=== PATIENT | male | born 1965 | race Caucasian/White ===

== ENCOUNTER 2020-08-27 17:03 | Inpatient (IN) | payer OTHER ==
[2020-08-27] MEDS ORDERED: SODIUM CHLORIDE 0.9% 1,000 ML IV STA (17:13)
--- NOTE | 2020-08-27 17:15 | ED ---
General Adult HPI - General Chief complaint: Shortness of Breath Stated complaint: SOB Time Seen by Provider: 08/27/20 17:08 Source: EMS Mode of arrival: EMS Limitations: altered mental status - History of Present Illness Initial comments: Dictation was produced using [employer] dictation software. please excuse any grammatical, word or spelling errors. Chief Complaint: 55-year-old obese male presents with EMS for lethargy History of Present Illness: 35-year-old male presents to the emergency department by EMS from home. Patient was brought in for lethargy dyspnea. EMS reports the patient hypoxic. EMS reports that patient looks like he has pickwickian syndrome. His hypoxic in the 70s and 80s was placed on noninvasive ventilation. They report her sugar was 137. Patient unable to provide history of present illness at this time secondary lethargy. The ROS documented in this emergency department record has been reviewed and confirmed by me. Those systems with pertinent positive or negative responses have been documented in the HPI. All other systems are other negative and/or noncontributory. PHYSICAL EXAM: General Impression: Alert and oriented x3, lethargic however will respond with painful stimuli, arousable, pale, morbidly obese HEENT: Normocephalic atraumatic, extra-ocular movements intact, pupils equal and reactive to light bilaterally, dry mucous membranes Cardiovascular: Tachycardic Chest: Unable to hear breath sounds secondary to body habitus Abdomen: abdomen soft, non-tender, non-distended, no organomegaly Musculoskeletal: Pulses present and equal in all extremities, lymphedema changes to the bilateral lower extremities Motor: no focal deficits noted Neurological: CN II-XII grossly intact, no focal motor or sensory deficits noted Skin: Intact with no visualized rashes ED course: 55-year-old male brought in for lethargy and hypoxia. Vital signs upon arrival shows heart rate of 109, respiratory rate of 32, 86% on CPAP. She was immediately placed on BiPAP. CBC is unremarkable. Coag panel shows INR 3.2. Patient is a Q-wave for DVT. D-dimer 0.34. Blood gas shows pH of 7.13, pCO2 117 pO2 31 and bicarb of 39. Potassium 6.3 however patient not bradycardic. We will recheck to confirm possible hyperkalemia. Rest of labs are within acceptable limits. 4 panel virus PCR is negative for influenza, RSV and coronavirus. Chest x-ray is nonacute. Repeat blood gas shows pH of 7.202, pCO2 104, bicarb of 40.9. Case discussed with spent grain dryer was went except patient's care. Patient at this point is clinically stable on noninvasive ventilation. [employer] Machine Operator is agreeable with plan. Clinical presentation consistent with obesity hypoventilation syndrome. EKG interpretation: Ventricular rate 106, sinus tachycardia,. Interval 140, QRS 102, QTc 443. No ND prolongation, no QTC prolongation, no ST or T-wave changes noted. . Overall, this EKG is unremarkable - Related Data Allergies Allergy/AdvReac Type Severity Reaction Status Date / Time No Known Allergies Allergy Verified 08/27/20 17:19 Review of Systems ROS Statement: Those systems with pertinent positive or pertinent negative responses have been documented in the HPI. ROS Other: All systems not noted in ROS Statement are negative. Past Medical History Past Medical History: Diabetes Mellitus, GERD/Reflux, Hypertension History of Any Multi-Drug Resistant Organisms: Unobtainable Past Surgical History: Unable to Obtain Past Psychological History: Unable to Obtain Smoking Status: Unknown if ever smoked Past Alcohol Use History: None Reported Past Drug Use History: Unable to Obtain General Exam Limitations: altered mental status Course Vital Signs 08/27/20 08/27/20 08/27/20 17:09 17:16 17:41 Temperature 97.9 F Pulse Rate 109 H 102 H Respiratory 32 H 32 H 28 H Rate Blood Pressure 143/75 143/75 O2 Sat by Pulse 86 L 91 L Oximetry 08/27/20 18:52 Temperature 97.8 F Pulse Rate 105 H Respiratory 24 Rate Blood Pressure 150/84 O2 Sat by Pulse 93 L Oximetry Medical Decision Making - Lab Data Result diagrams: 08/27/20 17:23 08/27/20 17:23 Lab Results 08/27/20 08/27/20 08/27/20 Range/Units 17:15 17:23 17:23 WBC 8.9 (3.8-10.6) k/uL RBC 4.83 (4.30-5.90) m/uL Hgb 12.4 L (13.0-17.5) gm/dL Hct 41.5 (39.0-53.0) % MCV 86.0 (80.0-100.0) fL MCH 25.6 (25.0-35.0) pg MCHC 29.8 L (31.0-37.0) g/dL RDW 17.4 H (11.5-15.5) % Plt Count 206 (150-450) k/uL MPV 9.7 Neutrophils % 71 % Lymphocytes % 15 % Monocytes % 9 % Eosinophils % 1 % Basophils % 3 % Neutrophils # 6.3 (1.3-7.7) k/uL Lymphocytes # 1.3 (1.0-4.8) k/uL Monocytes # 0.8 (0-1.0) k/uL Eosinophils # 0.1 (0-0.7) k/uL Basophils # 0.2 (0-0.2) k/uL Hypochromasia Marked Anisocytosis Slight PT (9.0-12.0) sec INR (<1.2) APTT (22.0-30.0) sec D-Dimer (<0.60) mg/L FEU Sample Site Right Radial ABG pH 7.13 L* (7.35-7.45) ABG pCO2 117 H* (35-45) mmHg ABG pO2 301 H (83-108) mmHg ABG HCO3 39 H (21-25) mmol/L ABG Total CO2 43 H (19-24) mmol/L ABG O2 Saturation 100.0 H (94-97) % ABG Base Excess 10.1 mmol/L Stalin Test Yes FiO2 100 % Sodium 135 L (137-145) mmol/L Potassium 6.3 H* (3.5-5.1) mmol/L Chloride 94 L (98-107) mmol/L Carbon Dioxide 38 H (22-30) mmol/L Anion Gap 3 mmol/L BUN 19 (9-20) mg/dL Creatinine 0.96 (0.66-1.25) mg/dL Est GFR (CKD-EPI)AfAm >90 (>60 ml/min/1.73 sqM) Est GFR (CKD-EPI)NonAf 90 (>60 ml/min/1.73 sqM) Glucose 132 H (74-99) mg/dL Plasma Lactic Acid Declan (0.7-2.0) mmol/L Calcium 8.3 L (8.4-10.2) mg/dL Magnesium 2.2 (1.6-2.3) mg/dL Total Bilirubin 0.5 (0.2-1.3) mg/dL AST 40 (17-59) U/L ALT 24 (4-49) U/L Alkaline Phosphatase 92 (38-126) U/L Troponin I (0.000-0.034) ng/mL C-Reactive Protein 5.0 H (<1.0) mg/dL NT-Pro-B Natriuret Pep pg/mL Total Protein 7.3 (6.3-8.2) g/dL Albumin 4.0 (3.5-5.0) g/dL Influenza Type A (PCR) (Not Detectd) Influenza Type B (PCR) (Not Detectd) RSV (PCR) (Not Detectd) SARS-CoV-2 (PCR) (Not Detectd) 08/27/20 08/27/20 08/27/20 Range/Units 17:23 17:23 17:23 WBC (3.8-10.6) k/uL RBC (4.30-5.90) m/uL Hgb (13.0-17.5) gm/dL Hct (39.0-53.0) % MCV (80.0-100.0) fL MCH (25.0-35.0) pg MCHC (31.0-37.0) g/dL RDW (11.5-15.5) % Plt Count (150-450) k/uL MPV Neutrophils % % Lymphocytes % % Monocytes % % Eosinophils % % Basophils % % Neutrophils # (1.3-7.7) k/uL Lymphocytes # (1.0-4.8) k/uL Monocytes # (0-1.0) k/uL Eosinophils # (0-0.7) k/uL Basophils # (0-0.2) k/uL Hypochromasia Anisocytosis PT 30.9 H (9.0-12.0) sec INR 3.2 H (<1.2) APTT 42.3 H (22.0-30.0) sec D-Dimer 0.34 (<0.60) mg/L FEU Sample Site ABG pH (7.35-7.45) ABG pCO2 (35-45) mmHg ABG pO2 (83-108) mmHg ABG HCO3 (21-25) mmol/L ABG Total CO2 (19-24) mmol/L ABG O2 Saturation (94-97) % ABG Base Excess mmol/L Stalin Test FiO2 % Sodium (137-145) mmol/L Potassium (3.5-5.1) mmol/L Chloride (98-107) mmol/L Carbon Dioxide (22-30) mmol/L Anion Gap mmol/L BUN (9-20) mg/dL Creatinine (0.66-1.25) mg/dL Est GFR (CKD-EPI)AfAm (>60 ml/min/1.73 sqM) Est GFR (CKD-EPI)NonAf (>60 ml/min/1.73 sqM) Glucose (74-99) mg/dL Plasma Lactic Acid Declan 1.2 (0.7-2.0) mmol/L Calcium (8.4-10.2) mg/dL Magnesium (1.6-2.3) mg/dL Total Bilirubin (0.2-1.3) mg/dL AST (17-59) U/L ALT (4-49) U/L Alkaline Phosphatase (38-126) U/L Troponin I <0.012 (0.000-0.034) ng/mL C-Reactive Protein (<1.0) mg/dL NT-Pro-B Natriuret Pep pg/mL Total Protein (6.3-8.2) g/dL Albumin (3.5-5.0) g/dL Influenza Type A (PCR) (Not Detectd) Influenza Type B (PCR) (Not Detectd) RSV (PCR) (Not Detectd) SARS-CoV-2 (PCR) (Not Detectd) 08/27/20 08/27/20 Range/Units 17:23 17:45 WBC (3.8-10.6) k/uL RBC (4.30-5.90) m/uL Hgb (13.0-17.5) gm/dL Hct (39.0-53.0) % MCV (80.0-100.0) fL MCH (25.0-35.0) pg MCHC (31.0-37.0) g/dL RDW (11.5-15.5) % Plt Count (150-450) k/uL MPV Neutrophils % % Lymphocytes % % Monocytes % % Eosinophils % % Basophils % % Neutrophils # (1.3-7.7) k/uL Lymphocytes # (1.0-4.8) k/uL Monocytes # (0-1.0) k/uL Eosinophils # (0-0.7) k/uL Basophils # (0-0.2) k/uL Hypochromasia Anisocytosis PT (9.0-12.0) sec INR (<1.2) APTT (22.0-30.0) sec D-Dimer (<0.60) mg/L FEU Sample Site ABG pH (7.35-7.45) ABG pCO2 (35-45) mmHg ABG pO2 (83-108) mmHg ABG HCO3 (21-25) mmol/L ABG Total CO2 (19-24) mmol/L ABG O2 Saturation (94-97) % ABG Base Excess mmol/L Stalin Test FiO2 % Sodium (137-145) mmol/L Potassium (3.5-5.1) mmol/L Chloride (98-107) mmol/L Carbon Dioxide (22-30) mmol/L Anion Gap mmol/L BUN (9-20) mg/dL Creatinine (0.66-1.25) mg/dL Est GFR (CKD-EPI)AfAm (>60 ml/min/1.73 sqM) Est GFR (CKD-EPI)NonAf (>60 ml/min/1.73 sqM) Glucose (74-99) mg/dL Plasma Lactic Acid Declan (0.7-2.0) mmol/L Calcium (8.4-10.2) mg/dL Magnesium (1.6-2.3) mg/dL Total Bilirubin (0.2-1.3) mg/dL AST (17-59) U/L ALT (4-49) U/L Alkaline Phosphatase (38-126) U/L Troponin I (0.000-0.034) ng/mL C-Reactive Protein (<1.0) mg/dL NT-Pro-B Natriuret Pep 2680 pg/mL Total Protein (6.3-8.2) g/dL Albumin (3.5-5.0) g/dL Influenza Type A (PCR) Not Detected (Not Detectd) Influenza Type B (PCR) Not Detected (Not Detectd) RSV (PCR) Not Detected (Not Detectd) SARS-CoV-2 (PCR) Not Detected (Not Detectd) Disposition Clinical Impression: Obesity hypoventilation syndrome Disposition: ADMITTED IP TO THIS [facility] Condition: Critical Referrals: Saroj Beltran MD [Primary Care Provider] - 1-2 days
[2020-08-27 17:21] LABS: ABG Base Excess 10.1 mmol/L; ABG HCO3 39 mmol/L (21-25); ABG PO2 301 mmHg (83-108); ABG TCO2 43 mmol/L (19-24); Allen Test Performed? Yes
[2020-08-27 17:34] LABS: Anisocytosis Slight; Basophils # (A) 0.2 k/uL (0-0.2); Basophils % (A) 3 %; Eosinophils # (A) 0.1 k/uL (0-0.7); Eosinophils % (A) 1 %; HCT 41.5 % (39.0-53.0); HGB 12.4 gm/dL (13.0-17.5); Hypochromasia Marked; Lymphocytes # (A) 1.3 k/uL (1.0-4.8); Lymphocytes % (A) 15 %; MCH 25.6 pg (25.0-35.0); MCHC 29.8 g/dL (31.0-37.0); Mean Platelet Volume 9.7; Monocytes # (A) 0.8 k/uL (0-1.0); Monocytes % (A) 9 %; Neutrophils # (A) 6.3 k/uL (1.3-7.7); Neutrophils % (A) 71 %; Platelet Count 206 k/uL (150-450); RBC 4.83 m/uL (4.30-5.90); RDW 17.4 % (11.5-15.5); WBC 8.9 k/uL (3.8-10.6)
[2020-08-27 17:40] LABS: ABG PH 7.13 (7.35-7.45)
[2020-08-27 17:41] LABS: ABG PCO2 117 mmHg (35-45)
[2020-08-27 17:45] LABS: ALT 24 U/L (4-49); AST 40 U/L (17-59); African American GFR (CKD) >90 (>60 ml/min/1.73 sqM); Alkaline Phosphatase 92 U/L (38-126); Anion Gap 3 mmol/L; Blood Urea Nitrogen 19 mg/dL (9-20); Calcium 8.3 mg/dL (8.4-10.2); Carbon Dioxide 38 mmol/L (22-30); Chloride 94 mmol/L (98-107); Glucose 132 mg/dL (74-99); Magnesium 2.2 mg/dL (1.6-2.3); Non-African American GFR(CKD) 90 (>60 ml/min/1.73 sqM); Sodium 135 mmol/L (137-145); Total Bilirubin 0.5 mg/dL (0.2-1.3); Total Protein 7.3 g/dL (6.3-8.2)
[2020-08-27 17:50] LABS: D-Dimer 0.34 mg/L FEU (<0.60); INR 3.2 (<1.2); Partial Thromboplastin Time 42.3 sec (22.0-30.0); Prothrombin Time 30.9 sec (9.0-12.0)
--- NOTE | 2020-08-27 18:07 | XR ---
EXAMINATION TYPE: XR chest 1V portable DATE OF EXAM: 08/27/2020 COMPARISON: NONE HISTORY: Hypoxemia TECHNIQUE: Single view FINDINGS: There is no heart failure nor confluent pneumonic infiltrate. Costophrenic angles are clear . There are chest leads. Bony thorax is intact. IMPRESSION: No active cardiopulmonary disease. Normal heart.
[2020-08-27 18:22] LABS: Potassium 6.3 mmol/L (3.5-5.1)
[2020-08-27 18:56] LABS: ABG Base Excess 12.9 mmol/L; ABG Oxygen Saturation 85.5 % (94-97); ABG TCO2 44 mmol/L (19-24); Allen Test Performed? Yes
[2020-08-27] MEDS ORDERED: ACETAMINOPHEN SUPPOSITORY 650 MG SUPP RECTAL PRN (18:58)
[2020-08-27] MEDS ORDERED: NALOXONE 0.4 MG/ML 1 ML VIAL IV PRN (18:58)
[2020-08-27 18:59] LABS: ABG HCO3 41 mmol/L (21-25); ABG PCO2 104 mmHg (35-45); ABG PO2 53 mmHg (83-108)
[2020-08-27 22:35] LABS: Glucose,Whole Blood 143 mg/dL (75-99)
[2020-08-27] MEDS: SODIUM CHLORIDE 0.9% 1,000 ML IV SCH (23:20)
[2020-08-28 05:16] LABS: Anisocytosis Slight; Basophils # (A) 0.1 k/uL (0-0.2); Basophils % (A) 1 %; Eosinophils % (A) 0 %; HCT 40.1 % (39.0-53.0); HGB 11.4 gm/dL (13.0-17.5); Hypochromasia Marked; Lymphocytes # (A) 1.2 k/uL (1.0-4.8); Lymphocytes % (A) 14 %; MCH 24.9 pg (25.0-35.0); MCHC 28.4 g/dL (31.0-37.0); MCV 87.5 fL (80.0-100.0); Mean Platelet Volume 9.6; Monocytes # (A) 0.7 k/uL (0-1.0); Monocytes % (A) 8 %; Neutrophils # (A) 6.8 k/uL (1.3-7.7); Neutrophils % (A) 75 %; Platelet Count 200 k/uL (150-450); RBC 4.58 m/uL (4.30-5.90); RDW 17.2 % (11.5-15.5)
[2020-08-28 05:23] LABS: ALT 23 U/L (4-49); AST 30 U/L (17-59); African American GFR (CKD) >90 (>60 ml/min/1.73 sqM); Albumin 3.8 g/dL (3.5-5.0); Alkaline Phosphatase 97 U/L (38-126); Anion Gap 4 mmol/L; Blood Urea Nitrogen 17 mg/dL (9-20); Calcium 8.7 mg/dL (8.4-10.2); Chloride 94 mmol/L (98-107); Glucose 134 mg/dL (74-99); Magnesium 2.3 mg/dL (1.6-2.3); Non-African American GFR(CKD) >90 (>60 ml/min/1.73 sqM); Potassium 5.5 mmol/L (3.5-5.1); Sodium 138 mmol/L (137-145); Total Bilirubin 0.4 mg/dL (0.2-1.3)
[2020-08-28 05:30] LABS: Carbon Dioxide 40 mmol/L (22-30)
[2020-08-28] MEDS: SODIUM CHLORIDE 0.9% 1,000 ML IV SCH ×2 (06:29→09:18)
--- NOTE | 2020-08-28 07:27 | XR ---
EXAMINATION TYPE: XR chest 1V portable DATE OF EXAM: 08/28/2020 HISTORY: Shortness of breath. COMPARISON: 08/27/2020 TECHNIQUE: Single view of the chest is submitted. FINDINGS: Demonstrated are scattered senescent parenchymal change. There is no evidence for focal infiltrate. The heart is stable. Hilar and mediastinal structures are within normal limits. Degenerative changes are seen of the dorsal spine. IMPRESSION: 1. Chronic changes without evidence for acute pulmonary disease.
[2020-08-28 07:34] LABS: ABG Base Excess 13.3 mmol/L; ABG Oxygen Saturation 92.8 % (94-97); ABG PO2 72 mmHg (83-108); ABG TCO2 45 mmol/L (19-24); Allen Test Performed? Yes
[2020-08-28 07:36] LABS: ABG PCO2 115 mmHg (35-45); ABG PH 7.17 (7.35-7.45)
[2020-08-28 07:37] LABS: ABG HCO3 42 mmol/L (21-25)
[2020-08-28] MEDS: methylPREDNISolone SOD SUCCI 40 MG/ML 1 ML VIAL IV SCH ×4 (08:40→23:29)
[2020-08-28] MEDS: FUROSEMIDE 10 MG/ML 4 ML VIAL IV SCH ×3 (08:40→23:39)
[2020-08-28] MEDS ORDERED: ENOXAPARIN 40 MG/0.4 ML SYRINGE SQ SCH (09:00)
[2020-08-28 09:09] LABS: ABG Base Excess 13.9 mmol/L; ABG Oxygen Saturation 84.7 % (94-97); ABG PH 7.23 (7.35-7.45); ABG TCO2 45 mmol/L (19-24); Allen Test Performed? Yes
[2020-08-28 09:12] LABS: ABG PCO2 100 mmHg (35-45)
[2020-08-28 09:13] LABS: ABG HCO3 42 mmol/L (21-25); ABG PO2 51 mmHg (83-108)
[2020-08-28] MEDS: PANTOPRAZOLE 40 MG/10 ML VIAL IVP SCH ×2 (09:17→23:29)
[2020-08-28] MEDS: GABAPENTIN 400 MG CAP PO SCH ×2 (11:05→22:42)
[2020-08-28 11:28] LABS: INR 3.3 (<1.2); Prothrombin Time 31.8 sec (9.0-12.0)
--- NOTE | 2020-08-28 11:37 | P.CNPUL ---
History of Present Illness Consult date: 08/28/20 Requesting physician: Deng Anderson Reason for consult: other (Acute on chronic hypoxic and hypercapnic respiratory failure) Chief complaint: Change in mental status and lethargy History of present illness: This is a 55-year-old white male with morbid obesity. Underlying obstructive sleep apnea syndrome, obesity hypoventilation syndrome. Patient was brought in by EMS from home with chief complaint of lethargy and dyspnea patient was noted to be hypoxic when EMS arrived. And he was having intermittent episodes of apnea/pickwickian syndrome. He was noted to have O2 saturation in the 70s and 80s on noninvasive ventilation. The patient himself is not a great historian, patient was brought into the ER, and he was noted to have significant hypoxic and hypercapnic respiratory failure his initial ABG showed a pO2 of 53 pCO2 104 pH of 7.20. Most recent ABG showed a pO2 of 51 pCO2 of 100 pH of 7.23, and this is on BiPAP with IPAP of 18, EPAP 5, FiO2 of 35%. Labs were basically unrema rkable except for slightly elevated BNP level. Influenza screening and coronavirus screening was negative. Chest x-ray showed no evidence of active disease. Patient was admitted to the ICU, and I saw him this morning on consultation. Patient is lethargic, arousable, but not oriented to time and place or person. He is definitely confused, and on BiPAP. Seems to be tolerating the BiPAP quite well in spite of high IPAP. He is now on IPAP of 18. He is moving fairly good amount of tidal volumes anywhere between 400-500. Considering the patient is compliant with the BiPAP, and considering that the patient remains arousable although he is not fully oriented, I will try to manage the patient with BiPAP, however if his condition gets a bit worse, may have to be intubated and placed on mechanical ventilation. Review of Systems ROS unobtainable: due to mental status Past Medical History Past Medical History: Diabetes Mellitus, GERD/Reflux, Hypertension Additional Past Medical History / Comment(s): (L) leg DVT, hx of sepsis r/t cellulitis History of Any Multi-Drug Resistant Organisms: None Reported Past Surgical History: Unable to Obtain Past Psychological History: No Psychological Hx Reported Smoking Status: Current every day smoker Past Alcohol Use History: None Reported Past Drug Use History: Unable to Obtain Medications and Allergies Home Medications Medication Instructions Recorded Confirmed Type Albuterol Sulfate [Proair Hfa] 2 puff INHALATION RT-Q4H PRN 08/27/20 08/27/20 History Amoxicillin/Potassium Clav 1 tab PO BID 08/27/20 08/27/20 History [Augmentin 875-125 Tablet] Docusate [Colace] 100 mg PO DAILY 08/27/20 08/27/20 History Furosemide [Lasix] 20 mg PO DAILY 08/27/20 08/27/20 History Gabapentin [Neurontin] 400 mg PO BID 08/27/20 08/27/20 History HYDROcodone/APAP 10-325MG [[place] 1 tab PO Q4-6H PRN 08/27/20 08/27/20 History 10-325] Ipratropium-Albuterol Nebulize 3 ml INHALATION RT-QID PRN 08/27/20 08/27/20 History [Duoneb 0.5 mg-3 mg/3 ml Soln] Pantoprazole [Protonix] 40 mg PO BID 08/27/20 08/27/20 History Potassium Chloride [Klor-Con 10] 10 meq PO DAILY 08/27/20 08/27/20 History Warfarin Sodium [Jantoven] 3 mg PO DAILY 08/27/20 08/27/20 History Allergies Allergy/AdvReac Type Severity Reaction Status Date / Time No Known Allergies Allergy Verified 08/27/20 19:05 Physical Exam Vitals: Vital Signs Temp Pulse Resp BP Pulse Ox 08/28/20 11:00 92 19 155/81 91 L 08/28/20 10:00 92 19 145/64 92 L 08/28/20 09:00 89 12 166/76 83 L 08/28/20 08:00 97.8 F 96 15 156/72 95 08/28/20 07:00 95 20 170/77 89 L 08/28/20 06:00 92 19 158/81 90 L 08/28/20 05:00 97 31 H 149/75 91 L 08/28/20 04:00 98.8 F 93 26 H 145/91 89 L 08/28/20 03:00 94 27 H 174/88 94 L 08/28/20 02:00 93 25 H 186/90 87 L 08/28/20 01:00 97 36 H 154/88 85 L 08/28/20 00:00 98.6 F 104 H 14 164/70 85 L 08/27/20 23:06 106 H 30 H 164/70 89 L 08/27/20 23:00 98.2 F 101 H 21 158/83 91 L 08/27/20 22:07 98.2 F 101 H 28 H 136/79 92 L 08/27/20 21:51 100 26 H 173/87 90 L 08/27/20 21:00 106 H 18 92 L 08/27/20 20:19 110 H 22 124/97 95 08/27/20 18:52 97.8 F 105 H 24 150/84 93 L 08/27/20 17:41 102 H 28 H 143/75 91 L 08/27/20 17:16 32 H 08/27/20 17:09 97.9 F 109 H 32 H 143/75 86 L Intake and Output 08/27/20 08/28/20 08/28/20 22:59 06:59 14:59 Intake Total 360 840 230 Output Total 817 381 7724 Balance -180 440 -1555 Intake: IV 360 840 180 Sodium Chloride 0.9% 1, 60 000 ml @ 20 mls/hr IV . Q24H [facility] Rx#:[id number] Sodium Chloride 0.9% 1, 360 840 120 000 ml @ 50 mls/hr IV . Q20H [facility] Rx#:[id number] Intake, IV Titration 50 Amount ceFAZolin 2 gm In Sodium 50 Chloride 0.9% 50 ml @ 100 mls/hr IVPB Q12HR [facility] Rx #:[id number] Output: Urine [phone] Other: Voiding Method Indwelling Catheter Indwelling Catheter Weight 235.3 kg 233.5 kg Physical Exam: Revealed a 55-year-old white male, morbidly obese, on BiPAP, arousable but does not seem to be oriented, confused. Follows simple instructions. Head: Atraumatic, normocephalic. HEENT:[Neck is supple.] [No neck masses.] [No thyromegaly.] [No JVD.] Chest: Symmetrical chest expansion, rhonchi and wheezes noted bilaterally. Cardiac Exam: Distant S1 and S2, no S3 gallop, no murmur. Abdomen: [Morbidly obese, Soft, nontender, no megaly, no rebound, no guarding, normal bowel sounds.] Extremities: 2+ bipedal edema, evidence of cellulitis of lower extremities bilaterally with erythema. Diminished distal pulses bilaterally. Neurological Exam: Lethargic, but arousable, follows instructions, does not seem to be oriented to place and time or person. Psychiatric: Depressed mood blunt affect and poor mental status. Skin: Evidence of cellulitis involving both lower extremities. Results - Laboratory Findings CBC and BMP: 08/28/20 04:36 08/28/20 04:36 ABG ABG pH 7.23 (7.35-7.45) L 08/28/20 09:05 ABG pCO2 100 mmHg (35-45) H* 08/28/20 09:05 ABG pO2 51 mmHg (83-108) L* 08/28/20 09:05 ABG O2 Saturation 84.7 % (94-97) L 08/28/20 09:05 PT/INR, D-dimer PT 30.9 sec (9.0-12.0) H 08/27/20 17:23 INR 3.2 (<1.2) H 08/27/20 17:23 D-Dimer 0.34 mg/L FEU (<0.60) 08/27/20 17:23 Abnormal lab findings: Abnormal Labs 08/27/20 08/27/20 08/27/20 17:15 17:23 17:23 Hgb 12.4 L MCH MCHC 29.8 L RDW 17.4 H PT INR APTT ABG pH 7.13 L* ABG pCO2 117 H* ABG pO2 301 H ABG HCO3 39 H ABG Total CO2 43 H ABG O2 Saturation 100.0 H Sodium 135 L Potassium 6.3 H* Chloride 94 L Carbon Dioxide 38 H Glucose 132 H POC Glucose (mg/dL) Calcium 8.3 L C-Reactive Protein 5.0 H 08/27/20 08/27/20 08/27/20 17:23 18:53 19:36 Hgb MCH MCHC RDW PT 30.9 H INR 3.2 H APTT 42.3 H ABG pH 7.20 L ABG pCO2 104 H* ABG pO2 53 L* ABG HCO3 41 H* ABG Total CO2 44 H ABG O2 Saturation 85.5 L Sodium Potassium 5.8 H Chloride Carbon Dioxide Glucose POC Glucose (mg/dL) Calcium C-Reactive Protein 08/27/20 08/28/20 08/28/20 22:34 04:36 04:36 Hgb 11.4 L MCH 24.9 L MCHC 28.4 L RDW 17.2 H PT INR APTT ABG pH ABG pCO2 ABG pO2 ABG HCO3 ABG Total CO2 ABG O2 Saturation Sodium Potassium 5.5 H Chloride 94 L Carbon Dioxide 40 H Glucose 134 H POC Glucose (mg/dL) 143 H Calcium C-Reactive Protein 08/28/20 08/28/20 07:22 09:05 Hgb MCH MCHC RDW PT INR APTT ABG pH 7.17 L* 7.23 L ABG pCO2 115 H* 100 H* ABG pO2 72 L 51 L* ABG HCO3 42 H* 42 H* ABG Total CO2 45 H 45 H ABG O2 Saturation 92.8 L 84.7 L Sodium Potassium Chloride Carbon Dioxide Glucose POC Glucose (mg/dL) Calcium C-Reactive Protein - Diagnostic Findings Chest x-ray: image reviewed (As noted in HPI.) Assessment and Plan Assessment: Impression: Acute on chronic hypoxic and hypercapnic respiratory failure, secondary to obesity/hypoventilation syndrome. Obesity/hypoventilation syndrome Suspect some component of acute exacerbation of COPD Chronic cor pulmonale Acute cellulitis of lower extremities Morbid obesity BMI of 71.8. Acute metabolic encephalopathy secondary to hypoxia and mostly secondary to hypercapnia Recommendation: Continue BiPAP with IPAP of 18 EPAP of 5 and FiO2 of 35% and titrate maintaining O2 saturation in the high 80s and low 90s. Continue to monitor mental status closely, if deteriorates and the patient is unarousable, with recommended immediate intubation. Consider CT of the head however the patient is extremely obese and he would not fit in scanner. Continue bronchodilators. Continue steroids. Diuretics for his cor pulmonale. DVT prophylaxis. GI prophylaxis. Prognosis is poor and guarded. We'll continue to follow. Time with Patient: Greater than 30
[2020-08-28] MEDS: IPRATROPIUM-ALBUTEROL 3 ML NEB INHALATION SCH ×4 (11:40→23:56)
[2020-08-28 13:43] LABS: Hemoglobin A1C 5.7 % (4.0-6.0)
[2020-08-28 17:07] LABS: ABG Base Excess 18.9 mmol/L; ABG Oxygen Saturation 93.6 % (94-97); ABG PCO2 68 mmHg (35-45); ABG PH 7.42 (7.35-7.45); ABG TCO2 46 mmol/L (19-24); Allen Test Performed? Yes
[2020-08-28 17:14] LABS: ABG HCO3 43 mmol/L (21-25); ABG PO2 59 mmHg (83-108)
[2020-08-28] MEDS: DEXMEDETOMIDINE/0.9% NACL(PMX) 400 MCG in EMPTY BAG 1 BAG IV SCH ×2 (17:35→19:30)
[2020-08-28] MEDS ORDERED: WARFARIN 2.5 MG TAB PO ONE (18:00)
[2020-08-28] MEDS ORDERED: VANCOMYCIN IV PER PHARMACY 1 EACH MISC MISCELLANE PRN (18:01)
[2020-08-28 18:10] LABS: Glucose,Whole Blood 139 mg/dL (75-99)
[2020-08-28] MEDS ORDERED: VANCOMYCIN 2,500 MG in SODIUM CHLORIDE 0.9% 500 ML 500 ML IVPB ONE (18:15)
--- NOTE | 2020-08-28 19:52 | P.HPIM ---
History of Present Illness H&P Date: 08/28/20 Chief Complaint: Lethargic History of presenting complaint: This is a 55-year-old patient, who follows with Dr. Saroj Beltran. EMS was called out. Upon arrival patient's phone in the chair awake but somewhat slow to respond. Patient's friend at trying to: Without answering and came over to find him think that. Patient's arms were twitching that is new according to the friend and patient was slow to respond and somewhat delirious. Patient's pulse ox was found to be 81%. EKG showed sinus tachycardia. Accu-Chek was 154. Chavies Coma Scale was 13. Pulse was regular. Patient's home oxygen 3 L. Patient was cyanotic. Put on a non-breather at 15 L. Patient was then transferred to the ICU. Put on a BiPAP. IPAP of 18, EPAP of 5 with 30%. Patient also started on Precedex. Patient is somewhat delirious. The able to answer some questions. Pain Ayleen is moving his limbs about. Review of systems cannot be obtained because patient is delirious Past medical history to include: Diabetes, GERD, hypertension, left leg DVT, lower extremity cellulitis. Home oxygen 3 L Social history: Patient lives with his daughter's family. Smoker. 3 L of oxygen at home. Family history: Patient cannot tell Physical examination: VITAL SIGNS: 97.9, 109, 32, 143/75, 86% on CPAP/upon presentation GENERAL: BMI 71.8, laying in bed, BiPAP, moving arms. EYES: Pupils equal. Conjunctiva normal. HEENT: External appearance of nose and ears normal, oral cavity grossly normal. NECK: Short and thick:: JVD unable to assess; masses not palpable. HEART: Heart sounds distant; mild edema. LUNGS: Respiratory rate increased, distant breath sounds. ABDOMEN: Soft, nontender, liver spleen not palpable, no masses palpable. PSYCH: Lethargic, arousable, delirious, able to answer some questionsl. NEUROLOGICAL: [Cranial nerves grossly intact; no facial asymmetry, moving his l imbs DERMATOLOGICAL: Redness between the groin folds. Redness above the ankles both the legs. LYMPHATICS: No lymph nodes palpable in the axilla and neck INVESTIGATIONS, reviewed in the clinical context: Repeat potassium 4.9 WBC 8.9 hemoglobin 12.4 platelets 206 INR 3.2 ABG: PH 7.13 pCO2 117, 100% FiO2 Potassium 6.3 bicarb 28 creatinine 0.96 Troponin I less than 0.012 proBNP 2680 Influenza type A type B, RSV [PCR]Coronavirus [PCR]: Not detected EKG tracing personally reviewed by me-elsie QRS. Nonspecific ST-T wave changes, sinus tachycardia Chest x-ray film personally reviewed by me-lung acosta clear Assessment and plan: -Acute mental status changes, felt to be from hypoxic encephalopathy from underlying obesity hypoventilation syndrome, contribution from COPD exacerbation -Acute hypoxic and hypercapnic respiratory failure from obesity hypoventilation syndrome and COPD. Patient currently on BiPAP setting it 18/5/30% -Chronic hypoxic and hypercapnic respiratory failure, patient uses 3 L of oxygen at home -Acute respiratory acidosis -Morbid obesity BMI 71.8 Dietitian consult for weight loss measures -Hyperkalemia Corrected -Peripheral neuropathy On Neurontin -GERD Continue Protonix -Accelerated hypertension On Precedex drip -Chronic lower extremity DVT for which patient is on Coumadin. If patient unable to take Coumadin will then use Lovenox. -Acute COPD exacerbation in a current smoker DuoNeb, IV Solu-Medrol -Chronic nicotine dependence, cigarette smoker Nicotine patch -Chronic venous stasis dermatitis lower extremity Silvadene cream with Kerlix and Alan wrap -Cutaneous intertriginous candidiasis Nystatin powder twice daily Patient's currently because ICU. Precedex drip. BiPAP. [facility] consulted. Bronchodilators. Silvadene cream with Kerlix and Alan wrap lower extremity. Given the complexity and severity of patient's condition expect the patient to be in the hospital at least for 2 overnights Past Medical History Past Medical History: Diabetes Mellitus, GERD/Reflux, Hypertension Additional Past Medical History / Comment(s): (L) leg DVT, hx of sepsis r/t cellulitis History of Any Multi-Drug Resistant Organisms: None Reported Past Surgical History: Unable to Obtain Past Psychological History: No Psychological Hx Reported Smoking Status: Current every day smoker Past Alcohol Use History: None Reported Past Drug Use History: Unable to Obtain Medications and Allergies Home Medications Medication Instructions Recorded Confirmed Type Albuterol Sulfate [Proair Hfa] 2 puff INHALATION RT-Q4H PRN 08/27/20 08/27/20 History Amoxicillin/Potassium Clav 1 tab PO BID 08/27/20 08/27/20 History [Augmentin 875-125 Tablet] Docusate [Colace] 100 mg PO DAILY 08/27/20 08/27/20 History Furosemide [Lasix] 20 mg PO DAILY 08/27/20 08/27/20 History Gabapentin [Neurontin] 400 mg PO BID 08/27/20 08/27/20 History HYDROcodone/APAP 10-325MG [[place] 1 tab PO Q4-6H PRN 08/27/20 08/27/20 History 10-325] Ipratropium-Albuterol Nebulize 3 ml INHALATION RT-QID PRN 08/27/20 08/27/20 History [Duoneb 0.5 mg-3 mg/3 ml Soln] Pantoprazole [Protonix] 40 mg PO BID 08/27/20 08/27/20 History Potassium Chloride [Klor-Con 10] 10 meq PO DAILY 08/27/20 08/27/20 History Warfarin Sodium [Jantoven] 3 mg PO DAILY 08/27/20 08/27/20 History Allergies Allergy/AdvReac Type Severity Reaction Status Date / Time No Known Allergies Allergy Verified 08/27/20 19:05 Physical Exam Vitals: Vital Signs Temp Pulse Resp BP Pulse Ox 08/28/20 10:00 92 19 145/64 92 L 08/28/20 09:00 89 12 166/76 83 L 08/28/20 08:00 97.8 F 96 15 156/72 95 08/28/20 07:00 95 20 170/77 89 L 08/28/20 06:00 92 19 158/81 90 L 08/28/20 05:00 97 31 H 149/75 91 L 08/28/20 04:00 98.8 F 93 26 H 145/91 89 L 08/28/20 03:00 94 27 H 174/88 94 L 08/28/20 02:00 93 25 H 186/90 87 L 08/28/20 01:00 97 36 H 154/88 85 L 08/28/20 00:00 98.6 F 104 H 14 164/70 85 L 08/27/20 23:06 106 H 30 H 164/70 89 L 08/27/20 23:00 98.2 F 101 H 21 158/83 91 L 08/27/20 22:07 98.2 F 101 H 28 H 136/79 92 L 08/27/20 21:51 100 26 H 173/87 90 L 08/27/20 21:00 106 H 18 92 L 08/27/20 20:19 110 H 22 124/97 95 08/27/20 18:52 97.8 F 105 H 24 150/84 93 L 08/27/20 17:41 102 H 28 H 143/75 91 L 08/27/20 17:16 32 H 08/27/20 17:09 97.9 F 109 H 32 H 143/75 86 L Intake and Output 08/27/20 08/28/20 08/28/20 22:59 06:59 14:59 Intake Total 360 840 210 Output Total 863 012 6311 Balance -180 440 -1175 Intake: IV 360 840 160 Sodium Chloride 0.9% 1, 40 000 ml @ 20 mls/hr IV . Q24H [facility] Rx#:[id number] Sodium Chloride 0.9% 1, 360 840 120 000 ml @ 50 mls/hr IV . Q20H [facility] Rx#:[id number] Intake, IV Titration 50 Amount ceFAZolin 2 gm In Sodium 50 Chloride 0.9% 50 ml @ 100 mls/hr IVPB Q12HR [facility] Rx #:[id number] Output: Urine 998 143 7635 Other: Voiding Method Indwelling Catheter Indwelling Catheter Weight 235.3 kg 233.5 kg Results CBC & Chem 7: 08/28/20 04:36 08/28/20 17:29 Labs: Abnormal Lab Results - Last 24 Hours (Table) 08/27/20 08/27/20 08/27/20 Range/Units 17:15 17:23 17:23 Hgb 12.4 L (13.0-17.5) gm/dL MCH (25.0-35.0) pg MCHC 29.8 L (31.0-37.0) g/dL RDW 17.4 H (11.5-15.5) % PT (9.0-12.0) sec INR (<1.2) APTT (22.0-30.0) sec ABG pH 7.13 L* (7.35-7.45) ABG pCO2 117 H* (35-45) mmHg ABG pO2 301 H (83-108) mmHg ABG HCO3 39 H (21-25) mmol/L ABG Total CO2 43 H (19-24) mmol/L ABG O2 Saturation 100.0 H (94-97) % Sodium 135 L (137-145) mmol/L Potassium 6.3 H* (3.5-5.1) mmol/L Chloride 94 L (98-107) mmol/L Carbon Dioxide 38 H (22-30) mmol/L Glucose 132 H (74-99) mg/dL POC Glucose (mg/dL) (75-99) mg/dL Calcium 8.3 L (8.4-10.2) mg/dL C-Reactive Protein 5.0 H (<1.0) mg/dL 08/27/20 08/27/20 08/27/20 Range/Units 17:23 18:53 19:36 Hgb (13.0-17.5) gm/dL MCH (25.0-35.0) pg MCHC (31.0-37.0) g/dL RDW (11.5-15.5) % PT 30.9 H (9.0-12.0) sec INR 3.2 H (<1.2) APTT 42.3 H (22.0-30.0) sec ABG pH 7.20 L (7.35-7.45) ABG pCO2 104 H* (35-45) mmHg ABG pO2 53 L* (83-108) mmHg ABG HCO3 41 H* (21-25) mmol/L ABG Total CO2 44 H (19-24) mmol/L ABG O2 Saturation 85.5 L (94-97) % Sodium (137-145) mmol/L Potassium 5.8 H (3.5-5.1) mmol/L Chloride (98-107) mmol/L Carbon Dioxide (22-30) mmol/L Glucose (74-99) mg/dL POC Glucose (mg/dL) (75-99) mg/dL Calcium (8.4-10.2) mg/dL C-Reactive Protein (<1.0) mg/dL 08/27/20 08/28/20 08/28/20 Range/Units 22:34 04:36 04:36 Hgb 11.4 L (13.0-17.5) gm/dL MCH 24.9 L (25.0-35.0) pg MCHC 28.4 L (31.0-37.0) g/dL RDW 17.2 H (11.5-15.5) % PT (9.0-12.0) sec INR (<1.2) APTT (22.0-30.0) sec ABG pH (7.35-7.45) ABG pCO2 (35-45) mmHg ABG pO2 (83-108) mmHg ABG HCO3 (21-25) mmol/L ABG Total CO2 (19-24) mmol/L ABG O2 Saturation (94-97) % Sodium (137-145) mmol/L Potassium 5.5 H (3.5-5.1) mmol/L Chloride 94 L (98-107) mmol/L Carbon Dioxide 40 H (22-30) mmol/L Glucose 134 H (74-99) mg/dL POC Glucose (mg/dL) 143 H (75-99) mg/dL Calcium (8.4-10.2) mg/dL C-Reactive Protein (<1.0) mg/dL 08/28/20 08/28/20 Range/Units 07:22 09:05 Hgb (13.0-17.5) gm/dL MCH (25.0-35.0) pg MCHC (31.0-37.0) g/dL RDW (11.5-15.5) % PT (9.0-12.0) sec INR (<1.2) APTT (22.0-30.0) sec ABG pH 7.17 L* 7.23 L (7.35-7.45) ABG pCO2 115 H* 100 H* (35-45) mmHg ABG pO2 72 L 51 L* (83-108) mmHg ABG HCO3 42 H* 42 H* (21-25) mmol/L ABG Total CO2 45 H 45 H (19-24) mmol/L ABG O2 Saturation 92.8 L 84.7 L (94-97) % Sodium (137-145) mmol/L Potassium (3.5-5.1) mmol/L Chloride (98-107) mmol/L Carbon Dioxide (22-30) mmol/L Glucose (74-99) mg/dL POC Glucose (mg/dL) (75-99) mg/dL Calcium (8.4-10.2) mg/dL C-Reactive Protein (<1.0) mg/dL
[2020-08-28] MEDS ORDERED: cloNIDine 0.1 MG/24HR PATCH TRANSDERM SCH (20:00)
[2020-08-28 23:06] LABS: ABG Base Excess 19.8 mmol/L; ABG Oxygen Saturation 95.3 % (94-97); ABG PCO2 69 mmHg (35-45); ABG PH 7.42 (7.35-7.45); ABG PO2 69 mmHg (83-108); ABG TCO2 46 mmol/L (19-24); Allen Test Performed? Yes
[2020-08-28 23:09] LABS: ABG HCO3 44 mmol/L (21-25)
[2020-08-28] MEDS: NICOTINE 21MG/24HR PATCH TRANSDERM SCH (23:29)
[2020-08-28] MEDS: NYSTATIN 100,000 UNIT/GM POWD 15 GM TOPICAL SCH (23:29)
[2020-08-28 23:34] LABS: Glucose,Whole Blood 140 mg/dL (75-99)
[2020-08-28] MEDS: INSULIN ASPART (NovoLOG) 100 UNIT/ML VIAL SQ SCH (23:39)
[2020-08-29] MEDS: IPRATROPIUM-ALBUTEROL 3 ML NEB INHALATION SCH ×5 (03:45→21:10)
[2020-08-29] MEDS ORDERED: ENOXAPARIN 150 MG/ML SYRINGE SQ SCH (04:00)
[2020-08-29] MEDS: DEXMEDETOMIDINE/0.9% NACL(PMX) 400 MCG in EMPTY BAG 1 BAG IV SCH ×6 (05:00→16:03)
[2020-08-29 05:14] LABS: African American GFR (CKD) >90 (>60 ml/min/1.73 sqM); Anion Gap 6 mmol/L; Blood Urea Nitrogen 25 mg/dL (9-20); Carbon Dioxide 39 mmol/L (22-30); Chloride 91 mmol/L (98-107); Glucose 156 mg/dL (74-99); Non-African American GFR(CKD) >90 (>60 ml/min/1.73 sqM); Potassium 5.3 mmol/L (3.5-5.1); Sodium 136 mmol/L (137-145)
[2020-08-29 05:18] LABS: INR 3.3 (<1.2); Prothrombin Time 31.6 sec (9.0-12.0)
[2020-08-29] MEDS ORDERED: VANCOMYCIN 2,500 MG in SODIUM CHLORIDE 0.9% 500 ML 500 ML IVPB SCH (06:00)
[2020-08-29 06:39] LABS: Glucose,Whole Blood 140 mg/dL (75-99)
[2020-08-29] MEDS: methylPREDNISolone SOD SUCCI 40 MG/ML 1 ML VIAL IV SCH ×2 (06:40→22:18)
[2020-08-29] MEDS: INSULIN ASPART (NovoLOG) 100 UNIT/ML VIAL SQ SCH ×3 (06:40→18:19)
[2020-08-29 06:44] LABS: Anisocytosis Slight; Basophils % (A) 0 %; Eosinophils % (A) 0 %; HCT 40.9 % (39.0-53.0); HGB 11.9 gm/dL (13.0-17.5); Hypochromasia Marked; Lymphocytes # (A) 0.8 k/uL (1.0-4.8); Lymphocytes % (A) 14 %; MCH 24.6 pg (25.0-35.0); MCHC 29.1 g/dL (31.0-37.0); MCV 84.5 fL (80.0-100.0); Mean Platelet Volume 9.7; Monocytes # (A) 0.4 k/uL (0-1.0); Monocytes % (A) 7 %; Neutrophils # (A) 4.7 k/uL (1.3-7.7); Neutrophils % (A) 78 %; Platelet Count 130 k/uL (150-450); RBC 4.84 m/uL (4.30-5.90); RDW 17.1 % (11.5-15.5)
--- NOTE | 2020-08-29 07:25 | XR ---
EXAMINATION TYPE: XR chest 1V portable DATE OF EXAM: 08/29/2020 HISTORY: Shortness of breath. COMPARISON: 08/28/2020 TECHNIQUE: Single view of the chest is submitted. FINDINGS: Demonstrated are scattered senescent parenchymal change. Increasing right lower lobe infiltrate. The heart is stable. Hilar and mediastinal structures are within normal limits. Degenerative changes are seen of the dorsal spine. IMPRESSION: 1. Increasing right lower lobe infiltrate.
[2020-08-29] MEDS: GABAPENTIN 400 MG CAP PO SCH ×2 (08:43→22:18)
[2020-08-29] MEDS: FUROSEMIDE 10 MG/ML 4 ML VIAL IV SCH (08:49)
[2020-08-29] MEDS: NICOTINE 21MG/24HR PATCH TRANSDERM SCH ×2 (08:49→09:18)
[2020-08-29] MEDS: PANTOPRAZOLE 40 MG/10 ML VIAL IVP SCH ×2 (08:49→22:18)
[2020-08-29] MEDS: NYSTATIN 100,000 UNIT/GM POWD 15 GM TOPICAL SCH ×2 (08:49→22:19)
[2020-08-29] MEDS: SODIUM CHLORIDE 0.9% 1,000 ML IV SCH (08:50)
[2020-08-29] MEDS ORDERED: HALOPERIDOL LACTATE 5 MG/ML 1 ML VIAL IVP PRN (09:47)
[2020-08-29 11:46] LABS: Glucose,Whole Blood 152 mg/dL (75-99)
--- NOTE | 2020-08-29 12:06 | P.PN ---
Subjective Progress Note Date: 08/22/20 Principal diagnosis: Acute on chronic hypoxic and hypercapnic respiratory failure secondary to obstructive sleep apnea syndrome. And obesity hypoventilation syndrome This is a 55-year-old white male with morbid obesity. Underlying obstructive sleep apnea syndrome, obesity hypoventilation syndrome. Patient was brought in by EMS from home with chief complaint of lethargy and dyspnea patient was noted to be hypoxic when EMS arrived. And he was having intermittent episodes of apnea/pickwickian syndrome. He was noted to have O2 saturation in the 70s and 80s on noninvasive ventilation. The patient himself is not a great historian, patient was brought into the ER, and he was noted to have significant hypoxic and hypercapnic respiratory failure his initial ABG showed a pO2 of 53 pCO2 104 pH of 7.20. Most recent ABG showed a pO2 of 51 pCO2 of 100 pH of 7.23, and this is on BiPAP with IPAP of 18, EPAP 5, FiO2 of 35%. Labs were basically unremarkable except for slightly elevated BNP level. Influenza screening and coronavirus screening was negative. Chest x-ray showed no evidence of active disease. Patient was admitted to the ICU, and I saw him this morning on c onsultation. Patient is lethargic, arousable, but not oriented to time and place or person. He is definitely confused, and on BiPAP. Seems to be tolerating the BiPAP quite well in spite of high IPAP. He is now on IPAP of 18. He is moving fairly good amount of tidal volumes anywhere between 400-500. Considering the patient is compliant with the BiPAP, and considering that the patient remains arousable although he is not fully oriented, I will try to manage the patient with BiPAP, however if his condition gets a bit worse, may have to be intubated and placed on mechanical ventilation. Patient was reevaluated today on 08/29/2020, patient remains in the ICU, his ABG later in the evening improved significantly, his pCO2 came down to the 69 range, pH went up to 7.42, pO2 was 69 and this was on 2 L nasal cannula. Patient kept taking off his BiPAP mask, hence I decided to keep him off BiPAP, and kept him on nasal cannula at 2 L. I have discontinued his vancomycin since the blood cultures came back positive for staph epidermidis. And I have discontinued his Lovenox, kept him on Coumadin, patient will be allowed to go on a regular diet today. Considering the significant agitation yesterday, I had to place him on Precedex, and he remains on Precedex at 0.7 mcg/kg/h. Chest x-ray is showing interstitial infiltrates, more so in the right lower lobe, not clear whether the patient may have aspirated. Mostly because of his mental status change and extreme obtundation upon arrival to the ER. Patient is on Ancef, and I have discontinued his vancomycin. Patient denies any cough, denies any shortness of breath, however he is confused, and I believe the patient has what seems to be an acute toxic metabolic encephalopathy. I was hoping his mental status will improve significantly since his pCO2 is down to the 60s, I will recommended a CT of the brain, however the patient is extremely obese, and he does not fit in the scanner. CBC today is relatively normal INR is therapeutic at 3.3. Electrolytes are relatively normal bicarb is 40 BUN is 25 creatinine 0.88 Objective - Vital Signs Vital signs: Vital Signs Temp 99.4 F 08/29/20 08:00 Pulse 71 08/29/20 11:00 Resp 20 08/29/20 11:00 BP 171/90 08/29/20 11:00 Pulse Ox 96 08/29/20 11:00 Intake & Output 08/28/20 08/29/20 08/29/20 18:59 06:59 18:59 Intake Total 396.172 472.106 300 Output Total 4700 2225 1590 Balance -4303.828 -1752.894 -1290 Weight 231.8 kg Intake: IV 320 240 100 Sodium Chloride 0.9% 1, 200 240 100 000 ml @ 20 mls/hr IV . Q24H [facility] Rx#:[id number] Sodium Chloride 0.9% 1, 120 000 ml @ 50 mls/hr IV . Q20H [facility] Rx#:[id number] Intake, IV Titration 76.172 232.106 200 Amount Dexmedetomidine/0.9% NaCl 26.172 232.106 200 (Pmx) 400 mcg In Empty Bag 1 bag @ Titrate IV . Q0M [facility] Rx#:[id number] ceFAZolin 2 gm In Sodium 50 Chloride 0.9% 50 ml @ 100 mls/hr IVPB Q12HR [facility] Rx #:[id number] Output: Urine 5018 4417 1590 Other: Voiding Method Indwelling Catheter Indwelling Catheter Indwelling Catheter - Exam Physical Exam: Revealed a 55-year-old white male, morbidly obese, on 2 L nasal cannula, not in distress, but seems to be quite confused. Complaining of being thirsty. Head: Atraumatic, normocephalic. HEENT:[Neck is supple.] [No neck masses.] [No thyromegaly.] [No JVD.] Dry mucous membranes noted. Chest: Symmetrical chest expansion, rhonchi and wheezes noted bilaterally. Cardiac Exam: Distant S1 and S2, no S3 gallop, no murmur. Abdomen: [Morbidly obese, Soft, nontender, no megaly, no rebound, no guarding, normal bowel sounds.] Extremities: 2+ bipedal edema, with cellulitis of lower extremities. Neurological Exam: Confused, oriented only 1. Patient knows that he is in the hospital. He did not know the year, month, july be of the president and where he lives. Psychiatric: Depressed mood blunt affect and poor mental status. Skin: Evidence of cellulitis involving both lower extremities. - Labs CBC & Chem 7: 08/29/20 04:29 08/29/20 04:29 Labs: Abnormal Lab Results - Last 24 Hours (Table) 08/28/20 08/28/20 08/28/20 Range/Units 16:50 18:08 23:05 Hgb (13.0-17.5) gm/dL MCH (25.0-35.0) pg MCHC (31.0-37.0) g/dL RDW (11.5-15.5) % Plt Count (150-450) k/uL Lymphocytes # (1.0-4.8) k/uL PT (9.0-12.0) sec INR (<1.2) ABG pCO2 68 H 69 H (35-45) mmHg ABG pO2 59 L* 69 L (83-108) mmHg ABG HCO3 43 H* 44 H* (21-25) mmol/L ABG Total CO2 46 H 46 H (19-24) mmol/L ABG O2 Saturation 93.6 L (94-97) % Sodium (137-145) mmol/L Potassium (3.5-5.1) mmol/L Chloride (98-107) mmol/L Carbon Dioxide (22-30) mmol/L BUN (9-20) mg/dL Glucose (74-99) mg/dL POC Glucose (mg/dL) 139 H (75-99) mg/dL Procalcitonin (0.02-0.09) ng/mL 08/28/20 08/29/20 08/29/20 Range/Units 23:32 04:29 04:29 Hgb (13.0-17.5) gm/dL MCH (25.0-35.0) pg MCHC (31.0-37.0) g/dL RDW (11.5-15.5) % Plt Count (150-450) k/uL Lymphocytes # (1.0-4.8) k/uL PT (9.0-12.0) sec INR (<1.2) ABG pCO2 (35-45) mmHg ABG pO2 (83-108) mmHg ABG HCO3 (21-25) mmol/L ABG Total CO2 (19-24) mmol/L ABG O2 Saturation (94-97) % Sodium 136 L (137-145) mmol/L Potassium 5.3 H (3.5-5.1) mmol/L Chloride 91 L (98-107) mmol/L Carbon Dioxide 39 H (22-30) mmol/L BUN 25 H (9-20) mg/dL Glucose 156 H (74-99) mg/dL POC Glucose (mg/dL) 140 H (75-99) mg/dL Procalcitonin 0.10 H (0.02-0.09) ng/mL 08/29/20 08/29/20 08/29/20 Range/Units 04:29 04:29 06:37 Hgb 11.9 L (13.0-17.5) gm/dL MCH 24.6 L (25.0-35.0) pg MCHC 29.1 L (31.0-37.0) g/dL RDW 17.1 H (11.5-15.5) % Plt Count 130 L (150-450) k/uL Lymphocytes # 0.8 L (1.0-4.8) k/uL PT 31.6 H (9.0-12.0) sec INR 3.3 H (<1.2) ABG pCO2 (35-45) mmHg ABG pO2 (83-108) mmHg ABG HCO3 (21-25) mmol/L ABG Total CO2 (19-24) mmol/L ABG O2 Saturation (94-97) % Sodium (137-145) mmol/L Potassium (3.5-5.1) mmol/L Chloride (98-107) mmol/L Carbon Dioxide (22-30) mmol/L BUN (9-20) mg/dL Glucose (74-99) mg/dL POC Glucose (mg/dL) 140 H (75-99) mg/dL Procalcitonin (0.02-0.09) ng/mL 08/29/20 Range/Units 11:45 Hgb (13.0-17.5) gm/dL MCH (25.0-35.0) pg MCHC (31.0-37.0) g/dL RDW (11.5-15.5) % Plt Count (150-450) k/uL Lymphocytes # (1.0-4.8) k/uL PT (9.0-12.0) sec INR (<1.2) ABG pCO2 (35-45) mmHg ABG pO2 (83-108) mmHg ABG HCO3 (21-25) mmol/L ABG Total CO2 (19-24) mmol/L ABG O2 Saturation (94-97) % Sodium (137-145) mmol/L Potassium (3.5-5.1) mmol/L Chloride (98-107) mmol/L Carbon Dioxide (22-30) mmol/L BUN (9-20) mg/dL Glucose (74-99) mg/dL POC Glucose (mg/dL) 152 H (75-99) mg/dL Procalcitonin (0.02-0.09) ng/mL Microbiology - Last 24 Hours (Table) 08/27/20 18:24 Blood Culture Gram Stain - Preliminary Blood Blood Culture - Preliminary Staphylococcus epidermidis 08/27/20 17:23 Blood Culture - Preliminary Blood No Growth after 24 hours 08/27/20 18:24 Blood Culture - Final Blood Assessment and Plan Assessment: Impression: Acute on chronic hypoxic and hypercapnic respiratory failure, secondary to obesity/hypoventilation syndrome. Obesity/hypoventilation syndrome Suspect some component of acute exacerbation of COPD, remains on steroids, and bronchodilators. Chronic cor pulmonale, remains on diuretics. Acute cellulitis of lower extremities, on Ancef. Morbid obesity BMI of 71.8. Acute metabolic encephalopathy secondary to hypoxia and mostly secondary to hypercapnia Possible aspiration pneumonia. Recommendation: Continue patient on 2 L nasal cannula, use BiPAP as needed. Continue Precedex. Advanced diet as tolerated. May consider Haldol for extreme agitation. Continue diuretics. However the dose was cut down to 40 mg IV push daily. Consider CT of the head however the patient is extremely obese and he would not fit in scanner. Continue Ancef. Resume Coumadin and discontinue Lovenox. Continue bronchodilators. Continue steroids. Decreased dose as that may be affecting his mental status. DVT prophylaxis. GI prophylaxis. Follow-up chest x-ray in a.m. Prognosis remains guarded. We'll continue to follow. Time with Patient: Less than 30
--- NOTE | 2020-08-29 13:26 | P.PN ---
Progress Note - Text Progress Note Date: 08/29/20 Chief Complaint: Lethargic History of presenting complaint: This is a 55-year-old patient, who follows with Dr. Saroj Beltran. EMS was called out. Upon arrival patient's phone in the chair awake but somewhat slow to respond. Patient's friend at trying to: Without answering and came over to find him think that. Patient's arms were twitching that is new according to the friend and patient was slow to respond and somewhat delirious. Patient's pulse ox was found to be 81%. EKG showed sinus tachycardia. Accu-Chek was 154. Tony Coma Scale was 13. Pulse was regular. Patient's home oxygen 3 L. Patient was cyanotic. Put on a non-breather at 15 L. Patient was then transferred to the ICU. Put on a BiPAP. IPAP of 18, EPAP of 5 with 30%. Patient also started on Precedex. Patient is somewhat delirious. The able to answer some questions. is moving his limbs about. Admitted with acute hypoxic encephalopathy, obesity hypoventilation syndrome, acute COPD exacerbation, acute hypoxic and hypercapnic respiratory failure. Started on Precedex. Admitted to ICU Today: ICU. Patient is off the BiPAP. On 2 L nasal cannula. On Precedex drip. Still delirious but less so. May answer occasional question. Review of systems cannot be obtained because patient is delirious Past medical history to include: Diabetes, GERD, hypertension, left leg DVT, lower extremity cellulitis. Home oxygen 3 L Social history: Patient lives with his daughter's family. Smoker. 3 L of oxygen at home. Family history: Patient cannot tell Physical examination: VITAL SIGNS: 97.3, 73, 19, 162/84, 90% on 2 L GENERAL: , laying in bed, BiPAP, a bit less delirious EYES: Pupils equal. Conjunctiva normal. HEENT: External appearance of nose and ears normal, oral cavity grossly normal. NECK: Short and thick:: JVD unable to assess; masses not palpable. HEART: Heart sounds distant; mild edema. LUNGS: Respiratory rate increased, distant breath sounds. ABDOMEN: Soft, nontender, liver spleen not palpable, no masses palpable. PSYCH: Less Lethargic, more arousable, less delirious, we will answer occasional question NEUROLOGICAL: moving his limbs DERMATOLOGICAL: Redness between the groin folds. Redness above the ankles both the legs. INVESTIGATIONS, reviewed in the clinical context: August 29: WBC 6 hemoglobin 11.9 platelets 1:30 potassium 5.3 creatinine 0.8 date pro-calcitonin 0.1 Repeat potassium 4.9 WBC 8.9 hemoglobin 12.4 platelets 206 INR 3.2 ABG: PH 7.13 pCO2 117, 100% FiO2 Potassium 6.3 bicarb 28 creatinine 0.96 Troponin I less than 0.012 proBNP 2680 Influenza type A type B, RSV [PCR]Coronavirus [PCR]: Not detected EKG tracing personally reviewed by me-h QRS. Nonspecific ST-T wave changes, sinus tachycardia Chest x-ray film personally reviewed by me-lung acosta clear Assessment and plan: -Acute mental status changes, felt to be from hypoxic encephalopathy from underlying obesity hypoventilation syndrome, contribution from COPD exacerbation-slow to respond -Acute hypoxic and hypercapnic respiratory failure from obesity hypoventilation syndrome and COPD. Initial urine BiPAP. Currently on 2 L nasal cannula -Chronic hypoxic and hypercapnic respiratory failure, patient uses 3 L of oxygen at home -Acute respiratory acidosis -Morbid obesity BMI 71.8 Dietitian consult for weight loss measures -Hyperkalemia Follow labs -Peripheral neuropathy On Neurontin -GERD Continue Protonix -Accelerated hypertension-slow to respond On Precedex drip -Chronic lower extremity DVT for which patient is on Coumadin. If patient unable to take Coumadin will then use Lovenox. -Acute COPD exacerbation in a current smoker-slow to respond DuoNeb, IV Solu-Medrol -Chronic nicotine dependence, cigarette smoker Nicotine patch -Chronic venous stasis dermatitis lower extremity Silvadene cream with Kerlix and Alan wrap -Cutaneous intertriginous candidiasis Nystatin powder twice daily Nasal cannula 2 L. Still delirious. Bronchodilators steroids to continue. IV Precedex drip. Vancomycin changed to IV Ancef.
[2020-08-29] MEDS: LOSARTAN 50 MG TAB PO SCH (14:13)
[2020-08-29] MEDS: amLODIPine 5 MG TAB PO SCH ×2 (15:23→22:18)
[2020-08-29] MEDS ORDERED: WARFARIN 3 MG TAB PO ONE (18:00)
[2020-08-29 18:14] LABS: Glucose,Whole Blood 175 mg/dL (75-99)
[2020-08-29] MEDS ORDERED: DEXMEDETOMIDINE/0.9% NACL(PMX) 400 MCG in EMPTY BAG 1 BAG IV SCH (18:15)
[2020-08-29] MEDS ORDERED: hydrALAZINE HCL 20 MG/ML 1 ML VIAL IVP PRN (19:04)
[2020-08-29] MEDS ORDERED: amLODIPine 5 MG TAB PO SCH (21:00)
[2020-08-29] MEDS ORDERED: FUROSEMIDE 10 MG/ML 4 ML VIAL IV SCH (21:00)
[2020-08-29 23:24] LABS: Glucose,Whole Blood 112 mg/dL (75-99)
[2020-08-30] MEDS: INSULIN ASPART (NovoLOG) 100 UNIT/ML VIAL SQ SCH ×5 (00:06→19:54)
[2020-08-30] MEDS: IPRATROPIUM-ALBUTEROL 3 ML NEB INHALATION SCH ×6 (00:51→20:28)
[2020-08-30 04:10] LABS: Anisocytosis Slight; Basophils % (A) 0 %; Eosinophils # (A) 0.2 k/uL (0-0.7); Eosinophils % (A) 2 %; HCT 36.1 % (39.0-53.0); HGB 11.3 gm/dL (13.0-17.5); Hypochromasia Marked; Lymphocytes # (A) 0.9 k/uL (1.0-4.8); Lymphocytes % (A) 10 %; MCH 25.5 pg (25.0-35.0); MCHC 31.4 g/dL (31.0-37.0); MCV 81.3 fL (80.0-100.0); Mean Platelet Volume 9.3; Microcytosis Slight; Monocytes # (A) 0.5 k/uL (0-1.0); Monocytes % (A) 6 %; Neutrophils # (A) 7.3 k/uL (1.3-7.7); Neutrophils % (A) 81 %; Platelet Count 209 k/uL (150-450); RBC 4.44 m/uL (4.30-5.90); RDW 17.3 % (11.5-15.5)
[2020-08-30 04:22] LABS: INR 2.4 (<1.2); Prothrombin Time 23.6 sec (9.0-12.0)
[2020-08-30 04:28] LABS: ALT 16 U/L (4-49); AST 26 U/L (17-59); African American GFR (CKD) >90 (>60 ml/min/1.73 sqM); Albumin 3.5 g/dL (3.5-5.0); Alkaline Phosphatase 75 U/L (38-126); Blood Urea Nitrogen 31 mg/dL (9-20); Calcium 8.7 mg/dL (8.4-10.2); Chloride 90 mmol/L (98-107); Glucose 123 mg/dL (74-99); Non-African American GFR(CKD) >90 (>60 ml/min/1.73 sqM); Potassium 4.3 mmol/L (3.5-5.1); Sodium 136 mmol/L (137-145); Total Bilirubin 0.3 mg/dL (0.2-1.3); Total Protein 6.5 g/dL (6.3-8.2)
[2020-08-30 04:35] LABS: Anion Gap 8 mmol/L; Carbon Dioxide 38 mmol/L (22-30)
--- NOTE | 2020-08-30 08:19 | XR ---
EXAMINATION TYPE: XR chest 1V portable DATE OF EXAM: 08/30/2020 Comparison: 08/29/2020 Clinical History: 55-year-old male pneumonia Findings: Heart borderline to mildly enlarged. Patchy opacity at the right base remains. No pleural effusion. Impression: Borderline to mild cardiomegaly. Similar patchy airspace disease at the right base.
[2020-08-30] MEDS: LOSARTAN 50 MG TAB PO SCH ×2 (08:46→08:57)
[2020-08-30] MEDS: NICOTINE 21MG/24HR PATCH TRANSDERM SCH (08:46)
[2020-08-30] MEDS: PANTOPRAZOLE 40 MG/10 ML VIAL IVP SCH ×2 (08:47→19:38)
[2020-08-30] MEDS: GABAPENTIN 400 MG CAP PO SCH ×2 (08:47→19:38)
[2020-08-30] MEDS: amLODIPine 5 MG TAB PO SCH ×4 (08:47→19:41)
[2020-08-30] MEDS: methylPREDNISolone SOD SUCCI 40 MG/ML 1 ML VIAL IV SCH ×2 (08:47→19:37)
[2020-08-30] MEDS: NYSTATIN 100,000 UNIT/GM POWD 15 GM TOPICAL SCH ×2 (08:48→19:54)
[2020-08-30] MEDS ORDERED: FUROSEMIDE 10 MG/ML 4 ML VIAL IV SCH (09:00)
--- NOTE | 2020-08-30 09:48 | P.PN ---
Subjective Progress Note Date: 08/30/20 Principal diagnosis: Acute on chronic hypoxic and hypercapnic respiratory failure sitter to obstructive sleep apnea, and obesity hypoventilation syndrome This is a 55-year-old white male with morbid obesity. Underlying obstructive sleep apnea syndrome, obesity hypoventilation syndrome. Patient was brought in by EMS from home with chief complaint of lethargy and dyspnea patient was noted to be hypoxic when EMS arrived. And he was having intermittent episodes of apnea/pickwickian syndrome. He was noted to have O2 saturation in the 70s and 80s on noninvasive ventilation. The patient himself is not a great historian, patient was brought into the ER, and he was noted to have significant hypoxic and hypercapnic respiratory failure his initial ABG showed a pO2 of 53 pCO2 104 pH of 7.20. Most recent ABG showed a pO2 of 51 pCO2 of 100 pH of 7.23, and this is on BiPAP with IPAP of 18, EPAP 5, FiO2 of 35%. Labs were basically unremarkable except for slightly elevated BNP level. Influenza screening and coronavirus screening was negative. Chest x-ray showed no evidence of active disease. Patient was admitted to the ICU, and I saw him this morning on consultation. Patient is lethargic, arousable, but not oriented to time and place or person. He is definitely confused, and on BiPAP. Seems to be tolerating the BiPAP quite well in spite of high IPAP. He is now on IPAP of 18. He is moving fairly good amount of tidal volumes anywhere between 400-500. Considering the patient is compliant with the BiPAP, and considering that the patient remains arousable although he is not fully oriented, I will try to manage the patient with BiPAP, however if his condition gets a bit worse, may have to be intubated and placed on mechanical ventilation. Patient was reevaluated today on 08/29/2020, patient remains in the ICU, his ABG later in the evening improved significantly, his pCO2 came down to the 69 range, pH went up to 7.42, pO2 was 69 and this was on 2 L nasal cannula. Patient kept taking off his BiPAP mask, hence I decided to keep him off BiPAP, and kept him on nasal cannula at 2 L. I have discontinued his vancomycin since the blood cultures came back positive for staph epidermidis. And I have discontinued his Lovenox, kept him on Coumadin, patient will be allowed to go on a regular diet today. Considering the significant agitation yesterday, I had to place him on Precedex, and he remains on Precedex at 0.7 mcg/kg/h. Chest x-ray is showing interstitial infiltrates, more so in the right lower lobe, not clear whether the patient may have aspirated. Mostly because of his mental status change and extreme obtundation upon arrival to the ER. Patient is on Ancef, and I have discontinued his vancomycin. Patient denies any cough, denies any shortness of breath, however he is confused, and I believe the patient has what seems to be an acute toxic metabolic encephalopathy. I was hoping his mental status will improve significantly since his pCO2 is down to the 60s, I will recommended a CT of the brain, however the patient is extremely obese, and he does not fit in the scanner. CBC today is relatively normal INR is therapeutic at 3.3. E lectrolytes are relatively normal bicarb is 40 BUN is 25 creatinine 0.88 On 08/22/2020 patient seen in follow-up in intensive care unit, he is currently on 2 L of oxygen breathing comfortably, his pulse ox is 92-93%, he did wear BiPAP last night with pressures of 18/5 and FiO2 of 30%, tolerated well, mentation has much improved, he is oriented 3, denies any distress, his maintenance IV fluids appointment and was seen at a rate of 20 ML per hour, no other drips. Precedex has been discontinued at midnight. Patient is on once daily dose of Lasix 40 mg, and he is in -5.5 L net fluid balance over the last 24 hours, no fever or chills, no coughing or wheezing, patient is also getting IV steroids. He is on DuoNeb breathing treatments, patient was placed on Ancef for empiric antibiotic coverage, however his pro calcitonin level was low at 0.10, and occluded of bacterial infection is low therefore we'll discontinue his antibiotics. He remains on Coumadin for history of DVT and the patient states his been on Coumadin for over a year, with no past history of DVT or PE, and no family history of DVT or PE. Objective - Vital Signs Vital signs: Vital Signs Temp 97.9 F 08/30/20 08:15 Pulse 79 08/30/20 09:00 Resp 14 08/30/20 09:00 BP 122/58 08/30/20 09:00 Pulse Ox 92 L 08/30/20 09:00 Intake & Output 08/29/20 08/30/20 08/30/20 18:59 06:59 18:59 Intake Total 688.032 220 40 Output Total 4640 1850 470 Balance -3951.968 -1630 -430 Weight 218.2 kg Intake: IV 240 220 40 Sodium Chloride 0.9% 1, 240 220 40 000 ml @ 20 mls/hr IV . Q24H [facility] Rx#:[id number] Intake, IV Titration 398.032 Amount Dexmedetomidine/0.9% NaCl 398.032 (Pmx) 400 mcg In Empty Bag 1 bag @ Titrate IV . Q0M [facility] Rx#:[id number] Oral 50 Output: Urine 4640 1850 470 Other: Voiding Method Indwelling Catheter Indwelling Catheter # Bowel Movements 2 - Exam GENERAL EXAM: Alert, very pleasant, 55-year-old morbidly obese white male, currently on 2 L of oxygen with pulse ox of 92-93% comfortable in no apparent distress. HEAD: Normocephalic/atraumatic. EYES: Normal reaction of pupils, equal size. Conjunctiva pink, sclera white. NOSE: Clear with pink turbinates. THROAT: No erythema or exudates. NECK: No masses, no JVD, no thyroid enlargement, no adenopathy. CHEST: No chest wall deformity. Symmetrical expansion. LUNGS: Equal air entry with diminished breath sounds at the bases CVS: Regular rate and rhythm, normal S1 and S2, no gallops, no murmurs, no rubs ABDOMEN: Soft, nontender. No hepatosplenomegaly, normal bowel sounds, no guarding or rigidity. EXTREMITIES: No clubbing, mild pretibial edema, no cyanosis, 2+ pulses and upper and lower extremities. MUSCULOSKELETAL: Muscle strength and tone normal. SPINE: No scoliosis or deformity SKIN: No rashes CENTRAL NERVOUS SYSTEM: Alert and oriented -3. No focal deficits, tone is normal in all 4 extremities. PSYCHIATRIC: Alert and oriented -3. Appropriate affect. Intact judgment and insight. - Labs CBC & Chem 7: 08/30/20 03:46 08/30/20 03:46 Labs: Abnormal Lab Results - Last 24 Hours (Table) 08/29/20 08/29/20 08/29/20 Range/Units 04:29 11:45 18:12 Hgb (13.0-17.5) gm/dL Hct (39.0-53.0) % RDW (11.5-15.5) % Lymphocytes # (1.0-4.8) k/uL PT (9.0-12.0) sec INR (<1.2) Sodium (137-145) mmol/L Chloride (98-107) mmol/L Carbon Dioxide (22-30) mmol/L BUN (9-20) mg/dL Glucose (74-99) mg/dL POC Glucose (mg/dL) 152 H 175 H (75-99) mg/dL Procalcitonin 0.10 H (0.02-0.09) ng/mL 08/29/20 08/30/20 08/30/20 Range/Units 23:22 03:46 03:46 Hgb 11.3 L (13.0-17.5) gm/dL Hct 36.1 L (39.0-53.0) % RDW 17.3 H (11.5-15.5) % Lymphocytes # 0.9 L (1.0-4.8) k/uL PT 23.6 H (9.0-12.0) sec INR 2.4 H (<1.2) Sodium (137-145) mmol/L Chloride (98-107) mmol/L Carbon Dioxide (22-30) mmol/L BUN (9-20) mg/dL Glucose (74-99) mg/dL POC Glucose (mg/dL) 112 H (75-99) mg/dL Procalcitonin (0.02-0.09) ng/mL 08/30/20 Range/Units 03:46 Hgb (13.0-17.5) gm/dL Hct (39.0-53.0) % RDW (11.5-15.5) % Lymphocytes # (1.0-4.8) k/uL PT (9.0-12.0) sec INR (<1.2) Sodium 136 L (137-145) mmol/L Chloride 90 L (98-107) mmol/L Carbon Dioxide 38 H (22-30) mmol/L BUN 31 H (9-20) mg/dL Glucose 123 H (74-99) mg/dL POC Glucose (mg/dL) (75-99) mg/dL Procalcitonin (0.02-0.09) ng/mL Microbiology - Last 24 Hours (Table) 08/28/20 18:09 Blood Culture - Preliminary Blood No Growth after 24 hours 08/28/20 18:09 Blood Culture - Preliminary Blood No Growth after 24 hours 08/27/20 17:23 Blood Culture - Preliminary Blood No Growth after 48 hours 08/27/20 18:24 Blood Culture Gram Stain - Preliminary Blood Blood Culture - Preliminary Staphylococcus epidermidis Assessment and Plan Plan: Assessment: #1. Acute on chronic hypoxic and hypercapnic respiratory failure, secondary to obesity/hypoventilation syndrome #2. Suspect a component of acute exacerbation of COPD, remains on steroids and bronchodilators #3. Obesity/hypoventilation syndrome #4. Chronic cor pulmonale, remains on diuretics #5. Acute cellulitis of lower extremities #6. Morbid obesity with BMI of 71.8 #7. Acute metabolic encephalopathy secondary to hypoxia mostly secondary to hypercapnia #8. Doubt aspiration pneumonia based on low pro-calcitonin level Plan: Continue current dose diuretics BiPAP support at bedtime and as needed Continue IV steroids and bronchodilators Mentation is back to baseline No agitation no confusion Precedex discontinued Vital signs are stable We discontinued Ancef Patient can be switched to oral antibiotics if need be Doubt aspiration pneumonia Obtain lower extremity Dopplers to rule out possibility of DVT If there is no DVT may consider discontinuing the Coumadin, the patient has been on Coumadin for over a year If his Coumadin gets discontinued will need subcu heparin or Lovenox for DVT prophylaxis Stable to transfer out of intensive care unit to medical surgical floor I performed a history & physical examination of the patient and discussed their management with my nurse practitioner, Jessika Davison. I reviewed the nurse practitioner's note and agree with the documented findings and plan of care. Lung sounds are positive for diminished breath sounds. The findings and the impression was discussed with the patient. I attest to the documentation by the nurse practitioner. Time with Patient: Less than 30
[2020-08-30] MEDS: HYDROcodone/APAP 10-325MG 1 EACH TAB PO PRN ×3 (09:59→19:39)
[2020-08-30 11:33] LABS: Glucose,Whole Blood 114 mg/dL (75-99)
--- NOTE | 2020-08-30 11:47 | US ---
EXAMINATION TYPE: US venous doppler duplex LE DATE OF EXAM: 08/30/2020 10:17 AM COMPARISON: NONE CLINICAL HISTORY: rule out DVT. SIDE PERFORMED: Bilateral TECHNIQUE: The lower extremity deep venous system is examined utilizing real time linear array sonog milo with graded compression, doppler sonography and color-flow sonography. VESSELS IMAGED: Common Femoral Vein Deep Femoral Vein Greater Saphenous Vein * Femoral Vein Popliteal Vein Small Saphenous Vein * Proximal Calf Veins (* superficial vessels) Patient 5'11", 480lbs, technically difficult, limited study. Right Leg: Leg scanned from upper femoral vein to distal popliteal vein, appears negative for DVT. Un able to visualize for compression views due to obesity and interstitial edema. Left Leg: Leg scanned from upper femoral vein to distal popliteal vein, appears negative for DVT. Tanya ble to visualize for compression views due to obesity and interstitial edema. IMPRESSION: 1. No evidence of deep venous thrombosis of the bilateral lower extremity veins.
[2020-08-30 12:18] VITALS: BMI 67.1
--- NOTE | 2020-08-30 15:51 | P.PN ---
Subjective Progress Note Date: 08/30/20 This is a 55-year-old patient, who follows with Dr. Saroj Beltran. EMS was called out. Upon arrival patient's phone in the chair awake but somewhat slow to respond. Patient's friend at trying to: Without answering and came over to find him think that. Patient's arms were twitching that is new according to the friend and patient was slow to respond and somewhat delirious. Patient's pulse ox was found to be 81%. EKG showed sinus tachycardia. Accu-Chek was 154. Tony Coma Scale was 13. Pulse was regular. Patient's home oxygen 3 L. Patient was cyanotic. Put on a non-breather at 15 L. Patient was then transferred to the ICU. Put on a BiPAP. IPAP of 18, EPAP of 5 with 30%. Patient also started on Precedex. Patient is somewhat delirious. The able to answer some questions. is moving his limbs about. Admitted with acute hypoxic encephalopathy, obesity hypoventilation syndrome, acute COPD exacerbation, acute hypoxic and hypercapnic respiratory failure. Started on Precedex. Admitted to ICU Today: ICU. Patient is off the BiPAP. On 2 L nasal cannula. On Precedex drip. Still delirious but less so. May answer occasional question. 08/30/2020 Patient is seen and evaluated continues to be closely monitored in the ICU. Patient is currently on 4 L of oxygen via nasal cannula and weaning as tolerated. Patient continues to be off BiPAP and being closely monitored. Continue BiPAP as needed at night. He states he does not normally wear a CPAP or BiPAP machine in the home setting. Pulmonary following closely. Chest x-ray today shows borderline to mild cardiomegaly with similar patchy airspace disease at the right from previous exams with no pleural effusion noted. Patient continues on breathing inhalational treatments along with IV steroids and will continue at this time. IV antibiotics have been discontinued. Patient also underwent venous Doppler of bilateral lower extremities with no evidence of DVT of the bilateral lower extremity veins and unable to visualize for compression views due to obesity and interstitial edema. PT/OT to evaluate the patient. Coumadin to be resumed and monitor INR as INR today is 2.4. Hemoglobin is 11.3 with a white blood count of 9.0, sodium is 136, potassium is 4.3, current creatinine is 0.89. Patient is afebrile. Review of systems: Constitutional: No reports of fatigue, fever, or chills Cardiovascular: No reports of chest pain or palpitations Respiratory: reports of intermittent shortness of breath GI: No reports of nausea, vomiting, or diarrhea : No reports of dysuria or retention Neurovascular: Reports generalized weakness All medications have been reviewed Active Medications Hydrocodone Bitart/Acetaminophen (Hydrocodone/Apap 10-325mg 1 Each Tab) 1 each PO Q6H PRN PRN Reason: Pain Last Admin: 08/30/20 14:56 Dose: 1 each Documented by: Albuterol/Ipratropium (Ipratropium-Albuterol 3 Ml Neb) 3 ml INHALATION RT-Q4H [facility] Last Admin: 08/30/20 15:25 Dose: 3 ml Documented by: Amlodipine Besylate (Amlodipine 5 Mg Tab) 5 mg PO BID [facility] Last Admin: 08/30/20 08:58 Dose: Not Given Documented by: Clonidine HCl (Clonidine 0.1 Mg/24hr Patch) 1 patch TRANSDERM Q7D [facility] Last Admin: 08/28/20 23:29 Dose: 1 patch Documented by: Furosemide (Furosemide 10 Mg/Ml 4 Ml Vial) 40 mg IV DAILY [facility] Last Admin: 08/30/20 08:47 Dose: 40 mg Documented by: Gabapentin (Gabapentin 400 Mg Cap) 400 mg PO BID [facility] Last Admin: 08/30/20 08:47 Dose: 400 mg Documented by: Hydralazine HCl (Hydralazine Hcl 20 Mg/Ml 1 Ml Vial) 20 mg IVP Q4HR PRN PRN Reason: Blood Pressure - High Last Admin: 08/29/20 19:09 Dose: 20 mg Documented by: Insulin Aspart (Insulin Aspart (Novolog) 100 Unit/Ml Vial) 0 unit SQ Q6H [facility]; Protocol Last Admin: 08/30/20 11:54 Dose: Not Given Documented by: Losartan Potassium (Losartan 50 Mg Tab) 100 mg PO DAILY [facility] Last Admin: 08/30/20 08:57 Dose: Not Given Documented by: Methylprednisolone Sodium Succinate (Methylprednisolone Sod Succi 40 Mg/Ml 1 Ml Vial) 40 mg IV Q12HR [facility] Last Admin: 08/30/20 08:47 Dose: 40 mg Documented by: Naloxone HCl (Naloxone 0.4 Mg/Ml 1 Ml Vial) 0.2 mg IV Q2M PRN PRN Reason: Opioid Reversal Nicotine (Nicotine 21mg/24hr Patch) 1 patch TRANSDERM DAILY [facility] Last Admin: 08/30/20 08:46 Dose: 1 patch Documented by: Nystatin (Nystatin 100,000 Unit/Gm Powd 15 Gm) 1 applic TOPICAL BID [facility] Last Admin: 08/30/20 08:48 Dose: 1 applic Documented by: Pantoprazole Sodium (Pantoprazole 40 Mg/10 Ml Vial) 40 mg IVP BID [facility] Last Admin: 08/30/20 08:47 Dose: 40 mg Documented by: Silver Sulfadiazine (Silver Sulfadiazine 1% Cream 25 Gm Tube) 1 applic TOPICAL BID [facility] Last Admin: 08/30/20 13:00 Dose: 1 applic Documented by: Objective - Vital Signs Vital signs: Vital Signs Temp 98 F 08/30/20 12:00 Pulse 94 08/30/20 13:00 Resp 21 08/30/20 13:00 BP 130/64 08/30/20 12:00 Pulse Ox 90 L 08/30/20 13:00 Intake & Output 08/29/20 08/30/20 08/30/20 18:59 06:59 18:59 Intake Total 688.032 220 290 Output Total 4640 1850 3312 Balance -3951.970 -9445 -3124 Weight 218.2 kg 218.2 kg Intake: IV 240 220 40 Sodium Chloride 0.9% 1, 240 220 40 000 ml @ 20 mls/hr IV . Q24H [facility] Rx#:[id number] Intake, IV Titration 398.032 Amount Dexmedetomidine/0.9% NaCl 398.032 (Pmx) 400 mcg In Empty Bag 1 bag @ Titrate IV . Q0M [facility] Rx#:[id number] Oral 50 250 Output: Urine 4640 1850 3310 Stool 2 Other: Voiding Method Indwelling Catheter Indwelling Catheter Indwelling Catheter # Bowel Movements 2 - Exam Gen: This is a 55-year-old male awake, alert and oriented 3, well-developed, well-nourished, obese. Temp is 98F, pulse is 86, respirations are 10, blood pressure is 130/64, oxygen saturation is 90-92% on 2 L via nasal cannula HEENT: Head is atraumatic, normocephalic. Pupils equal, round. Sclerae is anicteric. NECK: Supple. No JVD. No lymphadenopathy. No thyromegaly. LUNGS: Diminished breath sounds bilaterally with no wheezing or rhonchi noted. No intercostal retractions. HEART: S1, S2 are muffled ABDOMEN: Soft. Obese. Bowel sounds are present. No masses. No tenderness. EXTREMITIES: No pedal edema. No calf tenderness. Bilateral lower extremity edema noted NEUROLOGICAL: Patient is awake, alert and oriented x3. Cranial nerves 2 through 12 are grossly intact. - Labs CBC & Chem 7: 08/30/20 03:46 08/30/20 03:46 Labs: Abnormal Lab Results - Last 24 Hours (Table) 08/29/20 08/29/20 08/30/20 Range/Units 18:12 23:22 03:46 Hgb (13.0-17.5) gm/dL Hct (39.0-53.0) % RDW (11.5-15.5) % Lymphocytes # (1.0-4.8) k/uL PT 23.6 H (9.0-12.0) sec INR 2.4 H (<1.2) Sodium (137-145) mmol/L Chloride (98-107) mmol/L Carbon Dioxide (22-30) mmol/L BUN (9-20) mg/dL Glucose (74-99) mg/dL POC Glucose (mg/dL) 175 H 112 H (75-99) mg/dL 08/30/20 08/30/20 08/30/20 Range/Units 03:46 03:46 11:31 Hgb 11.3 L (13.0-17.5) gm/dL Hct 36.1 L (39.0-53.0) % RDW 17.3 H (11.5-15.5) % Lymphocytes # 0.9 L (1.0-4.8) k/uL PT (9.0-12.0) sec INR (<1.2) Sodium 136 L (137-145) mmol/L Chloride 90 L (98-107) mmol/L Carbon Dioxide 38 H (22-30) mmol/L BUN 31 H (9-20) mg/dL Glucose 123 H (74-99) mg/dL POC Glucose (mg/dL) 114 H (75-99) mg/dL Microbiology - Last 24 Hours (Table) 08/27/20 18:24 Blood Culture Gram Stain - Final Blood Blood Culture - Final Staphylococcus epidermidis 08/28/20 18:09 Blood Culture - Preliminary Blood No Growth after 24 hours 08/28/20 18:09 Blood Culture - Preliminary Blood No Growth after 24 hours 08/27/20 17:23 Blood Culture - Preliminary Blood No Growth after 48 hours Assessment and Plan Assessment: Acute mental status changes possibly secondary to hypoxic encephalopathy from underlying obesity hypoventilation syndrome COPD acute exacerbation Acute hypoxic and hypercapnic respiratory failure from obesity hypoventilation syndrome and acute COPD exacerbation requiring BiPAP Chronic hypoxic and hypercapnic respiratory failure, continues on 3 L of oxygen at home Acute respiratory acidosis Morbid obesity with a body max index of 67.1 Hyperkalemia Peripheral neuropathy Gastroesophageal reflux disease Accelerated hypertension, resolved Chronic lower extremity deep vein thrombosis on Coumadin Continued ongoing nicotine dependence Chronic venous stasis dermatitis to bilateral lower extremities Cutaneous intertriginous candidiasis Commendations and discussion: Recommend continue to closely monitor and continue current medications and management. Pulmonary and deputy prosecuting attorney following as patient continues to be in the ICU and working on possible downgrade from the ICU. PT/OT to evaluate the patient. Patient is maintained on IV steroids along with IV Lasix and breathing inhalational treatments and will continue. Wean FiO2 as tolerated and use BiPAP intermittently as needed at night. Will repeat a.m. labs and continue to monitor closely. Patient's patient is much improved and back to baseline. Pulmonary following closely. IV antibiotics have been discontinued and we'll continue to monitor closely. Patient currently afebrile and white blood count within normal limits. Due to multiple complex medical issues, prognosis is guarded. Will continue to monitor closely.
[2020-08-30] MEDS ORDERED: WARFARIN 3 MG TAB PO ONE (18:00)
[2020-08-30] MEDS: MELATONIN 5 MG TABLET PO PRN (19:50)
[2020-08-30 19:53] LABS: Glucose,Whole Blood 152 mg/dL (75-99)
[2020-08-31] MEDS: HYDROcodone/APAP 10-325MG 1 EACH TAB PO PRN ×2 (00:20→06:26)
[2020-08-31] MEDS: MELATONIN 5 MG TABLET PO PRN (00:21)
[2020-08-31] MEDS: IPRATROPIUM-ALBUTEROL 3 ML NEB INHALATION SCH ×6 (02:34→15:54)
[2020-08-31 06:48] LABS: INR 2.6 (<1.2); Prothrombin Time 24.8 sec (9.0-12.0)
[2020-08-31 07:17] LABS: Glucose,Whole Blood 143 mg/dL (75-99)
[2020-08-31] MEDS ORDERED: FUROSEMIDE 40 MG TAB PO SCH (09:00)
[2020-08-31] MEDS ORDERED: methylPREDNISolone 4 MG TAB TAPER PO SCH (09:00)
[2020-08-31] MEDS: amLODIPine 5 MG TAB PO SCH (09:51)
[2020-08-31] MEDS: INSULIN ASPART (NovoLOG) 100 UNIT/ML VIAL SQ SCH ×2 (09:51→12:26)
[2020-08-31] MEDS: LOSARTAN 50 MG TAB PO SCH (09:52)
[2020-08-31] MEDS: PANTOPRAZOLE 40 MG/10 ML VIAL IVP SCH (09:59)
[2020-08-31] MEDS: GABAPENTIN 400 MG CAP PO SCH (09:59)
[2020-08-31] MEDS: NICOTINE 21MG/24HR PATCH TRANSDERM SCH ×2 (09:59→10:08)
[2020-08-31] MEDS: NYSTATIN 100,000 UNIT/GM POWD 15 GM TOPICAL SCH (10:07)
--- NOTE | 2020-08-31 10:49 | P.PN ---
Subjective Progress Note Date: 08/31/20 Principal diagnosis: Acute on chronic hypoxic and hypercapnic respiratory failure sitter to obstructive sleep apnea, and obesity hypoventilation syndrome This is a 55-year-old white male with morbid obesity. Underlying obstructive sleep apnea syndrome, obesity hypoventilation syndrome. Patient was brought in by EMS from home with chief complaint of lethargy and dyspnea patient was noted to be hypoxic when EMS arrived. And he was having intermittent episodes of apnea/pickwickian syndrome. He was noted to have O2 saturation in the 70s and 80s on noninvasive ventilation. The patient himself is not a great historian, patient was brought into the ER, and he was noted to have significant hypoxic and hypercapnic respiratory failure his initial ABG showed a pO2 of 53 pCO2 104 pH of 7.20. Most recent ABG showed a pO2 of 51 pCO2 of 100 pH of 7.23, and this is on BiPAP with IPAP of 18, EPAP 5, FiO2 of 35%. Labs were basically unremarkable except for slightly elevated BNP level. Influenza screening and coronavirus screening was negative. Chest x-ray showed no evidence of active disease. Patient was admitted to the ICU, and I saw him this morning on consultation. Patient is lethargic, arousable, but not oriented to time and place or person. He is definitely confused, and on BiPAP. Seems to be tolerating the BiPAP quite well in spite of high IPAP. He is now on IPAP of 18. He is moving fairly good amount of tidal volumes anywhere between 400-500. Considering the patient is compliant with the BiPAP, and considering that the patient remains arousable although he is not fully oriented, I will try to manage the patient with BiPAP, however if his condition gets a bit worse, may have to be intubated and placed on mechanical ventilation. Patient was reevaluated today on 08/29/2020, patient remains in the ICU, his ABG later in the evening improved significantly, his pCO2 came down to the 69 range, pH went up to 7.42, pO2 was 69 and this was on 2 L nasal cannula. Patient kept taking off his BiPAP mask, hence I decided to keep him off BiPAP, and kept him on nasal cannula at 2 L. I have discontinued his vancomycin since the blood cultures came back positive for staph epidermidis. And I have discontinued his Lovenox, kept him on Coumadin, patient will be allowed to go on a regular diet today. Considering the significant agitation yesterday, I had to place him on Precedex, and he remains on Precedex at 0.7 mcg/kg/h. Chest x-ray is showing interstitial infiltrates, more so in the right lower lobe, not clear whether the patient may have aspirated. Mostly because of his mental status change and extreme obtundation upon arrival to the ER. Patient is on Ancef, and I have discontinued his vancomycin. Patient denies any cough, denies any shortness of breath, however he is confused, and I believe the patient has what seems to be an acute toxic metabolic encephalopathy. I was hoping his mental status will improve significantly since his pCO2 is down to the 60s, I will recommended a CT of the brain, however the patient is extremely obese, and he does not fit in the scanner. CBC today is relatively normal INR is therapeutic at 3.3. E lectrolytes are relatively normal bicarb is 40 BUN is 25 creatinine 0.88 On 08/30/2020 patient seen in follow-up in intensive care unit, he is currently on 2 L of oxygen breathing comfortably, his pulse ox is 92-93%, he did wear BiPAP last night with pressures of 18/5 and FiO2 of 30%, tolerated well, mentation has much improved, he is oriented 3, denies any distress, his maintenance IV fluids appointment and was seen at a rate of 20 ML per hour, no other drips. Precedex has been discontinued at midnight. Patient is on once daily dose of Lasix 40 mg, and he is in -5.5 L net fluid balance over the last 24 hours, no fever or chills, no coughing or wheezing, patient is also getting IV steroids. He is on DuoNeb breathing treatments, patient was placed on Ancef for empiric antibiotic coverage, however his pro calcitonin level was low at 0.10, and occluded of bacterial infection is low therefore we'll discontinue his antibiotics. He remains on Coumadin for history of DVT and the patient states his been on Coumadin for over a year, with no past history of DVT or PE, and no family history of DVT or PE. On 08/31/2020 patient seen in follow-up on medical surgical floor. He is resting comfortably in bed, he is awake and alert, oriented 3, he is on 3 L of oxygen the pulse ox of 95%, vital signs are stable, he is been afebrile. His had no acute events overnight, he is breathing comfortably, his last chest x-ray yesterday showed some patchy airspace disease at the right base. Patient has been transitioned to oral Lasix 40 mg daily, and she is in -4 L net fluid balance over the last 24 hours. He has been transitioned to Medrol dosepak. Lower started Dopplers showed no evidence of deep venous thrombosis and bilateral lower extremity veins. INR is 2.6, and his Coumadin is on hold. Objective - Vital Signs Vital signs: Vital Signs Temp 98.2 F 08/31/20 07:37 Pulse 86 08/31/20 07:41 Resp 16 08/31/20 07:37 BP 130/67 08/31/20 07:37 Pulse Ox 95 08/31/20 07:37 Intake & Output 08/30/20 08/31/20 08/31/20 18:59 06:59 18:59 Intake Total 790 600 Output Total 3612 1800 700 Balance -2822 -1200 -700 Weight 218.2 kg 226 kg Intake: IV 40 Sodium Chloride 0.9% 1, 40 000 ml @ 20 mls/hr IV . Q24H [facility] Rx#:[id number] Oral 750 600 Output: Urine 3610 1800 700 Uretheral ([place]onado) 700 Stool 2 Other: Voiding Method Indwelling Catheter Indwelling Catheter Indwelling Catheter # Bowel Movements 2 - Exam GENERAL EXAM: Alert, very pleasant, 55-year-old morbidly obese white male, currently on 3 L of oxygen with pulse ox of 93% comfortable in no apparent distress. HEAD: Normocephalic/atraumatic. EYES: Normal reaction of pupils, equal size. Conjunctiva pink, sclera white. NOSE: Clear with pink turbinates. THROAT: No erythema or exudates. NECK: No masses, no JVD, no thyroid enlargement, no adenopathy. CHEST: No chest wall deformity. Symmetrical expansion. LUNGS: Equal air entry with diminished breath sounds at the bases CVS: Regular rate and rhythm, normal S1 and S2, no gallops, no murmurs, no rubs ABDOMEN: Soft, nontender. No hepatosplenomegaly, normal bowel sounds, no guarding or rigidity. EXTREMITIES: No clubbing, mild pretibial edema, no cyanosis, 2+ pulses and upper and lower extremities. MUSCULOSKELETAL: Muscle strength and tone normal. SPINE: No scoliosis or deformity SKIN: No rashes CENTRAL NERVOUS SYSTEM: Alert and oriented -3. No focal deficits, tone is normal in all 4 extremities. PSYCHIATRIC: Alert and oriented -3. Appropriate affect. Intact judgment and insight. - Labs CBC & Chem 7: 08/30/20 03:46 08/30/20 03:46 Labs: Abnormal Lab Results - Last 24 Hours (Table) 08/30/20 08/30/20 08/31/20 Range/Units 11:31 19:52 05:55 PT 24.8 H (9.0-12.0) sec INR 2.6 H (<1.2) POC Glucose (mg/dL) 114 H 152 H (75-99) mg/dL 08/31/20 Range/Units 07:16 PT (9.0-12.0) sec INR (<1.2) POC Glucose (mg/dL) 143 H (75-99) mg/dL Microbiology - Last 24 Hours (Table) 08/28/20 18:09 Blood Culture - Preliminary Blood No Growth after 48 hours 08/28/20 18:09 Blood Culture - Preliminary Blood No Growth after 48 hours 08/27/20 17:23 Blood Culture - Preliminary Blood No Growth after 72 hours 08/27/20 18:24 Blood Culture Gram Stain - Final Blood Blood Culture - Final Staphylococcus epidermidis Assessment and Plan Plan: Assessment: #1. Acute on chronic hypoxic and hypercapnic respiratory failure, secondary to obesity/hypoventilation syndrome #2. Suspect a component of acute exacerbation of COPD, remains on steroids and bronchodilators #3. Obesity/hypoventilation syndrome #4. Chronic cor pulmonale, remains on diuretics #5. Acute cellulitis of lower extremities #6. Morbid obesity with BMI of 71.8 #7. Acute metabolic encephalopathy secondary to hypoxia mostly secondary to hypercapnia #8. Doubt aspiration pneumonia based on low pro-calcitonin level Plan: Patient has been stable overnight Maintaining negative fluid balance No acute events overnight Patient has been transitioned to oral Lasix and Medrol Dosepak Breathing comfortably Possible discharge home today We'll need follow-up with Dr. Torres in the office in 7-10 days No evidence of DVT in his bilateral lower extremities His Coumadin can be discontinued as the patient has completed 1 year of anticoagulation for an unprovoked DVT I performed a history & physical examination of the patient and discussed their management with my nurse practitioner, Jessika Davison. I reviewed the nurse practitioner's note and agree with the documented findings and plan of care. Lung sounds are positive for diminished breath sounds. The findings and the impression was discussed with the patient. I attest to the documentation by the nurse practitioner. Time with Patient: Less than 30
[2020-08-31 11:27] LABS: Glucose,Whole Blood 140 mg/dL (75-99)
[2020-08-31 15:42] VITALS: BP 133/69; RESP 15; TEMP 97.8
[2020-08-31 16:04] VITALS: PULSE 88
[2020-08-31] MEDS ORDERED: PANTOPRAZOLE 40 MG TABLET PO SCH (17:30)
--- NOTE | 2020-09-01 13:47 | P.DS ---
Providers Date of admission: 08/27/20 19:00 Expected date of discharge: 08/31/20 Attending physician: Deng Anderson Consults: 08/27/20 18:58 Consult Physician Stat Consulting Provider: Farhan Arteaga Consult Reason/Comments: icu patient, hypercarbia Do you want consulting provider notified?: Already Contacted Primary care physician: Saroj Beltran Hospital Course: Final diagnosis Acute mental status changes possibly secondary to hypoxic encephalopathy from underlying obesity hypoventilation syndrome COPD acute exacerbation Acute hypoxic and hypercapnic respiratory failure from obesity hypoventilation syndrome and acute COPD exacerbation requiring BiPAP Chronic hypoxic and hypercapnic respiratory failure, continues on 3 L of oxygen at home Acute respiratory acidosis Morbid obesity with a body max index of 67.1 Hyperkalemia Peripheral neuropathy Gastroesophageal reflux disease Accelerated hypertension, resolved Chronic lower extremity deep vein thrombosis on Coumadin Continued ongoing nicotine dependence Chronic venous stasis dermatitis to bilateral lower extremities Cutaneous intertriginous candidiasis Discharge disposition Patient is being discharged in a stable condition with guarded prognosis to home. Patient will follow-up with Dr. Alanna Beltran in the outpatient setting upon discharge. Patient will continue with [facility] in the outpatient setting. Patient is to follow-up with pulmonary Dr. Topete in the outpatient setting in 1 week for further testing. Total time taken is greater than 35 minutes. Hospital course This is a 55-year-old patient, who follows with Dr. Saroj Beltran. EMS was called out. Upon arrival patient's phone in the chair awake but somewhat slow to respond. Patient's friend at trying to: Without answering and came over to find him think that. Patient's arms were twitching that is new according to the friend and patient was slow to respond and somewhat delirious. Patient's pulse ox was found to be 81%. EKG showed sinus tachycardia. Accu-Chek was 154. Tony Coma Scale was 13. Pulse was regular. Patient's home oxygen 3 L. Patient was cyanotic. Put on a non-breather at 15 L. Patient was then transf erred to the ICU. Put on a BiPAP. IPAP of 18, EPAP of 5 with 30%. Patient also started on Precedex. Patient is somewhat delirious. The able to answer some questions. is moving his limbs about. Admitted with acute hypoxic encephalopathy, obesity hypoventilation syndrome, acute COPD exacerbation, acute hypoxic and hypercapnic respiratory failure. Started on Precedex. Admitted to ICU Today: ICU. Patient is off the BiPAP. On 2 L nasal cannula. On Precedex drip. Still delirious but less so. May answer occasional question. 08/30/2020 Patient is seen and evaluated continues to be closely monitored in the ICU. Patient is currently on 4 L of oxygen via nasal cannula and weaning as tolerated. Patient continues to be off BiPAP and being closely monitored. Continue BiPAP as needed at night. He states he does not normally wear a CPAP or BiPAP machine in the home setting. Pulmonary following closely. Chest x-ray today shows borderline to mild cardiomegaly with similar patchy airspace disease at the right from previous exams with no pleural effusion noted. Patient continues on breathing inhalational treatments along with IV steroids and will continue at this time. IV antibiotics have been discontinued. Patient also underwent venous Doppler of bilateral lower extremities with no evidence of DVT of the bilateral lower extremity veins and unable to visualize for compression views due to obesity and interstitial edema. PT/OT to evaluate the patient. Coumadin to be resumed and monitor INR as INR today is 2.4. Hemoglobin is 11.3 with a white blood count of 9.0, sodium is 136, potassium is 4.3, current creatinine is 0.89. Patient is afebrile. 08/31/2020 Patient is seen in follow-up with no acute overnight issues. Patient was seen and evaluated by pulmonary recommending outpatient follow-up for further testing and continued Homecare. Patient was seen and evaluated by physical therapy and did well and recommending to continue with home care in the outpatient setting. Patient also instructed to follow-up with primary care provider upon discharge. Currently no reports of chest pain, worsening shortness of breath, or palpitations. Patient is afebrile. No reports of nausea or vomiting and patient is tolerating diet. Patient will be discharged home today. On exam vital signs are stable. Cardio S1, S2 are muffled. Respiratory system shows diminished breath sounds at the bases with scattered rhonchi noted. Abdomen is soft and obese, and nontender. Nervous system shows no focal deficits. Please refer to medication reconciliation sheet for a list of medications. Patient Condition at Discharge: Stable Plan - Discharge Summary Discharge Rx Participant: No New Discharge Prescriptions: New Losartan [Cozaar] 100 mg PO DAILY 30 Days #60 tab Furosemide [Lasix] 40 mg PO DAILY 30 Days #30 tab methylPREDNISolone Dose Pack [Medrol Dose Pack] 24 mg PO DAILY #30 tab Nystatin 100,000 Unit/gm Powd [Mycostatin Powder] 1 applic TOPICAL BID #1 applic Nicotine 21Mg/24Hr Patch [Habitrol] 1 patch TRANSDERM DAILY #20 patch amLODIPine [Norvasc] 5 mg PO BID 30 Days #60 tab SILVER sulfADIAZINE CREAM [Silvadene Cream] 1 applic TOPICAL BID #1 applic Continue Ipratropium-Albuterol Nebulize [Duoneb 0.5 mg-3 mg/3 ml Soln] 3 ml INHALATION RT-QID PRN PRN Reason: Shortness Of Breath HYDROcodone/APAP 10-325MG [Howard 10-325] 1 tab PO Q4-6H PRN PRN Reason: Pain Albuterol Sulfate [Proair Hfa] 2 puff INHALATION RT-Q4H PRN PRN Reason: Shortness Of Breath Potassium Chloride [Klor-Con 10] 10 meq PO DAILY Gabapentin [Neurontin] 400 mg PO BID Warfarin Sodium [Jantoven] 3 mg PO DAILY Pantoprazole [Protonix] 40 mg PO BID Docusate [Colace] 100 mg PO DAILY Discontinued Furosemide [Lasix] 20 mg PO DAILY Amoxicillin/Potassium Clav [Augmentin 875-125 Tablet] 1 tab PO BID Discharge Medication List Albuterol Sulfate [Proair Hfa] 2 puff INHALATION RT-Q4H PRN 08/27/20 [History] Docusate [Colace] 100 mg PO DAILY 08/27/20 [History] Gabapentin [Neurontin] 400 mg PO BID 08/27/20 [History] HYDROcodone/APAP 10-325MG [Howard 10-325] 1 tab PO Q4-6H PRN 08/27/20 [History] Ipratropium-Albuterol Nebulize [Duoneb 0.5 mg-3 mg/3 ml Soln] 3 ml INHALATION RT-QID PRN 08/27/20 [History] Pantoprazole [Protonix] 40 mg PO BID 08/27/20 [History] Potassium Chloride [Klor-Con 10] 10 meq PO DAILY 08/27/20 [History] Warfarin Sodium [Jantoven] 3 mg PO DAILY 08/27/20 [History] Furosemide [Lasix] 40 mg PO DAILY 30 Days #30 tab 08/31/20 [Rx] Losartan [Cozaar] 100 mg PO DAILY 30 Days #60 tab 08/31/20 [Rx] Nicotine 21Mg/24Hr Patch [Habitrol] 1 patch TRANSDERM DAILY #20 patch 08/31/20 [Rx] Nystatin 100,000 Unit/gm Powd [Mycostatin Powder] 1 applic TOPICAL BID #1 applic 08/31/20 [Rx] SILVER sulfADIAZINE CREAM [Silvadene Cream] 1 applic TOPICAL BID #1 applic 08/31/20 [Rx] amLODIPine [Norvasc] 5 mg PO BID 30 Days #60 tab 08/31/20 [Rx] methylPREDNISolone Dose Pack [Medrol Dose Pack] 24 mg PO DAILY #30 tab 08/31/20 [Rx] Follow up Appointment(s)/Referral(s): Saroj Beltran MD [Primary Care Provider] - 1-2 days (Office closed at time of discharge - please call PCP office to arrange follow up appointment on discharge) [facility] [NON-STAFF] - As Needed (For questions regarding ramp repair/rebuild. ) Teresa Topete MD [STAFF PHYSICIAN] - 1 Week Patient Instructions/Handouts: Sleep Apnea (DC), Chronic Respiratory Failure (DC) Activity/Diet/Wound Care/Special Instructions: [facility]: [phone] - They will call you to arrange your first home care visit. Activity Limited until follow-up Follow-up with primary care provider upon discharge Follow-up with pulmonary for further testing on sleep apnea Continue with breathing inhalational treatments Continue Medrol Dosepak taper Continue with local wound care Continue medications as prescribed Discharge Disposition: HOME WITH HOME HEALTH SERVICES
== END 2020-08-31 16:10 | disposition home health service (06) | DRG 205 ==
LOC: EDBD → SUPCPDRO 17:03 → EC 17:03 → 2SICU 19:00 → 4SSUR 08-31 01:57
PROVIDERS: ADMIT Hospitalist; ATTEND Hospitalist
PROC: 5A09457 Assistance with Respiratory Ventilation, 24-96 Consecutive Hours, Continuous Positive Airway Pressure (ICD-10-PCS; principal; 2020-08-27)
DX: E66.2 Morbid (severe) obesity with alveolar hypoventilation (principal); J96.21 Acute and chronic respiratory failure with hypoxia; J96.22 Acute and chronic respiratory failure with hypercapnia; G93.1 Anoxic brain damage, not elsewhere classified; J44.1 Chronic obstructive pulmonary disease with (acute) exacerbation; Z68.45 Body mass index [BMI] 70 or greater, adult; E87.2 Acidosis; L03.115 Cellulitis of right lower limb; L03.116 Cellulitis of left lower limb; I27.81 Cor pulmonale (chronic); E11.42 Type 2 diabetes mellitus with diabetic polyneuropathy; B37.2 Candidiasis of skin and nail; Z20.822 Contact with and (suspected) exposure to COVID-19; G47.33 Obstructive sleep apnea (adult) (pediatric); I10 Essential (primary) hypertension; E87.5 Hyperkalemia; I87.2 Venous insufficiency (chronic) (peripheral); I89.0 Lymphedema, not elsewhere classified; K21.9 Gastro-esophageal reflux disease without esophagitis; F17.210 Nicotine dependence, cigarettes, uncomplicated; Z71.6 Tobacco abuse counseling; Z99.81 Dependence on supplemental oxygen; Z79.01 Long term (current) use of anticoagulants; Z79.899 Other long term (current) drug therapy; Z86.19 Personal history of other infectious and parasitic diseases; Z86.718 Personal history of other venous thrombosis and embolism; Z71.3 Dietary counseling and surveillance
CPT/HCPCS: 36415; 36600; 71045; 80048; 80053; 82805; 83036; 83605; 83735; 83880; 84132; 84145; 84484; 85025; 85379; 85610; 85730; 86140; 87040; 87077; 87186; 87636; 93005; 93970; 94640; 94660; 96360; 99285

== ENCOUNTER 2021-05-16 17:35 | Inpatient (IN) | payer MEDICARE, OTHER ==
[2021-05-16] MEDS ORDERED: SODIUM CHLORIDE 0.9% 1,000 ML IV STA (18:06)
[2021-05-16] MEDS ORDERED: ONDANSETRON 4 MG/2 ML VIAL IVP STA (18:06)
[2021-05-16] MEDS ORDERED: FAMOTIDINE 20 MG/2 ML VIAL IV STA ×2 (18:07→20:31)
--- NOTE | 2021-05-16 18:12 | ED ---
General Adult HPI <Elías Daniels - Last Filed: 05/16/21 23:07> - General Source: patient, RN notes reviewed Mode of arrival: EMS - History of Present Illness Onset/Timin -: days(s) <Kishan Hoskins - Last Filed: 05/17/21 00:18> - General Chief complaint: Nausea/Vomiting/Diarrhea Stated complaint: NVD Time Seen by Provider: 05/16/21 17:59 - History of Present Illness Initial comments: This is a pleasant 56-year-old male who presents to the emergency department complaining of nausea, vomiting, and diarrhea. He states it started this morning. He states that it is watery vomitus and diarrhea. Everyone is houses had it over the past few days. He states he is last person to get it. Patient states he vomited this morning but has no nausea currently. No hematochezia or melena. No hematemesis or coffee ground emesis. Patient states he has had no fever. Patient states he does have some shortness of breath but states this is actually chronic for him as he has COPD. Denies any chest pain. States he does have some mild abdominal cramping. No headache, no fever or chills, no changes in vision or hearing, no sore throat or difficulty with speech, no neck pain, no chest painm no changes in urination or bowel movements, no numbness or tingling, no extremity pain, no skin rashes or lesions. Patient has a history of diabetes mellitus, hypertension, COPD, acid reflux. Patient eventually tells me the reason he came here is because he thought he was going to have diarrhea in his bed--States that he "did not want that to happen. ". Patient states he is able to Mary to home with a walker. Note that the patient is on 3 L of oxygen at home [id number]. (Kishan Hoskins) - Related Data Home Medications Medication Instructions Recorded Confirmed Albuterol Sulfate [Proair Hfa] 2 puff INHALATION RT-Q4H PRN 08/27/20 05/16/21 Gabapentin [Neurontin] 400 mg PO BID 08/27/20 05/16/21 HYDROcodone/APAP 10-325MG [[place] 1 tab PO Q4H PRN 08/27/20 05/16/21 10-325] Ipratropium-Albuterol Nebulize 3 ml INHALATION RT-QID PRN 08/27/20 05/16/21 [Duoneb 0.5 mg-3 mg/3 ml Soln] Pantoprazole [Protonix] 40 mg PO BID 08/27/20 05/16/21 Budesonide/Formoterol Fumarate 2 puff INHALATION RT-BID 05/16/21 05/16/21 [Symbicort 160-4.5 Mcg Inhaler] Dextroamphetamine/Amphetamine 10 mg PO BID 05/16/21 05/16/21 [Adderall] Allergies Allergy/AdvReac Type Severity Reaction Status Date / Time Iodinated Contrast Media Allergy Unknown Verified 05/16/21 19:46 Review of Systems ROS Other: All systems not noted in ROS Statement are negative. <Elías Daniels - Last Filed: 05/16/21 23:07> ROS Other: All systems not noted in ROS Statement are negative. <Kishan Hoskins - Last Filed: 05/17/21 00:18> ROS Statement: Those systems with pertinent positive or pertinent negative responses have been documented in the HPI. Past Medical History Past Medical History: COPD, Diabetes Mellitus, GERD/Reflux, Hypertension Additional Past Medical History / Comment(s): (L) leg DVT, hx of sepsis r/t cellulitis History of Any Multi-Drug Resistant Organisms: None Reported Past Surgical History: Unable to Obtain Past Psychological History: No Psychological Hx Reported Smoking Status: Current every day smoker Past Alcohol Use History: None Reported Past Drug Use History: Unable to Obtain <Kishan Hoskins - Last Filed: 05/17/21 00:18> General Exam General appearance: in distress, obese Head exam: Present: atraumatic, normocephalic, normal inspection Eye exam: Present: normal appearance, PERRL, EOMI. Absent: scleral icterus, conjunctival injection, periorbital swelling ENT exam: Present: normal exam, mucous membranes moist Neck exam: Present: normal inspection. Absent: tenderness, meningismus, lymphadenopathy Respiratory exam: Present: normal lung sounds bilaterally. Absent: respiratory distress, wheezes, rales, rhonchi, stridor Cardiovascular Exam: Present: regular rate, normal rhythm, normal heart sounds. Absent: systolic murmur, diastolic murmur, rubs, gallop, clicks GI/Abdominal exam: Present: soft, other (No significant tenderness to palpation) . Absent: distended, tenderness, guarding, rebound, rigid Extremities exam: Present: normal inspection, full ROM, normal capillary refill. Absent: tenderness, pedal edema, joint swelling, calf tenderness Back exam: Present: normal inspection Neurological exam: Present: alert, oriented X3, CN II-XII intact Psychiatric exam: Present: normal affect, normal mood Skin exam: Present: warm, dry, intact, normal color. Absent: rash <Kishan Hoskins - Last Filed: 05/17/21 00:18> - General Exam Comments Initial Comments: 56-year-old male, morbidly obese, mild distress. Does not appear to be toxic, does appear to be mildly ill. However Refill is approximately 3 seconds. (Kishan Hoskins) Course <Elías Daniels - Last Filed: 05/16/21 23:07> <Kishan Hoskins - Last Filed: 05/17/21 00:18> Vital Signs 05/16/21 05/16/21 05/16/21 18:11 20:16 21:39 Temperature 99.6 F Pulse Rate 102 H 129 H 134 H Respiratory 22 24 20 Rate Blood Pressure 115/52 126/86 136/54 O2 Sat by Pulse 94 L 91 L 95 Oximetry 05/16/21 22:10 Temperature Pulse Rate 120 H Respiratory 18 Rate Blood Pressure 158/64 O2 Sat by Pulse 96 Oximetry - Reevaluation(s) Reevaluation #1: 05/16/21 19:57 Medical record is reviewed Symptoms are improved here in the emergency department Patient is informed of results and questions answered Patient in no distress Note that the patient's lactic acid was 2.5. We will attempt rehydration and repeat at 2100. (Kishan Hoskins) Reevaluation #2: 05/16/21 20:31 Medical record is reviewed Patient had an episode of hypoxemia and developed a fast heart rate. Set the patient up and place him on a nonrebreather. Oxygen saturation immediately back into the 90s. We'll order a CT of the chest to rule out pulmonary embolism as the patient has a history of a DVT, premedication ordered. ABG was done at 8:13 PM showing a pH of 7.181, pCO2 of 105, pO2 of 187, bicar bonate of 39.2. Consistent with uncompensated respiratory acidosis without hypoxemia. (Kishan Hoskins) Reevaluation #3: 05/16/21 21:29 Medical record is reviewed BiPAP was initiated at 16 overate. Patient lucid and responsive. Computed tomography scan was held due to the patient's condition. We will reevaluate the patient. Likely we'll heparinize the patient and get a VQ scan in the morning. (Kishan Hoskins) Reevaluation #4: 05/16/21 23:07 Patient reevaluated and reexamined by myself, Dr. Daniels. Patient resting comfortably in bed on BiPAP. Patient is arousable to touch. Case discussed with Dr. Topete, who agrees to keep patient in ICU tonight. (Elías Daniels) 05/16/21 22: Medical restraints ordered as patient was trying to hold the BiPAP mask off. Medical necessity. (Kishan Hoskins) EKG Findings - EKG Comments: EKG Findings:: EKG done at 185 and read by the ED attending physician reveals sinus tachycardia with a rate of 118. Evidence of right bundle-branch block with a incomplete appearance. Normal intervals. Mild right axis deviation. Does have a similar appearance from the previous study from August 2020. EKG interpretation of moderate ST depression does not appear to be significant. Patient does have RSR pattern in V1, V2, V3. Patient had another EKG ordered after his episodic hypoxemia. Rate of 129. No other specific changes when compared to the initial study. This EKG was done at and read by the ED attending physician <Kishan Hoskins - Last Filed: 05/17/21 00:18> Medical Decision Making - Lab Data Result diagrams: 05/16/21 18:24 05/16/21 18:24 <Elías Daniels - Last Filed: 05/16/21 23:07> - Lab Data Result diagrams: 05/16/21 18:24 05/16/21 18:24 <Kishan Hoskins - Last Filed: 05/17/21 00:18> - Medical Decision Making We'll order antiemetics, IV fluids, general abdominal workup, we'll add on a EKG and troponin. Accu-Chek. Plan for reevaluation. Patient symptomology most consistent with viral gastroenteritis as he has had multiple contacts in the home with this. Without abdominal tenderness, this is less likely to be intra- abdominal pathology such as appendicitis, diverticulitis, cholecystitis. Patient is possible but less likely without significant pain. We'll also order COVID-19 test. Case was discussed in detail with the hospitalist physician, Dr. Lu. Dr. Daniels spoke with the junior copywriter, Dr. Topete. Patient will be admitted to the ICU. (Kishan Hoskins) - Lab Data Lab Results 05/16/21 05/16/21 05/16/21 Range/Units 18:24 18:24 18:24 WBC 8.0 (3.8-10.6) k/uL RBC 5.06 (4.30-5.90) m/uL Hgb 12.6 L (13.0-17.5) gm/dL Hct 43.6 (39.0-53.0) % MCV 86.2 (80.0-100.0) fL MCH 25.0 (25.0-35.0) pg MCHC 29.0 L (31.0-37.0) g/dL RDW 18.2 H (11.5-15.5) % Plt Count 171 (150-450) k/uL MPV 9.1 Neutrophils % (Manual) 65 % Band Neuts % (Manual) 23 % Lymphocytes % (Manual) 8 % Monocytes % (Manual) 2 % Basophils % (Manual) 1 % Metamyelocytes % 1 % Neutrophils # (Manual) 7.00 (1.3-7.7) k/uL Lymphocytes # (Manual) 0.64 L (1.0-4.8) k/uL Monocytes # (Manual) 0.16 (0-1.0) k/uL Basophils # (Manual) 0.08 (0-0.2) k/uL Metamyelocytes # (Man) 0.08 H (0) k/uL Nucleated RBCs 0 (0-0) /100 WBC Manual Slide Review Performed Hypochromasia Marked Anisocytosis Slight Sodium 133 L (137-145) mmol/L Potassium 4.5 (3.5-5.1) mmol/L Chloride 91 L (98-107) mmol/L Carbon Dioxide 35 H (22-30) mmol/L Anion Gap 7 mmol/L BUN 24 H (9-20) mg/dL Creatinine 0.86 (0.66-1.25) mg/dL Est GFR (CKD-EPI)AfAm >90 (>60 ml/min/1.73 sqM) Est GFR (CKD-EPI)NonAf >90 (>60 ml/min/1.73 sqM) Glucose 167 H (74-99) mg/dL Lactic Ac Sepsis Rflx Plasma Lactic Acid Declan (0.7-2.0) mmol/L Calcium 8.1 L (8.4-10.2) mg/dL Total Bilirubin 0.7 (0.2-1.3) mg/dL AST 31 (17-59) U/L ALT 21 (4-49) U/L Alkaline Phosphatase 69 (38-126) U/L Troponin I <0.012 (0.000-0.034) ng/mL Total Protein 6.8 (6.3-8.2) g/dL Albumin 3.5 (3.5-5.0) g/dL Amylase 65 (30-110) U/L Lipase 97 (23-300) U/L Coronavirus (PCR) (Not Detectd) 05/16/21 05/16/21 05/16/21 Range/Units 18:24 18:24 19:18 WBC (3.8-10.6) k/uL RBC (4.30-5.90) m/uL Hgb (13.0-17.5) gm/dL Hct (39.0-53.0) % MCV (80.0-100.0) fL MCH (25.0-35.0) pg MCHC (31.0-37.0) g/dL RDW (11.5-15.5) % Plt Count (150-450) k/uL MPV Neutrophils % (Manual) % Band Neuts % (Manual) % Lymphocytes % (Manual) % Monocytes % (Manual) % Basophils % (Manual) % Metamyelocytes % % Neutrophils # (Manual) (1.3-7.7) k/uL Lymphocytes # (Manual) (1.0-4.8) k/uL Monocytes # (Manual) (0-1.0) k/uL Basophils # (Manual) (0-0.2) k/uL Metamyelocytes # (Man) (0) k/uL Nucleated RBCs (0-0) /100 WBC Manual Slide Review Hypochromasia Anisocytosis Sodium (137-145) mmol/L Potassium (3.5-5.1) mmol/L Chloride (98-107) mmol/L Carbon Dioxide (22-30) mmol/L Anion Gap mmol/L BUN (9-20) mg/dL Creatinine (0.66-1.25) mg/dL Est GFR (CKD-EPI)AfAm (>60 ml/min/1.73 sqM) Est GFR (CKD-EPI)NonAf (>60 ml/min/1.73 sqM) Glucose (74-99) mg/dL Lactic Ac Sepsis Rflx Y Plasma Lactic Acid Declan 2.5 H* (0.7-2.0) mmol/L Calcium (8.4-10.2) mg/dL Total Bilirubin (0.2-1.3) mg/dL AST (17-59) U/L ALT (4-49) U/L Alkaline Phosphatase (38-126) U/L Troponin I (0.000-0.034) ng/mL Total Protein (6.3-8.2) g/dL Albumin (3.5-5.0) g/dL Amylase (30-110) U/L Lipase (23-300) U/L Coronavirus (PCR) Not Detected (Not Detectd) Critical Care Time Critical Care Time: Yes (45) <Kishan Hoskins - Last Filed: 05/17/21 00:18> Critical Care Time: Patient required multiple re-evaluations by myself as well as ED attending physician. Patient had episode of hypercarbia which likely caused his encephalopathy. Review of patient's condition. Review of diagnostics. Discussion with the junior copywriter as well as the hospitalist physician. ICU admission. (Kishan Hoskins) Disposition <Elías Daniels - Last Filed: 05/16/21 23:07> Time of Disposition: 21:31 <Kishan Hoskins - Last Filed: 05/17/21 00:18> Clinical Impression: Hypoventilation associated with obesity, Dehydration, Vomiting and diarrhea, Uncompensated respiratory acidosis, Encephalopathy acute Narrative: Hypercarbic encephalopathy (Kishan Hoskins) Disposition: ADMITTED IP TO THIS HOSP Condition: Stable
[2021-05-16 18:37] LABS: Anisocytosis Slight; HCT 43.6 % (39.0-53.0); HGB 12.6 gm/dL (13.0-17.5); Hypochromasia Marked; MCV 86.2 fL (80.0-100.0); Mean Platelet Volume 9.1; Platelet Count 171 k/uL (150-450); RBC 5.06 m/uL (4.30-5.90); RDW 18.2 % (11.5-15.5)
[2021-05-16 18:50] LABS: ALT 21 U/L (4-49); AST 31 U/L (17-59); African American GFR (CKD) >90 (>60 ml/min/1.73 sqM); Albumin 3.5 g/dL (3.5-5.0); Alkaline Phosphatase 69 U/L (38-126); Amylase 65 U/L (30-110); Anion Gap 7 mmol/L; Blood Urea Nitrogen 24 mg/dL (9-20); Calcium 8.1 mg/dL (8.4-10.2); Carbon Dioxide 35 mmol/L (22-30); Chloride 91 mmol/L (98-107); Glucose 167 mg/dL (74-99); Lipase 97 U/L (23-300); Non-African American GFR(CKD) >90 (>60 ml/min/1.73 sqM); Potassium 4.5 mmol/L (3.5-5.1); Sodium 133 mmol/L (137-145); Total Bilirubin 0.7 mg/dL (0.2-1.3); Total Protein 6.8 g/dL (6.3-8.2)
--- NOTE | 2021-05-16 19:08 | XR ---
EXAMINATION TYPE: XR chest 1V portable DATE OF EXAM: 05/16/2021 COMPARISON: 08/30/2020 HISTORY: Abdominal pain. Vomiting. TECHNIQUE: Single view FINDINGS: There is no heart failure or confluent pneumonic infiltrate. Costophrenic angles are clear. There are no hilar masses. Bony thorax is intact. IMPRESSION: No active cardiac or pulmonary disease. No adverse change compared to old exam.
[2021-05-16] MEDS ORDERED: LACTATED RINGERS 1,000 ML IV ONE (19:30)
[2021-05-16 19:35] LABS: Band Neutrophils % 23 %; Basophils # (M) 0.08 k/uL (0-0.2); Lymphocytes # (M) 0.64 k/uL (1.0-4.8); Metamyelocytes # (M) 0.08 k/uL (0); Metamyelocytes % 1 %; Monocytes # (M) 0.16 k/uL (0-1.0); Neutrophils % (M) 65 %; Nucleated Red Blood Cells 0 /100 WBC (0-0); Total Cells Counted 100
[2021-05-16] MEDS ORDERED: methylPREDNISolone SOD SUCCI 125 MG/2 ML VIAL IV STA (20:31)
[2021-05-16] MEDS ORDERED: diphenhydrAMINE 50 MG/ML 1 ML VIAL IVP STA (20:31)
[2021-05-16 21:14] LABS: ABG Base Excess 10.9 mmol/L; ABG HCO3 39 mmol/L (21-25); ABG Oxygen Saturation 98.9 % (94-97); ABG PO2 187 mmHg (83-108); ABG TCO2 42 mmol/L (19-24); Allen Test Performed? Yes
[2021-05-16 21:18] LABS: ABG PCO2 105 mmHg (35-45); ABG PH 7.18 (7.35-7.45)
[2021-05-16 21:57] LABS: Appearance,Urine Clear (Clear); Bilirubin,Urine Negative (Negative); Blood,Urine Negative (Negative); Color,Urine Yellow; Glucose,Urine (UA) Trace (Negative); Ketones,Urine Negative (Negative); Leukocyte Esterase,Urine Negative (Negative); Mucus,Urine Occasional /hpf; Nitrite,Urine Negative (Negative); PH, Urine 6.5 (5.0-8.0); Protein,Urine 2+ (Negative); RBC,Urine <1 /hpf (0-5); Urobilinogen,Urine <2.0 mg/dL (<2.0); WBC,Urine 1 /hpf (0-5)
[2021-05-16] MEDS ORDERED: FUROSEMIDE 10 MG/ML 4 ML VIAL IV STA (23:06)
[2021-05-16] MEDS ORDERED: NALOXONE 0.4 MG/ML 1 ML VIAL IV PRN (23:26)
[2021-05-17] MEDS: HEPARIN SODIUM,PORCINE/PF 5,000 UNIT/0.5 ML SYRINGE SQ SCH (00:06)
[2021-05-17] MEDS: SODIUM CHLORIDE 0.9% 1,000 ML IV SCH ×2 (00:14→01:31)
[2021-05-17 00:51] LABS: Glucose,Whole Blood 169 mg/dL (75-99)
[2021-05-17 05:30] LABS: ABG Base Excess 10.3 mmol/L; ABG HCO3 38 mmol/L (21-25); ABG Oxygen Saturation 95.2 % (94-97); ABG PO2 82 mmHg (83-108); ABG TCO2 41 mmol/L (19-24); Allen Test Performed? Yes
[2021-05-17 05:38] LABS: ABG PCO2 98 mmHg (35-45)
--- NOTE | 2021-05-17 07:55 | XR ---
EXAMINATION TYPE: XR chest 1V DATE OF EXAM: 05/17/2021 CLINICAL HISTORY: Hypoxia. TECHNIQUE: Single AP portable supine view of the chest is obtained. COMPARISON: Chest x-ray from one day earlier and older studies. FINDINGS: Slightly suboptimal due to large body habitus and portable technique limiting evaluation o f the left lung base. Remainder of left lung is clear. Bibasilar opacities remain present. Mild cardi omegaly again seen. Osseous structures are intact. IMPRESSION: Mild cardiomegaly with bibasilar opacities favoring atelectatic change. No significant ch debbie from one day earlier.
[2021-05-17] MEDS ORDERED: methylPREDNISolone SOD SUCCI 40 MG/ML 1 ML VIAL IV SCH (08:00)
[2021-05-17 08:02] LABS: Anisocytosis Slight; Basophils % (A) 0 %; Eosinophils % (A) 0 %; HCT 43.3 % (39.0-53.0); HGB 12.2 gm/dL (13.0-17.5); Hypochromasia Marked; Lymphocytes # (A) 0.7 k/uL (1.0-4.8); Lymphocytes % (A) 9 %; MCHC 28.1 g/dL (31.0-37.0); MCV 88.9 fL (80.0-100.0); Mean Platelet Volume 9.3; Monocytes # (A) 0.2 k/uL (0-1.0); Monocytes % (A) 3 %; Neutrophils # (A) 6.7 k/uL (1.3-7.7); Neutrophils % (A) 87 %; Platelet Count 167 k/uL (150-450); RBC 4.87 m/uL (4.30-5.90); RDW 18.1 % (11.5-15.5); WBC 7.6 k/uL (3.8-10.6)
[2021-05-17 08:11] LABS: Calcium 7.5 mg/dL (8.4-10.2); Magnesium 1.6 mg/dL (1.6-2.3); Potassium 5.5 mmol/L (3.5-5.1)
[2021-05-17] MEDS: IPRATROPIUM-ALBUTEROL 3 ML NEB INHALATION SCH ×4 (08:11→19:24)
[2021-05-17] MEDS: BUDESONIDE 1 MG/2 ML NEBU INHALATION SCH ×2 (08:11→19:24)
[2021-05-17] MEDS: FORMOTEROL FUMARATE 20 MCG/2 ML NEBU INHALATION SCH ×2 (08:11→19:39)
--- NOTE | 2021-05-17 08:35 | P.CNPUL ---
<Jessika Davison - Last Filed: 05/17/21 08:27> History of Present Illness Consult date: 05/17/21 Requesting physician: Gregory Mohan Reason for consult: dyspnea, other Chief complaint: Shortness of breath, nausea vomiting and diarrhea History of present illness: 56-year-old morbidly obese male with past medical history of obstructive sleep apnea, COPD, current smoker, hypertension, diabetes mellitus, previous history of left leg DVT, presented to the emergency department on 05/16/2021 for evaluation of nausea vomiting and diarrhea that started yesterday morning. Apparently there are other family members that had a similar illness for the past few days. He did admit to being short of breath as well did admit it is chronic for him, denied any fever, denied any chest pain. Did have some mild abdominal cramping, he denied any hematochezia or melena. He tested negative for COVID 19, he denies being vaccinated for COVID-19. He states he is not normally on oxygen and she does not have a CPAP device at home. His chest x-ray showed no acute pulmonary process. In the emergency department patient became hypoxic, and tachycardic. Leg gas was obtained showing pO2 of 187, pCO2 of 105, and pH of 7.18, and subsequently patient was placed on BiPAP support with pressures of 16/8 and FiO2 of 50%. CTA chest was considered however held because of the patient's body habitus and his worsening respiratory failure. Patient is not on any chronic anticoagulation for his past history of left leg DVT. He was placed on prophylactic anticoagulation with heparin, he was given a dose of IV Solu-Medrol and breathing treatments. His lactic acid was noted to be elevated at 2.5, and patient is receiving IV fluids with 0.9 normal saline at a rate of 75 ML per hour. Other admission blood work reveals normal white count of 8.0, hemoglobin of 12.6, platelet count of 171, sodium is 133, potassium is 4.5, chloride is 91, CO2 35, anion gap is 7, B1 is 24, creatinine is 0.86, lactic acid was 2.5, and subsequent draw was 1.0, LFTs were unremarkable, troponins were less than 0.012, and 0.0-2, amylase and lipase were within normal limits at 65 and 97 respectively, urinalysis showed 2+ protein, trace glucose, no clear evidence of infection. COVID-19 PCR was negative. Patient is seen in the intensive care unit, remains on BiPAP support with pressures of 16/8 and FiO2 of 50% satting 93%, repeat blood gas was drawn, this morning at 5:00 in the morning and showed pO2 of 82, pCO2 of 98, and pH of 7.20. She is arousable to voice, he is able to answer simple questions, however dozes off. His respiratory rate is 16, minute ventilation is 7.1, he is achieving tidal volumes of 398 on those above-mentioned settings. Hemodynamically he is stable, he is in sinus mechanism, slightly tachycardic with a rate of 102 BPM, blood pressures 123/61. Currently on 0.9 normal saline at 75 ML per hour, Maldonado catheter has been inserted and patient is producing output in the order of 75-100 ML per hour. He is quite bronchospastic on today's exam, but does not seem to be edematous. His lower extremities noted to be pink and warm, changes of cellulitis. Review of Systems All systems: negative Constitutional: Denies chills, Denies fever Eyes: denies blurred vision, denies pain Ears, nose, mouth and throat: Denies headache, Denies sore throat Cardiovascular: Denies chest pain, Denies shortness of breath Respiratory: Reports dyspnea, Denies cough Gastrointestinal: Reports diarrhea, Reports nausea, Reports vomiting, Denies abdominal pain Musculoskeletal: Denies myalgias Integumentary: Denies pruritus, Denies rash Neurological: Denies numbness, Denies weakness Psychiatric: Denies anxiety, Denies depression Endocrine: Denies fatigue, Denies weight change Past Medical History Past Medical History: COPD, Diabetes Mellitus, GERD/Reflux, Hypertension Additional Past Medical History / Comment(s): (L) leg DVT, hx of sepsis r/t cellulitis History of Any Multi-Drug Resistant Organisms: None Reported Past Surgical History: Unable to Obtain Past Psychological History: No Psychological Hx Reported Smoking Status: Current every day smoker Past Alcohol Use History: None Reported Past Drug Use History: Unable to Obtain Medications and Allergies Home Medications Medication Instructions Recorded Confirmed Type Albuterol Sulfate [Proair Hfa] 2 puff INHALATION RT-Q4H PRN 08/27/20 05/16/21 History Gabapentin [Neurontin] 400 mg PO BID 08/27/20 05/16/21 History HYDROcodone/APAP 10-325MG [[place] 1 tab PO Q4H PRN 08/27/20 05/16/21 History 10-325] Ipratropium-Albuterol Nebulize 3 ml INHALATION RT-QID PRN 08/27/20 05/16/21 History [Duoneb 0.5 mg-3 mg/3 ml Soln] Pantoprazole [Protonix] 40 mg PO BID 08/27/20 05/16/21 History Budesonide/Formoterol Fumarate 2 puff INHALATION RT-BID 05/16/21 05/16/21 History [Symbicort 160-4.5 Mcg Inhaler] Dextroamphetamine/Amphetamine 10 mg PO BID 05/16/21 05/16/21 History [Adderall] Allergies Allergy/AdvReac Type Severity Reaction Status Date / Time Iodinated Contrast Media Allergy Unknown Verified 05/16/21 19:46 Physical Exam Vitals: Vital Signs Temp Pulse Resp BP Pulse Ox 05/17/21 08:24 100 05/17/21 08:23 100 05/17/21 08:14 99 05/17/21 08:00 96 15 123/61 93 L 05/17/21 07:30 100 19 127/58 93 L 05/17/21 07:00 98 16 121/57 97 05/17/21 06:30 98 15 116/53 95 05/17/21 06:00 101 H 18 112/54 95 05/17/21 05:30 108 H 19 126/57 91 L 05/17/21 05:00 103 H 15 105/53 94 L 05/17/21 04:30 96 14 103/52 94 L 05/17/21 04:00 93 18 106/49 94 L 05/17/21 03:30 95 19 109/50 94 L 05/17/21 03:20 96 18 109/50 94 L 05/17/21 03:10 99.7 F H 99 17 109/50 94 L 05/17/21 03:00 102 H 17 106/48 94 L 05/17/21 02:50 103 H 20 106/48 95 05/17/21 02:40 105 H 22 106/48 93 L 05/17/21 02:30 105 H 16 104/42 94 L 05/17/21 02:20 105 H 15 104/42 92 L 05/17/21 02:10 99 15 104/42 94 L 05/17/21 02:00 101 H 20 111/55 93 L 05/17/21 01:50 105 H 17 111/55 91 L 05/17/21 01:40 108 H 12 111/55 93 L 05/17/21 01:30 102 H 19 134/67 94 L 05/17/21 01:20 105 H 18 134/67 94 L 05/17/21 01:10 108 H 21 134/67 94 L 05/17/21 01:00 99.6 F 115 H 12 126/57 93 L 05/17/21 00:50 108 H 22 126/57 95 05/17/21 00:48 108 H 20 05/17/21 00:00 102 H 23 134/69 91 L 05/16/21 23:15 103 H 23 135/65 91 L 05/16/21 22:10 120 H 18 158/64 96 05/16/21 21:39 134 H 20 136/54 95 05/16/21 20:16 129 H 24 126/86 91 L 05/16/21 20:15 54 L 05/16/21 18:11 99.6 F 102 H 22 115/52 94 L Intake and Output 05/16/21 05/17/21 05/17/21 22:59 06:59 14:59 Intake Total 450 75 Output Total 870 100 Balance -420 -25 Intake: Intake, IV Titration 450 75 Amount Sodium Chloride 0.9% 1, 450 75 000 ml @ 75 mls/hr IV . [id number] [facility] Rx#:[id number] Output: Urine 870 100 Other: Voiding Method Indwelling Catheter Weight 249.476 kg 268 kg GENERAL EXAM: Somnolent, arousable to voice and tactile stimulation, dozes off if left unstimulated, morbidly obese 56-year-old white male on BiPAP support with pressures of 16/8 and FiO2 of 50%, comfortable in no apparent distress. HEAD: Normocephalic/atraumatic. EYES: Normal reaction of pupils, equal size. Conjunctiva pink, sclera white. NOSE: Clear with pink turbinates. THROAT: No erythema or exudates. NECK: No masses, no JVD, no thyroid enlargement, no adenopathy. CHEST: No chest wall deformity. Symmetrical expansion. LUNGS: Equal air entry with diffuse wheezes CVS: Regular rate and rhythm, normal S1 and S2, no gallops, no murmurs, no rubs ABDOMEN: Soft, nontender. No hepatosplenomegaly, normal bowel sounds, no guarding or rigidity. EXTREMITIES: No clubbing, no edema, no cyanosis, 2+ pulses and upper and lower extremities. he has changes of bilateral lower extremity cellulitis MUSCULOSKELETAL: Muscle strength and tone normal. SPINE: No scoliosis or deformity SKIN: No rashes CENTRAL NERVOUS SYSTEM: Somnolent oriented -3. No focal deficits, tone is normal in all 4 extremities. Results - Laboratory Findings CBC and BMP: 05/17/21 07:21 05/17/21 07:21 ABG ABG pH 7.20 (7.35-7.45) L 05/17/21 05:05 ABG pCO2 98 mmHg (35-45) H* 05/17/21 05:05 ABG pO2 82 mmHg (83-108) L 05/17/21 05:05 ABG O2 Saturation 95.2 % (94-97) 05/17/21 05:05 Abnormal lab findings: Abnormal Labs 05/16/21 05/16/21 05/16/21 18:24 18:24 18:24 Hgb 12.6 L MCHC 29.0 L RDW 18.2 H Lymphocytes # Lymphocytes # (Manual) 0.64 L Metamyelocytes # (Man) 0.08 H ABG pH ABG pCO2 ABG pO2 ABG HCO3 ABG Total CO2 ABG O2 Saturation Sodium 133 L Potassium Chloride 91 L Carbon Dioxide 35 H BUN 24 H Glucose 167 H POC Glucose (mg/dL) Plasma Lactic Acid Declan 2.5 H* Calcium 8.1 L Urine Protein Urine Glucose (UA) Urine Mucus 05/16/21 05/16/21 05/17/21 21:15 21:39 00:49 Hgb MCHC RDW Lymphocytes # Lymphocytes # (Manual) Metamyelocytes # (Man) ABG pH 7.18 L* ABG pCO2 105 H* ABG pO2 187 H ABG HCO3 39 H ABG Total CO2 42 H ABG O2 Saturation 98.9 H Sodium Potassium Chloride Carbon Dioxide BUN Glucose POC Glucose (mg/dL) 169 H Plasma Lactic Acid Declan Calcium Urine Protein 2+ H Urine Glucose (UA) Trace H Urine Mucus Occasional H 05/17/21 05/17/21 05/17/21 05:05 07:21 07:21 Hgb 12.2 L MCHC 28.1 L RDW 18.1 H Lymphocytes # 0.7 L Lymphocytes # (Manual) Metamyelocytes # (Man) ABG pH 7.20 L ABG pCO2 98 H* ABG pO2 82 L ABG HCO3 38 H ABG Total CO2 41 H ABG O2 Saturation Sodium 134 L Potassium 5.5 H Chloride 92 L Carbon Dioxide 39 H BUN 27 H Glucose 161 H POC Glucose (mg/dL) Plasma Lactic Acid Declan Calcium 7.5 L Urine Protein Urine Glucose (UA) Urine Mucus - Diagnostic Findings Chest x-ray: report reviewed, image reviewed Additional studies: EKG reviewed Assessment and Plan Plan: Assessment: #1. Acute on chronic hypercapnic respiratory failure related to acute exacerbation of COPD. Patient required placement on BiPAP support, and currently his blood gases show improvement in his acid base balance. COVID-19 PCR was negative, chest x-ray showed no acute cardiopulmonary process #2. Nausea vomiting and diarrhea on presentation, and mild dehydration with mild lactic acidosis #3. History of COPD, not normally oxygen dependent at baseline #4. Chronic hypercapnic respiratory failure #5. Obstructive sleep apnea and patient states he does not have a CPAP machine at home #6. History of diabetes mellitus type 2 #7. Hypertension #8. Morbid obesity with BMI of 80.1 kg/m #9. Bilateral lower extremity cellulitis Plan: Continue BiPAP support Follow-up blood gas shows improvement in acid base balance Patient is arousable but still remains lethargic His COPD is active, we will continue with IV steroids at 60 mg every 6 hours We will add Pulmicort and Perforomist, continue DuoNeb 4 times a day and every 2 hours when necessary Switch subcu heparin to Lovenox 40 mg daily, continue IV Protonix Hold sedatives and narcotics Blood sugars and sliding scale insulin every 4 hours, will adjust accordingly for hyperglycemia Keep nothing by mouth for now while BiPAP dependent Chest x-ray reviewed showing no acute pulmonary process Check lower extremity Dopplers and d-dimer Continue to follow his clinical course Will remain in the ICU for close observation we'll insert a line for blood sugar checks and frequent blood gas draws I have personally seen and examined the patient, performed the documentation and the assessment and plan as written. Number of minutes spent on the visit: [15] Time with Patient: Greater than 30 <YoselynAsiyatiarra - Last Filed: 05/17/21 09:42> Physical Exam Vitals: Vital Signs Temp Pulse Resp BP Pulse Ox 05/17/21 08:35 100 05/17/21 08:24 100 05/17/21 08:23 100 05/17/21 08:14 99 05/17/21 08:00 96 15 123/61 93 L 05/17/21 07:30 100 19 127/58 93 L 05/17/21 07:00 98 16 121/57 97 05/17/21 06:30 98 15 116/53 95 05/17/21 06:00 101 H 18 112/54 95 05/17/21 05:30 108 H 19 126/57 91 L 05/17/21 05:00 103 H 15 105/53 94 L 05/17/21 04:30 96 14 103/52 94 L 05/17/21 04:00 93 18 106/49 94 L 05/17/21 03:30 95 19 109/50 94 L 05/17/21 03:20 96 18 109/50 94 L 05/17/21 03:10 99.7 F H 99 17 109/50 94 L 05/17/21 03:00 102 H 17 106/48 94 L 05/17/21 02:50 103 H 20 106/48 95 05/17/21 02:40 105 H 22 106/48 93 L 05/17/21 02:30 105 H 16 104/42 94 L 05/17/21 02:20 105 H 15 104/42 92 L 05/17/21 02:10 99 15 104/42 94 L 05/17/21 02:00 101 H 20 111/55 93 L 05/17/21 01:50 105 H 17 111/55 91 L 05/17/21 01:40 108 H 12 111/55 93 L 05/17/21 01:30 102 H 19 134/67 94 L 05/17/21 01:20 105 H 18 134/67 94 L 05/17/21 01:10 108 H 21 134/67 94 L 05/17/21 01:00 99.6 F 115 H 12 126/57 93 L 03/15/22 00:50 108 H 22 126/57 95 05/17/21 00:48 108 H 20 05/17/21 00:00 102 H 23 134/69 91 L 05/16/21 23:15 103 H 23 135/65 91 L 05/16/21 22:10 120 H 18 158/64 96 05/16/21 21:39 134 H 20 136/54 95 05/16/21 20:16 129 H 24 126/86 91 L 05/16/21 20:15 54 L 05/16/21 18:11 99.6 F 102 H 22 115/52 94 L Intake and Output 05/16/21 05/17/21 05/17/21 22:59 06:59 14:59 Intake Total 450 75 Output Total 870 100 Balance -420 -25 Intake: Intake, IV Titration 450 75 Amount Sodium Chloride 0.9% 1, 450 75 000 ml @ 75 mls/hr IV . [id number] [facility] Rx#:[id number] Output: Urine 870 100 Other: Voiding Method Indwelling Catheter Weight 249.476 kg 268 kg Results - Laboratory Findings CBC and BMP: 05/17/21 07:21 05/17/21 07:21 ABG ABG pH 7.20 (7.35-7.45) L 05/17/21 05:05 ABG pCO2 98 mmHg (35-45) H* 05/17/21 05:05 ABG pO2 82 mmHg (83-108) L 05/17/21 05:05 ABG O2 Saturation 95.2 % (94-97) 05/17/21 05:05 Abnormal lab findings: Abnormal Labs 05/16/21 05/16/21 05/16/21 18:24 18:24 18:24 Hgb 12.6 L MCHC 29.0 L RDW 18.2 H Lymphocytes # Lymphocytes # (Manual) 0.64 L Metamyelocytes # (Man) 0.08 H ABG pH ABG pCO2 ABG pO2 ABG HCO3 ABG Total CO2 ABG O2 Saturation Sodium 133 L Potassium Chloride 91 L Carbon Dioxide 35 H BUN 24 H Glucose 167 H POC Glucose (mg/dL) Plasma Lactic Acid Declan 2.5 H* Calcium 8.1 L Urine Protein Urine Glucose (UA) Urine Mucus 05/16/21 05/16/21 05/17/21 21:15 21:39 00:49 Hgb MCHC RDW Lymphocytes # Lymphocytes # (Manual) Metamyelocytes # (Man) ABG pH 7.18 L* ABG pCO2 105 H* ABG pO2 187 H ABG HCO3 39 H ABG Total CO2 42 H ABG O2 Saturation 98.9 H Sodium Potassium Chloride Carbon Dioxide BUN Glucose POC Glucose (mg/dL) 169 H Plasma Lactic Acid Declan Calcium Urine Protein 2+ H Urine Glucose (UA) Trace H Urine Mucus Occasional H 05/17/21 05/17/21 05/17/21 05:05 07:21 07:21 Hgb 12.2 L MCHC 28.1 L RDW 18.1 H Lymphocytes # 0.7 L Lymphocytes # (Manual) Metamyelocytes # (Man) ABG pH 7.20 L ABG pCO2 98 H* ABG pO2 82 L ABG HCO3 38 H ABG Total CO2 41 H ABG O2 Saturation Sodium 134 L Potassium 5.5 H Chloride 92 L Carbon Dioxide 39 H BUN 27 H Glucose 161 H POC Glucose (mg/dL) Plasma Lactic Acid Declan Calcium 7.5 L Urine Protein Urine Glucose (UA) Urine Mucus 05/17/21 09:11 Hgb MCHC RDW Lymphocytes # Lymphocytes # (Manual) Metamyelocytes # (Man) ABG pH ABG pCO2 ABG pO2 ABG HCO3 ABG Total CO2 ABG O2 Saturation Sodium Potassium Chloride Carbon Dioxide BUN Glucose POC Glucose (mg/dL) 170 H Plasma Lactic Acid Declan Calcium Urine Protein Urine Glucose (UA) Urine Mucus Assessment and Plan Plan: I have personally seen and examined the patient and reviewed the documentation. I performed a joint evaluation with the nurse practitioner in this evaluation was done more than 30 minutes. I fully agree with the documentation above and the plan of care. This patient is coming in with acute on chronic hypercapnic respiratory failure. The patient is currently on BiPAP. The patient is bronchospastic and wheezy. The patient will be placed on bronchodilators and systemic steroids. An arterial line will be inserted. We'll monitor the blood gas. We'll use insulin drip if needed. The patient nothing by mouth for now. Watch mental status. Watch for any signs of CO2 narcosis. The patient was having diarrhea and the patient will be receiving IV fluids. Condition is critical at this point in time.
[2021-05-17] MEDS: INSULIN ASPART (NovoLOG) 100 UNIT/ML VIAL SQ SCH ×4 (09:12→21:33)
[2021-05-17] MEDS: PANTOPRAZOLE 40 MG/10 ML VIAL IV SCH (09:12)
[2021-05-17] MEDS: ENOXAPARIN 40 MG/0.4 ML SYRINGE SQ SCH (09:12)
[2021-05-17 09:13] LABS: Glucose,Whole Blood 170 mg/dL (75-99)
--- NOTE | 2021-05-17 10:03 | US ---
EXAMINATION TYPE: US venous doppler duplex LE DATE OF EXAM: 05/17/2021 9:08 AM COMPARISON: US August 30, 2020 CLINICAL HISTORY: swelling. ICU patient, unable to give history. Swelling. SIDE PERFORMED: Bilateral TECHNIQUE: The lower extremity deep venous system is examined utilizing real time linear array sonog milo with graded compression, doppler sonography and color-flow sonography. VESSELS IMAGED: Greater Saphenous Vein * Femoral Vein Popliteal Vein (* superficial vessels) Patient is 6' and 590 lbs. Technically difficult and limited study. Right Leg: Veins imaged from proximal femoral vein to distal popliteal vein. Limited visibility of pr ox calf veins. What appears to be the GSV was imaged at upper thigh, unable to follow to the junction with the CFV. Left Leg: Veins imaged from proximal femoral vein to distal popliteal vein. What appears to be the GSV was imaged at upper thigh, unable to follow to the junction with the CFV. No evidence of DVT in lower extremities at this time, although exam is limited. IMPRESSION: Suboptimal study without convincing evidence of acute DVT in either lower extremity.
[2021-05-17 10:05] LABS: Appearance,Urine Clear (Clear); Bilirubin,Urine Negative (Negative); Blood,Urine Small (Negative); Color,Urine Yellow; Glucose,Urine (UA) Negative (Negative); Ketones,Urine Negative (Negative); Leukocyte Esterase,Urine Large (Negative); Mucus,Urine Rare /hpf; Nitrite,Urine Negative (Negative); Protein,Urine 1+ (Negative); RBC,Urine 7 /hpf (0-5); Specific Gravity,Urine 1.019 (1.001-1.035); Urobilinogen,Urine <2.0 mg/dL (<2.0); WBC,Urine 19 /hpf (0-5)
[2021-05-17 11:38] LABS: Glucose,Whole Blood 153 mg/dL (75-99)
[2021-05-17] MEDS: methylPREDNISolone SOD SUCCI 125 MG/2 ML VIAL IV SCH ×2 (11:56→17:24)
[2021-05-17] MEDS ORDERED: methylPREDNISolone SOD SUCCI 125 MG/2 ML VIAL IV SCH ×3 (12:00)
--- NOTE | 2021-05-17 12:11 | P.HPIM ---
History of Present Illness Patient is a 56-year-old male came in with nausea vomiting diarrhea, patient is found to be hypoxic as well because of which patient was admitted. Patient had an ABG which showed CO2 of 187 pCO2 of 105 pH of 7.18 patient is morbidly obese does have history of sleep apnea and uses BiPAP at home. Patient is negative for COVID-19 CT angios the chest was considered however because of his body habitus patient was unable to get this test. Patient is not on anticoagulation had previous history of DVT in the past. Patient is found to have significant wheezing because of which patient is admitted for COPD exacerbation and acute hy percapnic respiratory failure patient is presently in ICU on a BiPAP machine unable to obtain much of the history from the patient because the patient is on BiPAP. Patient is bit tachycardic does have elevated creatinine of 1.15 low sodium and elevated potassium consistent with dehydration from nausea vomiting diarrhea. REVIEW OF SYSTEMS: Unable to obtain due to his clinical condition PHYSICAL EXAMINATION: GENERAL: Morbidly obese sleeping on BiPAP arousable. HEENT: Pupils are round and equally reacting to light. EOMI. No scleral icterus. No conjunctival pallor. Normocephalic, atraumatic. No pharyngeal erythema. No thyromegaly. CARDIOVASCULAR: S1 and S2 present. No murmurs, rubs, or gallops. PULMONARY: Expiratory wheezing on exam ABDOMEN: Soft, nontender, nondistended, normoactive bowel sounds. No palpable organomegaly. MUSCULOSKELETAL: No joint swelling or deformity. EXTREMITIES: No cyanosis, clubbing, does have bilateral pedal edema NEUROLOGICAL: Unable to assess patient is arousable but sleeping on BiPAP SKIN: Some chronic venous stasis of bilateral lower extremities Assessment and plan -Acute on chronic hypercapnic respiratory failure secondary to severe sleep apnea, restrictive lung disease along with COPD. Patient is on BiPAP support at this time, patient is also on systemic steroids. Pulmonary evaluated the patient -Acute renal failure dehydration secondary to nausea vomiting: Continue with IV fluids.-Hypovolemic Hyponatremia: Secondary to dehydration patient is on IV fluids as mentioned above -Obstructive sleep apnea -Type 2 diabetes mellitus patient will be resumed on his home regimen along with sliding scale. -History of DVT in the past presently not on any anticoagulation -Hypertension -Morbid obesity DVT prophylaxis: On Lovenox Past Medical History Past Medical History: COPD, Diabetes Mellitus, GERD/Reflux, Hypertension Additional Past Medical History / Comment(s): (L) leg DVT, hx of sepsis r/t cellulitis History of Any Multi-Drug Resistant Organisms: None Reported Past Surgical History: Unable to Obtain Past Psychological History: No Psychological Hx Reported Smoking Status: Current every day smoker Past Alcohol Use History: None Reported Past Drug Use History: Unable to Obtain Medications and Allergies Home Medications Medication Instructions Recorded Confirmed Type Albuterol Sulfate [Proair Hfa] 2 puff INHALATION RT-Q4H PRN 08/27/20 05/16/21 History Gabapentin [Neurontin] 400 mg PO BID 08/27/20 05/16/21 History HYDROcodone/APAP 10-325MG [Keene 1 tab PO Q4H PRN 08/27/20 05/16/21 History 10-325] Ipratropium-Albuterol Nebulize 3 ml INHALATION RT-QID PRN 08/27/20 05/16/21 History [Duoneb 0.5 mg-3 mg/3 ml Soln] Pantoprazole [Protonix] 40 mg PO BID 08/27/20 05/16/21 History Budesonide/Formoterol Fumarate 2 puff INHALATION RT-BID 05/16/21 05/16/21 History [Symbicort 160-4.5 Mcg Inhaler] Dextroamphetamine/Amphetamine 10 mg PO BID 05/16/21 05/16/21 History [Adderall] Allergies Allergy/AdvReac Type Severity Reaction Status Date / Time Iodinated Contrast Media Allergy Unknown Verified 05/16/21 19:46 Physical Exam Vitals: Vital Signs Temp Pulse Resp BP Pulse Ox 05/17/21 11:00 96 17 92 L 05/17/21 10:00 97 18 124/65 96 05/17/21 09:00 98.7 F 96 14 112/58 93 L 05/17/21 08:35 100 05/17/21 08:24 100 05/17/21 08:23 100 05/17/21 08:14 99 05/17/21 08:00 96 15 123/61 93 L 05/17/21 07:30 100 19 127/58 93 L 05/17/21 07:00 98 16 121/57 97 05/17/21 06:30 98 15 116/53 95 05/17/21 06:00 101 H 18 112/54 95 05/17/21 05:30 108 H 19 126/57 91 L 05/17/21 05:00 103 H 15 105/53 94 L 05/17/21 04:30 96 14 103/52 94 L 05/17/21 04:00 93 18 106/49 94 L 05/17/21 03:30 95 19 109/50 94 L 05/17/21 03:20 96 18 109/50 94 L 05/17/21 03:10 99.7 F H 99 17 109/50 94 L 05/17/21 03:00 102 H 17 106/48 94 L 05/17/21 02:50 103 H 20 106/48 95 05/17/21 02:40 105 H 22 106/48 93 L 05/17/21 02:30 105 H 16 104/42 94 L 05/17/21 02:20 105 H 15 104/42 92 L 05/17/21 02:10 99 15 104/42 94 L 05/17/21 02:00 101 H 20 111/55 93 L 05/17/21 01:50 105 H 17 111/55 91 L 05/17/21 01:40 108 H 12 111/55 93 L 05/17/21 01:30 102 H 19 134/67 94 L 05/17/21 01:20 105 H 18 134/67 94 L 05/17/21 01:10 108 H 21 134/67 94 L 05/17/21 01:00 99.6 F 115 H 12 126/57 93 L 05/17/21 00:50 108 H 22 126/57 95 05/17/21 00:48 108 H 20 05/17/21 00:00 102 H 23 134/69 91 L 05/16/21 23:15 103 H 23 135/65 91 L 05/16/21 22:10 120 H 18 158/64 96 05/16/21 21:39 134 H 20 136/54 95 05/16/21 20:16 129 H 24 126/86 91 L 05/16/21 20:15 54 L 05/16/21 18:11 99.6 F 102 H 22 115/52 94 L Intake and Output 05/16/21 05/17/21 05/17/21 22:59 06:59 14:59 Intake Total 450 375 Output Total 870 305 Balance -420 70 Intake: Intake, IV Titration 450 375 Amount Sodium Chloride 0.9% 1, 450 375 000 ml @ 75 mls/hr IV . [id number] [facility] Rx#:[id number] Output: Urine 870 305 Other: Voiding Method Indwelling Catheter Indwelling Catheter Weight 249.476 kg 268 kg ABP, PAP, CO, CI - Last 8 Hours Arterial Blood Pressure 123/57 Results CBC & Chem 7: 05/17/21 07:21 05/17/21 07:21 Labs: Abnormal Lab Results - Last 24 Hours (Table) 05/16/21 05/16/21 05/16/21 Range/Units 18:24 18:24 18:24 Hgb 12.6 L (13.0-17.5) gm/dL MCHC 29.0 L (31.0-37.0) g/dL RDW 18.2 H (11.5-15.5) % Lymphocytes # (1.0-4.8) k/uL Lymphocytes # (Manual) 0.64 L (1.0-4.8) k/uL Metamyelocytes # (Man) 0.08 H (0) k/uL D-Dimer (<0.60) mg/L FEU ABG pH (7.35-7.45) ABG pCO2 (35-45) mmHg ABG pO2 (83-108) mmHg ABG HCO3 (21-25) mmol/L ABG Total CO2 (19-24) mmol/L ABG O2 Saturation (94-97) % Sodium 133 L (137-145) mmol/L Potassium (3.5-5.1) mmol/L Chloride 91 L (98-107) mmol/L Carbon Dioxide 35 H (22-30) mmol/L BUN 24 H (9-20) mg/dL Glucose 167 H (74-99) mg/dL POC Glucose (mg/dL) (75-99) mg/dL Plasma Lactic Acid Declan 2.5 H* (0.7-2.0) mmol/L Calcium 8.1 L (8.4-10.2) mg/dL Urine Protein (Negative) Urine Glucose (UA) (Negative) Urine Blood (Negative) Ur Leukocyte Esterase (Negative) Urine RBC (0-5) /hpf Urine WBC (0-5) /hpf Urine Mucus (None) /hpf 05/16/21 05/16/21 05/17/21 Range/Units 21:15 21:39 00:49 Hgb (13.0-17.5) gm/dL MCHC (31.0-37.0) g/dL RDW (11.5-15.5) % Lymphocytes # (1.0-4.8) k/uL Lymphocytes # (Manual) (1.0-4.8) k/uL Metamyelocytes # (Man) (0) k/uL D-Dimer (<0.60) mg/L FEU ABG pH 7.18 L* (7.35-7.45) ABG pCO2 105 H* (35-45) mmHg ABG pO2 187 H (83-108) mmHg ABG HCO3 39 H (21-25) mmol/L ABG Total CO2 42 H (19-24) mmol/L ABG O2 Saturation 98.9 H (94-97) % Sodium (137-145) mmol/L Potassium (3.5-5.1) mmol/L Chloride (98-107) mmol/L Carbon Dioxide (22-30) mmol/L BUN (9-20) mg/dL Glucose (74-99) mg/dL POC Glucose (mg/dL) 169 H (75-99) mg/dL Plasma Lactic Acid Declan (0.7-2.0) mmol/L Calcium (8.4-10.2) mg/dL Urine Protein 2+ H (Negative) Urine Glucose (UA) Trace H (Negative) Urine Blood (Negative) Ur Leukocyte Esterase (Negative) Urine RBC (0-5) /hpf Urine WBC (0-5) /hpf Urine Mucus Occasional H (None) /hpf 05/17/21 05/17/21 05/17/21 Range/Units 05:05 06:00 07:21 Hgb 12.2 L (13.0-17.5) gm/dL MCHC 28.1 L (31.0-37.0) g/dL RDW 18.1 H (11.5-15.5) % Lymphocytes # 0.7 L (1.0-4.8) k/uL Lymphocytes # (Manual) (1.0-4.8) k/uL Metamyelocytes # (Man) (0) k/uL D-Dimer (<0.60) mg/L FEU ABG pH 7.20 L (7.35-7.45) ABG pCO2 98 H* (35-45) mmHg ABG pO2 82 L (83-108) mmHg ABG HCO3 38 H (21-25) mmol/L ABG Total CO2 41 H (19-24) mmol/L ABG O2 Saturation (94-97) % Sodium (137-145) mmol/L Potassium (3.5-5.1) mmol/L Chloride (98-107) mmol/L Carbon Dioxide (22-30) mmol/L BUN (9-20) mg/dL Glucose (74-99) mg/dL POC Glucose (mg/dL) (75-99) mg/dL Plasma Lactic Acid Declan (0.7-2.0) mmol/L Calcium (8.4-10.2) mg/dL Urine Protein 1+ H (Negative) Urine Glucose (UA) (Negative) Urine Blood Small H (Negative) Ur Leukocyte Esterase Large H (Negative) Urine RBC 7 H (0-5) /hpf Urine WBC 19 H (0-5) /hpf Urine Mucus Rare H (None) /hpf 05/17/21 05/17/21 05/17/21 Range/Units 07:21 09:11 10:30 Hgb (13.0-17.5) gm/dL MCHC (31.0-37.0) g/dL RDW (11.5-15.5) % Lymphocytes # (1.0-4.8) k/uL Lymphocytes # (Manual) (1.0-4.8) k/uL Metamyelocytes # (Man) (0) k/uL D-Dimer 4.11 H (<0.60) mg/L FEU ABG pH (7.35-7.45) ABG pCO2 (35-45) mmHg ABG pO2 (83-108) mmHg ABG HCO3 (21-25) mmol/L ABG Total CO2 (19-24) mmol/L ABG O2 Saturation (94-97) % Sodium 134 L (137-145) mmol/L Potassium 5.5 H (3.5-5.1) mmol/L Chloride 92 L (98-107) mmol/L Carbon Dioxide 39 H (22-30) mmol/L BUN 27 H (9-20) mg/dL Glucose 161 H (74-99) mg/dL POC Glucose (mg/dL) 170 H (75-99) mg/dL Plasma Lactic Acid Declan (0.7-2.0) mmol/L Calcium 7.5 L (8.4-10.2) mg/dL Urine Protein (Negative) Urine Glucose (UA) (Negative) Urine Blood (Negative) Ur Leukocyte Esterase (Negative) Urine RBC (0-5) /hpf Urine WBC (0-5) /hpf Urine Mucus (None) /hpf 05/17/21 Range/Units 11:37 Hgb (13.0-17.5) gm/dL MCHC (31.0-37.0) g/dL RDW (11.5-15.5) % Lymphocytes # (1.0-4.8) k/uL Lymphocytes # (Manual) (1.0-4.8) k/uL Metamyelocytes # (Man) (0) k/uL D-Dimer (<0.60) mg/L FEU ABG pH (7.35-7.45) ABG pCO2 (35-45) mmHg ABG pO2 (83-108) mmHg ABG HCO3 (21-25) mmol/L ABG Total CO2 (19-24) mmol/L ABG O2 Saturation (94-97) % Sodium (137-145) mmol/L Potassium (3.5-5.1) mmol/L Chloride (98-107) mmol/L Carbon Dioxide (22-30) mmol/L BUN (9-20) mg/dL Glucose (74-99) mg/dL POC Glucose (mg/dL) 153 H (75-99) mg/dL Plasma Lactic Acid Declan (0.7-2.0) mmol/L Calcium (8.4-10.2) mg/dL Urine Protein (Negative) Urine Glucose (UA) (Negative) Urine Blood (Negative) Ur Leukocyte Esterase (Negative) Urine RBC (0-5) /hpf Urine WBC (0-5) /hpf Urine Mucus (None) /hpf
[2021-05-17 12:39] LABS: African American GFR (CKD) >90 (>60 ml/min/1.73 sqM); Blood Urea Nitrogen 27 mg/dL (9-20); Calcium 7.6 mg/dL (8.4-10.2); Chloride 93 mmol/L (98-107); Glucose 148 mg/dL (74-99); Non-African American GFR(CKD) 82 (>60 ml/min/1.73 sqM); Potassium 5.4 mmol/L (3.5-5.1); Sodium 133 mmol/L (137-145)
[2021-05-17 12:45] LABS: Anion Gap 6 mmol/L
[2021-05-17 12:55] LABS: Carbon Dioxide 34 mmol/L (22-30)
[2021-05-17 14:05] LABS: ABG HCO3 39 mmol/L (21-25); ABG Oxygen Saturation 97.4 % (94-97); ABG PH 7.26 (7.35-7.45); ABG PO2 92 mmHg (83-108); ABG TCO2 42 mmol/L (19-24)
[2021-05-17 14:07] LABS: ABG PCO2 87 mmHg (35-45); Allen Test Performed? no
[2021-05-17] MEDS: HYDROcodone/APAP 10-325MG 1 EACH TAB PO PRN ×2 (15:06→22:32)
[2021-05-17 16:14] LABS: Glucose,Whole Blood 155 mg/dL (75-99)
--- NOTE | 2021-05-17 17:01 | P.PCN ---
Date of Procedure: 05/17/21 Preoperative Diagnosis: Acute hypoxic/hypercapnic respiratory failure Postoperative Diagnosis: Or say, obesity hypoventilation syndrome, acute on chronic hypoxic respiratory failure Implants: Insertion of an arterial line Anesthesia: local Surgeon: Teresa Topete Estimated Blood Loss (ml): 0 Pathology: other Condition: critical Disposition: ICU Operative Findings: Indication: Hemodynamic monitoring. A time-out was completed verifying correct patient, procedure, site, posit ioning, and implant(s) or special equipment if applicable. Allens test was performed to ensure adequate perfusion. The patients right wrist was prepped and draped in sterile fashion. 1% Lidocaine was used to anesthetize the area. An 18G Arrow arterial line was introduced into the radial artery. The catheter was threaded over the guide wire and the needle was removed with appropriate pulsatile blood return. Blood loss was minimal. The catheter was then sutured in place to the skin and a sterile dressing applied. Perfusion to the extremity distal to the point of catheter insertion was checked and found to be adequate. The patient tolerated the procedure well and there were no complications.
[2021-05-17 21:14] LABS: Glucose,Whole Blood 190 mg/dL (75-99)
[2021-05-18] MEDS: methylPREDNISolone SOD SUCCI 125 MG/2 ML VIAL IV SCH ×2 (01:08→06:32)
[2021-05-18 01:14] LABS: Glucose,Whole Blood 181 mg/dL (75-99)
[2021-05-18] MEDS: INSULIN ASPART (NovoLOG) 100 UNIT/ML VIAL SQ SCH ×6 (01:14→21:36)
[2021-05-18] MEDS: SODIUM CHLORIDE 0.9% 1,000 ML IV SCH ×2 (01:23→16:45)
[2021-05-18 04:40] LABS: Glucose,Whole Blood 165 mg/dL (75-99)
[2021-05-18 06:41] LABS: African American GFR (CKD) >90 (>60 ml/min/1.73 sqM); Anion Gap 0 mmol/L; Blood Urea Nitrogen 29 mg/dL (9-20); Carbon Dioxide 39 mmol/L (22-30); Chloride 94 mmol/L (98-107); Glucose 168 mg/dL (74-99); Non-African American GFR(CKD) >90 (>60 ml/min/1.73 sqM); Potassium 5.1 mmol/L (3.5-5.1); Sodium 133 mmol/L (137-145)
[2021-05-18 06:58] LABS: Anisocytosis Slight; Basophils % (A) 0 %; Eosinophils % (A) 0 %; HCT 39.5 % (39.0-53.0); HGB 11.3 gm/dL (13.0-17.5); Hypochromasia Marked; Lymphocytes # (A) 1.1 k/uL (1.0-4.8); Lymphocytes % (A) 14 %; MCH 25.3 pg (25.0-35.0); MCHC 28.7 g/dL (31.0-37.0); Mean Platelet Volume 9.6; Monocytes # (A) 0.4 k/uL (0-1.0); Monocytes % (A) 5 %; Neutrophils # (A) 6.2 k/uL (1.3-7.7); Neutrophils % (A) 79 %; Platelet Count 161 k/uL (150-450); RBC 4.48 m/uL (4.30-5.90); RDW 18.2 % (11.5-15.5); WBC 7.8 k/uL (3.8-10.6)
[2021-05-18] MEDS: HYDROcodone/APAP 10-325MG 1 EACH TAB PO PRN ×3 (07:48→19:56)
[2021-05-18] MEDS: FORMOTEROL FUMARATE 20 MCG/2 ML NEBU INHALATION SCH (07:55)
[2021-05-18] MEDS: BUDESONIDE 1 MG/2 ML NEBU INHALATION SCH (07:55)
[2021-05-18] MEDS: IPRATROPIUM-ALBUTEROL 3 ML NEB INHALATION SCH ×4 (07:55→19:54)
[2021-05-18 08:06] LABS: Glucose,Whole Blood 174 mg/dL (75-99)
[2021-05-18] MEDS: PANTOPRAZOLE 40 MG/10 ML VIAL IV SCH (08:16)
[2021-05-18] MEDS: ENOXAPARIN 40 MG/0.4 ML SYRINGE SQ SCH (08:16)
[2021-05-18] MEDS ORDERED: HYDROcodone/APAP 10-325MG 1 EACH TAB PO PRN (08:54)
--- NOTE | 2021-05-18 09:22 | P.PN ---
Subjective Progress Note Date: 05/18/21 56-year-old morbidly obese male with past medical history of obstructive sleep apnea, COPD, current smoker, hypertension, diabetes mellitus, previous history of left leg DVT, presented to the emergency department on 05/16/2021 for evaluation of nausea vomiting and diarrhea that started yesterday morning. Apparently there are other family members that had a similar illness for the past few days. He did admit to being short of breath as well did admit it is chronic for him, denied any fever, denied any chest pain. Did have some mild abdominal cramping, he denied any hematochezia or melena. He tested negative for COVID 19, he denies being vaccinated for COVID-19. He states he is not normally on oxygen and she does not have a CPAP device at home. His chest x-ray showed no acute pulmonary process. In the emergency department patient became hypoxic, and tachycardic. Leg gas was obtained showing pO2 of 187, pCO2 of 105, and pH of 7.18, and subsequently patient was placed on BiPAP support with pressures of 16/8 and FiO2 of 50%. CTA chest was considered however held because of the patient's body habitus and his worsening respiratory failure. Patient is not on any chronic anticoagulation for his past history of left leg DVT. He was placed on prophylactic anticoagulation with heparin, he was given a dose of IV Solu-Medrol and breathing treatments. His lactic acid was noted to be elevated at 2.5, and patient is receiving IV fluids with 0.9 normal saline at a rate of 75 ML per hour. Other admission blood work reveals normal white count of 8.0, hemoglobin of 12.6, platelet count of 171, sodium is 133, potassium is 4.5, chloride is 91, CO2 35, anion gap is 7, B1 is 24, creatinine is 0.86, lactic acid was 2.5, and subsequent draw was 1.0, LFTs were unremarkable, troponins were less than 0.012, and 0.0-2, amylase and lipase were within normal limits at 65 and 97 respectively, urinalysis showed 2+ protein, trace glucose, no clear evidence of infection. COVID-19 PCR was negative. Patient is seen in the intensive care unit, remains on BiPAP support with pressures of 16/8 and FiO2 of 50% satting 93%, repeat blood gas was drawn, this morning at 5:00 in the morning and showed pO2 of 82, pCO2 of 98, and pH of 7.20. She is arousable to voice, he is able to answer simple questions, however dozes off. His respiratory rate is 16, minute ventilation is 7.1, he is achieving tidal volumes of 398 on those above-mentioned settings. Hemodynamically he is stable, he is in sinus mechanism, slightly tachycardic with a rate of 102 BPM, blood pressures 123/61. Currently on 0.9 normal saline at 75 ML per hour, Maldonado catheter has been inserted and patient is producing output in the order of 75-100 ML per hour. He is quite bronchospastic on today's exam, but does not seem to be edematous. His lower extremities noted to be pink and warm, changes of cellulitis. On 05/18/2021 patient seen in follow-up in intensive care unit, he is awake and alert, oriented 3, he is currently off BiPAP support but he did wear it last night with pressures of 16/8 and FiO2 of 40%. Currently on 4 L of oxygen he satting 93%, he is breathing comfortably. Less bronchospastic on today's exam, occasional cough with production of phlegm, he is unable to describe the phlegm characteristics. She continues on IV steroids at 60 mg every 6 hours, he is on nebulized bronchodilators. Vital signs of been stable overnight, hemodynamically stable, he is in sinus mechanism with a rate of 87 BPM, blood pressures 118/61 with a mean of 79. Her extremity Dopplers were negative for DVT, patient remains on prophylactic anticoagulation with Lovenox 40 mg daily. He also remains on gentle IV hydration with plan and was seen at a rate of 75 ML per hour. No nausea vomiting or diarrhea since admission, abdomen is soft, nontender. Neurologically patient is verbalizing that he is very hungry. He has been tolerating popsicles and putting. And he would like to have a regular diet this morning. He denies being a diabetic despite some of the information in his medical records. He is on home oxygen on a regular basis at 3 L/m, does not have a CPAP machine at home, he was supposed to have a sleep study however has not had it yet. His labs have been reviewed, white blood cell, 7.8, hemoglobin is 11.3, sodium is 133, potassium is 5.1, chloride is 94, CO2 39, B1 is 29 creatinine 0.95. No fever or chills overnight, no acute events. Patient's home dose Edmore was restarted at every 8 hour interval as needed however today patient states that he is having pain, and his bilateral lower extremities and his left hand, which is poorly controlled and requesting to restarted at his prescribed home dose intervals including gabapentin. Objective - Vital Signs Vital signs: Vital Signs Temp 98.3 F 05/18/21 08:00 Pulse 98 05/18/21 08:13 Resp 16 05/18/21 08:00 BP 118/61 05/18/21 08:00 Pulse Ox 96 05/18/21 08:00 Intake & Output 05/17/21 05/18/21 05/18/21 18:59 06:59 18:59 Intake Total 1020 975 175 Output Total 710 1020 100 Balance 310 -45 75 Weight 269.887 kg Intake: IV 900 75 Sodium Chloride 0.9% 1, 900 75 000 ml @ 75 mls/hr IV . [id number] [facility] Rx#:[id number] Intake, IV Titration 900 75 Amount Sodium Chloride 0.9% 1, 900 75 000 ml @ 75 mls/hr IV . [id number] [facility] Rx#:[id number] Oral 120 100 Output: Urine 710 1020 100 Other: Voiding Method Indwelling Catheter Indwelling Catheter Indwelling Catheter ABP, PAP, CO, CI - Last Documented Arterial Blood Pressure 148/69 - Exam GENERAL EXAM: Alert, oriented 3 morbidly obese 56-year-old white male 12 l/min high flow nasal cannula, comfortable in no apparent distress. HEAD: Normocephalic/atraumatic. EYES: Normal reaction of pupils, equal size. Conjunctiva pink, sclera white. NOSE: Clear with pink turbinates. THROAT: No erythema or exudates. NECK: No masses, no JVD, no thyroid enlargement, no adenopathy. CHEST: No chest wall deformity. Symmetrical expansion. LUNGS: Equal air entry with diffuse wheezes CVS: Regular rate and rhythm, normal S1 and S2, no gallops, no murmurs, no rubs ABDOMEN: Soft, nontender. No hepatosplenomegaly, normal bowel sounds, no guarding or rigidity. EXTREMITIES: No clubbing, no edema, no cyanosis, 2+ pulses and upper and lower extremities. he has changes of bilateral lower extremity cellulitis MUSCULOSKELETAL: Muscle strength and tone normal. SPINE: No scoliosis or deformity SKIN: No rashes CENTRAL NERVOUS SYSTEM: Alert, oriented -3. No focal deficits, tone is normal in all 4 extremities. - Labs CBC & Chem 7: 05/18/21 06:10 05/18/21 06:10 Labs: Abnormal Lab Results - Last 24 Hours (Table) 05/17/21 05/17/21 05/17/21 Range/Units 06:00 10:30 11:37 Hgb (13.0-17.5) gm/dL MCHC (31.0-37.0) g/dL RDW (11.5-15.5) % D-Dimer 4.11 H (<0.60) mg/L FEU ABG pH (7.35-7.45) ABG pCO2 (35-45) mmHg ABG HCO3 (21-25) mmol/L ABG Total CO2 (19-24) mmol/L ABG O2 Saturation (94-97) % Sodium (137-145) mmol/L Potassium (3.5-5.1) mmol/L Chloride (98-107) mmol/L Carbon Dioxide (22-30) mmol/L BUN (9-20) mg/dL Glucose (74-99) mg/dL POC Glucose (mg/dL) 153 H (75-99) mg/dL Calcium (8.4-10.2) mg/dL Urine Protein 1+ H (Negative) Urine Blood Small H (Negative) Ur Leukocyte Esterase Large H (Negative) Urine RBC 7 H (0-5) /hpf Urine WBC 19 H (0-5) /hpf Urine Mucus Rare H (None) /hpf 05/17/21 05/17/21 05/17/21 Range/Units 12:00 14:04 16:13 Hgb (13.0-17.5) gm/dL MCHC (31.0-37.0) g/dL RDW (11.5-15.5) % D-Dimer (<0.60) mg/L FEU ABG pH 7.26 L (7.35-7.45) ABG pCO2 87 H* (35-45) mmHg ABG HCO3 39 H (21-25) mmol/L ABG Total CO2 42 H (19-24) mmol/L ABG O2 Saturation 97.4 H (94-97) % Sodium 133 L (137-145) mmol/L Potassium 5.4 H (3.5-5.1) mmol/L Chloride 93 L (98-107) mmol/L Carbon Dioxide 34 H (22-30) mmol/L BUN 27 H (9-20) mg/dL Glucose 148 H (74-99) mg/dL POC Glucose (mg/dL) 155 H (75-99) mg/dL Calcium 7.6 L (8.4-10.2) mg/dL Urine Protein (Negative) Urine Blood (Negative) Ur Leukocyte Esterase (Negative) Urine RBC (0-5) /hpf Urine WBC (0-5) /hpf Urine Mucus (None) /hpf 05/17/21 05/18/21 05/18/21 Range/Units 21:12 01:12 04:38 Hgb (13.0-17.5) gm/dL MCHC (31.0-37.0) g/dL RDW (11.5-15.5) % D-Dimer (<0.60) mg/L FEU ABG pH (7.35-7.45) ABG pCO2 (35-45) mmHg ABG HCO3 (21-25) mmol/L ABG Total CO2 (19-24) mmol/L ABG O2 Saturation (94-97) % Sodium (137-145) mmol/L Potassium (3.5-5.1) mmol/L Chloride (98-107) mmol/L Carbon Dioxide (22-30) mmol/L BUN (9-20) mg/dL Glucose (74-99) mg/dL POC Glucose (mg/dL) 190 H 181 H 165 H (75-99) mg/dL Calcium (8.4-10.2) mg/dL Urine Protein (Negative) Urine Blood (Negative) Ur Leukocyte Esterase (Negative) Urine RBC (0-5) /hpf Urine WBC (0-5) /hpf Urine Mucus (None) /hpf 05/18/21 05/18/21 05/18/21 Range/Units 06:10 06:10 08:04 Hgb 11.3 L (13.0-17.5) gm/dL MCHC 28.7 L (31.0-37.0) g/dL RDW 18.2 H (11.5-15.5) % D-Dimer (<0.60) mg/L FEU ABG pH (7.35-7.45) ABG pCO2 (35-45) mmHg ABG HCO3 (21-25) mmol/L ABG Total CO2 (19-24) mmol/L ABG O2 Saturation (94-97) % Sodium 133 L (137-145) mmol/L Potassium (3.5-5.1) mmol/L Chloride 94 L (98-107) mmol/L Carbon Dioxide 39 H (22-30) mmol/L BUN 29 H (9-20) mg/dL Glucose 168 H (74-99) mg/dL POC Glucose (mg/dL) 174 H (75-99) mg/dL Calcium 8.0 L (8.4-10.2) mg/dL Urine Protein (Negative) Urine Blood (Negative) Ur Leukocyte Esterase (Negative) Urine RBC (0-5) /hpf Urine WBC (0-5) /hpf Urine Mucus (None) /hpf Microbiology - Last 24 Hours (Table) 05/17/21 06:00 Urine Culture - Preliminary Urine,Clean Catch Assessment and Plan Plan: Assessment: #1. Acute on chronic hypercapnic respiratory failure related to acute exacerbation of COPD. Patient required placement on BiPAP support, and currently his blood gases show improvement in his acid base balance. COVID-19 PCR was negative, chest x-ray showed no acute cardiopulmonary process. Today on 05/18/2021 patient is awake and alert, he is off BiPAP support, currently on 12 L per high flow nasal cannula #2. Nausea vomiting and diarrhea on presentation, and mild dehydration with mild lactic acidosis, resolved #3. History of COPD, says independent at baseline wears 3 L/m on a regular basis #4. Chronic hypercapnic respiratory failure, related to obstructive sleep apnea and chronic COPD #5. Obstructive sleep apnea and patient states he does not have a CPAP machine at home. #6. History of diabetes mellitus type 2 #7. Hypertension #8. Morbid obesity with BMI of 80.1 kg/m #9. Bilateral lower extremity cellulitis Plan: Clinically patient is improving, he is off BiPAP support, mentation has improved, level of consciousness is awake and alert, following commands oriented 3 Less bronchospastic on physical exam, we will transition to oral prednisone 40 mg daily Continue DuoNeb, we'll convert Pulmicort and Perforomist to Symbicort Wean FiO2 to keep O2 sats rashes be treating 88 and 90% BiPAP support at bedtime and as needed We will start the patient on a regular diet Cut back IV fluids to KVO We'll restart patient's gabapentin and Edmore at home doses Stable to transfer out of intensive care unit to medical surgical floor without telemetry Discussed outpatient sleep study with the patient, and patient is going to follow-up on an outpatient basis in the sleep center Consult physical therapy for evaluation I have personally seen and examined the patient, performed the documentation and the assessment and plan as written. Number of minutes spent on the visit: 10 I have personally seen and examined the patient and reviewed the documentation. I performed a joint evaluation with the nurse practitioner in this evaluation was done more than 20 minutes. I fully agree with the documentation above and the plan of care. Time with Patient: Less than 30
[2021-05-18] MEDS: GABAPENTIN 400 MG CAP PO SCH ×2 (09:44→21:37)
[2021-05-18 12:18] LABS: Glucose,Whole Blood 218 mg/dL (75-99)
[2021-05-18 16:31] LABS: Glucose,Whole Blood 198 mg/dL (75-99)
--- NOTE | 2021-05-18 18:19 | P.PN ---
Subjective Progress Note Date: 05/18/21 Patient is a 56-year-old male came in with nausea vomiting diarrhea, patient is found to be hypoxic as well because of which patient was admitted. Patient had an ABG which showed CO2 of 187 pCO2 of 105 pH of 7.18 patient is morbidly obese does have history of sleep apnea and uses BiPAP at home. Patient is negative for COVID-19 CT angios the chest was considered however because of his body habitus patient was unable to get this test. Patient is not on anticoagulation had previous history of DVT in the past. Patient is found to have significant wheezing because of which patient is admitted for COPD exacerbation and acute hypercapnic respiratory failure patient is presently in ICU on a BiPAP machine unable to obtain much of the history from the patient because the patient is on BiPAP. Patient is bit tachycardic does have elevated creatinine of 1.15 low sodium and elevated potassium consistent with dehydration from nausea vomiting diarrhea. 05/18/2021 Patient is seen in follow up today in the ICU and being followed closely by pulmonary. Patient continues with shortness of breath and is currently maintained on 10L HF via NC. Patient reports to feeling better than yesterday although is reporting extreme weakness and severe back and buttock pain. Patient to continue on oral steroids and breathing inhalational treatments. Recommend repeat chest xray and labs in am. REVIEW OF SYSTEMS: Constitutional: Reports fatigue, no reports of fever or chills Cardio: No reports of chest pain or palpitations Resp: Reports continued shortness of breath GI: no reports of nausea or vomiting : no reports of dysuria or retention, currently indwelling catheter Neuro: reports of weakness and lower back pain Active Medications Hydrocodone Bitart/Acetaminophen (Hydrocodone/Apap 10-325mg 1 Each Tab) 1 each PO Q4H PRN PRN Reason: Pain Last Admin: 05/18/21 14:05 Dose: 1 each Documented by: Albuterol/Ipratropium (Ipratropium-Albuterol 3 Ml Neb) 3 ml INHALATION RT-QID [facility] Last Admin: 05/18/21 15:00 Dose: 3 ml Documented by: Budesonide/Formoterol Fumarate (Symbicort 160-4.5 Mcg Inhaler) 2 puff INHALATION RT-BID [facility] Enoxaparin Sodium (Enoxaparin 40 Mg/0.4 Ml Syringe) 40 mg SQ DAILY [facility] Last Admin: 05/18/21 08:16 Dose: 40 mg Documented by: Gabapentin (Gabapentin 400 Mg Cap) 400 mg PO BID [facility] Last Admin: 05/18/21 09:44 Dose: 400 mg Documented by: Sodium Chloride (Saline 0.9%) 1,000 mls @ 20 mls/hr IV .Q24H [facility] Last Admin: 05/18/21 16:45 Dose: 20 mls/hr Documented by: Insulin Aspart (Insulin Aspart (Novolog) 100 Unit/Ml Vial) 0 unit SQ Q4H [facility]; Protocol Last Admin: 05/18/21 16:44 Dose: 5 unit Documented by: Naloxone HCl (Naloxone 0.4 Mg/Ml 1 Ml Vial) 0.2 mg IV Q2M PRN PRN Reason: Opioid Reversal Pantoprazole Sodium (Pantoprazole 40 Mg/10 Ml Vial) 40 mg IV DAILY [facility] Last Admin: 05/18/21 08:16 Dose: 40 mg Documented by: Prednisone (Prednisone 20 Mg Tab) 40 mg PO DAILY [facility] PHYSICAL EXAMINATION: GENERAL: Morbidly obese, awake alert and oriented x 3. HEENT: Pupils are round and equally reacting to light. EOMI. No scleral icterus. No conjunctival pallor. Normocephalic, atraumatic. No pharyngeal erythema. No th yromegaly. CARDIOVASCULAR: S1 and S2 present. No murmurs, rubs, or gallops. PULMONARY: Expiratory wheezing on exam, crackles noted at the bases ABDOMEN: Soft, obese, nontender, nondistended, normoactive bowel sounds. No palpable organomegaly. MUSCULOSKELETAL: No joint swelling or deformity. EXTREMITIES: No cyanosis, clubbing, does have bilateral pedal edema NEUROLOGICAL: no neurologic deficits noted SKIN: Some chronic venous stasis of bilateral lower extremities Assessment: -Acute on chronic hypercapnic respiratory failure secondary to severe sleep apnea, restrictive lung disease along with COPD. Patient is now maintained on 10L HF via NC. Pulmonary following -Acute renal failure dehydration secondary to nausea vomiting, improving -Hypovolemic Hyponatremia: Secondary to dehydration, improving -Obstructive sleep apnea -Type 2 diabetes mellitus, continue with sliding scale. -History of DVT in the past presently not on any anticoagulation -Hypertension -Morbid obesity -DVT prophylaxis: On Lovenox -Full code Plan: Continue oxygen support and wean FI02 as tolerated Bipap as needed continue breathing inhalational treatments and steroids continue with Accuchecks and achs PT/OT to evaluate Follow up chest xray and labs in the am Prognosis guarded The impression and plan of care has been dictated by Lorna Allen, Nurse Practitioner as directed. Dr. Ramirez MD I have performed a history and examination and MDM of this patient, discussed the same with the dictator, and agree with the dictator's assessment and plan as written ,documented as a scribe. Based on total visit time, I have performed more than 50% of the visit. Objective - Vital Signs Vital signs: Vital Signs Temp 98.3 F 05/18/21 08:00 Pulse 98 05/18/21 08:13 Resp 16 05/18/21 08:00 BP 118/61 05/18/21 08:00 Pulse Ox 96 05/18/21 08:00 Intake & Output 05/17/21 05/18/21 05/18/21 18:59 06:59 18:59 Intake Total 1020 975 175 Output Total 710 1020 100 Balance 310 -45 75 Weight 269.887 kg Intake: IV 900 75 Sodium Chloride 0.9% 1, 900 75 000 ml @ 75 mls/hr IV . [id number] [facility] Rx#:[id number] Intake, IV Titration 900 75 Amount Sodium Chloride 0.9% 1, 900 75 000 ml @ 75 mls/hr IV . [id number] [facility] Rx#:[id number] Oral 120 100 Output: Urine 710 1020 100 Other: Voiding Method Indwelling Catheter Indwelling Catheter Indwelling Catheter ABP, PAP, CO, CI - Last Documented Arterial Blood Pressure 148/69 - Labs CBC & Chem 7: 05/18/21 06:10 05/18/21 06:10 Labs: Abnormal Lab Results - Last 24 Hours (Table) 05/17/21 05/17/21 05/17/21 Range/Units 06:00 09:11 10:30 Hgb (13.0-17.5) gm/dL MCHC (31.0-37.0) g/dL RDW (11.5-15.5) % D-Dimer 4.11 H (<0.60) mg/L FEU ABG pH (7.35-7.45) ABG pCO2 (35-45) mmHg ABG HCO3 (21-25) mmol/L ABG Total CO2 (19-24) mmol/L ABG O2 Saturation (94-97) % Sodium (137-145) mmol/L Potassium (3.5-5.1) mmol/L Chloride (98-107) mmol/L Carbon Dioxide (22-30) mmol/L BUN (9-20) mg/dL Glucose (74-99) mg/dL POC Glucose (mg/dL) 170 H (75-99) mg/dL Calcium (8.4-10.2) mg/dL Urine Protein 1+ H (Negative) Urine Blood Small H (Negative) Ur Leukocyte Esterase Large H (Negative) Urine RBC 7 H (0-5) /hpf Urine WBC 19 H (0-5) /hpf Urine Mucus Rare H (None) /hpf 05/17/21 05/17/21 05/17/21 Range/Units 11:37 12:00 14:04 Hgb (13.0-17.5) gm/dL MCHC (31.0-37.0) g/dL RDW (11.5-15.5) % D-Dimer (<0.60) mg/L FEU ABG pH 7.26 L (7.35-7.45) ABG pCO2 87 H* (35-45) mmHg ABG HCO3 39 H (21-25) mmol/L ABG Total CO2 42 H (19-24) mmol/L ABG O2 Saturation 97.4 H (94-97) % Sodium 133 L (137-145) mmol/L Potassium 5.4 H (3.5-5.1) mmol/L Chloride 93 L (98-107) mmol/L Carbon Dioxide 34 H (22-30) mmol/L BUN 27 H (9-20) mg/dL Glucose 148 H (74-99) mg/dL POC Glucose (mg/dL) 153 H (75-99) mg/dL Calcium 7.6 L (8.4-10.2) mg/dL Urine Protein (Negative) Urine Blood (Negative) Ur Leukocyte Esterase (Negative) Urine RBC (0-5) /hpf Urine WBC (0-5) /hpf Urine Mucus (None) /hpf 05/17/21 05/17/21 05/18/21 Range/Units 16:13 21:12 01:12 Hgb (13.0-17.5) gm/dL MCHC (31.0-37.0) g/dL RDW (11.5-15.5) % D-Dimer (<0.60) mg/L FEU ABG pH (7.35-7.45) ABG pCO2 (35-45) mmHg ABG HCO3 (21-25) mmol/L ABG Total CO2 (19-24) mmol/L ABG O2 Saturation (94-97) % Sodium (137-145) mmol/L Potassium (3.5-5.1) mmol/L Chloride (98-107) mmol/L Carbon Dioxide (22-30) mmol/L BUN (9-20) mg/dL Glucose (74-99) mg/dL POC Glucose (mg/dL) 155 H 190 H 181 H (75-99) mg/dL Calcium (8.4-10.2) mg/dL Urine Protein (Negative) Urine Blood (Negative) Ur Leukocyte Esterase (Negative) Urine RBC (0-5) /hpf Urine WBC (0-5) /hpf Urine Mucus (None) /hpf 05/18/21 05/18/21 05/18/21 Range/Units 04:38 06:10 06:10 Hgb 11.3 L (13.0-17.5) gm/dL MCHC 28.7 L (31.0-37.0) g/dL RDW 18.2 H (11.5-15.5) % D-Dimer (<0.60) mg/L FEU ABG pH (7.35-7.45) ABG pCO2 (35-45) mmHg ABG HCO3 (21-25) mmol/L ABG Total CO2 (19-24) mmol/L ABG O2 Saturation (94-97) % Sodium 133 L (137-145) mmol/L Potassium (3.5-5.1) mmol/L Chloride 94 L (98-107) mmol/L Carbon Dioxide 39 H (22-30) mmol/L BUN 29 H (9-20) mg/dL Glucose 168 H (74-99) mg/dL POC Glucose (mg/dL) 165 H (75-99) mg/dL Calcium 8.0 L (8.4-10.2) mg/dL Urine Protein (Negative) Urine Blood (Negative) Ur Leukocyte Esterase (Negative) Urine RBC (0-5) /hpf Urine WBC (0-5) /hpf Urine Mucus (None) /hpf 05/18/21 Range/Units 08:04 Hgb (13.0-17.5) gm/dL MCHC (31.0-37.0) g/dL RDW (11.5-15.5) % D-Dimer (<0.60) mg/L FEU ABG pH (7.35-7.45) ABG pCO2 (35-45) mmHg ABG HCO3 (21-25) mmol/L ABG Total CO2 (19-24) mmol/L ABG O2 Saturation (94-97) % Sodium (137-145) mmol/L Potassium (3.5-5.1) mmol/L Chloride (98-107) mmol/L Carbon Dioxide (22-30) mmol/L BUN (9-20) mg/dL Glucose (74-99) mg/dL POC Glucose (mg/dL) 174 H (75-99) mg/dL Calcium (8.4-10.2) mg/dL Urine Protein (Negative) Urine Blood (Negative) Ur Leukocyte Esterase (Negative) Urine RBC (0-5) /hpf Urine WBC (0-5) /hpf Urine Mucus (None) /hpf Microbiology - Last 24 Hours (Table) 05/17/21 06:00 Urine Culture - Preliminary Urine,Clean Catch
[2021-05-18] MEDS: SYMBICORT 160-4.5 MCG INHALER INHALATION SCH (19:55)
[2021-05-18 21:34] LABS: Glucose,Whole Blood 184 mg/dL (75-99)
[2021-05-19] MEDS: HYDROcodone/APAP 10-325MG 1 EACH TAB PO PRN ×5 (00:01→21:43)
[2021-05-19 00:28] LABS: Glucose,Whole Blood 168 mg/dL (75-99)
[2021-05-19] MEDS ORDERED: PANTOPRAZOLE 40 MG TABLET PO SCH (01:58)
[2021-05-19] MEDS: INSULIN ASPART (NovoLOG) 100 UNIT/ML VIAL SQ SCH ×5 (02:25→23:31)
[2021-05-19 05:10] LABS: Glucose,Whole Blood 118 mg/dL (75-99)
[2021-05-19 06:01] LABS: Anisocytosis Slight; Basophils % (A) 0 %; Eosinophils % (A) 0 %; HCT 40.7 % (39.0-53.0); HGB 11.5 gm/dL (13.0-17.5); Hypochromasia Marked; Lymphocytes # (A) 2.1 k/uL (1.0-4.8); Lymphocytes % (A) 21 %; MCH 24.5 pg (25.0-35.0); MCHC 28.3 g/dL (31.0-37.0); MCV 86.6 fL (80.0-100.0); Mean Platelet Volume 9.6; Monocytes # (A) 0.7 k/uL (0-1.0); Monocytes % (A) 7 %; Neutrophils % (A) 69 %; Platelet Count 160 k/uL (150-450); RDW 18.2 % (11.5-15.5); WBC 10.2 k/uL (3.8-10.6)
[2021-05-19 06:46] LABS: African American GFR (CKD) >90 (>60 ml/min/1.73 sqM); Anion Gap 0 mmol/L; Blood Urea Nitrogen 33 mg/dL (9-20); Calcium 8.1 mg/dL (8.4-10.2); Carbon Dioxide 39 mmol/L (22-30); Chloride 94 mmol/L (98-107); Glucose 131 mg/dL (74-99); Magnesium 2.1 mg/dL (1.6-2.3); Non-African American GFR(CKD) >90 (>60 ml/min/1.73 sqM); Potassium 5.1 mmol/L (3.5-5.1); Sodium 133 mmol/L (137-145)
--- NOTE | 2021-05-19 07:19 | XR ---
EXAMINATION TYPE: XR chest 1V portable DATE OF EXAM: 05/19/2021 CLINICAL HISTORY: Difficulty breathing progress study. TECHNIQUE: There are 3 AP portable semiupright views of the chest obtained. COMPARISON: Chest x-ray from 2 days earlier FINDINGS: Slightly suboptimal due to large body habitus and portable technique . Visualized lungs gr ossly clear. Mild cardiomegaly redemonstrated. Osseous structures are intact. IMPRESSION: Mild cardiomegaly without acute pulmonary process clearly seen.
[2021-05-19] MEDS: IPRATROPIUM-ALBUTEROL 3 ML NEB INHALATION SCH ×4 (07:39→20:26)
[2021-05-19] MEDS: SYMBICORT 160-4.5 MCG INHALER INHALATION SCH ×2 (07:39→20:26)
[2021-05-19] MEDS: GABAPENTIN 400 MG CAP PO SCH ×2 (08:05→21:37)
[2021-05-19] MEDS: ENOXAPARIN 40 MG/0.4 ML SYRINGE SQ SCH (08:06)
[2021-05-19] MEDS: predniSONE 20 MG TAB PO SCH (08:06)
--- NOTE | 2021-05-19 08:51 | P.PN ---
Subjective Progress Note Date: 05/19/21 56-year-old morbidly obese male with past medical history of obstructive sleep apnea, COPD, current smoker, hypertension, diabetes mellitus, previous history of left leg DVT, presented to the emergency department on 05/16/2021 for evaluation of nausea vomiting and diarrhea that started yesterday morning. Apparently there are other family members that had a similar illness for the past few days. He did admit to being short of breath as well did admit it is chronic for him, denied any fever, denied any chest pain. Did have some mild abdominal cramping, he denied any hematochezia or melena. He tested negative for COVID 19, he denies being vaccinated for COVID-19. He states he is not normally on oxygen and she does not have a CPAP device at home. His chest x-ray showed no acute pulmonary process. In the emergency department patient became hypoxic, and tachycardic. Leg gas was obtained showing pO2 of 187, pCO2 of 105, and pH of 7.18, and subsequently patient was placed on BiPAP support with pressures of 16/8 and FiO2 of 50%. CTA chest was considered however held because of the patient's body habitus and his worsening respiratory failure. Patient is not on any chronic anticoagulation for his past history of left leg DVT. He was placed on prophylactic anticoagulation with heparin, he was given a dose of IV Solu-Medrol and breathing treatments. His lactic acid was noted to be elevated at 2.5, and patient is receiving IV fluids with 0.9 normal saline at a rate of 75 ML per hour. Other admission blood work reveals normal white count of 8.0, hemoglobin of 12.6, platelet count of 171, sodium is 133, potassium is 4.5, chloride is 91, CO2 35, anion gap is 7, B1 is 24, creatinine is 0.86, lactic acid was 2.5, and subsequent draw was 1.0, LFTs were unremarkable, troponins were less than 0.012, and 0.0-2, amylase and lipase were within normal limits at 65 and 97 respectively, urinalysis showed 2+ protein, trace glucose, no clear evidence of infection. COVID-19 PCR was negative. Patient is seen in the intensive care unit, remains on BiPAP support with pressures of 16/8 and FiO2 of 50% satting 93%, repeat blood gas was drawn, this morning at 5:00 in the morning and showed pO2 of 82, pCO2 of 98, and pH of 7.20. She is arousable to voice, he is able to answer simple questions, however dozes off. His respiratory rate is 16, minute ventilation is 7.1, he is achieving tidal volumes of 398 on those above-mentioned settings. Hemodynamically he is stable, he is in sinus mechanism, slightly tachycardic with a rate of 102 BPM, blood pressures 123/61. Currently on 0.9 normal saline at 75 ML per hour, Maldonado catheter has been inserted and patient is producing output in the order of 75-100 ML per hour. He is quite bronchospastic on today's exam, but does not seem to be edematous. His lower extremities noted to be pink and warm, changes of cellulitis. On 05/18/2021 patient seen in follow-up in intensive care unit, he is awake and alert, oriented 3, he is currently off BiPAP support but he did wear it last night with pressures of 16/8 and FiO2 of 40%. Currently on 4 L of oxygen he satting 93%, he is breathing comfortably. Less bronchospastic on today's exam, occasional cough with production of phlegm, he is unable to describe the phlegm characteristics. She continues on IV steroids at 60 mg every 6 hours, he is on nebulized bronchodilators. Vital signs of been stable overnight, hemodynamically stable, he is in sinus mechanism with a rate of 87 BPM, blood pressures 118/61 with a mean of 79. Her extremity Dopplers were negative for DVT, patient remains on prophylactic anticoagulation with Lovenox 40 mg daily. He also remains on gentle IV hydration with plan and was seen at a rate of 75 ML per hour. No nausea vomiting or diarrhea since admission, abdomen is soft, nontender. Neurologically patient is verbalizing that he is very hungry. He has been tolerating popsicles and putting. And he would like to have a regular diet this morning. He denies being a diabetic despite some of the information in his medical records. He is on home oxygen on a regular basis at 3 L/m, does not have a CPAP machine at home, he was supposed to have a sleep study however has not had it yet. His labs have been reviewed, white blood cell, 7.8, hemoglobin is 11.3, sodium is 133, potassium is 5.1, chloride is 94, CO2 39, B1 is 29 creatinine 0.95. No fever or chills overnight, no acute events. Patient's home dose Ava was restarted at every 8 hour interval as needed however today patient states that he is having pain, and his bilateral lower extremities and his left hand, which is poorly controlled and requesting to restarted at his prescribed home dose intervals including gabapentin. On 05/19/2021 patient seen in follow-up in intensive care unit. He is awake and alert, in no acute distress, currently on 10 L of oxygen pulse ox is 95%, and neves bsequently his FiO2 has been dropped down to 8 L. Did wear BiPAP last night pressures of 16 and 8 and FiO2 of 40%. This morning he stated she is a bit more congested, no wheezing, but diffuse rhonchi auscultated. His Solu-Medrol has been switched over to oral prednisone, he remains on nebulized and inhaled bronchodilators including Symbicort and DuoNeb. Vital signs have been stable, patient has been afebrile. Today's chest x-ray showing mild cardiomegaly without acute pulmonary process. No fever or chills, blood pressure has been stable, 111/54 this morning. This morning's labs have been reviewed, white blood cell count is 10.2, hemoglobin is 11.5, platelet count is 168, sodium is 133, potassium is 5.1, chloride is 94, CO2 39, BUN is 33 creatinine is 0.93. Is tolerating regular diet, no nausea vomiting or diarrhea since admission, abdomen is soft and nontender. Objective - Vital Signs Vital signs: Vital Signs Temp 98.7 F 05/19/21 04:00 Pulse 96 05/19/21 07:48 Resp 19 05/19/21 04:00 BP 111/54 05/19/21 05:00 Pulse Ox 95 05/19/21 07:37 Intake & Output 05/18/21 05/19/21 05/19/21 18:59 06:59 18:59 Intake Total 1095 490 20 Output Total 750 1270 100 Balance 345 -780 -80 Weight 272.79 kg Intake: IV 275 240 20 Sodium Chloride 0.9% 1, 275 240 20 000 ml @ 20 mls/hr IV . Q24H [facility] Rx#:[id number] Oral 820 250 Output: Urine 750 1270 100 Other: Voiding Method Indwelling Catheter Indwelling Catheter ABP, PAP, CO, CI - Last Documented Arterial Blood Pressure 148/69 - Exam GENERAL EXAM: Alert, oriented 3 morbidly obese 56-year-old white male 10 l/min high flow nasal cannula with O2 sat of 95%, comfortable in no apparent distress. HEAD: Normocephalic/atraumatic. EYES: Normal reaction of pupils, equal size. Conjunctiva pink, sclera white. NOSE: Clear with pink turbinates. THROAT: No erythema or exudates. NECK: No masses, no JVD, no thyroid enlargement, no adenopathy. CHEST: No chest wall deformity. Symmetrical expansion. LUNGS: Equal air entry with diffuse rhonchi CVS: Regular rate and rhythm, normal S1 and S2, no gallops, no murmurs, no rubs ABDOMEN: Soft, nontender. No hepatosplenomegaly, normal bowel sounds, no guarding or rigidity. EXTREMITIES: No clubbing, no edema, no cyanosis, 2+ pulses and upper and lower extremities. he has changes of bilateral lower extremity cellulitis MUSCULOSKELETAL: Muscle strength and tone normal. SPINE: No scoliosis or deformity SKIN: No rashes CENTRAL NERVOUS SYSTEM: Alert, oriented -3. No focal deficits, tone is normal in all 4 extremities. - Labs CBC & Chem 7: 05/19/21 05:50 05/19/21 05:50 Labs: Abnormal Lab Results - Last 24 Hours (Table) 05/18/21 05/18/21 05/18/21 Range/Units 12:16 16:19 21:33 Hgb (13.0-17.5) gm/dL MCH (25.0-35.0) pg MCHC (31.0-37.0) g/dL RDW (11.5-15.5) % Sodium (137-145) mmol/L Chloride (98-107) mmol/L Carbon Dioxide (22-30) mmol/L BUN (9-20) mg/dL Glucose (74-99) mg/dL POC Glucose (mg/dL) 218 H 198 H 184 H (75-99) mg/dL Calcium (8.4-10.2) mg/dL 05/19/21 05/19/21 05/19/21 Range/Units 00:26 05:09 05:50 Hgb (13.0-17.5) gm/dL MCH (25.0-35.0) pg MCHC (31.0-37.0) g/dL RDW (11.5-15.5) % Sodium 133 L (137-145) mmol/L Chloride 94 L (98-107) mmol/L Carbon Dioxide 39 H (22-30) mmol/L BUN 33 H (9-20) mg/dL Glucose 131 H (74-99) mg/dL POC Glucose (mg/dL) 168 H 118 H (75-99) mg/dL Calcium 8.1 L (8.4-10.2) mg/dL 05/19/21 Range/Units 05:50 Hgb 11.5 L (13.0-17.5) gm/dL MCH 24.5 L (25.0-35.0) pg MCHC 28.3 L (31.0-37.0) g/dL RDW 18.2 H (11.5-15.5) % Sodium (137-145) mmol/L Chloride (98-107) mmol/L Carbon Dioxide (22-30) mmol/L BUN (9-20) mg/dL Glucose (74-99) mg/dL POC Glucose (mg/dL) (75-99) mg/dL Calcium (8.4-10.2) mg/dL Microbiology - Last 24 Hours (Table) 05/17/21 06:00 Urine Culture - Final Urine,Clean Catch Assessment and Plan Plan: Assessment: #1. Acute on chronic hypercapnic respiratory failure related to acute exacer bation of COPD. Patient required placement on BiPAP support, and currently his blood gases show improvement in his acid base balance. COVID-19 PCR was negative, chest x-ray showed no acute cardiopulmonary process. Today on 05/19/2021 patient is awake and alert, he is off BiPAP support, currently on 10 L per high flow nasal cannula #2. Nausea vomiting and diarrhea on presentation, and mild dehydration with mild lactic acidosis, resolved #3. History of COPD, says independent at baseline wears 3 L/m on a regular basis #4. Chronic hypercapnic respiratory failure, related to obstructive sleep apnea and chronic COPD #5. Obstructive sleep apnea and patient states he does not have a CPAP machine at home. #6. History of diabetes mellitus type 2 #7. Hypertension #8. Morbid obesity with BMI of 80.1 kg/m #9. Bilateral lower extremity cellulitis Plan: Continue weaning FiO2 to keep O2 saturation is between 88 and 90% No acute events overnight, vital signs are stable Continue DuoNeb, continue Symbicort and oral prednisone Physical therapy has been consulted and hopefully we can get the patient up in a chair today Tolerating oral diet, no nausea vomiting or diarrhea Stable to go out of ICU to regular medical surgical floor Continue BiPAP support at night and as needed during the day I have personally seen and examined the patient, performed the documentation and the assessment and plan as written. Number of minutes spent on the visit: 10 I have personally seen and examined the patient and reviewed the documentation. I performed a joint evaluation with the nurse practitioner in this evaluation was done more than 20 minutes. I fully agree with the documentation above and the plan of care.. The patient will be taken off the BiPAP. The patient is doing well. Stopped IV Solu-Medrol and start the patient prednisone burst taper. The patient has been weaned down to 8 L of oxygen by nasal cannula. We will gradually wean down the FiO2 as the patient has a baseline O2 requirements of 3 L per minute. Time with Patient: Less than 30
[2021-05-19 11:35] LABS: Glucose,Whole Blood 140 mg/dL (75-99)
--- NOTE | 2021-05-19 12:22 | P.PN ---
Progress Note - Text Progress Note Date: 05/19/21 History of presenting complaint: 56-year-old morbidly obese male with past medical history of obstructive sleep apnea, COPD, current smoker, hypertension, diabetes mellitus, previous history of left leg DVT, presented to the emergency department on 05/16/2021 for evaluation of nausea vomiting and diarrhea that started yesterday morning. Apparently there are other family members that had a similar illness for the past few days. He did admit to being short of breath as well did admit it is c hronic for him, denied any fever, denied any chest pain. Did have some mild abdominal cramping, he denied any hematochezia or melena. He tested negative for COVID 19, he denies being vaccinated for COVID-19. He states he is not normally on oxygen and she does not have a CPAP device at home. His chest x-ray showed no acute pulmonary process. In the emergency department patient became hypoxic, and tachycardic. Leg gas was obtained showing pO2 of 187, pCO2 of 105, and pH of 7.18, and subsequently patient was placed on BiPAP support with pressures of 16/8 and FiO2 of 50%. CTA chest was considered however held because of the patient's body habitus and his worsening respiratory failure. Patient is not on any chronic anticoagulation for his past history of left leg DVT. He was placed on prophylactic anticoagulation with heparin, he was given a dose of IV Solu-Medrol and breathing treatments. His lactic acid was noted to be elevated at 2.5, and patient is receiving IV fluids with 0.9 normal saline at a rate of 75 ML per hour. Other admission blood work reveals normal white count of 8.0, hemoglobin of 12.6, platelet count of 171, sodium is 133, potassium is 4.5, chloride is 91, CO2 35, anion gap is 7, B1 is 24, creatinine is 0.86, lactic acid was 2.5, and subsequent draw was 1.0, LFTs were unremarkable, troponins were less than 0.012, and 0.0-2, amylase and lipase were within normal limits at 65 and 97 respectively, urinalysis showed 2+ protein, trace glucose, no clear evidence of infection. COVID-19 PCR was negative. Patient is seen in the intensive care unit, remains on BiPAP support with pressures of 16/8 and FiO2 of 50% satting 93%, repeat blood gas was drawn, this morning at 5:00 in the morning and showed pO2 of 82, pCO2 of 98, and pH of 7.20. She is arousable to voice, he is able to answer simple questions, however dozes off. His respiratory rate is 16, minute ventilation is 7.1, he is achieving tidal volumes of 398 on those above-mentioned settings. Hemodynamically he is stable, he is in sinus mechanism, slightly tachycardic with a rate of 102 BPM, blood pressures 123/61. Currently on 0.9 normal saline at 75 ML per hour, Maldonado catheter has been inserted and patient is producing output in the order of 75-100 ML per hour. He is quite bronchospastic on today's exam, but does not seem to be edematous. His lower extremities noted to be pink and warm, changes of cellulitis. Patient at home is on 3 L of oxygen. Doppler ultrasound negative for DVT. Does not have a CPAP at home. Was supposed to have a sleep study as an outpatient. Patient been on BiPAP. May 19: ICU: I assumed care of the patient this morning. Sitting up in a chair. Down to 8 L of nasal cannula from 15 L. Up in a chair. Did eat some. Congested cough. No sputum. Has a Maldonado catheter. Did use BiPAP at night. Awake answering questions Active Medications Hydrocodone Bitart/Acetaminophen (Hydrocodone/Apap 10-325mg 1 Each Tab) 1 each PO Q4H PRN PRN Reason: Pain Last Admin: 05/19/21 08:06 Dose: 1 each Documented by: Albuterol/Ipratropium (Ipratropium-Albuterol 3 Ml Neb) 3 ml INHALATION RT-QID [facility] Last Admin: 05/19/21 10:50 Dose: 3 ml Documented by: Budesonide/Formoterol Fumarate (Symbicort 160-4.5 Mcg Inhaler) 2 puff INHALATION RT-BID [facility] Last Admin: 05/19/21 07:39 Dose: 2 puff Documented by: Enoxaparin Sodium (Enoxaparin 40 Mg/0.4 Ml Syringe) 40 mg SQ DAILY [facility] Last Admin: 05/19/21 08:06 Dose: 40 mg Documented by: Gabapentin (Gabapentin 400 Mg Cap) 400 mg PO BID [facility] Last Admin: 05/19/21 08:05 Dose: 400 mg Documented by: Sodium Chloride (Saline 0.9%) 1,000 mls @ 20 mls/hr IV .Q24H [facility] Last Admin: 05/18/21 16:45 Dose: 20 mls/hr Documented by: Insulin Aspart (Insulin Aspart (Novolog) 100 Unit/Ml Vial) 0 unit SQ ACHS [facility]; Protocol Naloxone HCl (Naloxone 0.4 Mg/Ml 1 Ml Vial) 0.2 mg IV Q2M PRN PRN Reason: Opioid Reversal Pantoprazole Sodium (Pantoprazole 40 Mg Tablet) 40 mg PO DAILY [facility] Last Admin: 05/19/21 08:06 Dose: 40 mg Documented by: Prednisone (Prednisone 20 Mg Tab) 40 mg PO DAILY [facility] Last Admin: 05/19/21 08:06 Dose: 40 mg Documented by: Past medical history to include: Diabetes, GERD, hypertension, left leg DVT, lower extremity cellulitis. Home oxygen 3 L Social history: Patient lives with his daughter's family. Smoker. 3 L of oxygen at home. Family history: Patient cannot tell Physical examination: VITAL SIGNS: 98.4, 98, 22, 124/71, 94% on 8 L GENERAL: Sitting up to chair, short of breath, awake EYES: Pupils equal. Conjunctiva normal. HEENT: External appearance of nose and ears normal, oral cavity grossly normal. NECK: Short and thick:: JVD unable to assess; masses not palpable. HEART: Heart sounds distant; mild edema. LUNGS: Respiratory rate increased, distant breath sounds. ABDOMEN: Soft, nontender, liver spleen not palpable, no masses palpable. PSYCH: AO - times three. Mood and affect. Anxious NEUROLOGICAL: Cranial nerves grossly intact. Moving all 4 limbs. DERMATOLOGICAL: Redness between the groin folds. Redness above the ankles both the legs. INVESTIGATIONS, reviewed in the clinical context: White count 10.2 hemoglobin 11.5 platelets 160 potassium 5.1 BUN 33 creatinine 0.93 Venous Doppler lower extremity: Negative for DVT EKG: Sinus tachycardia. Incomplete right bundle branch block Chest x-ray film: Obvious acute event Assessment and plan: -Acute on chronic hypoxic and hypercapnic respiratory failure from obesity hypoventilation syndrome and COPD.: Slow to respond BiPAP. Currently on 8 L nasal cannula -Chronic hypoxic and hypercapnic respiratory failure, 3 L of oxygen at home -Acute respiratory acidosis -Morbid obesity BMI 81.6 Dietitian consult for weight loss measures -Peripheral neuropathy On Neurontin 40 mg twice a day -GERD Protonix 40 mg twice a day -Accelerated hypertension-slow to respond On Precedex drip -Acute COPD exacerbation in a current smoker-slow to respond DuoNeb, prednisone 40 mg -Chronic nicotine dependence, cigarette smoker Nicotine patch -Chronic venous stasis dermatitis lower extremity Silvadene cream with Kerlix and Alan wrap -Cutaneous intertriginous candidiasis Nystatin powder twice daily -Acute tracheobronchitis Doxycycline 100 mg twice a day Patient on 8 L of nasal cannula. Use incentive spirometry. Add doxycycline for acute tracheal bronchitis. Nystatin powder. Silver Darrell cream with Kerlix and Alan wrap lower exstrophy. Care was discussed with the patient. Add nicotine patch.
[2021-05-19] MEDS: NYSTATIN 100,000 UNIT/GM POWD 15 GM TOPICAL SCH (12:43)
[2021-05-19] MEDS: NICOTINE 14MG/24HR PATCH TRANSDERM SCH ×2 (12:44→13:21)
[2021-05-19] MEDS: DOXYCYCLINE 100 MG CAP PO SCH ×2 (12:44→21:54)
[2021-05-19 16:54] LABS: Glucose,Whole Blood 159 mg/dL (75-99)
[2021-05-19] MEDS: SODIUM CHLORIDE 0.9% 1,000 ML IV SCH (17:14)
[2021-05-19] MEDS: PANTOPRAZOLE 40 MG TABLET PO SCH (17:18)
[2021-05-19] MEDS: HEPARIN SODIUM,PORCINE/PF 5,000 UNIT/0.5 ML SYRINGE SQ SCH (18:23)
[2021-05-19] MEDS: Dextroamphetamine/Amphetamine [Adderall] PO SCH (21:25)
[2021-05-19 22:34] LABS: Glucose,Whole Blood 120 mg/dL (75-99)
[2021-05-20] MEDS: NYSTATIN 100,000 UNIT/GM POWD 15 GM TOPICAL SCH ×3 (01:09→20:41)
[2021-05-20] MEDS: HYDROcodone/APAP 10-325MG 1 EACH TAB PO PRN ×4 (05:43→20:42)
[2021-05-20 07:39] LABS: Glucose,Whole Blood 116 mg/dL (75-99)
[2021-05-20] MEDS: INSULIN ASPART (NovoLOG) 100 UNIT/ML VIAL SQ SCH ×4 (07:55→20:40)
[2021-05-20] MEDS: SYMBICORT 160-4.5 MCG INHALER INHALATION SCH ×2 (08:11→20:30)
[2021-05-20] MEDS: IPRATROPIUM-ALBUTEROL 3 ML NEB INHALATION SCH ×4 (08:12→20:30)
[2021-05-20] MEDS: Dextroamphetamine/Amphetamine [Adderall] PO SCH ×2 (08:41→20:40)
[2021-05-20] MEDS: predniSONE 20 MG TAB PO SCH (09:26)
[2021-05-20] MEDS: PANTOPRAZOLE 40 MG TABLET PO SCH ×2 (09:26→17:48)
[2021-05-20] MEDS: NICOTINE 14MG/24HR PATCH TRANSDERM SCH (09:26)
[2021-05-20] MEDS: GABAPENTIN 400 MG CAP PO SCH ×2 (09:27→20:40)
[2021-05-20] MEDS: ENOXAPARIN 40 MG/0.4 ML SYRINGE SQ SCH (09:27)
[2021-05-20] MEDS: DOXYCYCLINE 100 MG CAP PO SCH ×2 (09:27→20:40)
[2021-05-20 12:32] LABS: Glucose,Whole Blood 143 mg/dL (75-99)
[2021-05-20 13:13] VITALS: BMI 81.5
--- NOTE | 2021-05-20 13:43 | P.PN ---
Subjective Progress Note Date: 05/20/21 56-year-old morbidly obese male with past medical history of obstructive sleep apnea, COPD, current smoker, hypertension, diabetes mellitus, previous history of left leg DVT, presented to the emergency department on 05/16/2021 for evaluation of nausea vomiting and diarrhea that started yesterday morning. Apparently there are other family members that had a similar illness for the past few days. He did admit to being short of breath as well did admit it is chronic for him, denied any fever, denied any chest pain. Did have some mild abdominal cramping, he denied any hematochezia or melena. He tested negative for COVID 19, he denies being vaccinated for COVID-19. He states he is not normally on oxygen and she does not have a CPAP device at home. His chest x-ray showed no acute pulmonary process. In the emergency department patient became hypoxic, and tachycardic. Leg gas was obtained showing pO2 of 187, pCO2 of 105, and pH of 7.18, and subsequently patient was placed on BiPAP support with pressures of 16/8 and FiO2 of 50%. CTA chest was considered however held because of the patient's body habitus and his worsening respiratory failure. Patient is not on any chronic anticoagulation for his past history of left leg DVT. He was placed on prophylactic anticoagulation with heparin, he was given a dose of IV Solu-Medrol and breathing treatments. His lactic acid was noted to be elevated at 2.5, and patient is receiving IV fluids with 0.9 normal saline at a rate of 75 ML per hour. Other admission blood work reveals normal white count of 8.0, hemoglobin of 12.6, platelet count of 171, sodium is 133, potassium is 4.5, chloride is 91, CO2 35, anion gap is 7, B1 is 24, creatinine is 0.86, lactic acid was 2.5, and subsequent draw was 1.0, LFTs were unremarkable, troponins were less than 0.012, and 0.0-2, amylase and lipase were within normal limits at 65 and 97 respectively, urinalysis showed 2+ protein, trace glucose, no clear evidence of infection. COVID-19 PCR was negative. Patient is seen in the intensive care unit, remains on BiPAP support with pressures of 16/8 and FiO2 of 50% satting 93%, repeat blood gas was drawn, this morning at 5:00 in the morning and showed pO2 of 82, pCO2 of 98, and pH of 7.20. She is arousable to voice, he is able to answer simple questions, however dozes off. His respiratory rate is 16, minute ventilation is 7.1, he is achieving tidal volumes of 398 on those above-mentioned settings. Hemodynamically he is stable, he is in sinus mechanism, slightly tachycardic with a rate of 102 BPM, blood pressures 123/61. Currently on 0.9 normal saline at 75 ML per hour, Maldonado catheter has been inserted and patient is producing output in the order of 75-100 ML per hour. He is quite bronchospastic on today's exam, but does not seem to be edematous. His lower extremities noted to be pink and warm, changes of cellulitis. On 05/18/2021 patient seen in follow-up in intensive care unit, he is awake and alert, oriented 3, he is currently off BiPAP support but he did wear it last night with pressures of 16/8 and FiO2 of 40%. Currently on 4 L of oxygen he satting 93%, he is breathing comfortably. Less bronchospastic on today's exam, occasional cough with production of phlegm, he is unable to describe the phlegm characteristics. She continues on IV steroids at 60 mg every 6 hours, he is on nebulized bronchodilators. Vital signs of been stable overnight, hemodynamically stable, he is in sinus mechanism with a rate of 87 BPM, blood pressures 118/61 with a mean of 79. Her extremity Dopplers were negative for DVT, patient remains on prophylactic anticoagulation with Lovenox 40 mg daily. He also remains on gentle IV hydration with plan and was seen at a rate of 75 ML per hour. No nausea vomiting or diarrhea since admission, abdomen is soft, nontender. Neurologically patient is verbalizing that he is very hungry. He treadwell s been tolerating popsicles and putting. And he would like to have a regular diet this morning. He denies being a diabetic despite some of the information in his medical records. He is on home oxygen on a regular basis at 3 L/m, does not have a CPAP machine at home, he was supposed to have a sleep study however has not had it yet. His labs have been reviewed, white blood cell, 7.8, hemoglobin is 11.3, sodium is 133, potassium is 5.1, chloride is 94, CO2 39, B1 is 29 creatinine 0.95. No fever or chills overnight, no acute events. Patient's home dose Birney was restarted at every 8 hour interval as needed however today patient states that he is having pain, and his bilateral lower extremities and his left hand, which is poorly controlled and requesting to restarted at his prescribed home dose intervals including gabapentin. On 05/19/2021 patient seen in follow-up in intensive care unit. He is awake and alert, in no acute distress, currently on 10 L of oxygen pulse ox is 95%, and s ubsequently his FiO2 has been dropped down to 8 L. Did wear BiPAP last night pressures of 16 and 8 and FiO2 of 40%. This morning he stated she is a bit more congested, no wheezing, but diffuse rhonchi auscultated. His Solu-Medrol has been switched over to oral prednisone, he remains on nebulized and inhaled bronchodilators including Symbicort and DuoNeb. Vital signs have been stable, patient has been afebrile. Today's chest x-ray showing mild cardiomegaly without acute pulmonary process. No fever or chills, blood pressure has been stable, 111/54 this morning. This morning's labs have been reviewed, white blood cell count is 10.2, hemoglobin is 11.5, platelet count is 168, sodium is 133, potassium is 5.1, chloride is 94, CO2 39, BUN is 33 creatinine is 0.93. Is tolerating regular diet, no nausea vomiting or diarrhea since admission, abdomen is soft and nontender. The patient is seen today 05/20/2021 in follow-up on the regular medical floor. He is currently sitting up in a chair at the bedside. Awake and alert in no acute distress. He is on 10 L high flow nasal cannula with O2 saturations in the low 90s. He is normally on 3 L at home. He is breathing easier. He is dyspneic with minimal exertion. Blood glucose 143. Urine culture revealed no growth. He is continued on DuoNeb inhalations, Symbicort, antibiotics in the form of doxycycline. He is on a prednisone taper. NicoDerm patch in place. Lovenox for DVT prophylaxis. Objective - Vital Signs Vital signs: Vital Signs Temp 98.7 F 05/20/21 04:45 Pulse 92 05/20/21 12:14 Resp 14 05/20/21 12:14 BP 128/67 05/20/21 04:45 Pulse Ox 92 L 05/20/21 04:45 Intake & Output 05/19/21 05/20/21 05/20/21 18:59 06:59 18:59 Intake Total 1060 Output Total 1225 400 Balance -165 -400 Weight 272.79 kg Intake: IV 240 Sodium Chloride 0.9% 1, 240 000 ml @ 20 mls/hr IV . Q24H [facility] Rx#:[id number] Oral 820 Output: Urine 1225 400 Other: Voiding Method Indwelling Catheter ABP, PAP, CO, CI - Last Documented Arterial Blood Pressure 148/69 - Exam GENERAL EXAM: Alert, oriented 3 morbidly obese 56-year-old male patient, up in a chair at the bedside, on 10 l/min high flow nasal cannula, comfortable in no apparent distress. HEAD: Normocephalic/atraumatic. EYES: Normal reaction of pupils, equal size. Conjunctiva pink, sclera white. NOSE: Clear with pink turbinates. THROAT: No erythema or exudates. NECK: No masses, no JVD, no thyroid enlargement, no adenopathy. CHEST: No chest wall deformity. Symmetrical expansion. LUNGS: Equal air entry with diffuse rhonchi and expiratory wheeze CVS: Regular rate and rhythm, normal S1 and S2, no gallops, no murmurs, no rubs ABDOMEN: Soft, nontender. No hepatosplenomegaly, normal bowel sounds, no gu arding or rigidity. EXTREMITIES: No clubbing, no edema, no cyanosis, 2+ pulses and upper and lower e xtremities. he has changes of bilateral lower extremity cellulitis MUSCULOSKELETAL: Muscle strength and tone normal. SPINE: No scoliosis or deformity SKIN: No rashes CENTRAL NERVOUS SYSTEM: Alert, oriented -3. No focal deficits, tone is normal in all 4 extremities. - Labs CBC & Chem 7: 05/19/21 05:50 05/19/21 05:50 Labs: Abnormal Lab Results - Last 24 Hours (Table) 05/19/21 05/19/21 05/20/21 Range/Units 16:52 22:22 07:38 POC Glucose (mg/dL) 159 H 120 H 116 H (75-99) mg/dL 05/20/21 Range/Units 12:31 POC Glucose (mg/dL) 143 H (75-99) mg/dL Assessment and Plan Assessment: 1 Acute on chronic hypercapnic respiratory failure related to acute exacer bation of COPD. Patient required placement on BiPAP support, and currently his blood gases show improvement in his acid base balance. COVID-19 PCR was negative, chest x-ray showed no acute cardiopulmonary process. Today on 05/20/2021 patient is awake and alert, in a chair at the bedside, currently on 10 L per high flow nasal cannula 2 Nausea vomiting and diarrhea on presentation, and mild dehydration with mild lactic acidosis, resolved 3 History of COPD, says independent at baseline wears 3 L/m on a regular basis 4 Chronic hypercapnic respiratory failure, related to obstructive sleep apnea and chronic COPD 5 Obstructive sleep apnea and patient states he does not have a CPAP machine at home. 6 History of diabetes mellitus type 2 7 Hypertension 8 Morbid obesity with BMI of 80.1 kg/m 9 Bilateral lower extremity cellulitis Plan: The patient was seen and evaluated Stable and on 10 L high flow nasal cannula Up in a chair at the bedside Continue the current treatment plan Increase his activity as tolerated Titrate down the FiO2 as tolerated We will continue to follow I have personally seen and examined the patient and reviewed the documentation. I performed a joint evaluation with the nurse practitioner in this evaluation was done more than 20 minutes. I fully agree with the documentation above and the plan of care. Gradually wean it off to be stable based on 3 L which is his baseline. Last bronchus spastic less short of breath. Utilizing a BiPAP overni ght. Will need outpatient sleep study evaluation at a later stage.
[2021-05-20] MEDS: SODIUM CHLORIDE 0.9% 1,000 ML IV SCH (15:58)
--- NOTE | 2021-05-20 17:13 | P.PN ---
Progress Note - Text Progress Note Date: 05/20/21 History of presenting complaint: 56-year-old morbidly obese male with past medical history of obstructive sleep apnea, COPD, current smoker, hypertension, diabetes mellitus, previous history of left leg DVT, presented to the emergency department on 05/16/2021 for evaluation of nausea vomiting and diarrhea that started yesterday morning. Apparently there are other family members that had a similar illness for the past few days. He did admit to being short of breath as well did admit it is c hronic for him, denied any fever, denied any chest pain. Did have some mild abdominal cramping, he denied any hematochezia or melena. He tested negative for COVID 19, he denies being vaccinated for COVID-19. He states he is not normally on oxygen and she does not have a CPAP device at home. His chest x-ray showed no acute pulmonary process. In the emergency department patient became hypoxic, and tachycardic. Leg gas was obtained showing pO2 of 187, pCO2 of 105, and pH of 7.18, and subsequently patient was placed on BiPAP support with pressures of 16/8 and FiO2 of 50%. CTA chest was considered however held because of the patient's body habitus and his worsening respiratory failure. Patient is not on any chronic anticoagulation for his past history of left leg DVT. He was placed on prophylactic anticoagulation with heparin, he was given a dose of IV Solu-Medrol and breathing treatments. His lactic acid was noted to be elevated at 2.5, and patient is receiving IV fluids with 0.9 normal saline at a rate of 75 ML per hour. Other admission blood work reveals normal white count of 8.0, hemoglobin of 12.6, platelet count of 171, sodium is 133, potassium is 4.5, chloride is 91, CO2 35, anion gap is 7, B1 is 24, creatinine is 0.86, lactic acid was 2.5, and subsequent draw was 1.0, LFTs were unremarkable, troponins were less than 0.012, and 0.0-2, amylase and lipase were within normal limits at 65 and 97 respectively, urinalysis showed 2+ protein, trace glucose, no clear evidence of infection. COVID-19 PCR was negative. Patient is seen in the intensive care unit, remains on BiPAP support with pressures of 16/8 and FiO2 of 50% satting 93%, repeat blood gas was drawn, this morning at 5:00 in the morning and showed pO2 of 82, pCO2 of 98, and pH of 7.20. She is arousable to voice, he is able to answer simple questions, however dozes off. His respiratory rate is 16, minute ventilation is 7.1, he is achieving tidal volumes of 398 on those above-mentioned settings. Hemodynamically he is stable, he is in sinus mechanism, slightly tachycardic with a rate of 102 BPM, blood pressures 123/61. Currently on 0.9 normal saline at 75 ML per hour, Maldonado catheter has been inserted and patient is producing output in the order of 75-100 ML per hour. He is quite bronchospastic on today's exam, but does not seem to be edematous. His lower extremities noted to be pink and warm, changes of cellulitis. Patient at home is on 3 L of oxygen. Doppler ultrasound negative for DVT. Does not have a CPAP at home. Was supposed to have a sleep study as an outpatient. Patient been on BiPAP. May 19: ICU: I assumed care of the patient this morning. Sitting up in a chair. Down to 8 L of nasal cannula from 15 L. Up in a chair. Did eat some. Congested cough. No sputum. Has a Maldonado catheter. Did use BiPAP at night. Awake answering questions May 20: Patient on the medical floor. Shortness of breath. Sitting up in a chair. On 10 L nasal cannula. Oral intake good. Cough. Patient had been smoking up to admission. About half a pack a day. Eating. Active Medications Hydrocodone Bitart/Acetaminophen (Hydrocodone/Apap 10-325mg 1 Each Tab) 1 each PO Q4H PRN PRN Reason: Pain Last Admin: 05/20/21 16:00 Dose: 1 each Documented by: Albuterol/Ipratropium (Ipratropium-Albuterol 3 Ml Neb) 3 ml INHALATION RT-QID [facility] Last Admin: 05/20/21 16:34 Dose: 3 ml Documented by: Budesonide/Formoterol Fumarate (Symbicort 160-4.5 Mcg Inhaler) 2 puff INHALATION RT-BID [facility] Last Admin: 05/20/21 08:11 Dose: 2 puff Documented by: Doxycycline Monohydrate (Doxycycline 100 Mg Cap) 100 mg PO BID [facility]; Protocol Last Admin: 05/20/21 09:27 Dose: 100 mg Documented by: Enoxaparin Sodium (Enoxaparin 40 Mg/0.4 Ml Syringe) 40 mg SQ DAILY [facility] Last Admin: 05/20/21 09:27 Dose: 40 mg Documented by: Gabapentin (Gabapentin 400 Mg Cap) 400 mg PO BID [facility] Last Admin: 05/20/21 09:27 Dose: 400 mg Documented by: Sodium Chloride (Saline 0.9%) 1,000 mls @ 20 mls/hr IV .Q24H [facility] Last Admin: 05/20/21 15:58 Dose: 20 mls/hr Documented by: Insulin Aspart (Insulin Aspart (Novolog) 100 Unit/Ml Vial) 0 unit SQ ACHS [facility]; Protocol Last Admin: 05/20/21 13:28 Dose: 2 unit Documented by: Naloxone HCl (Naloxone 0.4 Mg/Ml 1 Ml Vial) 0.2 mg IV Q2M PRN PRN Reason: Opioid Reversal Nicotine (Nicotine 14mg/24hr Patch) 1 patch TRANSDERM DAILY [facility] Last Admin: 05/20/21 09:26 Dose: 1 patch Documented by: Dextroamphetamine/Amphetamine [ Adderall] 10 mg PO BID [facility] Last Admin: 05/20/21 08:41 Dose: Not Given Documented by: Nystatin (Nystatin 100,000 Unit/Gm Powd 15 Gm) 1 applic TOPICAL BID [facility]; Protocol Last Admin: 05/20/21 09:28 Dose: 1 applic Documented by: Pantoprazole Sodium (Pantoprazole 40 Mg Tablet) 40 mg PO AC-BID [facility] Last Admin: 05/20/21 09:26 Dose: 40 mg Documented by: Prednisone (Prednisone 20 Mg Tab) 40 mg PO DAILY [facility] Last Admin: 05/20/21 09:26 Dose: 40 mg Documented by: Silver Sulfadiazine (Silver Sulfadiazine 1% Cream 25 Gm Tube) 1 applic TOPICAL BID [facility]; Protocol Last Admin: 05/20/21 09:28 Dose: 1 applic Documented by: Past medical history to include: Diabetes, GERD, hypertension, left leg DVT, lower extremity cellulitis. Home oxygen 3 L Social history: Patient lives with his daughter's family. Smoker. 3 L of oxygen at home. Family history: Patient cannot tell Physical examination: VITAL SIGNS: 98.7, 91, 20, 1966, 92% on 10 L GENERAL: Up in the chair, short of breath, awake EYES: Pupils equal. Conjunctiva normal. HEENT: External appearance of nose and ears normal, oral cavity grossly normal. NECK: Short and thick:: JVD unable to assess; masses not palpable. HEART: Heart sounds distant; mild edema. LUNGS: Respiratory rate increased, distant breath sounds. ABDOMEN: Soft, nontender, liver spleen not palpable, no masses palpable. PSYCH: AO - times three. Mood and affect. Anxious NEUROLOGICAL: Cranial nerves grossly intact. Moving all 4 limbs. DERMATOLOGICAL: Redness between the groin folds. Redness above the ankles both the legs. INVESTIGATIONS, reviewed in the clinical context: White count 10.2 hemoglobin 11.5 platelets 160 potassium 5.1 BUN 33 creatinine 0.93 Venous Doppler lower extremity: Negative for DVT EKG: Sinus tachycardia. Incomplete right bundle branch block Chest x-ray film: Obvious acute event Assessment and plan: -Acute on chronic hypoxic and hypercapnic respiratory failure from obesity hypoventilation syndrome and COPD.: Slow to respond BiPAP. Currently on10 L nasal cannula -Chronic hypoxic and hypercapnic respiratory failure, 3 L of oxygen at home -Acute respiratory acidosis -Morbid obesity BMI 81.6 Dietitian consult for weight loss measures -Peripheral neuropathy On Neurontin 400 mg twice a day -GERD Protonix 40 mg twice a day -Acute COPD exacerbation in a current smoker-slow to respond DuoNeb, prednisone 40 mg -Chronic nicotine dependence, cigarette smoker Nicotine patch -Chronic venous stasis dermatitis lower extremity Silvadene cream with Kerlix and Alan wrap -Cutaneous intertriginous candidiasis Nystatin powder twice daily -Acute tracheobronchitis Doxycycline 100 mg twice a day Continue doxycycline bronchitis Silvadene cream. Alan wrap to be put on. Follow with pulmonary. Smoke cessation counseling: This was done with the patient. Nicotine patch is being given. More than 3 min utes was spent for this
[2021-05-20 17:23] LABS: Glucose,Whole Blood 175 mg/dL (75-99)
[2021-05-20 20:10] LABS: Glucose,Whole Blood 150 mg/dL (75-99)
[2021-05-21] MEDS: IPRATROPIUM-ALBUTEROL 3 ML NEB INHALATION SCH ×4 (07:36→19:36)
[2021-05-21] MEDS: SYMBICORT 160-4.5 MCG INHALER INHALATION SCH ×2 (07:37→19:36)
[2021-05-21 08:05] LABS: Glucose,Whole Blood 98 mg/dL (75-99)
[2021-05-21] MEDS: INSULIN ASPART (NovoLOG) 100 UNIT/ML VIAL SQ SCH ×4 (08:07→22:13)
[2021-05-21] MEDS: DOXYCYCLINE 100 MG CAP PO SCH ×2 (08:54→22:13)
[2021-05-21] MEDS: ENOXAPARIN 40 MG/0.4 ML SYRINGE SQ SCH (08:54)
[2021-05-21] MEDS: GABAPENTIN 400 MG CAP PO SCH ×2 (08:55→22:13)
[2021-05-21] MEDS: predniSONE 20 MG TAB PO SCH (08:55)
[2021-05-21] MEDS: PANTOPRAZOLE 40 MG TABLET PO SCH ×2 (08:55→17:26)
[2021-05-21] MEDS: NYSTATIN 100,000 UNIT/GM POWD 15 GM TOPICAL SCH ×2 (08:56→22:14)
[2021-05-21] MEDS: HYDROcodone/APAP 10-325MG 1 EACH TAB PO PRN ×4 (08:57→22:12)
[2021-05-21] MEDS: Dextroamphetamine/Amphetamine [Adderall] PO SCH ×2 (08:58→22:13)
[2021-05-21] MEDS: NICOTINE 14MG/24HR PATCH TRANSDERM SCH (09:56)
[2021-05-21 11:40] LABS: Glucose,Whole Blood 128 mg/dL (75-99)
--- NOTE | 2021-05-21 13:04 | P.PN ---
Progress Note - Text Progress Note Date: 05/21/21 History of presenting complaint: 56-year-old morbidly obese male with past medical history of obstructive sleep apnea, COPD, current smoker, hypertension, diabetes mellitus, previous history of left leg DVT, presented to the emergency department on 05/16/2021 for evaluation of nausea vomiting and diarrhea that started yesterday morning. Apparently there are other family members that had a similar illness for the past few days. He did admit to being short of breath as well did admit it is c hronic for him, denied any fever, denied any chest pain. Did have some mild abdominal cramping, he denied any hematochezia or melena. He tested negative for COVID 19, he denies being vaccinated for COVID-19. He states he is not normally on oxygen and she does not have a CPAP device at home. His chest x-ray showed no acute pulmonary process. In the emergency department patient became hypoxic, and tachycardic. Leg gas was obtained showing pO2 of 187, pCO2 of 105, and pH of 7.18, and subsequently patient was placed on BiPAP support with pressures of 16/8 and FiO2 of 50%. CTA chest was considered however held because of the patient's body habitus and his worsening respiratory failure. Patient is not on any chronic anticoagulation for his past history of left leg DVT. He was placed on prophylactic anticoagulation with heparin, he was given a dose of IV Solu-Medrol and breathing treatments. His lactic acid was noted to be elevated at 2.5, and patient is receiving IV fluids with 0.9 normal saline at a rate of 75 ML per hour. Other admission blood work reveals normal white count of 8.0, hemoglobin of 12.6, platelet count of 171, sodium is 133, potassium is 4.5, chloride is 91, CO2 35, anion gap is 7, B1 is 24, creatinine is 0.86, lactic acid was 2.5, and subsequent draw was 1.0, LFTs were unremarkable, troponins were less than 0.012, and 0.0-2, amylase and lipase were within normal limits at 65 and 97 respectively, urinalysis showed 2+ protein, trace glucose, no clear evidence of infection. COVID-19 PCR was negative. Patient is seen in the intensive care unit, remains on BiPAP support with pressures of 16/8 and FiO2 of 50% satting 93%, repeat blood gas was drawn, this morning at 5:00 in the morning and showed pO2 of 82, pCO2 of 98, and pH of 7.20. She is arousable to voice, he is able to answer simple questions, however dozes off. His respiratory rate is 16, minute ventilation is 7.1, he is achieving tidal volumes of 398 on those above-mentioned settings. Hemodynamically he is stable, he is in sinus mechanism, slightly tachycardic with a rate of 102 BPM, blood pressures 123/61. Currently on 0.9 normal saline at 75 ML per hour, Maldonado catheter has been inserted and patient is producing output in the order of 75-100 ML per hour. He is quite bronchospastic on today's exam, but does not seem to be edematous. His lower extremities noted to be pink and warm, changes of cellulitis. Patient at home is on 3 L of oxygen. Doppler ultrasound negative for DVT. Does not have a CPAP at home. Was supposed to have a sleep study as an outpatient. Patient been on BiPAP. May 19: ICU: I assumed care of the patient this morning. Sitting up in a chair. Down to 8 L of nasal cannula from 15 L. Up in a chair. Did eat some. Congested cough. No sputum. Has a Maldonado catheter. Did use BiPAP at night. Awake answering questions May 20: Patient on the medical floor. Shortness of breath. Sitting up in a chair. On 10 L nasal cannula. Oral intake good. Cough. Patient had been smoking up to admission. About half a pack a day. Eating. May 21: Shortness of breath. Congested cough. Eating well. On 10 L of nasal cannula. Reclining in bed Active Medications Hydrocodone Bitart/Acetaminophen (Hydrocodone/Apap 10-325mg 1 Each Tab) 1 each PO Q4H PRN PRN Reason: Pain Last Admin: 05/21/21 08:57 Dose: 1 each Documented by: Albuterol/Ipratropium (Ipratropium-Albuterol 3 Ml Neb) 3 ml INHALATION RT-QID [facility] Last Admin: 05/21/21 10:59 Dose: 3 ml Documented by: Budesonide/Formoterol Fumarate (Symbicort 160-4.5 Mcg Inhaler) 2 puff INHALATION RT-BID [facility] Last Admin: 05/21/21 07:37 Dose: 2 puff Documented by: Doxycycline Monohydrate (Doxycycline 100 Mg Cap) 100 mg PO BID [facility]; Protocol Last Admin: 05/21/21 08:54 Dose: 100 mg Documented by: Enoxaparin Sodium (Enoxaparin 40 Mg/0.4 Ml Syringe) 40 mg SQ DAILY [facility] Last Admin: 05/21/21 08:54 Dose: 40 mg Documented by: Gabapentin (Gabapentin 400 Mg Cap) 400 mg PO BID [facility] Last Admin: 05/21/21 08:55 Dose: 400 mg Documented by: Sodium Chloride (Saline 0.9%) 1,000 mls @ 20 mls/hr IV .Q24H [facility] Last Admin: 05/20/21 15:58 Dose: 20 mls/hr Documented by: Insulin Aspart (Insulin Aspart (Novolog) 100 Unit/Ml Vial) 0 unit SQ ACHS [facility]; Protocol Last Admin: 05/21/21 11:58 Dose: Not Given Documented by: Naloxone HCl (Naloxone 0.4 Mg/Ml 1 Ml Vial) 0.2 mg IV Q2M PRN PRN Reason: Opioid Reversal Nicotine (Nicotine 14mg/24hr Patch) 1 patch TRANSDERM DAILY [facility] Last Admin: 05/21/21 09:56 Dose: Not Given Documented by: Dextroamphetamine/Amphetamine [ Adderall] 10 mg PO BID [facility] Last Admin: 05/21/21 08:58 Dose: Not Given Documented by: Nystatin (Nystatin 100,000 Unit/Gm Powd 15 Gm) 1 applic TOPICAL BID [facility]; Protocol Last Admin: 05/21/21 08:56 Dose: 1 applic Documented by: Pantoprazole Sodium (Pantoprazole 40 Mg Tablet) 40 mg PO AC-BID [facility] Last Admin: 05/21/21 08:55 Dose: 40 mg Documented by: Prednisone (Prednisone 20 Mg Tab) 40 mg PO DAILY [facility] Last Admin: 05/21/21 08:55 Dose: 40 mg Documented by: Silver Sulfadiazine (Silver Sulfadiazine 1% Cream 25 Gm Tube) 1 applic TOPICAL BID [facility]; Protocol Last Admin: 05/21/21 08:56 Dose: 1 applic Documented by: Past medical history to include: Diabetes, GERD, hypertension, left leg DVT, lower extremity cellulitis. Home oxygen 3 L Social history: Patient lives with his daughter's family. Smoker. 3 L of oxygen at home. Family history: Patient cannot tell Physical examination: VITAL SIGNS: 98.5, 85, 18, 129/64, 96% on 10 L GENERAL: Up in bed, short of breath, awake EYES: Pupils equal. Conjunctiva normal. HEENT: External appearance of nose and ears normal, oral cavity grossly normal. NECK: Short and thick:: JVD unable to assess; masses not palpable. HEART: Heart sounds distant; mild edema. LUNGS: Respiratory rate increased, distant breath sounds. ABDOMEN: Soft, nontender, liver spleen not palpable, no masses palpable. PSYCH: AO - times three. Mood and affect. Anxious NEUROLOGICAL: Cranial nerves grossly intact. Moving all 4 limbs. DERMATOLOGICAL: Redness between the groin folds. Redness above the ankles both the legs. INVESTIGATIONS, reviewed in the clinical context: White count 10.2 hemoglobin 11.5 platelets 160 potassium 5.1 BUN 33 creatinine 0.93 Venous Doppler lower extremity: Negative for DVT EKG: Sinus tachycardia. Incomplete right bundle branch block Chest x-ray film: Obvious acute event Assessment and plan: -Acute on chronic hypoxic and hypercapnic respiratory failure from obesity hypoventilation syndrome and COPD.: Slow to respond BiPAP. Currently on10 L nasal cannula -Chronic hypoxic and hypercapnic respiratory failure, 3 L of oxygen at home -Acute respiratory acidosis -Morbid obesity BMI 81.6 Dietitian consult for weight loss measures -Peripheral neuropathy On Neurontin 400 mg twice a day -GERD Protonix 40 mg twice a day -Acute COPD exacerbation in a current smoker-slow to respond DuoNeb, prednisone 40 mg. Symbicort -Chronic nicotine dependence, cigarette smoker Nicotine patch -Chronic venous stasis dermatitis lower extremity Silvadene cream with Kerlix and Alan wrap -Cutaneous intertriginous candidiasis Nystatin powder twice daily -Acute tracheobronchitis Doxycycline 100 mg twice a day Continue current medication treatment plan. Bronchodilators. Doxycycline. Decrease FiO2 to keep the pulse ox above 92%.
--- NOTE | 2021-05-21 14:26 | P.PN ---
Subjective Progress Note Date: 05/21/21 56-year-old morbidly obese male with past medical history of obstructive sleep apnea, COPD, current smoker, hypertension, diabetes mellitus, previous history of left leg DVT, presented to the emergency department on 05/16/2021 for evaluation of nausea vomiting and diarrhea that started yesterday morning. Apparently there are other family members that had a similar illness for the past few days. He did admit to being short of breath as well did admit it is chronic for him, denied any fever, denied any chest pain. Did have some mild abdominal cramping, he denied any hematochezia or melena. He tested negative for COVID 19, he denies being vaccinated for COVID-19. He states he is not normally on oxygen and she does not have a CPAP device at home. His chest x-ray showed no acute pulmonary process. In the emergency department patient became hypoxic, and tachycardic. Leg gas was obtained showing pO2 of 187, pCO2 of 105, and pH of 7.18, and subsequently patient was placed on BiPAP support with pressures of 16/8 and FiO2 of 50%. CTA chest was considered however held because of the patient's body habitus and his worsening respiratory failure. Patient is not on any chronic anticoagulation for his past history of left leg DVT. He was placed on prophylactic anticoagulation with heparin, he was given a dose of IV Solu-Medrol and breathing treatments. His lactic acid was noted to be elevated at 2.5, and patient is receiving IV fluids with 0.9 normal saline at a rate of 75 ML per hour. Other admission blood work reveals normal white count of 8.0, hemoglobin of 12.6, platelet count of 171, sodium is 133, potassium is 4.5, chloride is 91, CO2 35, anion gap is 7, B1 is 24, creatinine is 0.86, lactic acid was 2.5, and subsequent draw was 1.0, LFTs were unremarkable, troponins were less than 0.012, and 0.0-2, amylase and lipase were within normal limits at 65 and 97 respectively, urinalysis showed 2+ protein, trace glucose, no clear evidence of infection. COVID-19 PCR was negative. Patient is seen in the intensive care unit, remains on BiPAP support with pressures of 16/8 and FiO2 of 50% satting 93%, repeat blood gas was drawn, this morning at 5:00 in the morning and showed pO2 of 82, pCO2 of 98, and pH of 7.20. She is arousable to voice, he is able to answer simple questions, however dozes off. His respiratory rate is 16, minute ventilation is 7.1, he is achieving tidal volumes of 398 on those above-mentioned settings. Hemodynamically he is stable, he is in sinus mechanism, slightly tachycardic with a rate of 102 BPM, blood pressures 123/61. Currently on 0.9 normal saline at 75 ML per hour, Maldonado catheter has been inserted and patient is producing output in the order of 75-100 ML per hour. He is quite bronchospastic on today's exam, but does not seem to be edematous. His lower extremities noted to be pink and warm, changes of cellulitis. On 05/18/2021 patient seen in follow-up in intensive care unit, he is awake and alert, oriented 3, he is currently off BiPAP support but he did wear it last night with pressures of 16/8 and FiO2 of 40%. Currently on 4 L of oxygen he satting 93%, he is breathing comfortably. Less bronchospastic on today's exam, occasional cough with production of phlegm, he is unable to describe the phlegm characteristics. She continues on IV steroids at 60 mg every 6 hours, he is on nebulized bronchodilators. Vital signs of been stable overnight, hemodynamically stable, he is in sinus mechanism with a rate of 87 BPM, blood pressures 118/61 with a mean of 79. Her extremity Dopplers were negative for DVT, patient remains on prophylactic anticoagulation with Lovenox 40 mg daily. He also remains on gentle IV hydration with plan and was seen at a rate of 75 ML per hour. No nausea vomiting or diarrhea since admission, abdomen is soft, nontender. Neurologically patient is verbalizing that he is very hungry. He treadwell s been tolerating popsicles and putting. And he would like to have a regular diet this morning. He denies being a diabetic despite some of the information in his medical records. He is on home oxygen on a regular basis at 3 L/m, does not have a CPAP machine at home, he was supposed to have a sleep study however has not had it yet. His labs have been reviewed, white blood cell, 7.8, hemoglobin is 11.3, sodium is 133, potassium is 5.1, chloride is 94, CO2 39, B1 is 29 creatinine 0.95. No fever or chills overnight, no acute events. Patient's home dose [place] was restarted at every 8 hour interval as needed however today patient states that he is having pain, and his bilateral lower extremities and his left hand, which is poorly controlled and requesting to restarted at his prescribed home dose intervals including gabapentin. On 05/19/2021 patient seen in follow-up in intensive care unit. He is awake and alert, in no acute distress, currently on 10 L of oxygen pulse ox is 95%, and s ubsequently his FiO2 has been dropped down to 8 L. Did wear BiPAP last night pressures of 16 and 8 and FiO2 of 40%. This morning he stated she is a bit more congested, no wheezing, but diffuse rhonchi auscultated. His Solu-Medrol has been switched over to oral prednisone, he remains on nebulized and inhaled bronchodilators including Symbicort and DuoNeb. Vital signs have been stable, patient has been afebrile. Today's chest x-ray showing mild cardiomegaly without acute pulmonary process. No fever or chills, blood pressure has been stable, 111/54 this morning. This morning's labs have been reviewed, white blood cell count is 10.2, hemoglobin is 11.5, platelet count is 168, sodium is 133, potassium is 5.1, chloride is 94, CO2 39, BUN is 33 creatinine is 0.93. Is tolerating regular diet, no nausea vomiting or diarrhea since admission, abdomen is soft and nontender. The patient is seen today 05/20/2021 in follow-up on the regular medical floor. He is currently sitting up in a chair at the bedside. Awake and alert in no acute distress. He is on 10 L high flow nasal cannula with O2 saturations in the low 90s. He is normally on 3 L at home. He is breathing easier. He is dyspneic with minimal exertion. Blood glucose 143. Urine culture revealed no growth. He is continued on DuoNeb inhalations, Symbicort, antibiotics in the form of doxycycline. He is on a prednisone taper. NicoDerm patch in place. Lovenox for DVT prophylaxis. The 2021, the patient is stable on 8 L of O2 nasal cannula. No new complaints. Currently on IV fluids at 20 mL an hour. Currently on DuoNeb nebulized treatments around the clock, Symbicort and maintenance and prednisone burst taper. Currently on BiPAP overnight. Trying to increase his mobility as tolerated. Objective - Vital Signs Vital signs: Vital Signs Temp 98.5 F 05/21/21 11:35 Pulse 85 05/21/21 11:35 Resp 18 05/21/21 11:35 BP 129/64 05/21/21 11:35 Pulse Ox 96 05/21/21 11:35 Intake & Output 05/20/21 05/21/21 05/21/21 18:59 06:59 18:59 Intake Total 840 Output Total 550 Balance 290 Weight 272.79 kg Intake: IV 240 Sodium Chloride 0.9% 1, 240 000 ml @ 20 mls/hr IV . Q24H [facility] Rx#:[id number] Oral 600 Output: Urine 550 Other: Voiding Method Urinal # Voids 1 ABP, PAP, CO, CI - Last Documented Arterial Blood Pressure 148/69 - Exam GENERAL EXAM: Alert, oriented 3 morbidly obese 56-year-old male patient, up in a chair at the bedside, on 10 l/min high flow nasal cannula, comfortable in no apparent distress. HEAD: Normocephalic/atraumatic. EYES: Normal reaction of pupils, equal size. Conjunctiva pink, sclera white. NOSE: Clear with pink turbinates. THROAT: No erythema or exudates. NECK: No masses, no JVD, no thyroid enlargement, no adenopathy. CHEST: No chest wall deformity. Symmetrical expansion. LUNGS: Equal air entry with diffuse rhonchi and expiratory wheeze CVS: Regular rate and rhythm, normal S1 and S2, no gallops, no murmurs, no rubs ABDOMEN: Soft, nontender. No hepatosplenomegaly, normal bowel sounds, no guarding or rigidity. EXTREMITIES: No clubbing, no edema, no cyanosis, 2+ pulses and upper and lower extremities. he has changes of bilateral lower extremity cellulitis MUSCULOSKELETAL: Muscle strength and tone normal. SPINE: No scoliosis or deformity SKIN: No rashes CENTRAL NERVOUS SYSTEM: Alert, oriented -3. No focal deficits, tone is normal in all 4 extremities. - Labs CBC & Chem 7: 05/19/21 05:50 05/19/21 05:50 Labs: Abnormal Lab Results - Last 24 Hours (Table) 05/20/21 05/20/21 05/21/21 Range/Units 17:23 19:59 11:38 D-Dimer (<0.60) mg/L FEU POC Glucose (mg/dL) 175 H 150 H 128 H (75-99) mg/dL 05/21/21 Range/Units 12:22 D-Dimer 0.75 H (<0.60) mg/L FEU POC Glucose (mg/dL) (75-99) mg/dL Assessment and Plan Plan: Assessment: #1. Acute on chronic hypercapnic respiratory failure related to acute exacerbation of COPD. Patient required placement on BiPAP support, and currently his blood gases show improvement in his acid base balance. COVID-19 PCR was negative, chest x-ray showed no acute cardiopulmonary process. Today on 05/19/2021 patient is awake and alert, he is off BiPAP support, currently on 10 L per high flow nasal cannula #2. Nausea vomiting and diarrhea on presentation, and mild dehydration with mil d lactic acidosis, resolved #3. History of COPD, says independent at baseline wears 3 L/m on a regular basis #4. Chronic hypercapnic respiratory failure, related to obstructive sleep apnea and chronic COPD #5. Obstructive sleep apnea and patient states he does not have a CPAP machine at home. #6. History of diabetes mellitus type 2 #7. Hypertension #8. Morbid obesity with BMI of 80.1 kg/m #9. Bilateral lower extremity cellulitis Plan: Continue weaning FiO2 to keep O2 saturation is between 88 and 90%, I reduced the patient's FiO2 from 10 L down to 8 L No acute events overnight, vital signs are stable Continue DuoNeb, continue Symbicort and oral prednisone Physical therapy has been consulted and hopefully we can get the patient up in a chair today Tolerating oral diet, no nausea vomiting or diarrhea Stable to go out of ICU to regular medical surgical floor Continue BiPAP support at night and as needed during the day Complete a prednisone burst taper Recheck a d-dimer was Levels are low and the patient's suspicion for a superimposed pulmonary embolism is low. Continue Lovenox for DVT prophylaxis. Wean down FiO2. We'll continue to follow. Outpatient sleep study. The patient is a positive pressure ventilator/CPAP/BiPAP.
[2021-05-21 17:06] LABS: Glucose,Whole Blood 199 mg/dL (75-99)
[2021-05-21] MEDS: SODIUM CHLORIDE 0.9% 1,000 ML IV SCH (17:50)
[2021-05-21 22:07] LABS: Glucose,Whole Blood 176 mg/dL (75-99)
[2021-05-22 07:28] LABS: Glucose,Whole Blood 98 mg/dL (75-99)
[2021-05-22] MEDS: SYMBICORT 160-4.5 MCG INHALER INHALATION SCH ×2 (07:29→19:40)
[2021-05-22] MEDS: IPRATROPIUM-ALBUTEROL 3 ML NEB INHALATION SCH ×4 (07:29→19:40)
[2021-05-22] MEDS: INSULIN ASPART (NovoLOG) 100 UNIT/ML VIAL SQ SCH ×4 (07:45→21:21)
[2021-05-22] MEDS: Dextroamphetamine/Amphetamine [Adderall] PO SCH ×2 (09:15→21:20)
[2021-05-22] MEDS: NICOTINE 14MG/24HR PATCH TRANSDERM SCH (09:16)
[2021-05-22] MEDS: DOXYCYCLINE 100 MG CAP PO SCH ×2 (09:59→21:21)
[2021-05-22] MEDS: ENOXAPARIN 40 MG/0.4 ML SYRINGE SQ SCH (09:59)
[2021-05-22] MEDS: GABAPENTIN 400 MG CAP PO SCH ×2 (09:59→21:21)
[2021-05-22] MEDS: predniSONE 20 MG TAB PO SCH (10:00)
[2021-05-22] MEDS: PANTOPRAZOLE 40 MG TABLET PO SCH ×2 (10:00→18:01)
[2021-05-22] MEDS: NYSTATIN 100,000 UNIT/GM POWD 15 GM TOPICAL SCH ×2 (10:00→21:22)
[2021-05-22] MEDS: HYDROcodone/APAP 10-325MG 1 EACH TAB PO PRN ×2 (10:04→15:11)
[2021-05-22 11:43] LABS: Glucose,Whole Blood 109 mg/dL (75-99)
--- NOTE | 2021-05-22 15:55 | P.PN ---
Progress Note - Text Progress Note Date: 05/22/21 History of presenting complaint: 56-year-old morbidly obese male with past medical history of obstructive sleep apnea, COPD, current smoker, hypertension, diabetes mellitus, previous history of left leg DVT, presented to the emergency department on 05/16/2021 for evaluation of nausea vomiting and diarrhea that started yesterday morning. Apparently there are other family members that had a similar illness for the past few days. He did admit to being short of breath as well did admit it is c hronic for him, denied any fever, denied any chest pain. Did have some mild abdominal cramping, he denied any hematochezia or melena. He tested negative for COVID 19, he denies being vaccinated for COVID-19. He states he is not normally on oxygen and she does not have a CPAP device at home. His chest x-ray showed no acute pulmonary process. In the emergency department patient became hypoxic, and tachycardic. Leg gas was obtained showing pO2 of 187, pCO2 of 105, and pH of 7.18, and subsequently patient was placed on BiPAP support with pressures of 16/8 and FiO2 of 50%. CTA chest was considered however held because of the patient's body habitus and his worsening respiratory failure. Patient is not on any chronic anticoagulation for his past history of left leg DVT. He was placed on prophylactic anticoagulation with heparin, he was given a dose of IV Solu-Medrol and breathing treatments. His lactic acid was noted to be elevated at 2.5, and patient is receiving IV fluids with 0.9 normal saline at a rate of 75 ML per hour. Other admission blood work reveals normal white count of 8.0, hemoglobin of 12.6, platelet count of 171, sodium is 133, potassium is 4.5, chloride is 91, CO2 35, anion gap is 7, B1 is 24, creatinine is 0.86, lactic acid was 2.5, and subsequent draw was 1.0, LFTs were unremarkable, troponins were less than 0.012, and 0.0-2, amylase and lipase were within normal limits at 65 and 97 respectively, urinalysis showed 2+ protein, trace glucose, no clear evidence of infection. COVID-19 PCR was negative. Patient is seen in the intensive care unit, remains on BiPAP support with pressures of 16/8 and FiO2 of 50% satting 93%, repeat blood gas was drawn, this morning at 5:00 in the morning and showed pO2 of 82, pCO2 of 98, and pH of 7.20. She is arousable to voice, he is able to answer simple questions, however dozes off. His respiratory rate is 16, minute ventilation is 7.1, he is achieving tidal volumes of 398 on those above-mentioned settings. Hemodynamically he is stable, he is in sinus mechanism, slightly tachycardic with a rate of 102 BPM, blood pressures 123/61. Currently on 0.9 normal saline at 75 ML per hour, Maldonado catheter has been inserted and patient is producing output in the order of 75-100 ML per hour. He is quite bronchospastic on today's exam, but does not seem to be edematous. His lower extremities noted to be pink and warm, changes of cellulitis. Patient at home is on 3 L of oxygen. Doppler ultrasound negative for DVT. Does not have a CPAP at home. Was supposed to have a sleep study as an outpatient. Patient been on BiPAP. May 19: ICU: I assumed care of the patient this morning. Sitting up in a chair. Down to 8 L of nasal cannula from 15 L. Up in a chair. Did eat some. Congested cough. No sputum. Has a Maldonado catheter. Did use BiPAP at night. Awake answering questions May 20: Patient on the medical floor. Shortness of breath. Sitting up in a chair. On 10 L nasal cannula. Oral intake good. Cough. Patient had been smoking up to admission. About half a pack a day. Eating. May 21: Shortness of breath. Congested cough. Eating well. On 10 L of nasal cannula. Reclining in bed May 22: Reclining in bed. Some congested cough. Eating well. On 8 L of nasal cannula. Active Medications Hydrocodone Bitart/Acetaminophen (Hydrocodone/Apap 10-325mg 1 Each Tab) 1 each PO Q4H PRN PRN Reason: Pain Last Admin: 05/22/21 15:11 Dose: 1 each Documented by: Albuterol/Ipratropium (Ipratropium-Albuterol 3 Ml Neb) 3 ml INHALATION RT-QID [facility] Last Admin: 05/22/21 15:52 Dose: 3 ml Documented by: Budesonide/Formoterol Fumarate (Symbicort 160-4.5 Mcg Inhaler) 2 puff INHALATION RT-BID [facility] Last Admin: 05/22/21 07:29 Dose: 2 puff Documented by: Doxycycline Monohydrate (Doxycycline 100 Mg Cap) 100 mg PO BID [facility]; Protocol Last Admin: 05/22/21 09:59 Dose: 100 mg Documented by: Enoxaparin Sodium (Enoxaparin 40 Mg/0.4 Ml Syringe) 40 mg SQ DAILY [facility] Last Admin: 05/22/21 09:59 Dose: 40 mg Documented by: Gabapentin (Gabapentin 400 Mg Cap) 400 mg PO BID [facility] Last Admin: 05/22/21 09:59 Dose: 400 mg Documented by: Sodium Chloride (Saline 0.9%) 1,000 mls @ 20 mls/hr IV .Q24H [facility] Last Admin: 05/21/21 17:50 Dose: Not Given Documented by: Insulin Aspart (Insulin Aspart (Novolog) 100 Unit/Ml Vial) 0 unit SQ ACHS [facility]; Protocol Last Admin: 05/22/21 11:45 Dose: Not Given Documented by: Naloxone HCl (Naloxone 0.4 Mg/Ml 1 Ml Vial) 0.2 mg IV Q2M PRN PRN Reason: Opioid Reversal Nicotine (Nicotine 14mg/24hr Patch) 1 patch TRANSDERM DAILY [facility] Last Admin: 05/22/21 09:16 Dose: Not Given Documented by: Dextroamphetamine/Amphetamine [ Adderall] 10 mg PO BID [facility] Last Admin: 05/22/21 09:15 Dose: Not Given Documented by: Nystatin (Nystatin 100,000 Unit/Gm Powd 15 Gm) 1 applic TOPICAL BID [facility]; Protocol Last Admin: 05/22/21 10:00 Dose: 1 applic Documented by: Pantoprazole Sodium (Pantoprazole 40 Mg Tablet) 40 mg PO AC-BID [facility] Last Admin: 05/22/21 10:00 Dose: 40 mg Documented by: Prednisone (Prednisone 20 Mg Tab) 40 mg PO DAILY [facility] Last Admin: 05/22/21 10:00 Dose: 40 mg Documented by: Silver Sulfadiazine (Silver Sulfadiazine 1% Cream 25 Gm Tube) 1 applic TOPICAL BID [facility]; Protocol Last Admin: 05/22/21 10:00 Dose: 1 applic Documented by: Past medical history to include: Diabetes, GERD, hypertension, left leg DVT, lower extremity cellulitis. Home oxygen 3 L Social history: Patient lives with his daughter's family. Smoker. 3 L of oxygen at home. Family history: Patient cannot tell Physical examination: VITAL SIGNS: 97.7, 91, 24, 127/63, 91% on 6 L GENERAL: Up in bed, less short of breath, awake EYES: Pupils equal. Conjunctiva normal. HEENT: External appearance of nose and ears normal, oral cavity grossly normal. NECK: Short and thick:: JVD unable to assess; masses not palpable. HEART: Heart sounds distant; mild edema. LUNGS: Respiratory rate increased, distant breath sounds. ABDOMEN: Soft, nontender, liver spleen not palpable, no masses palpable. PSYCH: AO - times three. Mood and affect. Anxious NEUROLOGICAL: Cranial nerves grossly intact. Moving all 4 limbs. DERMATOLOGICAL: Redness between the groin folds. Redness above the ankles both the legs. INVESTIGATIONS, reviewed in the clinical context: D-dimer 0.75 White count 10.2 hemoglobin 11.5 platelets 160 potassium 5.1 BUN 33 creatinine 0.93 Venous Doppler lower extremity: Negative for DVT EKG: Sinus tachycardia. Incomplete right bundle branch block Chest x-ray film: Obvious acute event Assessment and plan: -Acute on chronic hypoxic and hypercapnic respiratory failure from obesity hypoventilation syndrome and COPD.: Slow to respond BiPAP. Currently on 8 L nasal cannula -Chronic hypoxic and hypercapnic respiratory failure, 3 L of oxygen at home -Acute respiratory acidosis -Morbid obesity BMI 81.6 Dietitian consult for weight loss measures -Peripheral neuropathy On Neurontin 400 mg twice a day -GERD Protonix 40 mg twice a day -Acute COPD exacerbation in a current smoker-slow to respond DuoNeb, prednisone 40 mg. Symbicort -Chronic nicotine dependence, cigarette smoker Nicotine patch -Chronic venous stasis dermatitis lower extremity Silvadene cream with Kerlix and Alan wrap -Cutaneous intertriginous candidiasis Nystatin powder twice daily -Acute tracheobronchitis Doxycycline 100 mg twice a day Continue current medication treatment plan. Bronchodilators. Doxycycline. Decrease FiO2 to keep the pulse ox above 92%. Discussed with patient.
[2021-05-22] MEDS: SODIUM CHLORIDE 0.9% 1,000 ML IV SCH (16:38)
--- NOTE | 2021-05-22 16:49 | P.PN ---
Subjective Progress Note Date: 05/22/21 56-year-old morbidly obese male with past medical history of obstructive sleep apnea, COPD, current smoker, hypertension, diabetes mellitus, previous history of left leg DVT, presented to the emergency department on 05/16/2021 for evaluation of nausea vomiting and diarrhea that started yesterday morning. Apparently there are other family members that had a similar illness for the past few days. He did admit to being short of breath as well did admit it is chronic for him, denied any fever, denied any chest pain. Did have some mild abdominal cramping, he denied any hematochezia or melena. He tested negative for COVID 19, he denies being vaccinated for COVID-19. He states he is not normally on oxygen and she does not have a CPAP device at home. His chest x-ray showed no acute pulmonary process. In the emergency department patient became hypoxic, and tachycardic. Leg gas was obtained showing pO2 of 187, pCO2 of 105, and pH of 7.18, and subsequently patient was placed on BiPAP support with pressures of 16/8 and FiO2 of 50%. CTA chest was considered however held because of the patient's body habitus and his worsening respiratory failure. Patient is not on any chronic anticoagulation for his past history of left leg DVT. He was placed on prophylactic anticoagulation with heparin, he was given a dose of IV Solu-Medrol and breathing treatments. His lactic acid was noted to be elevated at 2.5, and patient is receiving IV fluids with 0.9 normal saline at a rate of 75 ML per hour. Other admission blood work reveals normal white count of 8.0, hemoglobin of 12.6, platelet count of 171, sodium is 133, potassium is 4.5, chloride is 91, CO2 35, anion gap is 7, B1 is 24, creatinine is 0.86, lactic acid was 2.5, and subsequent draw was 1.0, LFTs were unremarkable, troponins were less than 0.012, and 0.0-2, amylase and lipase were within normal limits at 65 and 97 respectively, urinalysis showed 2+ protein, trace glucose, no clear evidence of infection. COVID-19 PCR was negative. Patient is seen in the intensive care unit, remains on BiPAP support with pressures of 16/8 and FiO2 of 50% satting 93%, repeat blood gas was drawn, this morning at 5:00 in the morning and showed pO2 of 82, pCO2 of 98, and pH of 7.20. She is arousable to voice, he is able to answer simple questions, however dozes off. His respiratory rate is 16, minute ventilation is 7.1, he is achieving tidal volumes of 398 on those above-mentioned settings. Hemodynamically he is stable, he is in sinus mechanism, slightly tachycardic with a rate of 102 BPM, blood pressures 123/61. Currently on 0.9 normal saline at 75 ML per hour, Maldonado catheter has been inserted and patient is producing output in the order of 75-100 ML per hour. He is quite bronchospastic on today's exam, but does not seem to be edematous. His lower extremities noted to be pink and warm, changes of cellulitis. On 05/18/2021 patient seen in follow-up in intensive care unit, he is awake and alert, oriented 3, he is currently off BiPAP support but he did wear it last night with pressures of 16/8 and FiO2 of 40%. Currently on 4 L of oxygen he satting 93%, he is breathing comfortably. Less bronchospastic on today's exam, occasional cough with production of phlegm, he is unable to describe the phlegm characteristics. She continues on IV steroids at 60 mg every 6 hours, he is on nebulized bronchodilators. Vital signs of been stable overnight, hemodynamically stable, he is in sinus mechanism with a rate of 87 BPM, blood pressures 118/61 with a mean of 79. Her extremity Dopplers were negative for DVT, patient remains on prophylactic anticoagulation with Lovenox 40 mg daily. He also remains on gentle IV hydration with plan and was seen at a rate of 75 ML per hour. No nausea vomiting or diarrhea since admission, abdomen is soft, nontender. Neurologically patient is verbalizing that he is very hungry. He treadwell s been tolerating popsicles and putting. And he would like to have a regular diet this morning. He denies being a diabetic despite some of the information in his medical records. He is on home oxygen on a regular basis at 3 L/m, does not have a CPAP machine at home, he was supposed to have a sleep study however has not had it yet. His labs have been reviewed, white blood cell, 7.8, hemoglobin is 11.3, sodium is 133, potassium is 5.1, chloride is 94, CO2 39, B1 is 29 creatinine 0.95. No fever or chills overnight, no acute events. Patient's home dose [place] was restarted at every 8 hour interval as needed however today patient states that he is having pain, and his bilateral lower extremities and his left hand, which is poorly controlled and requesting to restarted at his prescribed home dose intervals including gabapentin. On 05/19/2021 patient seen in follow-up in intensive care unit. He is awake and alert, in no acute distress, currently on 10 L of oxygen pulse ox is 95%, and s ubsequently his FiO2 has been dropped down to 8 L. Did wear BiPAP last night pressures of 16 and 8 and FiO2 of 40%. This morning he stated she is a bit more congested, no wheezing, but diffuse rhonchi auscultated. His Solu-Medrol has been switched over to oral prednisone, he remains on nebulized and inhaled bronchodilators including Symbicort and DuoNeb. Vital signs have been stable, patient has been afebrile. Today's chest x-ray showing mild cardiomegaly without acute pulmonary process. No fever or chills, blood pressure has been stable, 111/54 this morning. This morning's labs have been reviewed, white blood cell count is 10.2, hemoglobin is 11.5, platelet count is 168, sodium is 133, potassium is 5.1, chloride is 94, CO2 39, BUN is 33 creatinine is 0.93. Is tolerating regular diet, no nausea vomiting or diarrhea since admission, abdomen is soft and nontender. The patient is seen today 05/20/2021 in follow-up on the regular medical floor. He is currently sitting up in a chair at the bedside. Awake and alert in no acute distress. He is on 10 L high flow nasal cannula with O2 saturations in the low 90s. He is normally on 3 L at home. He is breathing easier. He is dyspneic with minimal exertion. Blood glucose 143. Urine culture revealed no growth. He is continued on DuoNeb inhalations, Symbicort, antibiotics in the form of doxycycline. He is on a prednisone taper. NicoDerm patch in place. Lovenox for DVT prophylaxis. The 2021, the patient is stable on 8 L of O2 nasal cannula. No new complaints. Currently on IV fluids at 20 mL an hour. Currently on DuoNeb nebulized treatments around the clock, Symbicort and maintenance and prednisone burst taper. Currently on BiPAP overnight. Trying to increase his mobility as tolerated. 05/22/2021, the patient is on 6 L O2 with a pulse of 91%. No new complaints. Resting comfortably in bed. Feels weak. The patient feels that he may benefit from home PT. He also expressed wishes towards bariatric surgery in the future. He is on prednisone burst taper. He is on Symbicort. He is using incentive spirometer. Is tolerating his diet. He is mobile. No other significant events over the past 24 hours and the patient has been moved out of the intensive care unit. Objective - Vital Signs Vital signs: Vital Signs Temp 97.7 F 05/22/21 12:11 Pulse 88 05/22/21 16:06 Resp 24 05/22/21 12:11 BP 127/63 05/22/21 12:11 Pulse Ox 91 L 05/22/21 12:11 Intake & Output 05/21/21 05/22/21 05/22/21 18:59 06:59 18:59 Intake Total 1080 Balance 1080 Intake: Oral 1080 Other: Voiding Method Urinal Urinal Urinal # Voids 4 3 ABP, PAP, CO, CI - Last Documented Arterial Blood Pressure 148/69 - Exam GENERAL EXAM: Alert, oriented 3 morbidly obese 56-year-old male patient, up in a chair at the bedside, on 6 l/min high flow nasal cannula, comfortable in no apparent distress. HEAD: Normocephalic/atraumatic. EYES: Normal reaction of pupils, equal size. Conjunctiva pink, sclera white. NOSE: Clear with pink turbinates. THROAT: No erythema or exudates. NECK: No masses, no JVD, no thyroid enlargement, no adenopathy. CHEST: No chest wall deformity. Symmetrical expansion. LUNGS: Equal air entry with diffuse rhonchi and expiratory wheeze CVS: Regular rate and rhythm, normal S1 and S2, no gallops, no murmurs, no rubs ABDOMEN: Soft, nontender. No hepatosplenomegaly, normal bowel sounds, no guarding or rigidity. EXTREMITIES: No clubbing, no edema, no cyanosis, 2+ pulses and upper and lower extremities. he has changes of bilateral lower extremity cellulitis MUSCULOSKELETAL: Muscle strength and tone normal. SPINE: No scoliosis or deformity SKIN: No rashes CENTRAL NERVOUS SYSTEM: Alert, oriented -3. No focal deficits, tone is normal in all 4 extremities. - Labs CBC & Chem 7: 05/19/21 05:50 05/19/21 05:50 Labs: Abnormal Lab Results - Last 24 Hours (Table) 05/21/21 05/21/21 05/22/21 Range/Units 17:04 22:05 11:41 POC Glucose (mg/dL) 199 H 176 H 109 H (75-99) mg/dL Assessment and Plan Plan: Assessment: #1. Acute on chronic hypercapnic respiratory failure related to acute exacerbation of COPD. Patient required placement on BiPAP support, and currently his blood gases show improvement in his acid base balance. COVID-19 PCR was negative, chest x-ray showed no acute cardiopulmonary process. Today on 05/19/2021 patient is awake and alert, he is off BiPAP support, currently on 6 L per high flow nasal cannula #2. Nausea vomiting and diarrhea on presentation, and mild dehydration with mild lactic acidosis, resolved #3. History of COPD, says independent at baseline wears 3 L/m on a regular basis #4. Chronic hypercapnic respiratory failure, related to obstructive sleep apnea and chronic COPD #5. Obstructive sleep apnea and patient states he does not have a CPAP machine at home. #6. History of diabetes mellitus type 2 #7. Hypertension #8. Morbid obesity with BMI of 80.1 kg/m #9. Bilateral lower extremity cellulitis Plan: Continue weaning FiO2 to keep O2 saturation is between 88 and 90%, currently on 6 L of nasal cannula No acute events overnight, vital signs are stable Continue DuoNeb, continue Symbicort and oral prednisone Physical therapy has been consulted and hopefully we can get the patient up in a chair today, the patient is also interested in home PT Recheck a d-dimer waslow and the patient's suspicion for a superimposed pulmonary embolism is low. Continue Lovenox for DVT prophylaxis. Wean down FiO2. We'll continue to follow. Outpatient sleep study.
[2021-05-22 17:45] LABS: Glucose,Whole Blood 134 mg/dL (75-99)
[2021-05-22 20:33] LABS: Glucose,Whole Blood 135 mg/dL (75-99)
[2021-05-23 07:30] LABS: Glucose,Whole Blood 104 mg/dL (75-99)
[2021-05-23] MEDS: INSULIN ASPART (NovoLOG) 100 UNIT/ML VIAL SQ SCH ×2 (07:33→12:40)
[2021-05-23] MEDS: NICOTINE 14MG/24HR PATCH TRANSDERM SCH (07:49)
[2021-05-23] MEDS: predniSONE 20 MG TAB PO SCH (07:49)
[2021-05-23] MEDS: ENOXAPARIN 40 MG/0.4 ML SYRINGE SQ SCH (07:49)
[2021-05-23] MEDS: DOXYCYCLINE 100 MG CAP PO SCH (07:50)
[2021-05-23] MEDS: GABAPENTIN 400 MG CAP PO SCH (07:50)
[2021-05-23] MEDS: PANTOPRAZOLE 40 MG TABLET PO SCH (07:50)
[2021-05-23] MEDS: NYSTATIN 100,000 UNIT/GM POWD 15 GM TOPICAL SCH (07:51)
[2021-05-23] MEDS: Dextroamphetamine/Amphetamine [Adderall] PO SCH (07:51)
[2021-05-23] MEDS: HYDROcodone/APAP 10-325MG 1 EACH TAB PO PRN ×2 (07:55→12:40)
[2021-05-23] MEDS: IPRATROPIUM-ALBUTEROL 3 ML NEB INHALATION SCH ×2 (08:00→11:38)
[2021-05-23] MEDS: SYMBICORT 160-4.5 MCG INHALER INHALATION SCH (08:00)
--- NOTE | 2021-05-23 11:04 | P.PN ---
Subjective Progress Note Date: 05/23/21 56-year-old morbidly obese male with past medical history of obstructive sleep apnea, COPD, current smoker, hypertension, diabetes mellitus, previous history of left leg DVT, presented to the emergency department on 05/16/2021 for evaluation of nausea vomiting and diarrhea that started yesterday morning. Apparently there are other family members that had a similar illness for the past few days. He did admit to being short of breath as well did admit it is chronic for him, denied any fever, denied any chest pain. Did have some mild abdominal cramping, he denied any hematochezia or melena. He tested negative for COVID 19, he denies being vaccinated for COVID-19. He states he is not normally on oxygen and she does not have a CPAP device at home. His chest x-ray showed no acute pulmonary process. In the emergency department patient became hypoxic, and tachycardic. Leg gas was obtained showing pO2 of 187, pCO2 of 105, and pH of 7.18, and subsequently patient was placed on BiPAP support with pressures of 16/8 and FiO2 of 50%. CTA chest was considered however held because of the patient's body habitus and his worsening respiratory failure. Patient is not on any chronic anticoagulation for his past history of left leg DVT. He was placed on prophylactic anticoagulation with heparin, he was given a dose of IV Solu-Medrol and breathing treatments. His lactic acid was noted to be elevated at 2.5, and patient is receiving IV fluids with 0.9 normal saline at a rate of 75 ML per hour. Other admission blood work reveals normal white count of 8.0, hemoglobin of 12.6, platelet count of 171, sodium is 133, potassium is 4.5, chloride is 91, CO2 35, anion gap is 7, B1 is 24, creatinine is 0.86, lactic acid was 2.5, and subsequent draw was 1.0, LFTs were unremarkable, troponins were less than 0.012, and 0.0-2, amylase and lipase were within normal limits at 65 and 97 respectively, urinalysis showed 2+ protein, trace glucose, no clear evidence of infection. COVID-19 PCR was negative. Patient is seen in the intensive care unit, remains on BiPAP support with pressures of 16/8 and FiO2 of 50% satting 93%, repeat blood gas was drawn, this morning at 5:00 in the morning and showed pO2 of 82, pCO2 of 98, and pH of 7.20. She is arousable to voice, he is able to answer simple questions, however dozes off. His respiratory rate is 16, minute ventilation is 7.1, he is achieving tidal volumes of 398 on those above-mentioned settings. Hemodynamically he is stable, he is in sinus mechanism, slightly tachycardic with a rate of 102 BPM, blood pressures 123/61. Currently on 0.9 normal saline at 75 ML per hour, Maldonado catheter has been inserted and patient is producing output in the order of 75-100 ML per hour. He is quite bronchospastic on today's exam, but does not seem to be edematous. His lower extremities noted to be pink and warm, changes of cellulitis. On 05/18/2021 patient seen in follow-up in intensive care unit, he is awake and alert, oriented 3, he is currently off BiPAP support but he did wear it last night with pressures of 16/8 and FiO2 of 40%. Currently on 4 L of oxygen he satting 93%, he is breathing comfortably. Less bronchospastic on today's exam, occasional cough with production of phlegm, he is unable to describe the phlegm characteristics. She continues on IV steroids at 60 mg every 6 hours, he is on nebulized bronchodilators. Vital signs of been stable overnight, hemodynamically stable, he is in sinus mechanism with a rate of 87 BPM, blood pressures 118/61 with a mean of 79. Her extremity Dopplers were negative for DVT, patient remains on prophylactic anticoagulation with Lovenox 40 mg daily. He also remains on gentle IV hydration with plan and was seen at a rate of 75 ML per hour. No nausea vomiting or diarrhea since admission, abdomen is soft, nontender. Neurologically patient is verbalizing that he is very hungry. He has been tolerating popsicles and putting. And he would like to have a regular diet this morning. He denies being a diabetic despite some of the information in his medical records. He is on home oxygen on a regular basis at 3 L/m, does not have a CPAP machine at home, he was supposed to have a sleep study however has not had it yet. His labs have been reviewed, white blood cell, 7.8, hemoglobin is 11.3, sodium is 133, potassium is 5.1, chloride is 94, CO2 39, B1 is 29 creatinine 0.95. No fever or chills overnight, no acute events. Patient's home dose [place] was restarted at every 8 hour interval as needed however today patient states that he is having pain, and his bilateral lower extremities and his left hand, which is poorly controlled and requesting to restarted at his prescribed home dose intervals including gabapentin. On 05/19/2021 patient seen in follow-up in intensive care unit. He is awake and alert, in no acute distress, currently on 10 L of oxygen pulse ox is 95%, and neves bsequently his FiO2 has been dropped down to 8 L. Did wear BiPAP last night pressures of 16 and 8 and FiO2 of 40%. This morning he stated she is a bit more congested, no wheezing, but diffuse rhonchi auscultated. His Solu-Medrol has been switched over to oral prednisone, he remains on nebulized and inhaled bronchodilators including Symbicort and DuoNeb. Vital signs have been stable, patient has been afebrile. Today's chest x-ray showing mild cardiomegaly without acute pulmonary process. No fever or chills, blood pressure has been stable, 111/54 this morning. This morning's labs have been reviewed, white blood cell count is 10.2, hemoglobin is 11.5, platelet count is 168, sodium is 133, potassium is 5.1, chloride is 94, CO2 39, BUN is 33 creatinine is 0.93. Is tolerating regular diet, no nausea vomiting or diarrhea since admission, abdomen is soft and nontender. On 05/23/2021 patient seemed follow-up on medical oncology floor. He is resting comfortably in bed, he is currently on 5 L of oxygen, satting 95%, he is afebrile, hemodynamically stable. He is alert and oriented 3, he with a BiPAP at 16/8 and FiO2 of 40% briefly last night. He is breathing comfortably, no worsening dyspnea or cough or wheezing. Patient has been transitioned to oral prednisone, he remains on DuoNeb, he is on GI and DVT prophylaxis, remains on Symbicort. No acute events overnight. Patient was able to get up out of bed yesterday with assistance. Objective - Vital Signs Vital signs: Vital Signs Temp 97.9 F 05/23/21 04:35 Pulse 82 05/23/21 08:09 Resp 20 05/23/21 04:35 BP 145/64 05/23/21 04:35 Pulse Ox 95 05/23/21 04:35 Intake & Output 05/22/21 05/23/21 05/23/21 18:59 06:59 18:59 Intake Total 240 590 Output Total 1000 Balance 240 590 -1000 Intake: IV 240 Sodium Chloride 0.9% 1, 240 000 ml @ 20 mls/hr IV . Q24H [facility] Rx#:[id number] Oral 590 Output: Urine 1000 Other: Voiding Method Urinal Urinal Urinal # Voids 3 # Bowel Movements 1 ABP, PAP, CO, CI - Last Documented Arterial Blood Pressure 148/69 - Exam GENERAL EXAM: Alert, oriented 3 morbidly obese 56-year-old white male 5 l/min high flow nasal cannula with O2 sat of 95%, comfortable in no apparent distress. HEAD: Normocephalic/atraumatic. EYES: Normal reaction of pupils, equal size. Conjunctiva pink, sclera white. NOSE: Clear with pink turbinates. THROAT: No erythema or exudates. NECK: No masses, no JVD, no thyroid enlargement, no adenopathy. CHEST: No chest wall deformity. Symmetrical expansion. LUNGS: Equal air entry with clear breath sounds CVS: Regular rate and rhythm, normal S1 and S2, no gallops, no murmurs, no rubs ABDOMEN: Soft, nontender. No hepatosplenomegaly, normal bowel sounds, no guarding or rigidity. EXTREMITIES: No clubbing, no edema, no cyanosis, 2+ pulses and upper and lower extremities. he has changes of bilateral lower extremity cellulitis MUSCULOSKELETAL: Muscle strength and tone normal. SPINE: No scoliosis or deformity SKIN: No rashes CENTRAL NERVOUS SYSTEM: Alert, oriented -3. No focal deficits, tone is normal in all 4 extremities. - Labs CBC & Chem 7: 05/19/21 05:50 05/19/21 05:50 Labs: Abnormal Lab Results - Last 24 Hours (Table) 05/22/21 05/22/21 05/22/21 Range/Units 11:41 17:41 20:29 POC Glucose (mg/dL) 109 H 134 H 135 H (75-99) mg/dL 03/21/22 Range/Units 07:28 POC Glucose (mg/dL) 104 H (75-99) mg/dL Assessment and Plan Plan: Assessment: #1. Acute on chronic hypercapnic respiratory failure related to acute exacerbation of COPD. Patient required placement on BiPAP support, and currently his blood gases show improvement in his acid base balance. COVID-19 PCR was negative, chest x-ray showed no acute cardiopulmonary process. Today on 05/19/2021 patient is awake and alert, he is off BiPAP support, currently on 5 L per high flow nasal cannula #2. Nausea vomiting and diarrhea on presentation, and mild dehydration with mild lactic acidosis, resolved #3. History of COPD, oxygen dependent at baseline wears 3 L/m on a regular basis #4. Chronic hypercapnic respiratory failure, related to obstructive sleep apnea and chronic COPD #5. Obstructive sleep apnea and patient states he does not have a CPAP machine at home. #6. History of diabetes mellitus type 2 #7. Hypertension #8. Morbid obesity with BMI of 80.1 kg/m #9. Bilateral lower extremity cellulitis Plan: Continue weaning FiO2 to keep O2 saturation is between 88 and 90% No acute events overnight, vital signs are stable Continue DuoNeb, Symbicort and oral prednisone Increase activity as tolerated No nausea vomiting or diarrhea No abdominal pain Stable for discharge home today if cleared by medicine Patient may complete a prednisone taper He can continue nebulized DuoNeb and Symbicort [facility] is being arranged to follow the patient at home Outpatient follow-up with Dr. Topete in 1 week We'll need outpatient sleep study which will be set up on outpatient basis I have personally seen and examined the patient, performed the documentation and the assessment and plan as written. Number of minutes spent on the visit: 10 Time with Patient: Less than 30
[2021-05-23 12:29] LABS: Glucose,Whole Blood 171 mg/dL (75-99)
[2021-05-23 13:42] VITALS: BP 127/65; PULSE 96; RESP 18; TEMP 98
[2021-05-23] MEDS: SODIUM CHLORIDE 0.9% 1,000 ML IV SCH (15:11)
--- NOTE | 2021-05-23 16:46 | P.DS ---
Providers Date of admission: 05/16/21 20:24 Expected date of discharge: 05/23/21 Attending physician: Deng Anderson Consults: 05/16/21 23:26 Consult Physician Urgent Consulting Provider: Teresa Topete Consult Reason/Comments: Respiratory acidosisuncompensated, hypercarbic encephalopathy Do you want consulting provider notified?: Already Contacted Primary care physician: [facility] Course: History of presenting complaint: 56-year-old morbidly obese male with past medical history of obstructive sleep apnea, COPD, current smoker, hypertension, diabetes mellitus, previous history of left leg DVT, presented to the emergency department on 05/16/2021 for evaluation of nausea vomiting and diarrhea that started yesterday morning. Apparently there are other family members that had a similar illness for the past few days. He did admit to being short of breath as well did admit it is chronic for him, denied any fever, denied any chest pain. Did have some mild abdominal cramping, he denied any hematochezia or melena. He tested negative for COVID 19, he denies being vaccinated for COVID-19. He states he is not normally on oxygen and she does not have a CPAP device at home. His chest x-ray showed no acute pulmonary process. In the emergency department patient became hypoxic, and tachycardic. Leg gas was obtained showing pO2 of 187, pCO2 of 105, and pH of 7.18, and subsequently patient was placed on BiPAP support with pressures of 16/8 and FiO2 of 50%. CTA chest was considered however held because of the patient's body habitus and his worsening respiratory failure. Patient is not on any chronic anticoagulation for his past history of left leg DVT. He was placed on prophylactic anticoagulation with heparin, he was given a dose of IV Solu-Medrol and breathing treatments. His lactic acid was noted to be elevated at 2.5, and patient is receiving IV fluids with 0.9 normal saline at a rate of 75 ML per hour. Other admission blood work reveals normal white count of 8.0, hemoglobin of 12.6, platelet count of 171, sodium is 133, potassium is 4.5, chloride is 91, CO2 35, anion gap is 7, B1 is 24, creatinine is 0.86, lactic acid was 2.5, and subsequent draw was 1.0, LFTs were unremarkable, troponins were less than 0.012, and 0.0-2, amylase and lipase were within normal limits at 65 and 97 respectively, urinalysis showed 2+ protein, trace glucose, no clear evidence of infection. COVID-19 PCR was negative. Patient is seen in the intensive care unit, remains on BiPAP support with pressures of 16/8 and FiO2 of 50% satting 93%, repeat blood gas was drawn, this morning at 5:00 in the morning and showed pO2 of 82, pCO2 of 98, and pH of 7.20. She is arousable to voice, he is able to answer simple questions, however dozes off. His re spiratory rate is 16, minute ventilation is 7.1, he is achieving tidal volumes of 398 on those above-mentioned settings. Hemodynamically he is stable, he is in sinus mechanism, slightly tachycardic with a rate of 102 BPM, blood pressures 123/61. Currently on 0.9 normal saline at 75 ML per hour, Maldonado catheter has been inserted and patient is producing output in the order of 75-100 ML per hour. He is quite bronchospastic on today's exam, but does not seem to be edematous. His lower extremities noted to be pink and warm, changes of cellulitis. Patient at home is on 3 L of oxygen. Doppler ultrasound negative for DVT. Does not have a CPAP at home. Was supposed to have a sleep study as an outpatient. Patient been on BiPAP. Admitted with acute on chronic hypoxic and hypercapnic respiratory failure from obesity hypoventilation syndrome and COPD. Responded well to BiPAP and oxygen supplementation. Also COPD exacerbation. Given his steroids DuoNeb. Patient was counseled about smoking. 4 lower extremity venous stasis dermatitis given Silvadene cream with Kerlix and Alan wrap. Responded well. Today: Breathing better. Seen by pulmonary. Care for discharge. Discussed with patient at length. Again counseled about smoking. Questions were answered. We will complete a short course of doxycycline prednisone taper, nicotine patch and Silvadene cream. Discussion and discharge planning more than 35 minutes Past medical history to include: Diabetes, GERD, hypertension, left leg DVT, lower extremity cellulitis. Home oxygen 3 L Social history: Patient lives with his daughter's family. Smoker. 3 L of oxygen at home. Family history: Patient cannot tell Physical examination: VITAL SIGNS: 98, 96, 18, 127/65, 90% on 5 L GENERAL: Up in bed, breathing better, awake EYES: Pupils equal. Conjunctiva normal. HEENT: External appearance of nose and ears normal, oral cavity grossly normal. NECK: Short and thick:: JVD unable to assess; masses not palpable. HEART: Heart sounds distant; mild edema. LUNGS: Respiratory rate increased, distant breath sounds. ABDOMEN: Soft, nontender, liver spleen not palpable, no masses palpable. PSYCH: AO - times three. Mood and affect. Anxious NEUROLOGICAL: Cranial nerves grossly intact. Moving all 4 limbs. DERMATOLOGICAL: Redness between the groin folds. Redness above the ankles both the legs. INVESTIGATIONS, reviewed in the clinical context: D-dimer 0.75 White count 10.2 hemoglobin 11.5 platelets 160 potassium 5.1 BUN 33 creatinine 0.93 Venous Doppler lower extremity: Negative for DVT EKG: Sinus tachycardia. Incomplete right bundle branch block Chest x-ray film: Obvious acute event Assessment and plan: -Acute on chronic hypoxic and hypercapnic respiratory failure from obesity hypoventilation syndrome and COPD.: Better BiPAP. 5 L -Chronic hypoxic and hypercapnic respiratory failure, 3 L of oxygen at home -Acute respiratory acidosis -Morbid obesity BMI 81.6 Dietitian consult for weight loss measures -Peripheral neuropathy On Neurontin 400 mg twice a day -GERD Protonix 40 mg twice a day -Acute COPD exacerbation in a current better DuoNeb, prednisone 40 mg. Symbicort -Chronic nicotine dependence, cigarette smoker Nicotine patch -Chronic venous stasis dermatitis lower extremity Silvadene cream with Kerlix and Alan wrap -Cutaneous intertriginous candidiasis Nystatin powder twice daily -Acute tracheobronchitis Doxycycline 100 mg twice a day Disposition: Home Plan - Discharge Summary Discharge Rx Participant: No New Discharge Prescriptions: New predniSONE 10 mg PO DAILY #30 tab SILVER sulfADIAZINE CREAM [Silvadene Cream] 1 applic TOPICAL BID #1 cream Doxycycline [Vibramycin] 100 mg PO BID #6 cap Nicotine 14Mg/24Hr Patch [Habitrol] 1 patch TRANSDERM DAILY #30 patch Nystatin 100,000 Unit/gm Powd [Mycostatin Powder] 1 applic TOPICAL BID #1 Continue HYDROcodone/APAP 10-325MG [[place] 10-325] 1 tab PO Q4H PRN PRN Reason: Pain Albuterol Sulfate [Proair Hfa] 2 puff INHALATION RT-Q4H PRN PRN Reason: Shortness Of Breath Dextroamphetamine/Amphetamine [Adderall] 10 mg PO BID Budesonide/Formoterol Fumarate [Symbicort 160-4.5 Mcg Inhaler] 2 puff INHALATION RT-BID Gabapentin [Neurontin] 400 mg PO BID Pantoprazole [Protonix] 40 mg PO BID Changed Ipratropium-Albuterol Nebulize [Duoneb 0.5 mg-3 mg/3 ml Soln] 3 ml INHALATION TID #0 Discharge Medication List Albuterol Sulfate [Proair Hfa] 2 puff INHALATION RT-Q4H PRN 08/27/20 [History] Gabapentin [Neurontin] 400 mg PO BID 08/27/20 [History] HYDROcodone/APAP 10-325MG [[place] 10-325] 1 tab PO Q4H PRN 08/27/20 [History] Pantoprazole [Protonix] 40 mg PO BID 08/27/20 [History] Budesonide/Formoterol Fumarate [Symbicort 160-4.5 Mcg Inhaler] 2 puff INHALATION RT-BID 05/16/21 [History] Dextroamphetamine/Amphetamine [Adderall] 10 mg PO BID 05/16/21 [History] Doxycycline [Vibramycin] 100 mg PO BID #6 cap 05/23/21 [Rx] Ipratropium-Albuterol Nebulize [Duoneb 0.5 mg-3 mg/3 ml Soln] 3 ml INHALATION TID #0 05/23/21 [Rx] Nicotine 14Mg/24Hr Patch [Habitrol] 1 patch TRANSDERM DAILY #30 patch 05/23/21 [Rx] Nystatin 100,000 Unit/gm Powd [Mycostatin Powder] 1 applic TOPICAL BID #1 05/23/21 [Rx] SILVER sulfADIAZINE CREAM [Silvadene Cream] 1 applic TOPICAL BID #1 cream 05/23/21 [Rx] predniSONE 10 mg PO DAILY #30 tab 05/23/21 [Rx] Follow up Appointment(s)/Referral(s): Saroj Beltran MD [Primary Care Provider] - 1-2 days (The office will call you with your appointment time and date.) [facility], [NON-STAFF] - 1 Week Teresa Topete MD [STAFF PHYSICIAN] - 06/17/21 3:15 pm () Patient Instructions/Handouts: Type 2 Diabetes in Adults: New Diagnosis (DC), COPD (Chronic Obstructive Pulmonary Disease) (DC), Sleep Study (GEN) Activity/Diet/Wound Care/Special Instructions: FOR SLEEP APNEA STUDY, CALL: [facility]: [phone] [place] [address] Discharge Disposition: HOME WITH HOME HEALTH SERVICES
== END 2021-05-23 15:11 | disposition home health service (06) | DRG 189 ==
LOC: EC 17:35 → 2SICU 20:24 → 5NMEDONC 05-19 20:01
PROVIDERS: ADMIT Hospitalist; ATTEND Hospitalist
PROC: 5A09557 Assistance with Respiratory Ventilation, Greater than 96 Consecutive Hours, Continuous Positive Airway Pressure (ICD-10-PCS; principal; 2021-05-16)
PROC: 03HY32Z Insertion of Monitoring Device into Upper Artery, Percutaneous Approach (ICD-10-PCS; 2021-05-17)
PROC: 4A133B1 Monitoring of Arterial Pressure, Peripheral, Percutaneous Approach (ICD-10-PCS; 2021-05-17)
PROC: 4A133J1 Monitoring of Arterial Pulse, Peripheral, Percutaneous Approach (ICD-10-PCS; 2021-05-17)
PROC: 5A0955A Assistance with Respiratory Ventilation, Greater than 96 Consecutive Hours, High Flow/Velocity Cannula (ICD-10-PCS; 2021-05-17)
DX: J96.21 Acute and chronic respiratory failure with hypoxia (principal); J44.1 Chronic obstructive pulmonary disease with (acute) exacerbation; G93.40 Encephalopathy, unspecified; N17.9 Acute kidney failure, unspecified; E87.2 Acidosis; L03.115 Cellulitis of right lower limb; E66.2 Morbid (severe) obesity with alveolar hypoventilation; E87.1 Hypo-osmolality and hyponatremia; L03.116 Cellulitis of left lower limb; Z68.45 Body mass index [BMI] 70 or greater, adult; J44.0 Chronic obstructive pulmonary disease with (acute) lower respiratory infection; J96.22 Acute and chronic respiratory failure with hypercapnia; E11.42 Type 2 diabetes mellitus with diabetic polyneuropathy; Z20.822 Contact with and (suspected) exposure to COVID-19; J20.9 Acute bronchitis, unspecified; E86.0 Dehydration; E86.1 Hypovolemia; A08.4 Viral intestinal infection, unspecified; B37.2 Candidiasis of skin and nail; G47.33 Obstructive sleep apnea (adult) (pediatric); I10 Essential (primary) hypertension; I45.10 Unspecified right bundle-branch block; I87.2 Venous insufficiency (chronic) (peripheral); K21.9 Gastro-esophageal reflux disease without esophagitis; F17.210 Nicotine dependence, cigarettes, uncomplicated; Z71.6 Tobacco abuse counseling; Z99.81 Dependence on supplemental oxygen; Z79.51 Long term (current) use of inhaled steroids; Z79.899 Other long term (current) drug therapy; Z86.19 Personal history of other infectious and parasitic diseases; Z86.718 Personal history of other venous thrombosis and embolism; Z71.3 Dietary counseling and surveillance; Z91.041 Radiographic dye allergy status
CPT/HCPCS: 36415; 36600; 71045; 80048; 80053; 81001; 82150; 82805; 83605; 83690; 83735; 84484; 85025; 85379; 87086; 87635; 93005; 93970; 94640; 94660; 96374; 96375; 96376; 99291

== ENCOUNTER 2021-08-29 15:37 | Emergency (ER) | payer MEDICARE, OTHER ==
[2021-08-29] MEDS ORDERED: DIPH,PERTUS(ACELL)TETVAC-LF 0.5 ML VIAL IM ONE (16:03)
[2021-08-29] MEDS ORDERED: LIDOCAINE 1% INJ 10MG/ML (5 ML VIAL-PF) SQ ONE (16:06)
--- NOTE | 2021-08-29 16:46 | ED ---
Fall HPI - General Chief Complaint: Fall Stated Complaint: fall Time Seen by Provider: 08/29/21 15:58 Source: patient, EMS Mode of arrival: EMS - History of Present Illness Initial Comments: Patient is a 56-year-old male who presents for evaluation of fall. Patient states he was sitting in his shower chair when it broke resulting in a laceration over the left buttock. Patient states he hit his left elbow and has mild left elbow pain but otherwise denies other pain. The fall was witnessed by his caregiver. He denies hitting his head or loss of consciousness. Last tetanus unknown. - Related Data Home Medications Medication Instructions Recorded Confirmed Albuterol Sulfate [Proair Hfa] 2 puff INHALATION RT-Q4H PRN 08/27/20 05/16/21 Gabapentin [Neurontin] 400 mg PO BID 08/27/20 05/16/21 HYDROcodone/APAP 10-325MG [[place] 1 tab PO Q4H PRN 08/27/20 05/16/21 10-325] Pantoprazole [Protonix] 40 mg PO BID 08/27/20 05/16/21 Budesonide/Formoterol Fumarate 2 puff INHALATION RT-BID 05/16/21 05/16/21 [Symbicort 160-4.5 Mcg Inhaler] Dextroamphetamine/Amphetamine 10 mg PO BID 05/16/21 05/16/21 [Adderall] Previous Rx's Medication Instructions Recorded Doxycycline [Vibramycin] 100 mg PO BID #6 cap 05/23/21 Ipratropium-Albuterol Nebulize 3 ml INHALATION TID #0 05/23/21 [Duoneb 0.5 mg-3 mg/3 ml Soln] Nicotine 14Mg/24Hr Patch [Habitrol] 1 patch TRANSDERM DAILY #30 patch 05/23/21 Nystatin 100,000 Unit/gm Powd 1 applic TOPICAL BID #1 05/23/21 [Mycostatin Powder] SILVER sulfADIAZINE CREAM 1 applic TOPICAL BID #1 cream 05/23/21 [Silvadene Cream] predniSONE 10 mg PO DAILY #30 tab 05/23/21 Cephalexin [Keflex] 500 mg PO Q6HR #20 cap 08/29/21 Allergies Allergy/AdvReac Type Severity Reaction Status Date / Time Iodinated Contrast Media Allergy Unknown Verified 08/29/21 15:55 Review of Systems ROS Statement: Those systems with pertinent positive or pertinent negative responses have been documented in the HPI. ROS Other: All systems not noted in ROS Statement are negative. Past Medical History Past Medical History: COPD, CVA/TIA, Diabetes Mellitus, Deep Vein Thrombosis (DVT), GERD/Reflux, Hypertension Additional Past Medical History / Comment(s): Neuropathy History of Any Multi-Drug Resistant Organisms: None Reported Past Surgical History: Unable to Obtain Additional Past Surgical History / Comment(s): Polyp removal Past Anesthesia/Blood Transfusion Reactions: No Reported Reaction Past Psychological History: No Psychological Hx Reported Smoking Status: Former smoker Past Alcohol Use History: None Reported, Occasional Past Drug Use History: Marijuana General Exam Limitations: no limitations General appearance: alert, in no apparent distress Head exam: Present: atraumatic, normocephalic, normal inspection Respiratory exam: Present: normal lung sounds bilaterally, wheezes (patient has known COPD, on 5 L supplemental oxygen at home). Absent: respiratory distress, rales, rhonchi, stridor Cardiovascular Exam: Present: regular rate, normal rhythm, normal heart sounds. Absent: systolic murmur, diastolic murmur, rubs, gallop, clicks Left Upper Arm exam: Present: normal inspection, full ROM. Absent: tenderness, swelling Elbow exam: Present: tenderness (olecranon process ), abrasion. Absent: ecchymosis, deformity, erythema, effusion Forearm Wrist exam: Present: normal inspection, full ROM. Absent: tenderness Neurological exam: Present: alert, oriented X3, CN II-XII intact Psychiatric exam: Present: normal affect, normal mood Skin exam: Present: warm, dry, intact, normal color, other (3 cm laceration over left buttock ). Absent: rash Course Vital Signs 08/29/21 08/29/21 15:43 17:45 Pulse Rate 83 89 Respiratory 16 17 Rate Blood Pressure 141/87 114/80 O2 Sat by Pulse 96 95 Oximetry Procedures - Laceration Laceration #1 Consent Obtained: verbal consent Indication: laceration Site: other (left buttock ) Size (cm): 4 Description: linear Depth: simple, single layer Anesthetic Used: lidocaine 1% Anesthesia Technique: local infiltration Pre-repair: wound explored, irrigated extensively, deep structures intact Type of Sutures: nylon Size of Sutures: 5-0 Number of Sutures: 5 Technique: simple, interrupted Patient Tolerated Procedure: well, no complications Medical Decision Making - Medical Decision Making This is a 56-year-old male who presents for evaluation of fall. Thorough history and examination were performed. Patient is well-appearing and in no apparent distress. Denies head trauma. Reports mild left elbow pain. There is tenderness over the olecranon process with overlying abrasion. Full range of motion. Neurovascularly intact. Left elbow x-ray is negative for acute process. There is a 4 cm laceration over the left buttock. It was explored and irrigated extensively. It was well approximated with 5 sutures. Patient tolerated the procedure well with no complications. Tetanus updated. Wound care education provided. Patient is morbidly obese and has trouble reaching the area. He does have a caregiver visit his home 3 times a week. I will prophylactically treat him with Keflex. Patient to return for suture removal in 7-10 days. RICE education provided in regard to left elbow. Return parameters discussed. He verbalizes understanding and is agreeable to this plan. Dr. Daniels is my attending. Disposition Clinical Impression: Fall, Laceration, Left elbow pain Disposition: HOME SELF-CARE Condition: Good Instructions (If sedation given, give patient instructions): Care For Your Stitches (ED), Laceration (ED), Fall Prevention (ED) Additional Instructions: Take antibiotic and Tylenol 3 as directed. You may take anti-inflammatories such as Motrin with the Tylenol if needed. Leave wound uncovered. Keep wound clean and dry. Wash with a mild soap. . Follow-up with primary care provider in 1-2 days. Return for suture removal in 7-10 days. Report back to the emergency department if you experience new, concerning, or worsening symptoms. Prescriptions: Cephalexin [Keflex] 500 mg PO Q6HR #20 cap Is patient prescribed a controlled substance at d/c from ED?: No Referrals: Saroj Beltran MD [Primary Care Provider] - 1-2 days
--- NOTE | 2021-08-29 16:57 | XR ---
EXAMINATION TYPE: XR elbow complete LT DATE OF EXAM: 08/29/2021 COMPARISON: NONE HISTORY: Fall. Pain TECHNIQUE: 3 views FINDINGS: Elbow joint is intact. No fracture nor dislocation. There is no sign of joint effusion IMPRESSION: Negative left elbow exam.
[2021-08-29] MEDS ORDERED: KETOROLAC 15 MG/ML 1 ML VIAL IM STA (17:05)
[2021-08-29] MEDS ORDERED: ACET/COD 300 MG/30 MG STARTER PACK 6 TAB BTL PO STA (17:30)
[2021-08-29 17:46] VITALS: BP 114/80; PULSE 89; RESP 17
== END 2021-08-29 17:45 | disposition home or self-care (01) ==
LOC: EC 15:37
DX: S31.821A Laceration without foreign body of left buttock, initial encounter (principal); S50.312A Abrasion of left elbow, initial encounter; E66.01 Morbid (severe) obesity due to excess calories; E11.40 Type 2 diabetes mellitus with diabetic neuropathy, unspecified; I10 Essential (primary) hypertension; J44.9 Chronic obstructive pulmonary disease, unspecified; K21.9 Gastro-esophageal reflux disease without esophagitis; Z86.718 Personal history of other venous thrombosis and embolism; Z86.73 Personal history of transient ischemic attack (TIA), and cerebral infarction without residual deficits; F12.90 Cannabis use, unspecified, uncomplicated; Z87.891 Personal history of nicotine dependence; Z79.51 Long term (current) use of inhaled steroids; Z79.899 Other long term (current) drug therapy; Z68.44 Body mass index [BMI] 60.0-69.9, adult; Z23 Encounter for immunization; W07.XXXA Fall from chair, initial encounter
CPT/HCPCS: 73080; 90715; 99284; 96372; 90471; 12002; J2001; J1885

== ENCOUNTER → 2021-10-19 | Outpatient (CLI) | payer MEDICARE, OTHER ==
[2021-10-19 15:58] VITALS: BP 181/76; PULSE 80; TEMP 98.3; BMI 69.8
--- NOTE | 2021-10-19 16:34 | P.HPBAR ---
Bariatric H&P - History & Physicial H&P Date: 10/19/21 History & Physicial: Visit/CC: new patient Patient initial contact: Initial weight: Initial weight in pounds: Height: 6 ft Initial BMI: Last weight: Current weight: 233.6 kg Current weight in pounds: 515.00 Current BMI: 69.8 [place] body weight (based on NIH guidelines): 80.739 kg Excess body weight loss: The patient is a 56 year-old M who presents for Bariatric Assessment. Patient comes in for gastric bypass per primary care doctor. He is 500+ pounds. He comes in with oxygen use. No consecutive days. He sees pulmonary is Dr. Topete. He has sleep study pending. No heart doctor seen. EKG. No stomach or esophageal cancer. He has tried Atkins, Mary Ann Taiwo, keto diet. No medications for weight loss. Most weight loss per attempt is 30 to 40 pounds. Brother has trouble weight. He had blood clot DVT ankle to groin in left leg. No blood thinner due to inactivity. He went to [facility] not moving. Has back, hip, ankle, knees, and feet pain. He has neuropathy. Daugter has Crohns disease. No abdominal surgery. Father had gallbladder. History of severe GERD controlled with omeprazole. Past Medical History Past Medical History: COPD, CVA/TIA, Deep Vein Thrombosis (DVT), GERD/Reflux, Hypertension Additional Past Medical History / Comment(s): Neuropathy History of Any Multi-Drug Resistant Organisms: None Reported Past Surgical History: Unable to Obtain Additional Past Surgical History / Comment(s): Rectal polyp removal Past Anesthesia/Blood Transfusion Reactions: No Reported Reaction Past Psychological History: Depression Smoking Status: Former smoker Past Alcohol Use History: Occasional Additional Past Alcohol Use History / Comment(s): Pt. chews tobacco Past Drug Use History: Marijuana Additional Drug Use History / Comment(s): Medical marijuana for pain Surgical - Exam Vital Signs Temp Pulse BP 98.3 F 80 181/76 10/19/21 15:46 10/19/21 15:46 10/19/21 15:46 Bariatric Checklist Checklist: Plan: Checklist: EGD: 1. Hiatal hernia: 2. H. Pylori: HgbA1c: Vitamin D: Smoking: Primary care physician referral: [place] Psychiatry clearance: Cardiology clearance: Sleep study: Diet journal: VTE risk score: VTE risk level: Rehab needs at discharge:
== END | disposition home or self-care (01) ==
LOC: BARWHC3 15:24
PROVIDERS: ATTEND Surgery Plastic and Reconstructive Surgery
DX: E66.01 Morbid (severe) obesity due to excess calories (principal); J44.9 Chronic obstructive pulmonary disease, unspecified; I10 Essential (primary) hypertension; K21.9 Gastro-esophageal reflux disease without esophagitis; Z68.44 Body mass index [BMI] 60.0-69.9, adult
CPT/HCPCS: 99213

== ENCOUNTER → 2021-11-03 | Outpatient (CLI) | payer MEDICARE, OTHER ==
[2021-11-03 13:52] VITALS: BP 142/67; PULSE 67; RESP 16
--- NOTE | 2021-11-03 14:20 | P.PAINPG ---
PQRS Measure Charge Sheet Comment: HISTORY OF PRESENT ILLNESS: 56 yr old male as a referral from Dr. Moore presents today w severe and chronic neck pain secondary to DDD, spondylosis and facet arthropathy without myelopathy for evaluation. Pt states his pain level is currently at 6/10 in intensity, constant, localized in lower cervical spine w radiation to shoulders. Pain escalates as high as 9/10 in intensity w provocation. Pain is accompanied w L hand numbness/ burning that keeps him up at bedtime. Provoked w over head reaching and lifting. Pain is alleviated w medications ([place], Neurontin from Dr Han), home stretching regimen as tolerated, repositioning and rest. PMH: COPD, CVA/TIA, DVT, GERD, HTN, MDD PSH: Rectal Polyp Resection, BL shoulder intra articular injections (Oct 2021) SH: Former tobacco user, No ETOH abuse, +Medical Cannabis Use. FH: Non contributory All: Iodinated Contrast Media Meds: See list REVIEW OF ORGAN SYSTEMS: CONSTITUTIONAL: No fevers or chills. No recent weight loss. NEUROLOGICAL: + numbness and tingling along the distal extremities. No seizure disorders or headaches. MUSCULOSKELETAL: + pain PSYCHIATRIC: Denies current depression or suicidal thoughts. Physical Examinations : Constitutional : Cooperative , not in acute distress . Neurologic : Cranial nerve II to XII intact. No focal neurological deficits. Psychiatric : alert & oriented x 3. Matching mood & appropriate affect. Judgment & insight intact. Musculoskeletal : Cervical Spine Motor strength in the deltoid and biceps: Normal right side. Normal Left side Motor strength biceps and the wrist extensors: Normal right side . Normal left side Motor strength in the triceps muscle: Normal right side. Normal left side Deep tendon reflexes: Normal at the biceps. Normal at Brachioradialis. Normal at triceps Vertebral body tenderness to deep palpation over C7, T1 Cervical facet loading test: positive bilaterally Spurling test: positive bilaterally Neck distraction test: positive bilaterally Apryl sign: positive bilaterally Lumbar spine Motor strength lower extremities ,thigh and legs 5/5 Right side , 5/5 Left side Deep tendon reflexes : Normal Knee Jerk. Normal Ankle Jerk Vertebral body tenderness over Lumbar facet Loading Test: positive Right / positive Left Range of motion of the lumbar spine Flexion 30 degrees, extension 10 degrees Straight Leg Raise test: Left/ Right positive at degree Js test: positive right / positive left. Severe tenderness over the Sacroiliac joint on the Right / Left sides Gaenslen test: positive bilaterally Seated flexion test: positive bilaterally. Sacral spine : Severe tenderness over the Sacroiliac joint: right side / left side Range of motion: Flexion of the lumbar spine <60 degrees Range of motion: Extension of the lumbar spine <20 degrees Gaenslen's Test positive Theodore's Test positive Js test: positive right side / left side Thigh Thrust Test Sacral Thrust Test Imaging: MRI without contrast of the cervical spine from reviewed. EMG of the UEs from 10/20/21 reviewed showing mod to sever L ulnar mononeuropathy & L C7-C8 mod-severe radiculopathy Assessment/ Plan : Cervical DDD, Cervical Spondylosis Recommendation of ROD C7-T1. May need a series of injections, up to 3 within a 6 mo period, for optimal pain relief. Risks, benefits of procedure discussed and patient verbalized understanding. Denies aspirin or anti- coagulant use or medical history of diabetes. Protocol for discontinuation/ continuation of medications shaji procedure discussed. All questions answered. I have spent greater than 30 minutes on patient care today. Dr Watts was available by phone for the evaluation of this patient. The time was used to review the medical records including relevant urine studies and Prescription history (MAPs), review of the available imaging, evaluation and examination of the patient, coordination of care with the medical staff and if applicable referring physicians, as well as creation of the medical record Home Medications: Ambulatory Orders Albuterol Sulfate [Proair Hfa] 2 puff INHALATION RT-Q4H PRN 08/27/20 Gabapentin [Neurontin] 400 mg PO BID 08/27/20 HYDROcodone/APAP 10-325MG [[place] 10-325] 1 tab PO Q4H PRN 08/27/20 Pantoprazole [Protonix] 40 mg PO BID 08/27/20 Budesonide/Formoterol Fumarate [Symbicort 160-4.5 Mcg Inhaler] 2 puff INHALATION RT-BID 05/16/21 Ipratropium-Albuterol Nebulize [Duoneb 0.5 mg-3 mg/3 ml Soln] 3 ml INHALATION TID #0 05/23/21 Nystatin 100,000 Unit/gm Powd [Mycostatin Powder] 1 applic TOPICAL BID #1 SILVER sulfADIAZINE CREAM [Silvadene Cream] 1 applic TOPICAL BID #1 cream 05/23/21 Docusate [Colace] 100 mg PO DAILY PRN 10/19/21 Controlled Substance Measures - Controlled Substance Measures Is patient prescribed a controlled substance at discharge?: No
== END ==
LOC: PNWHC3 12:59
PROVIDERS: ATTEND Specialist
DX: M47.22 Other spondylosis with radiculopathy, cervical region (principal); M50.10 Cervical disc disorder with radiculopathy, unspecified cervical region; J44.9 Chronic obstructive pulmonary disease, unspecified; Z86.73 Personal history of transient ischemic attack (TIA), and cerebral infarction without residual deficits; Z86.718 Personal history of other venous thrombosis and embolism; I10 Essential (primary) hypertension; F32.9 Major depressive disorder, single episode, unspecified; Z87.891 Personal history of nicotine dependence; Z91.041 Radiographic dye allergy status
CPT/HCPCS: 99211

== ENCOUNTER 2022-02-13 21:20 | Emergency (ER) | payer MEDICARE, OTHER ==
[2022-02-13] MEDS ORDERED: methylPREDNISolone SOD SUCCI 125 MG/2 ML VIAL IV STA (21:53)
[2022-02-13] MEDS ORDERED: SODIUM CHLORIDE 0.9% 500 ML 500 ML IV STA (21:53)
[2022-02-13] MEDS ORDERED: ALBUTEROL HFA INHALER INHALATION STA (21:53)
--- NOTE | 2022-02-13 21:59 | ED ---
General Adult HPI - General Chief complaint: Shortness of Breath Stated complaint: CARLITO, covid+ Time Seen by Provider: 02/13/22 21:38 Source: patient, EMS, RN notes reviewed, old records reviewed Mode of arrival: EMS Limitations: physical limitation - History of Present Illness Initial comments: Patient is a 56-year-old male with past medical history remarkable for significant obesity, COPD on chronic 5 L nasal cannula at home, acid reflux who presents emergency Department complaining of testing positive for COVID-19. He has been having symptoms since Sunday. Endorses some worsening congestion and mild shortness of breath. States it seems related to being extremely congested with a productive cough of a clearish mucus. Endorses subjective fevers at home. Endorses wheezing. Denies nausea or vomiting. Denies chest pain. Denies diarrhea. Endorses lack of appetite. Patient's family members are sick at home as well. Was prescribed a Z-Eyad by his primary care physician. Presents emergency department today for further evaluation. Has not required increased nasal cannula oxygen. - Related Data Home Medications Medication Instructions Recorded Confirmed Albuterol Sulfate [Proair Hfa] 2 puff INHALATION RT-Q4H PRN 08/27/20 11/03/21 Gabapentin [Neurontin] 400 mg PO BID 08/27/20 11/03/21 HYDROcodone/APAP 10-325MG [[place] 1 tab PO Q4H PRN 08/27/20 11/03/21 10-325] Pantoprazole [Protonix] 40 mg PO BID 08/27/20 11/03/21 Budesonide/Formoterol Fumarate 2 puff INHALATION RT-BID 05/16/21 11/03/21 [Symbicort 160-4.5 Mcg Inhaler] Docusate [Colace] 100 mg PO DAILY PRN 10/19/21 11/03/21 Previous Rx's Medication Instructions Recorded Ipratropium-Albuterol Nebulize 3 ml INHALATION TID #0 05/23/21 [Duoneb 0.5 mg-3 mg/3 ml Soln] Nystatin 100,000 Unit/gm Powd 1 applic TOPICAL BID #1 05/23/21 [Mycostatin Powder] SILVER sulfADIAZINE CREAM 1 applic TOPICAL BID #1 cream 05/23/21 [Silvadene Cream] Albuterol Inhaler [Ventolin Hfa 1 puff INHALATION QID #8 gm 12/12/22 Inhaler] dexAMETHasone [Decadron] 4 mg PO DAILY 4 Days #4 tablet 02/13/22 Allergies Allergy/AdvReac Type Severity Reaction Status Date / Time Iodinated Contrast Media Allergy Unknown Verified 02/13/22 21:31 Review of Systems ROS Statement: Those systems with pertinent positive or pertinent negative responses have been documented in the HPI. Review of Systems: CONST: Denies fever EYES: Denies blurry vision ENT: Endorses nasal congestion C/V: Denies Chest pain RESP: Denies shortness of breath GI: Denies abdominal pain : Denies dysuria SKIN: Denies rash. MSK: Denies joint pain. NEURO: Denies headache ROS Other: All systems not noted in ROS Statement are negative. Past Medical History Past Medical History: COPD, CVA/TIA, Deep Vein Thrombosis (DVT), GERD/Reflux Additional Past Medical History / Comment(s): Neuropathy History of Any Multi-Drug Resistant Organisms: None Reported Past Surgical History: Unable to Obtain Additional Past Surgical History / Comment(s): Rectal polyp removal Past Anesthesia/Blood Transfusion Reactions: No Reported Reaction Past Psychological History: Depression Smoking Status: Former smoker Past Alcohol Use History: Rare Past Drug Use History: Marijuana General Exam - General Exam Comments Initial Comments: General: Appears in no acute distress. HEAD: Normal with no signs of head trauma. EYES: PERRLA, EOMI, conjunctiva normal, no discharge. ENT: Hearing grossly intact, normal oropharynx. RESPIRATORY: Bilateral end expiratory wheezing. Saturating between 94 and 96% on home 5 L nasal cannula. No increased work of breathing at this time. C/V: Regular rate and rhythm. S1 and S2 auscultated, no pitting edema, peripheral pulses 2+ and intact throughout ABD: Abd is soft, nontender, nondistended EXT: Normal range of motion, no obvious deformity SKIN: No rashes or lesions observed on exposed skin. NEURO: Alert and oriented 4. Limitations: physical limitation Course Vital Signs 02/13/22 02/13/22 02/13/22 21:23 21:25 22:45 Temperature 98.8 F Pulse Rate 93 81 Respiratory 24 26 H Rate Blood Pressure 177/85 120/55 O2 Sat by Pulse 93 L 92 L Oximetry Medical Decision Making - Medical Decision Making Based on the patient's presentation and physical exam, I'm concerned for what appears to be a COPD exacerbation in addition to COVID-19 infection. Patient took multiple home Covid tests that were positive. Patient has been sick for 3 days. He is concerned for possible dehydration as well as some increased work of breathing and wheezing. Patient COPD appears to be exacerbated. I did di scuss this with him and we will obtain basic laboratory studies, chest x-ray, as well as hydrate the patient and treat his mild COPD exacerbation with albuterol inhaler as well as steroids. Patient was in agreement with this plan. Vital signs within acceptable limits. Chest x-ray as interpreted by myself reveals no evidence of acute cardiopulmonary process, infiltrate. Patient's laboratory studies returned for a chronic anemia with a hemoglobin of 11 which appears stable. Patient has an elevated carbon dioxide of 38 with chronic hypoxic respiratory failure on 5 L nasal cannula. This does appear to be at his baseline. Remainder of the labs are unremarkable. On reevaluation, patient's vital signs are relatively unchanged. Work of breathing is unchanged. Wheezing has resolved. Patient remains between 93 and 96% on his normal 5 L nasal cannula oxygen. Vital signs otherwise are within acceptable limits. I did discuss with him that I believe it is safe for him to be discharged home at this time as he is at his normal baseline. In a mild COPD exacerbation in the setting of a COVID-19 infection. He expressed understanding and was in agreement this plan. He'll be given a prescription for steroids as well as albuterol inhaler for home. Patient was in agreement with this plan. We discussed quarantine until day 5 after symptom onset. We discussed obtaining a pulse oximeter to monitor her oxygen levels. He was in agreement this plan. Strict return precautions were discussed. I will provide the patient with a prescription for Decadron, albuterol inhaler. I instructed the patient to follow up with their PCP in the next 1-3 days. I explained that the patient should return to the emergency department if they experience any worsening symptoms. Strict return precautions were discussed with the patient. The patient expressed understanding of these instructions. I answered all questions that the patient had. The patient was discharged home in good condition with their prescriptions and follow up information. - Lab Data Result diagrams: 02/13/22 21:59 02/13/22 21:59 Lab Results 02/13/22 02/13/22 Range/Units 21:59 21:59 WBC 7.5 (3.8-10.6) k/uL RBC 3.86 L (4.30-5.90) m/uL Hgb 11.0 L (13.0-17.5) gm/dL Hct 35.1 L (39.0-53.0) % MCV 91.1 (80.0-100.0) fL MCH 28.6 (25.0-35.0) pg MCHC 31.4 (31.0-37.0) g/dL RDW 15.5 (11.5-15.5) % Plt Count 149 L (150-450) k/uL MPV 9.8 Neutrophils % 72 % Lymphocytes % 14 % Monocytes % 9 % Eosinophils % 1 % Basophils % 1 % Neutrophils # 5.4 (1.3-7.7) k/uL Lymphocytes # 1.1 (1.0-4.8) k/uL Monocytes # 0.7 (0-1.0) k/uL Eosinophils # 0.1 (0-0.7) k/uL Basophils # 0.1 (0-0.2) k/uL Hypochromasia Marked Sodium 134 L (137-145) mmol/L Potassium 4.5 (3.5-5.1) mmol/L Chloride 90 L (98-107) mmol/L Carbon Dioxide 38 H (22-30) mmol/L Anion Gap 6 mmol/L BUN 17 (9-20) mg/dL Creatinine 0.99 (0.66-1.25) mg/dL Est GFR (CKD-EPI)AfAm >90 (>60 ml/min/1.73 sqM) Est GFR (CKD-EPI)NonAf 85 (>60 ml/min/1.73 sqM) Glucose 119 H (74-99) mg/dL Calcium 8.4 (8.4-10.2) mg/dL Magnesium 1.7 (1.6-2.3) mg/dL Total Bilirubin 0.3 (0.2-1.3) mg/dL AST 31 (17-59) U/L ALT 24 (4-49) U/L Alkaline Phosphatase 82 (38-126) U/L Total Protein 6.9 (6.3-8.2) g/dL Albumin 3.6 (3.5-5.0) g/dL Disposition Clinical Impression: COVID-19, COPD exacerbation Disposition: HOME SELF-CARE Condition: Good Instructions (If sedation given, give patient instructions): COPD (Chronic Obstructive Pulmonary Disease) (ED), COVID-19 (Coronavirus Disease 2019) (ED) Prescriptions: dexAMETHasone [Decadron] 4 mg PO DAILY 4 Days #4 tablet Albuterol Inhaler [Ventolin Hfa Inhaler] 1 puff INHALATION QID #8 gm Is patient prescribed a controlled substance at d/c from ED?: No Referrals: Saroj Beltran MD [Primary Care Provider] - 1-2 days Time of Disposition: 23:20
[2022-02-13 22:19] LABS: Basophils # (A) 0.1 k/uL (0-0.2); Basophils % (A) 1 %; Eosinophils # (A) 0.1 k/uL (0-0.7); Eosinophils % (A) 1 %; HCT 35.1 % (39.0-53.0); Hypochromasia Marked; Lymphocytes # (A) 1.1 k/uL (1.0-4.8); Lymphocytes % (A) 14 %; MCH 28.6 pg (25.0-35.0); MCHC 31.4 g/dL (31.0-37.0); MCV 91.1 fL (80.0-100.0); Mean Platelet Volume 9.8; Monocytes # (A) 0.7 k/uL (0-1.0); Monocytes % (A) 9 %; Neutrophils # (A) 5.4 k/uL (1.3-7.7); Neutrophils % (A) 72 %; Platelet Count 149 k/uL (150-450); RBC 3.86 m/uL (4.30-5.90); RDW 15.5 % (11.5-15.5); WBC 7.5 k/uL (3.8-10.6)
[2022-02-13 22:28] LABS: ALT 24 U/L (4-49); AST 31 U/L (17-59); African American GFR (CKD) >90 (>60 ml/min/1.73 sqM); Albumin 3.6 g/dL (3.5-5.0); Alkaline Phosphatase 82 U/L (38-126); Anion Gap 6 mmol/L; Blood Urea Nitrogen 17 mg/dL (9-20); Calcium 8.4 mg/dL (8.4-10.2); Carbon Dioxide 38 mmol/L (22-30); Chloride 90 mmol/L (98-107); Glucose 119 mg/dL (74-99); Magnesium 1.7 mg/dL (1.6-2.3); Non-African American GFR(CKD) 85 (>60 ml/min/1.73 sqM); Potassium 4.5 mmol/L (3.5-5.1); Sodium 134 mmol/L (137-145); Total Bilirubin 0.3 mg/dL (0.2-1.3); Total Protein 6.9 g/dL (6.3-8.2)
--- NOTE | 2022-02-13 22:46 | XR ---
EXAMINATION TYPE: XR chest 2V DATE OF EXAM: 02/13/2022 COMPARISON: 05/19/2021 HISTORY: Short of breath TECHNIQUE: FINDINGS: There is no heart failure nor confluent pneumonic infiltrate. Costophrenic angles are clear . Bony thorax is intact. Exam limited by patient size. IMPRESSION: No active cardiopulmonary disease. No change.
[2022-02-13 23:55] VITALS: BP 143/64; PULSE 83; RESP 18; TEMP 98.6
== END 2022-02-14 00:07 | disposition home or self-care (01) ==
LOC: EC 21:20
DX: U07.1 COVID-19 (principal); J44.1 Chronic obstructive pulmonary disease with (acute) exacerbation; F32.A Depression, unspecified; F12.90 Cannabis use, unspecified, uncomplicated; K21.9 Gastro-esophageal reflux disease without esophagitis; Z87.891 Personal history of nicotine dependence; Z91.041 Radiographic dye allergy status; Z79.899 Other long term (current) drug therapy
CPT/HCPCS: 99285; 96374; 96361; 36415; 94640; 80053; 83735; 85025; 71046; J2930

== ENCOUNTER 2022-06-05 12:55 | Emergency (ER) | payer MEDICARE, OTHER ==
[2022-06-05 13:37] LABS: Glucose,Whole Blood 146 mg/dL (70-110)
[2022-06-05] MEDS ORDERED: SODIUM CHLORIDE 0.9% 500 ML 500 ML IV ONE (13:52)
[2022-06-05 14:14] LABS: Basophils % (A) 0 %; Eosinophils # (A) 0.1 k/uL (0-0.7); Eosinophils % (A) 2 %; HCT 35.8 % (39.0-53.0); Hypochromasia Marked; Lymphocytes # (A) 1.6 k/uL (1.0-4.8); Lymphocytes % (A) 24 %; MCH 28.2 pg (25.0-35.0); MCHC 30.6 g/dL (31.0-37.0); MCV 92.2 fL (80.0-100.0); Mean Platelet Volume 10.2; Monocytes # (A) 0.3 k/uL (0-1.0); Monocytes % (A) 5 %; Neutrophils # (A) 4.6 k/uL (1.3-7.7); Neutrophils % (A) 66 %; Platelet Count 157 k/uL (150-450); RBC 3.89 m/uL (4.30-5.90); RDW 15.8 % (11.5-15.5); WBC 6.9 k/uL (3.8-10.6)
--- NOTE | 2022-06-05 14:14 | ED ---
General Adult HPI - General Chief complaint: Neuro Symptoms/Deficit Stated complaint: AMS Time Seen by Provider: 06/05/22 13:10 Source: patient, RN notes reviewed, old records reviewed Mode of arrival: EMS Limitations: physical limitation - History of Present Illness Initial comments: This is a 57-year-old male presents emergency Department stating that he was brought in because his daughter found it difficult to wake him up this morning. Patient himself has no new complaints today whatsoever. Patient denies lightheadedness or dizziness. Patient denies any chest pain difficulty breathing first breath per patient has any recent fever chills or cough per patient denies any abdominal pain patient denies nausea vomiting diarrhea. Patient denies any dysuria hematuria urinary frequency. Patient states he feels at his baseline currently is alert and oriented 3 - Related Data Home Medications Medication Instructions Recorded Confirmed Pantoprazole [Protonix] 40 mg PO BID 08/27/20 06/05/22 Budesonide/Formoterol Fumarate 2 puff INHALATION RT-BID 05/16/21 06/05/22 [Symbicort 160-4.5 Mcg Inhaler] Albuterol Sulfate [Albuterol 1 - 2 puff PO RT-Q6H PRN 06/05/22 06/05/22 Sulfate Hfa] Celecoxib [CeleBREX] 200 mg PO BID PRN 06/05/22 06/05/22 DULoxetine HCL [Cymbalta] 60 mg PO DAILY 06/05/22 06/05/22 Gabapentin 600 mg PO TID 06/05/22 06/05/22 HYDROcodone/APAP 5-325MG [[place] 1 - 2 tab PO Q4HR PRN 06/05/22 06/05/22 5-325] Previous Rx's Medication Instructions Recorded Nystatin 100,000 Unit/gm Powd 1 applic TOPICAL BID #1 05/23/21 [Mycostatin Powder] Allergies Allergy/AdvReac Type Severity Reaction Status Date / Time Iodinated Contrast Media Allergy Unknown Verified 06/05/22 14:00 Review of Systems ROS Statement: Those systems with pertinent positive or pertinent negative responses have been documented in the HPI. ROS Other: All systems not noted in ROS Statement are negative. Past Medical History Past Medical History: COPD, CVA/TIA, Deep Vein Thrombosis (DVT), GERD/Reflux Additional Past Medical History / Comment(s): Neuropathy History of Any Multi-Drug Resistant Organisms: None Reported Past Surgical History: Unable to Obtain Additional Past Surgical History / Comment(s): Rectal polyp removal Past Anesthesia/Blood Transfusion Reactions: No Reported Reaction Past Psychological History: Depression Smoking Status: Former smoker Past Alcohol Use History: Rare Past Drug Use History: Marijuana General Exam - General Exam Comments Initial Comments: GENERAL: Patient is well-developed and well-nourished. Patient is nontoxic and well- hydrated and is in no acute distress. ENT: Neck is soft and supple. No significant lymphadenopathy is noted. Oropharynx is clear. Moist mucous membranes. Neck has full range of motion without eliciting any pain. EYES: The sclera were anicteric and conjunctiva were pink and moist. Extraocular movements were intact and pupils were equal round and reactive to light. Eyelids were unremarkable. PULMONARY: Unlabored respirations. Good breath sounds bilaterally. No audible rales rhonchi or wheezing was noted. CARDIOVASCULAR: There is a regular rate and rhythm without any murmurs gallops or rubs. ABDOMEN: Soft and nontender with normal bowel sounds. SKIN: Skin is clear with no lesions or rashes and otherwise unremarkable. NEUROLOGIC: Patient is alert and oriented x3. Cranial nerves II through XII are grossly intact. Motor and sensory are also intact. Normal speech, volume and content. Symmetrical smile. MUSCULOSKELETAL: Normal extremities with adequate strength and full range of motion. Chronic cellulitis with edema bilaterally LYMPHATICS: No significant lymphadenopathy is noted PSYCHIATRIC: Normal psychiatric evaluation. Limitations: physical limitation Course Vital Signs 06/05/22 06/05/22 06/05/22 13:10 14:20 15:06 Temperature 98.3 F 98.5 F Pulse Rate 93 86 87 Respiratory 18 18 Rate Blood Pressure 133/67 118/73 117/59 O2 Sat by Pulse 91 L 97 96 Oximetry 06/05/22 17:00 Temperature 98.0 F Pulse Rate 86 Respiratory 18 Rate Blood Pressure 143/62 O2 Sat by Pulse 95 Oximetry Medical Decision Making - Medical Decision Making EKG was read by myself shows a sinus rhythm at 86 bpm AL interval 150 QRS 114 QT interval 36 QTC is 429 per patient's EKG shows no ST segment elevation or depression Was pt. sent in by a medical professional or institution (, PA, TRUCK CLEANER, urgent care, hospital, or [facility]...) When possible be specific @ -No Did you speak to anyone other than the patient for history (EMS, parent, family, police, friend...)? What history was obtained from this source @ -No Did you review nursing and triage notes (agree or disagree)? Why? @ -I reviewed and agree with nursing and triage notes Were old charts reviewed (outside hosp., previous admission, EMS record, old EKG, old radiological studies, urgent care reports/EKG's, [facility] records)? Report findings @ -I reviewed prior laboratory work in prior charts on this patient Differential Diagnosis (chest pain, altered mental status, abdominal pain women, abdominal pain men, vaginal bleeding, weakness, fever, dyspnea, syncope, headache, dizziness, GI bleed, back pain, seizure, CVA, palpatations, mental health, musculoskeletal)? @ -Differential Altered Mental Status: Hypoglycemia, DKA, hypercapnia, ETOH, overdose, CO poisoning, trauma, myxedema coma, HTN encephalopathy, infection, encephalitis, psychosis, intercranial hemorrhage, hepatic encephalopathy, meningitis, CVA, this is not meant to be an all-inclusive list EKG interpreted by me (3pts min.). @ -As above X-rays interpreted by me (1pt min.). @ -Chest x-ray is interpreted by myself as he no acute abnormality. CT interpreted by me (1pt min.). @ -None done U/S interpreted by me (1pt. min.). @ -None done What testing was considered but not performed or refused? (CT, X-rays, U/S, labs)? Why? @ -None What meds were considered but not given or refused? Why? @ -None Did you discuss the management of the patient with other professionals (professionals i.e. , PA, TRUCK CLEANER, lab, RT, psych nurse, social media job titles, delivery driver assistant, teacher, armed security officer, disability case manager)? Give summary @ -No Was smoking cessation discussed for >3mins.? @ -No Was critical care preformed (if so, how long)? @ -No Were there social determinants of health that impacted care today? How? (Homelessness, low income, unemployed, alcoholism, drug addiction, transportation, low edu. Level, literacy, decrease access to med. care, penitentiary, rehab)? @ -No Was there de-escalation of care discussed even if they declined (Discuss DNR or withdrawal of care, Hospice)? DNR status @ -No What co-morbidities impacted this encounter? (DM, HTN, Smoking, COPD, CAD, Cancer, CVA, ARF, Chemo, Hep., AIDS, mental health diagnosis, sleep apnea, morbid obesity)? @ -None Was patient admitted / discharged? Hospital course, mention meds given and route, prescriptions, significant lab abnormalities, going to OR and other pertinent info. @ -Patient was asymptomatic throughout his ED course. Patient is alert and oriented 4 throughout ED course. Patient was comfortable going home. Patient had no complaints at this time for when I initially saw her. No family members came to give any further history patient will be discharged home. Undiagnosed new problem with uncertain prognosis? @ -No Drug Therapy requiring intensive monitoring for toxicity (Heparin, Nitro, Insulin, Cardizem)? @ -No Were any procedures done? @ -No Diagnosis/symptom? @ -Altered mental status Acute, or Chronic, or Acute on Chronic? @ -Acute Uncomplicated (without systemic symptoms) or Complicated (systemic symptoms)? @ -Uncomplicated Side effects of treatment? @ -No Exacerbation, Progression, or Severe Exacerbation? @ -No Poses a threat to life or bodily function? How? (Chest pain, [place], MA, pneumonia, PE, COPD, DKA, ARF, appy, cholecystitis, CVA, Diverticulitis, Homicidal, Suicidal, threat to staff... and all critical care pts) @ -No - Lab Data Result diagrams: 06/05/22 13:57 06/05/22 13:57 Lab Results 06/05/22 06/05/22 06/05/22 Range/Units 13:32 13:57 13:57 WBC 6.9 (3.8-10.6) k/uL RBC 3.89 L (4.30-5.90) m/uL Hgb 11.0 L (13.0-17.5) gm/dL Hct 35.8 L (39.0-53.0) % MCV 92.2 (80.0-100.0) fL MCH 28.2 (25.0-35.0) pg MCHC 30.6 L (31.0-37.0) g/dL RDW 15.8 H (11.5-15.5) % Plt Count 157 (150-450) k/uL MPV 10.2 Neutrophils % 66 % Lymphocytes % 24 % Monocytes % 5 % Eosinophils % 2 % Basophils % 0 % Neutrophils # 4.6 (1.3-7.7) k/uL Lymphocytes # 1.6 (1.0-4.8) k/uL Monocytes # 0.3 (0-1.0) k/uL Eosinophils # 0.1 (0-0.7) k/uL Basophils # 0.0 (0-0.2) k/uL Hypochromasia Marked PT 9.7 (9.0-12.0) sec INR 0.9 (<1.2) APTT 24.9 (22.0-30.0) sec Sodium (137-145) mmol/L Potassium (3.5-5.1) mmol/L Chloride (98-107) mmol/L Carbon Dioxide (22-30) mmol/L Anion Gap mmol/L BUN (9-20) mg/dL Creatinine (0.66-1.25) mg/dL Est GFR (CKD-EPI)AfAm (>60 ml/min/1.73 sqM) Est GFR (CKD-EPI)NonAf (>60 ml/min/1.73 sqM) Glucose (74-99) mg/dL POC Glucose (mg/dL) 146 H (70-110) mg/dL POC Glu Traffic Checker ID Ramon Fang Calcium (8.4-10.2) mg/dL Total Bilirubin (0.2-1.3) mg/dL AST (17-59) U/L ALT (4-49) U/L Alkaline Phosphatase (38-126) U/L Troponin I (0.000-0.034) ng/mL Total Protein (6.3-8.2) g/dL Albumin (3.5-5.0) g/dL Urine Color Urine Appearance (Clear) Urine pH (5.0-8.0) Ur Specific [place] (1.001-1.035) Urine Protein (Negative) Urine Glucose (UA) (Negative) Urine Ketones (Negative) Urine Blood (Negative) Urine Nitrite (Negative) Urine Bilirubin (Negative) Urine Urobilinogen (<2.0) mg/dL Ur Leukocyte Esterase (Negative) Urine Opiates Screen (NotDetected) Ur Oxycodone Screen (NotDetected) Urine Methadone Screen (NotDetected) Ur Propoxyphene Screen (NotDetected) Ur Barbiturates Screen (NotDetected) U Tricyclic Antidepress (NotDetected) Ur Phencyclidine Scrn (NotDetected) Ur Amphetamines Screen (NotDetected) U Methamphetamines Scrn (NotDetected) U Benzodiazepines Scrn (NotDetected) Urine Cocaine Screen (NotDetected) U Marijuana (THC) Screen (NotDetected) 06/05/22 06/05/22 06/05/22 Range/Units 13:57 13:57 13:57 WBC (3.8-10.6) k/uL RBC (4.30-5.90) m/uL Hgb (13.0-17.5) gm/dL Hct (39.0-53.0) % MCV (80.0-100.0) fL MCH (25.0-35.0) pg MCHC (31.0-37.0) g/dL RDW (11.5-15.5) % Plt Count (150-450) k/uL MPV Neutrophils % % Lymphocytes % % Monocytes % % Eosinophils % % Basophils % % Neutrophils # (1.3-7.7) k/uL Lymphocytes # (1.0-4.8) k/uL Monocytes # (0-1.0) k/uL Eosinophils # (0-0.7) k/uL Basophils # (0-0.2) k/uL Hypochromasia PT (9.0-12.0) sec INR (<1.2) APTT (22.0-30.0) sec Sodium 137 (137-145) mmol/L Potassium 4.8 (3.5-5.1) mmol/L Chloride 90 L (98-107) mmol/L Carbon Dioxide 42 H* (22-30) mmol/L Anion Gap 7 mmol/L BUN 15 (9-20) mg/dL Creatinine 0.81 (0.66-1.25) mg/dL Est GFR (CKD-EPI)AfAm >90 (>60 ml/min/1.73 sqM) Est GFR (CKD-EPI)NonAf >90 (>60 ml/min/1.73 sqM) Glucose 124 H (74-99) mg/dL POC Glucose (mg/dL) (70-110) mg/dL POC Glu Traffic Checker ID Calcium 8.3 L (8.4-10.2) mg/dL Total Bilirubin 0.6 (0.2-1.3) mg/dL AST 46 (17-59) U/L ALT 40 (4-49) U/L Alkaline Phosphatase 85 (38-126) U/L Troponin I <0.012 (0.000-0.034) ng/mL Total Protein 7.1 (6.3-8.2) g/dL Albumin 3.8 (3.5-5.0) g/dL Urine Color Light Yellow Urine Appearance Clear (Clear) Urine pH 6.5 (5.0-8.0) Ur Specific [place] 1.008 (1.001-1.035) Urine Protein Negative (Negative) Urine Glucose (UA) Negative (Negative) Urine Ketones Negative (Negative) Urine Blood Negative (Negative) Urine Nitrite Negative (Negative) Urine Bilirubin Negative (Negative) Urine Urobilinogen <2.0 (<2.0) mg/dL Ur Leukocyte Esterase Negative (Negative) Urine Opiates Screen Detected H (NotDetected) Ur Oxycodone Screen Not Detected (NotDetected) Urine Methadone Screen Not Detected (NotDetected) Ur Propoxyphene Screen Not Detected (NotDetected) Ur Barbiturates Screen Not Detected (NotDetected) U Tricyclic Antidepress Not Detected (NotDetected) Ur Phencyclidine Scrn Not Detected (NotDetected) Ur Amphetamines Screen Not Detected (NotDetected) U Methamphetamines Scrn Not Detected (NotDetected) U Benzodiazepines Scrn Not Detected (NotDetected) Urine Cocaine Screen Not Detected (NotDetected) U Marijuana (THC) Screen Detected H (NotDetected) Disposition Clinical Impression: Altered mental status Disposition: HOME SELF-CARE Condition: Good Instructions (If sedation given, give patient instructions): Altered Mental Status (ED) Is patient prescribed a controlled substance at d/c from ED?: No Referrals: Saroj Beltran MD [Primary Care Provider] - 1-2 days Time of Disposition: 17:42
[2022-06-05 14:33] LABS: ALT 40 U/L (4-49); AST 46 U/L (17-59); African American GFR (CKD) >90 (>60 ml/min/1.73 sqM); Albumin 3.8 g/dL (3.5-5.0); Alkaline Phosphatase 85 U/L (38-126); Anion Gap 7 mmol/L; Blood Urea Nitrogen 15 mg/dL (9-20); Calcium 8.3 mg/dL (8.4-10.2); Chloride 90 mmol/L (98-107); Glucose 124 mg/dL (74-99); Non-African American GFR(CKD) >90 (>60 ml/min/1.73 sqM); Potassium 4.8 mmol/L (3.5-5.1); Sodium 137 mmol/L (137-145); Total Bilirubin 0.6 mg/dL (0.2-1.3); Total Protein 7.1 g/dL (6.3-8.2)
[2022-06-05 14:37] LABS: Appearance,Urine Clear (Clear); Bilirubin,Urine Negative (Negative); Blood,Urine Negative (Negative); Color,Urine Light Yellow; Glucose,Urine (UA) Negative (Negative); Ketones,Urine Negative (Negative); Leukocyte Esterase,Urine Negative (Negative); Nitrite,Urine Negative (Negative); PH, Urine 6.5 (5.0-8.0); Protein,Urine Negative (Negative); Specific Gravity,Urine 1.008 (1.001-1.035); Urobilinogen,Urine <2.0 mg/dL (<2.0)
[2022-06-05 14:53] LABS: Amphetamine Screen,Urine Not Detected (NotDetected); Barbiturate Screen,Urine Not Detected (NotDetected); Benzodiazepines Screen,Urine Not Detected (NotDetected); Cocaine Screen,Urine Not Detected (NotDetected); Methadone Screen, Urine Not Detected (NotDetected); Opiate Screen,Urine Detected (NotDetected); Oxycodone Screen, Urine Not Detected (NotDetected); Phencyclidine Screen,Urine Not Detected (NotDetected); Tricyclic Antidepressant,Urine Not Detected (NotDetected); Urn Cannabinoid Scrn Detected (NotDetected)
--- NOTE | 2022-06-05 14:59 | XR ---
EXAMINATION TYPE: XR chest 2V DATE OF EXAM: 06/05/2022 COMPARISON: 02/13/2022 INDICATION: Altered mental status TECHNIQUE: Frontal and lateral views of the chest are obtained. FINDINGS: The heart size is mildly prominent. The pulmonary vasculature is normal. The lungs are clear. IMPRESSION: 1. No acute pulmonary process. 2. Cardiomegaly
[2022-06-05 15:12] LABS: INR 0.9 (<1.2); Partial Thromboplastin Time 24.9 sec (22.0-30.0); Prothrombin Time 9.7 sec (9.0-12.0)
[2022-06-05 15:47] LABS: Carbon Dioxide 42 mmol/L (22-30)
[2022-06-05 18:57] VITALS: BP 131/80; PULSE 84; RESP 20; TEMP 98
== END 2022-06-05 18:57 | disposition home or self-care (01) ==
LOC: EC 12:55
DX: R41.82 Altered mental status, unspecified (principal); J44.9 Chronic obstructive pulmonary disease, unspecified; K21.9 Gastro-esophageal reflux disease without esophagitis; F12.90 Cannabis use, unspecified, uncomplicated; F32.A Depression, unspecified; Z91.041 Radiographic dye allergy status; Z79.899 Other long term (current) drug therapy; Z87.891 Personal history of nicotine dependence
CPT/HCPCS: 36415; 71046; 80053; 80306; 81003; 84484; 85025; 85610; 85730; 93005; 99285

== ENCOUNTER 2022-07-31 23:28 | Emergency (ER) | payer MEDICARE, OTHER ==
[2022-08-01 00:11] VITALS: TEMP 97.7
--- NOTE | 2022-08-01 01:09 | ED ---
Abdominal Pain HPI - General Chief Complaint: Abdominal Pain Stated Complaint: Abd Pain Time Seen by Provider: 08/01/22 00:51 Source: patient, RN notes reviewed Mode of arrival: ambulatory Limitations: no limitations - History of Present Illness Initial Comments: Patient is a 57-year-old male presenting to the emergency room via EMS with complaints of lower abdominal pain and diarrhea along with occasional nausea without vomiting. He states that symptoms began 2-3 days ago but have become worse over the last 24 hours. He advised nursing that he was having fevers and chills but denies any fevers and chills upon examination by provider. He states that he is having pain in the left lower quadrant at times but denies any at this time. He states that this time he does not having any nausea. He has chronic lower extremity swelling and erythema; he reports that he has been out at multiple family functions and has no side effects are slightly more swollen than normal. He denies any known exposure to any prior illnesses but as stated above he has been out at multiple family functions over the last several days. He has a past medical history significant for COPD with home oxygen, DVT, CVA, neuropathy, GERD and morbid obesity. - Related Data Home Medications Medication Instructions Recorded Confirmed Pantoprazole [Protonix] 40 mg PO BID 08/27/20 06/05/22 Budesonide/Formoterol Fumarate 2 puff INHALATION RT-BID 05/16/21 06/05/22 [Symbicort 160-4.5 Mcg Inhaler] Albuterol Sulfate [Albuterol 1 - 2 puff PO RT-Q6H PRN 06/05/22 06/05/22 Sulfate Hfa] Celecoxib [CeleBREX] 200 mg PO BID PRN 06/05/22 06/05/22 DULoxetine HCL [Cymbalta] 60 mg PO DAILY 06/05/22 06/05/22 Gabapentin 600 mg PO TID 06/05/22 06/05/22 HYDROcodone/APAP 5-325MG [[place] 1 - 2 tab PO Q4HR PRN 06/05/22 06/05/22 5-325] Previous Rx's Medication Instructions Recorded Nystatin 100,000 Unit/gm Powd 1 applic TOPICAL BID #1 05/23/21 [Mycostatin Powder] Allergies Allergy/AdvReac Type Severity Reaction Status Date / Time Iodinated Contrast Media Allergy Unknown Verified 08/01/22 00:03 Review of Systems ROS Statement: Those systems with pertinent positive or pertinent negative responses have been documented in the HPI. ROS Other: All systems not noted in ROS Statement are negative. Past Medical History Past Medical History: COPD, CVA/TIA, Deep Vein Thrombosis (DVT), GERD/Reflux Additional Past Medical History / Comment(s): Neuropathy History of Any Multi-Drug Resistant Organisms: None Reported Past Surgical History: Unable to Obtain Additional Past Surgical History / Comment(s): Rectal polyp removal Past Anesthesia/Blood Transfusion Reactions: No Reported Reaction Past Psychological History: Depression Smoking Status: Former smoker Past Alcohol Use History: Rare Past Drug Use History: Marijuana General Exam - General Exam Comments Initial Comments: GENERAL: No acute distress, well developed, well nourished. HEENT: Normocephalic, atraumatic. Pupils equal, round, reactive to light. Moist mucous membranes. LUNGS: No respiratory distress. Diminished due to body habitus otherwise clear to auscultation, no adventitious sounds, no use of accessory muscles. 2 L nasal cannula intact. HEART: Regular rate and rhythm without murmur, rub, or gallop. ABDOMEN: Normal bowel sounds. Soft, non-tender, non-distended. Large abdomen. BACK: Normal inspection. EXTREMITIES: Chronic bilateral lower extremity edema +3 with discoloration of erythema. NEUROLOGIC: Alert & oriented x 3. CN II-XII grossly intact. PSYCHIATRIC: Normal affect and behavior. DERMATOLOGIC: Chronic lower extremity erythema bilaterally. Limitations: physical limitation Course Vital Signs 08/01/22 00:03 Temperature 97.7 F Pulse Rate 79 Respiratory 18 Rate Blood Pressure 170/87 O2 Sat by Pulse 98 Oximetry Medical Decision Making - Medical Decision Making Was pt. sent in by a medical professional or institution (, PA, FINISHING AND SHIPPING SUPERVISOR, urgent care, hospital, or alf...) When possible be specific @ -No Did you speak to anyone other than the patient for history (EMS, parent, family, police, friend...)? What history was obtained from this source @ -No Did you review nursing and triage notes (agree or disagree)? Why? @ -I reviewed and agree with nursing and triage notes Were old charts reviewed (outside hosp., previous admission, EMS record, old EKG, old radiological studies, urgent care reports/EKG's, alf records)? Report findings @ -No old charts were reviewed Differential Diagnosis (chest pain, altered mental status, abdominal pain women, abdominal pain men, vaginal bleeding, weakness, fever, dyspnea, syncope, h eadache, dizziness, GI bleed, back pain, seizure, CVA, palpatations, mental health, musculoskeletal)? @ -Differential Abdominal Pain Men: Appendicitis, cholecystitis, diverticulosis, ischemic bowel, pancreatitis, hepatitis, UTI, gastroenteritis, AAA, incarcerated hernia, bowel obstruction, constipation, inflammatory bowel, hepatitis, peptic ulcer disease, splenic infarction, perforated viscus, testicular torsion, this is not meant to be an all-inclusive list EKG interpreted by me (3pts min.). @ -None done X-rays interpreted by me (1pt min.). @ -None done CT interpreted by me (1pt min.). @ -None done U/S interpreted by me (1pt. min.). @ -None done What testing was considered but not performed or refused? (CT, X-rays, U/S, labs)? Why? @ -Abdominal imaging considered including computed tomography scan, abdominal ultrasound and KUB however imaging was deferred due to body habitus. What meds were considered but not given or refused? Why? @ -Analgesics and antiemetics offered but declined due to lack of nausea or abdominal pain at the time of exam. Did you discuss the management of the patient with other professionals (azul mahoney i.e. , PA, FINISHING AND SHIPPING SUPERVISOR, lab, RT, psych nurse, social worker school, attorney lawyer, teacher, learning and development officer, rn case manager)? Give summary @ -No Was smoking cessation discussed for >3mins.? @ -No Was critical care preformed (if so, how long)? @ -No Were there social determinants of health that impacted care today? How? (Homelessness, low income, unemployed, alcoholism, drug addiction, transpor tation, low edu. Level, literacy, decrease access to med. care, detention, rehab)? @ -No Was there de-escalation of care discussed even if they declined (Discuss DNR or withdrawal of care, Hospice)? DNR status @ -No What co-morbidities impacted this encounter? (DM, HTN, Smoking, COPD, CAD, Cancer, CVA, ARF, Chemo, Hep., AIDS, mental health diagnosis, sleep apnea, morbid obesity)? @ -Morbid obesity Was patient admitted / discharged? Hospital course, mention meds given and route, prescriptions, significant lab abnormalities, going to OR and other pertinent info. @ -57-year-old male presenting to the emergency room via EMS with complaints of abdominal pain, diarrhea, nausea without vomiting and fevers and chills. At the time of exam he denies any nausea or abdominal pain his last episode of diarrhea was several hours prior to arrival to the emergency room. He denies any fevers or chills at the time of exam. Physical exam of abdomen limited due to body habitus. Body habitus also limits the availability of diagnostic imaging. Will obtain laboratory studies of CBC CMP, amylase, lipase, lactic acid and viral sobbing for COVID, RSV and influenza. Vital signs stable no indication for IV hydration. Denies pain or nausea at time of exam no indication for antiemetics or analgesics. Laboratory study reveal chronic anemia hemoglobin 10.8 no leukocytosis. CMP with low sodium and low chloride 135 and 93 respectively carbon dioxide elevated at 37 and chronic. Glucose elevated 124. Renal function, liver function, alkaline phosphate, amylase and lipase all negative. Viral swab for Covid, RSV and influenza all negative. Patient continues to not have any of his presenting symptoms at this time. No indication for further workup. Findings discussed with patient. Advised staying well-hydrated and avoidance of foods that may cause gastric irritation. Encouraged follow-up with primary care provider. Will discharge home in stable condition with primary care follow-up for gastroenteritis symptoms of abdominal pain diarrhea and nausea. Undiagnosed new problem with uncertain prognosis? @ -No Drug Therapy requiring intensive monitoring for toxicity (Heparin, Nitro, Insulin, Cardizem)? @ -No Were any procedures done? @ -No Diagnosis/symptom? @ -Diarrhea, nausea without vomiting Acute, or Chronic, or Acute on Chronic? @ -Acute Uncomplicated (without systemic symptoms) or Complicated (systemic symptoms)? @ -Uncomplicated Side effects of treatment? @ -No Exacerbation, Progression, or Severe Exacerbation? @ -No Poses a threat to life or bodily function? How? (Chest pain, [place], [place], pneumonia, PE, COPD, DKA, ARF, appy, cholecystitis, CVA, Diverticulitis, Homicidal, Suicidal, threat to staff... and all critical care pts) @ -No Diagnosis/symptom? @ -Abdominal pain (not present on exam) Acute, or Chronic, or Acute on Chronic? @ -Acute Uncomplicated (without systemic symptoms) or Complicated (systemic symptoms)? @ -Uncomplicated Side effects of treatment? @ -none Exacerbation, Progression, or Severe Exacerbation] @ -no Poses a threat to life or bodily function? @ -no Case discussed Dr. Rogers. - Lab Data Result diagrams: 08/01/22 02:11 08/01/22 02:11 Lab Results 08/01/22 08/01/22 08/01/22 Range/Units 01:48 02:11 02:11 WBC 7.3 (3.8-10.6) k/uL RBC 3.82 L (4.30-5.90) m/uL Hgb 10.8 L (13.0-17.5) gm/dL Hct 34.8 L (39.0-53.0) % MCV 91.0 (80.0-100.0) fL MCH 28.2 (25.0-35.0) pg MCHC 31.0 (31.0-37.0) g/dL RDW 16.2 H (11.5-15.5) % Plt Count 162 (150-450) k/uL MPV 9.9 Neutrophils % 64 % Lymphocytes % 25 % Monocytes % 6 % Eosinophils % 2 % Basophils % 1 % Neutrophils # 4.6 (1.3-7.7) k/uL Lymphocytes # 1.8 (1.0-4.8) k/uL Monocytes # 0.4 (0-1.0) k/uL Eosinophils # 0.2 (0-0.7) k/uL Basophils # 0.0 (0-0.2) k/uL Hypochromasia Marked Anisocytosis Slight Sodium 135 L (137-145) mmol/L Potassium 4.3 (3.5-5.1) mmol/L Chloride 93 L (98-107) mmol/L Carbon Dioxide 37 H (22-30) mmol/L Anion Gap 5 mmol/L BUN 11 (9-20) mg/dL Creatinine 0.84 (0.66-1.25) mg/dL Est GFR (CKD-EPI)AfAm >90 (>60 ml/min/1.73 sqM) Est GFR (CKD-EPI)NonAf >90 (>60 ml/min/1.73 sqM) Glucose 124 H (74-99) mg/dL Plasma Lactic Acid Declan (0.7-2.0) mmol/L Calcium 8.4 (8.4-10.2) mg/dL Total Bilirubin 0.5 (0.2-1.3) mg/dL AST 42 (17-59) U/L ALT 36 (4-49) U/L Alkaline Phosphatase 87 (38-126) U/L Total Protein 6.9 (6.3-8.2) g/dL Albumin 3.6 (3.5-5.0) g/dL Amylase 48 (30-110) U/L Lipase 178 (23-300) U/L Influenza Type A (PCR) Not Detected (Not Detectd) Influenza Type B (PCR) Not Detected (Not Detectd) RSV (PCR) Not Detected (Not Detectd) SARS-CoV-2 (PCR) Not Detected (Not Detectd) 08/01/22 Range/Units 02:11 WBC (3.8-10.6) k/uL RBC (4.30-5.90) m/uL Hgb (13.0-17.5) gm/dL Hct (39.0-53.0) % MCV (80.0-100.0) fL MCH (25.0-35.0) pg MCHC (31.0-37.0) g/dL RDW (11.5-15.5) % Plt Count (150-450) k/uL MPV Neutrophils % % Lymphocytes % % Monocytes % % Eosinophils % % Basophils % % Neutrophils # (1.3-7.7) k/uL Lymphocytes # (1.0-4.8) k/uL Monocytes # (0-1.0) k/uL Eosinophils # (0-0.7) k/uL Basophils # (0-0.2) k/uL Hypochromasia Anisocytosis Sodium (137-145) mmol/L Potassium (3.5-5.1) mmol/L Chloride (98-107) mmol/L Carbon Dioxide (22-30) mmol/L Anion Gap mmol/L BUN (9-20) mg/dL Creatinine (0.66-1.25) mg/dL Est GFR (CKD-EPI)AfAm (>60 ml/min/1.73 sqM) Est GFR (CKD-EPI)NonAf (>60 ml/min/1.73 sqM) Glucose (74-99) mg/dL Plasma Lactic Acid Declan 1.0 (0.7-2.0) mmol/L Calcium (8.4-10.2) mg/dL Total Bilirubin (0.2-1.3) mg/dL AST (17-59) U/L ALT (4-49) U/L Alkaline Phosphatase (38-126) U/L Total Protein (6.3-8.2) g/dL Albumin (3.5-5.0) g/dL Amylase (30-110) U/L Lipase (23-300) U/L Influenza Type A (PCR) (Not Detectd) Influenza Type B (PCR) (Not Detectd) RSV (PCR) (Not Detectd) SARS-CoV-2 (PCR) (Not Detectd) Disposition Clinical Impression: Diarrhea, Abdominal pain, Nausea without vomiting Disposition: HOME SELF-CARE Condition: Stable Instructions (If sedation given, give patient instructions): Gastroenteritis (ED), Abdominal Pain (ED) Additional Instructions: Stay well hydrated. Avoid foods that may cause gastric irritation such as spicy or acidic foods. Please follow-up with your primary care provider. Please return to the Emergency Department if symptoms worsen or any other concerns. Is patient prescribed a controlled substance at d/c from ED?: No Referrals: Saroj Beltran MD [Primary Care Provider] - 1-2 days Time of Disposition: 03:37
[2022-08-01 02:41] LABS: Anisocytosis Slight; Basophils % (A) 1 %; Eosinophils # (A) 0.2 k/uL (0-0.7); Eosinophils % (A) 2 %; HCT 34.8 % (39.0-53.0); HGB 10.8 gm/dL (13.0-17.5); Hypochromasia Marked; Lymphocytes # (A) 1.8 k/uL (1.0-4.8); Lymphocytes % (A) 25 %; MCH 28.2 pg (25.0-35.0); Mean Platelet Volume 9.9; Monocytes # (A) 0.4 k/uL (0-1.0); Monocytes % (A) 6 %; Neutrophils # (A) 4.6 k/uL (1.3-7.7); Neutrophils % (A) 64 %; Platelet Count 162 k/uL (150-450); RBC 3.82 m/uL (4.30-5.90); RDW 16.2 % (11.5-15.5); WBC 7.3 k/uL (3.8-10.6)
[2022-08-01 03:02] LABS: ALT 36 U/L (4-49); AST 42 U/L (17-59); African American GFR (CKD) >90 (>60 ml/min/1.73 sqM); Albumin 3.6 g/dL (3.5-5.0); Alkaline Phosphatase 87 U/L (38-126); Amylase 48 U/L (30-110); Anion Gap 5 mmol/L; Blood Urea Nitrogen 11 mg/dL (9-20); Calcium 8.4 mg/dL (8.4-10.2); Carbon Dioxide 37 mmol/L (22-30); Chloride 93 mmol/L (98-107); Glucose 124 mg/dL (74-99); Lipase 178 U/L (23-300); Non-African American GFR(CKD) >90 (>60 ml/min/1.73 sqM); Potassium 4.3 mmol/L (3.5-5.1); Sodium 135 mmol/L (137-145); Total Bilirubin 0.5 mg/dL (0.2-1.3); Total Protein 6.9 g/dL (6.3-8.2)
[2022-08-01] MEDS ORDERED: SYMBICORT 160-4.5 MCG INHALER INHALATION STA (03:22)
[2022-08-01] MEDS ORDERED: IPRATROPIUM-ALBUTEROL 3 ML NEB INHALATION STA (04:11)
[2022-08-01 05:42] VITALS: BP 160/73; PULSE 80; RESP 20
== END 2022-08-01 05:41 | disposition home or self-care (01) ==
LOC: EC 23:28
DX: R10.30 Lower abdominal pain, unspecified (principal); R19.7 Diarrhea, unspecified; R11.2 Nausea with vomiting, unspecified; J44.9 Chronic obstructive pulmonary disease, unspecified; K21.9 Gastro-esophageal reflux disease without esophagitis; Z86.718 Personal history of other venous thrombosis and embolism; Z86.73 Personal history of transient ischemic attack (TIA), and cerebral infarction without residual deficits; F32.A Depression, unspecified; Z87.891 Personal history of nicotine dependence; F12.90 Cannabis use, unspecified, uncomplicated; Z91.041 Radiographic dye allergy status; Z79.51 Long term (current) use of inhaled steroids; Z79.899 Other long term (current) drug therapy; Z20.822 Contact with and (suspected) exposure to COVID-19
CPT/HCPCS: 36415; 80053; 82150; 83605; 83690; 85025; 87636; 94640; 99284

== ENCOUNTER 2022-08-01 23:27 | Inpatient (IN) | payer MEDICARE, OTHER ==
[2022-08-02] MEDS ORDERED: PANTOPRAZOLE 40 MG/10 ML VIAL IVP STA (00:40)
[2022-08-02] MEDS ORDERED: MORPHINE SULFATE 4 MG/ML SYRINGE IVP STA (00:40)
[2022-08-02] MEDS ORDERED: methylPREDNISolone SOD SUCCI 125 MG/2 ML VIAL IV STA (00:41)
[2022-08-02] MEDS ORDERED: ONDANSETRON 4 MG/2 ML VIAL IVP STA (00:41)
[2022-08-02] MEDS ORDERED: diphenhydrAMINE 50 MG/ML 1 ML VIAL IVP STA (00:41)
[2022-08-02 01:00] LABS: Anisocytosis Slight; Basophils % (A) 1 %; Eosinophils # (A) 0.2 k/uL (0-0.7); Eosinophils % (A) 2 %; HCT 34.7 % (39.0-53.0); HGB 10.7 gm/dL (13.0-17.5); Hypochromasia Moderate; Lymphocytes # (A) 2.2 k/uL (1.0-4.8); Lymphocytes % (A) 27 %; MCH 27.8 pg (25.0-35.0); MCV 89.7 fL (80.0-100.0); Mean Platelet Volume 10.5; Monocytes # (A) 0.5 k/uL (0-1.0); Monocytes % (A) 7 %; Neutrophils # (A) 5.1 k/uL (1.3-7.7); Neutrophils % (A) 62 %; Platelet Count 177 k/uL (150-450); RBC 3.87 m/uL (4.30-5.90); RDW 16.2 % (11.5-15.5); WBC 8.2 k/uL (3.8-10.6)
[2022-08-02 01:06] LABS: ALT 33 U/L (4-49); AST 41 U/L (17-59); African American GFR (CKD) >90 (>60 ml/min/1.73 sqM); Albumin 3.6 g/dL (3.5-5.0); Alkaline Phosphatase 95 U/L (38-126); Anion Gap 7 mmol/L; Blood Urea Nitrogen 9 mg/dL (9-20); Calcium 8.4 mg/dL (8.4-10.2); Carbon Dioxide 34 mmol/L (22-30); Chloride 93 mmol/L (98-107); Glucose 108 mg/dL (74-99); Lipase 189 U/L (23-300); Non-African American GFR(CKD) >90 (>60 ml/min/1.73 sqM); Potassium 3.7 mmol/L (3.5-5.1); Sodium 134 mmol/L (137-145); Total Bilirubin 0.4 mg/dL (0.2-1.3)
--- NOTE | 2022-08-02 01:35 | ED ---
General Adult HPI - General Chief complaint: Abdominal Pain Stated complaint: Abd Pain Time Seen by Provider: 08/02/22 00:02 Source: patient Limitations: no limitations - History of Present Illness Initial comments: This is a 57-year-old male with a past medical history including peptic ulcer disease, morbid obesity as well as chronic back pain and previous CVA presented to the emergency department once again via EMS for abdominal pain. The patient had been seen in the emergency department yesterday for abdominal pain that refused to take any further medications and was okay to be discharged home. The patient presented again for continued abdominal pain. Was on the left side of his abdomen. The patient stated that this abdominal pain is been present over the last 4 days and associated with new nausea and diarrhea. The patient did state that he felt as if he has not been eating enough and felt as if she was about to pass out earlier today. The patient is minimally ambulatory at home secondary to the patient's significant weight. The patient denied any previous episodes of abdominal pain or any abdominal discomfort. The patient was however resting in bed without any further acute distress. The patient denied any fevers and chills. - Related Data Home Medications Medication Instructions Recorded Confirmed Pantoprazole [Protonix] 40 mg PO BID 08/27/20 06/05/22 Budesonide/Formoterol Fumarate 2 puff INHALATION RT-BID 05/16/21 06/05/22 [Symbicort 160-4.5 Mcg Inhaler] Albuterol Sulfate [Albuterol 1 - 2 puff PO RT-Q6H PRN 06/05/22 06/05/22 Sulfate Hfa] Celecoxib [CeleBREX] 200 mg PO BID PRN 06/05/22 06/05/22 DULoxetine HCL [Cymbalta] 60 mg PO DAILY 06/05/22 06/05/22 Gabapentin 600 mg PO TID 06/05/22 06/05/22 HYDROcodone/APAP 5-325MG [[place] 1 - 2 tab PO Q4HR PRN 06/05/22 06/05/22 5-325] Previous Rx's Medication Instructions Recorded Nystatin 100,000 Unit/gm Powd 1 applic TOPICAL BID #1 05/23/21 [Mycostatin Powder] Dicyclomine [Bentyl] 20 mg PO TID #30 tablet 08/02/22 Allergies Allergy/AdvReac Type Severity Reaction Status Date / Time Iodinated Contrast Media Allergy Unknown Verified 08/01/22 23:37 Review of Systems ROS Statement: Those systems with pertinent positive or pertinent negative responses have been documented in the HPI. ROS Other: All systems not noted in ROS Statement are negative. Past Medical History Past Medical History: COPD, CVA/TIA, Deep Vein Thrombosis (DVT), GERD/Reflux Additional Past Medical History / Comment(s): Neuropathy History of Any Multi-Drug Resistant Organisms: None Reported Past Surgical History: Unable to Obtain Additional Past Surgical History / Comment(s): Rectal polyp removal Past Anesthesia/Blood Transfusion Reactions: No Reported Reaction Past Psychological History: Depression Smoking Status: Former smoker Past Alcohol Use History: Rare Past Drug Use History: Marijuana General Exam Limitations: no limitations General appearance: alert, in no apparent distress, obese Head exam: Present: atraumatic, normocephalic, normal inspection Eye exam: Present: normal appearance, PERRL Pupils: Present: normal accommodation ENT exam: Present: normal exam, normal oropharynx, mucous membranes moist Neck exam: Present: normal inspection, full ROM Respiratory exam: Present: normal lung sounds bilaterally Cardiovascular Exam: Present: regular rate, normal rhythm, normal heart sounds GI/Abdominal exam: Present: distended (Secondary to significant morbid obesity), tenderness (Tenderness noted along the left upper and left lower quadrant) Extremities exam: Present: normal inspection, pedal edema Back exam: Present: normal inspection, full ROM Neurological exam: Present: alert, oriented X3, CN II-XII intact Psychiatric exam: Present: normal affect, normal mood Skin exam: Present: warm, dry Course Vital Signs 08/01/22 08/02/22 08/02/22 23:38 00:00 01:00 Temperature 97.1 F L Pulse Rate 74 75 70 Respiratory 16 16 17 Rate Blood Pressure 134/70 134/70 150/77 O2 Sat by Pulse 96 96 97 Oximetry 08/02/22 08/02/22 02:28 02:36 Temperature Pulse Rate 76 80 Respiratory Rate Blood Pressure O2 Sat by Pulse Oximetry EKG Findings - EKG Comments: EKG Findings:: An EKG was obtained and was interpreted by myself showing a rate of 75, NC interval 150, QRS duration 116 and QTC of 431. This EKG showed a normal sinus rhythm with an incomplete right bundle branch block. There was however no ST segment elevation or depression noted. Medical Decision Making - Medical Decision Making Was pt. sent in by a medical professional or institution (ANTONIA Mckenna, CORPORATE LAW ASSISTANT, urgent care, hospital, or alf...) When possible be specific @ -No Did you speak to anyone other than the patient for history (EMS, parent, family, police, friend...)? What history was obtained from this source @ -No Did you review nursing and triage notes (agree or disagree)? Why? @ -I reviewed and agree with nursing and triage notes Were old charts reviewed (outside hosp., previous admission, EMS record, old EKG, old radiological studies, urgent care reports/EKG's, alf records)? Report findings @ -No old charts were reviewed Differential Diagnosis (chest pain, altered mental status, abdominal pain women, abdominal pain men, vaginal bleeding, weakness, fever, dyspnea, syncope, hea dache, dizziness, GI bleed, back pain, seizure, CVA, palpatations, mental health)? @ -Small bowel obstruction, gastroenteritis, diverticulitis EKG interpreted by me (3pts min.). @ -As above X-rays interpreted by me (1pt min.). @ -KUB x-ray was obtained and was interpreted by myself showing no acute pat hology CT interpreted by me (1pt min.). @ -A computed tomography scan was initially ordered however the patient did not fit in the CT scanner here U/S interpreted by me (1pt. min.). @ -None done What testing was considered but not performed or refused? (CT, X-rays, U/S, labs)? Why? @ -Computed tomography scan was considered and was ordered and the patient was attempted to be placed in the scanner however due to his body habitus would not fit therefore this scan could not be completed. What meds were considered but not given or refused? Why? @ -None Did you discuss the management of the patient with other professionals (pro fessionals i.e. ANTONIA Mckenna, CORPORATE LAW ASSISTANT, lab, RT, psych nurse, social welfare administrator, director of human resources, teacher, booking police officer, keycase assembler)? Give summary @ -No Was smoking cessation discussed for >3mins.? @ -No Was critical care preformed (if so, how long)? @ -No Were there social determinants of health that impacted care today? How? (Homelessness, low income, unemployed, alcoholism, drug addiction, transporta tion, low edu. Level, literacy, decrease access to med. care, senior care, rehab)? @ -No Was there de-escalation of care discussed even if they declined (Discuss DNR or withdrawal of care, Hospice)? DNR status @ -No What co-morbidities impacted this encounter? (DM, HTN, Smoking, COPD, CAD, Cancer, CVA, ARF, Chemo, Hep., AIDS, mental health diagnosis, sleep apnea, morbid obesity)? @ -Morbid obesity, hyperlipidemia, COPD Was patient admitted / discharged? Hospital course, mention meds given and route, prescriptions, significant lab abnormalities, going to OR and other pertinent info. @ -The patient was seen and evaluated emergency department. Physical exam, the patient was resting in bed without any active distress. Vital signs admission were stable. Due to the nature the patient's complaints, laboratory workup was once again ordered and repeated from his visit yesterday. Computed tomography scan was attempted however due to the patient's habitus could not be performed as he could not fit. A KUB x-ray was instead obtained. The patient was given his home dose of medications including morphine as well as Protonix. The patient was also given Zofran. The patient did request a breathing treatment as he does have a history of COPD. On reevaluation, the patient was able to sleep comfortably and stated that his abdominal pain had improved. All laboratory workup was within normal limits as well the patient was stable for discharge home. The patient was given a dose of Bentyl in the emergency department. The patient was also given a prescription for Bentyl and was sent to the pharmacy. The patient was given follow-up instructions to GI and told to follow-up with both GI and his primary care physician for further workup and evaluation. The patient was agreeable to this and all his questions were answered appropriate. The patient was discharged home in stable condition via EMS. Undiagnosed new problem with uncertain prognosis? @ -No Drug Therapy requiring intensive monitoring for toxicity (Heparin, Nitro, Insulin, Cardizem)? @ -No Were any procedures done? @ -No Diagnosis/symptom? @ -Abdominal pain, NOS, morbid obesity Acute, or Chronic, or Acute on Chronic? @ -Acute on chronic Uncomplicated (without systemic symptoms) or Complicated (systemic symptoms)? @ -Uncomplicated Side effects of treatment? @ -No Exacerbation, Progression, or Severe Exacerbation? @ -No Poses a threat to life or bodily function? How? (Chest pain, [place], [place], pneumonia, PE, COPD, DKA, ARF, appy, cholecystitis, CVA, Diverticulitis, Homicidal, Suicidal, threat to staff... and all critical care pts) @ -No - Lab Data Result diagrams: 08/02/22 00:55 08/02/22 00:55 Lab Results 08/02/22 08/02/22 08/02/22 Range/Units 00:55 00:55 01:40 WBC 8.2 (3.8-10.6) k/uL RBC 3.87 L (4.30-5.90) m/uL Hgb 10.7 L (13.0-17.5) gm/dL Hct 34.7 L (39.0-53.0) % MCV 89.7 (80.0-100.0) fL MCH 27.8 (25.0-35.0) pg MCHC 31.0 (31.0-37.0) g/dL RDW 16.2 H (11.5-15.5) % Plt Count 177 (150-450) k/uL MPV 10.5 Neutrophils % 62 % Lymphocytes % 27 % Monocytes % 7 % Eosinophils % 2 % Basophils % 1 % Neutrophils # 5.1 (1.3-7.7) k/uL Lymphocytes # 2.2 (1.0-4.8) k/uL Monocytes # 0.5 (0-1.0) k/uL Eosinophils # 0.2 (0-0.7) k/uL Basophils # 0.0 (0-0.2) k/uL Hypochromasia Moderate Anisocytosis Slight Sodium 134 L (137-145) mmol/L Potassium 3.7 (3.5-5.1) mmol/L Chloride 93 L (98-107) mmol/L Carbon Dioxide 34 H (22-30) mmol/L Anion Gap 7 mmol/L BUN 9 (9-20) mg/dL Creatinine 0.88 (0.66-1.25) mg/dL Est GFR (CKD-EPI)AfAm >90 (>60 ml/min/1.73 sqM) Est GFR (CKD-EPI)NonAf >90 (>60 ml/min/1.73 sqM) Glucose 108 H (74-99) mg/dL Calcium 8.4 (8.4-10.2) mg/dL Magnesium 2.0 (1.6-2.3) mg/dL Total Bilirubin 0.4 (0.2-1.3) mg/dL AST 41 (17-59) U/L ALT 33 (4-49) U/L Alkaline Phosphatase 95 (38-126) U/L Total Protein 7.0 (6.3-8.2) g/dL Albumin 3.6 (3.5-5.0) g/dL Lipase 189 (23-300) U/L Urine Color Yellow Urine Appearance Clear (Clear) Urine pH 7.5 (5.0-8.0) Ur Specific Hematite 1.009 (1.001-1.035) Urine Protein Negative (Negative) Urine Glucose (UA) Negative (Negative) Urine Ketones Negative (Negative) Urine Blood Negative (Negative) Urine Nitrite Negative (Negative) Urine Bilirubin Negative (Negative) Urine Urobilinogen <2.0 (<2.0) mg/dL Ur Leukocyte Esterase Negative (Negative) Disposition Clinical Impression: Abdominal pain Disposition: HOME SELF-CARE Condition: Stable Instructions (If sedation given, give patient instructions): Abdominal Pain (ED) Prescriptions: Dicyclomine [Bentyl] 20 mg PO TID #30 tablet Is patient prescribed a controlled substance at d/c from ED?: No Referrals: Saroj Beltran MD [Primary Care Provider] - 1-2 days Talita Roper MD [STAFF PHYSICIAN] - 1-2 days Time of Disposition: 05:00
[2022-08-02 01:53] LABS: Appearance,Urine Clear (Clear); Bilirubin,Urine Negative (Negative); Blood,Urine Negative (Negative); Color,Urine Yellow; Glucose,Urine (UA) Negative (Negative); Ketones,Urine Negative (Negative); Leukocyte Esterase,Urine Negative (Negative); Nitrite,Urine Negative (Negative); PH, Urine 7.5 (5.0-8.0); Protein,Urine Negative (Negative); Specific Gravity,Urine 1.009 (1.001-1.035); Urobilinogen,Urine <2.0 mg/dL (<2.0)
[2022-08-02] MEDS ORDERED: IPRATROPIUM-ALBUTEROL 3 ML NEB INHALATION STA (02:21)
--- NOTE | 2022-08-02 04:06 | XR ---
EXAM: XR Abdomen, 1 View CLINICAL HISTORY: ITS.REASON XR Reason: Abdominal pain TECHNIQUE: Frontal supine view of the abdomen/pelvis. COMPARISON: No relevant prior studies available. FINDINGS: Gastrointestinal tract: No evidence of bowel obstruction. No visualized free air. 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 IMPRESSION: 1. No evidence of bowel obstruction. 2. Diastases at the pubic symphysis.
[2022-08-02] MEDS ORDERED: DICYCLOMINE 10 MG/ML 2 ML AMP IM STA (05:29)
[2022-08-02] MEDS ORDERED: NALOXONE 0.4 MG/ML 1 ML VIAL IV PRN (05:52)
[2022-08-02] MEDS ORDERED: MORPHINE SULFATE 4 MG/ML SYRINGE IV PRN (05:52)
--- NOTE | 2022-08-02 05:52 | ED ---
Medical Decision Making - Lab Data Result diagrams: 08/02/22 00:55 08/02/22 00:55 Lab Results 08/02/22 08/02/22 08/02/22 Range/Units 00:55 00:55 01:40 WBC 8.2 (3.8-10.6) k/uL RBC 3.87 L (4.30-5.90) m/uL Hgb 10.7 L (13.0-17.5) gm/dL Hct 34.7 L (39.0-53.0) % MCV 89.7 (80.0-100.0) fL MCH 27.8 (25.0-35.0) pg MCHC 31.0 (31.0-37.0) g/dL RDW 16.2 H (11.5-15.5) % Plt Count 177 (150-450) k/uL MPV 10.5 Neutrophils % 62 % Lymphocytes % 27 % Monocytes % 7 % Eosinophils % 2 % Basophils % 1 % Neutrophils # 5.1 (1.3-7.7) k/uL Lymphocytes # 2.2 (1.0-4.8) k/uL Monocytes # 0.5 (0-1.0) k/uL Eosinophils # 0.2 (0-0.7) k/uL Basophils # 0.0 (0-0.2) k/uL Hypochromasia Moderate Anisocytosis Slight Sodium 134 L (137-145) mmol/L Potassium 3.7 (3.5-5.1) mmol/L Chloride 93 L (98-107) mmol/L Carbon Dioxide 34 H (22-30) mmol/L Anion Gap 7 mmol/L BUN 9 (9-20) mg/dL Creatinine 0.88 (0.66-1.25) mg/dL Est GFR (CKD-EPI)AfAm >90 (>60 ml/min/1.73 sqM) Est GFR (CKD-EPI)NonAf >90 (>60 ml/min/1.73 sqM) Glucose 108 H (74-99) mg/dL Calcium 8.4 (8.4-10.2) mg/dL Magnesium 2.0 (1.6-2.3) mg/dL Total Bilirubin 0.4 (0.2-1.3) mg/dL AST 41 (17-59) U/L ALT 33 (4-49) U/L Alkaline Phosphatase 95 (38-126) U/L Total Protein 7.0 (6.3-8.2) g/dL Albumin 3.6 (3.5-5.0) g/dL Lipase 189 (23-300) U/L Urine Color Yellow Urine Appearance Clear (Clear) Urine pH 7.5 (5.0-8.0) Ur Specific Elkins 1.009 (1.001-1.035) Urine Protein Negative (Negative) Urine Glucose (UA) Negative (Negative) Urine Ketones Negative (Negative) Urine Blood Negative (Negative) Urine Nitrite Negative (Negative) Urine Bilirubin Negative (Negative) Urine Urobilinogen <2.0 (<2.0) mg/dL Ur Leukocyte Esterase Negative (Negative) Disposition Clinical Impression: Abdominal pain, Failure to thrive Disposition: ADMITTED IP TO THIS [facility] Condition: Stable Instructions (If sedation given, give patient instructions): Abdominal Pain (ED) Prescriptions: Dicyclomine [Bentyl] 20 mg PO TID #30 tablet Is patient prescribed a controlled substance at d/c from ED?: No Referrals: Saroj Beltran MD [Primary Care Provider] - 1-2 days Talita Roper MD [STAFF PHYSICIAN] - 1-2 days Time of Disposition: 05:50 Decision to Admit Reason: Admit from EC Decision Date: 08/02/22 Decision Time: 05:50
--- NOTE | 2022-08-02 12:18 | P.HPIM ---
History of Present Illness 57-year-old male came in with comments of a left upper quadrant abdominal pain unfortunately CT of the abdomen cannot be obtained because of his morbid obesity. Patient has BMR of 70.5. Patient has a nausea vomiting and diarrhea has been going on for 4 days with a mild flulike symptoms. Patient is hyponatremic. His abdominal pain is moderate severity occasionally crampy and occasionally sharp in nature on and off REVIEW OF SYSTEMS: CONSTITUTIONAL: No fever, no malaise, no fatigue. HEENT: No recent visual problems or hearing problems. Denied any sore throat. CARDIOVASCULAR: No chest pain, orthopnea, PND, no palpitations, no syncope. PULMONARY: No shortness of breath, no cough, no hemoptysis. GASTROINTESTINAL: As mentioned in HPI NEUROLOGICAL: No headaches, no weakness, no numbness. HEMATOLOGICAL: Denies any bleeding or petechiae. GENITOURINARY: Denies any burning micturition, frequency, or urgency. MUSCULOSKELETAL/RHEUMATOLOGICAL: Denies any joint pain, swelling, or any muscle pain. ENDOCRINE: Denies any polyuria or polydipsia. The rest of the 14-point review of systems is negative. PHYSICAL EXAMINATION: GENERAL: The patient is alert and oriented x3, not in any acute distress. Morbidly obese HEENT: Pupils are round and equally reacting to light. EOMI. No scleral icterus. No conjunctival pallor. Normocephalic, atraumatic. No pharyngeal erythema. No thyromegaly. CARDIOVASCULAR: S1 and S2 present. No murmurs, rubs, or gallops. PULMONARY: Chest is clear to auscultation, no wheezing or crackles. ABDOMEN: Soft, nontender, nondistended, normoactive bowel sounds. No palpable organomegaly. MUSCULOSKELETAL: No joint swelling or deformity. EXTREMITIES: No cyanosis, clubbing, or pedal edema. NEUROLOGICAL: Gross neurological examination did not reveal any focal deficits. SKIN: No rashes. Assessment and plan -Abdominal pain, nausea vomiting: Most probably secondary to viral gastroen teritis conservative care patient is mildly intravascularly volume depleted and patient will be hydrated with present IV fluids. Patient will restart back on diet and if he is able to tolerate possibility of discharge tomorrow -Hyperemic hyponatremia serum sodium of 134, IV fluids as mentioned above -Chronic hypoxic respiratory failure uses about 5 L of oxygen secondary to morbid obesity next restrictive lung disease and possibly obesity hypoventilation syndrome -Depression next and-peripheral neuropathy -COPD without any acute exacerbation -History of DVT in the past Gastroesophageal reflux disease DVT prophylaxis: Higher doses of subcutaneous Lovenox 60 mg for DVT prophylaxis Past Medical History Past Medical History: COPD, CVA/TIA, Deep Vein Thrombosis (DVT), GERD/Reflux Additional Past Medical History / Comment(s): Neuropathy History of Any Multi-Drug Resistant Organisms: None Reported Past Surgical History: Unable to Obtain Additional Past Surgical History / Comment(s): Rectal polyp removal Past Anesthesia/Blood Transfusion Reactions: No Reported Reaction Past Psychological History: Depression Smoking Status: Former smoker Past Alcohol Use History: Rare Past Drug Use History: Marijuana Medications and Allergies Home Medications Medication Instructions Recorded Confirmed Type Pantoprazole [Protonix] 40 mg PO BID 08/27/20 08/02/22 History Budesonide/Formoterol Fumarate 2 puff INHALATION RT-BID 05/16/21 08/02/22 History [Symbicort 160-4.5 Mcg Inhaler] Albuterol Sulfate [Albuterol 1 - 2 puff INHALATION RT-Q6H PRN 06/05/22 08/02/22 History Sulfate Hfa] Dicyclomine [Bentyl] 20 mg PO TID #30 tablet 08/02/22 Rx Gabapentin [Neurontin] 600 mg PO TID 08/02/22 08/02/22 History Morphine Sulfate ER [Ms Contin] 30 mg PO Q12H 08/02/22 08/02/22 History Allergies Allergy/AdvReac Type Severity Reaction Status Date / Time Iodinated Contrast Media Allergy Unknown Verified 08/02/22 08:52 Physical Exam Vitals: Vital Signs Temp Pulse Resp BP Pulse Ox 08/02/22 11:00 84 19 133/68 95 08/02/22 06:00 90 15 136/54 93 L 08/02/22 02:36 80 08/02/22 02:28 76 08/02/22 01:00 70 17 150/77 97 08/02/22 00:00 75 16 134/70 96 08/01/22 23:38 97.1 F L 74 16 134/70 96 Intake and Output 08/01/22 08/02/22 08/02/22 22:59 06:59 14:59 Other: Weight 235.868 kg Results CBC & Chem 7: 08/02/22 00:55 08/02/22 00:55 Labs: Abnormal Lab Results - Last 24 Hours (Table) 08/02/22 08/02/22 Range/Units 00:55 00:55 RBC 3.87 L (4.30-5.90) m/uL Hgb 10.7 L (13.0-17.5) gm/dL Hct 34.7 L (39.0-53.0) % RDW 16.2 H (11.5-15.5) % Sodium 134 L (137-145) mmol/L Chloride 93 L (98-107) mmol/L Carbon Dioxide 34 H (22-30) mmol/L Glucose 108 H (74-99) mg/dL
[2022-08-02] MEDS: MORPHINE SULFATE ER 30 MG TABLET PO SCH (13:16)
[2022-08-02] MEDS: SODIUM CHLORIDE 0.9% 1,000 ML IV SCH (13:16)
[2022-08-02] MEDS: PANTOPRAZOLE 40 MG TABLET PO SCH ×2 (13:16→16:35)
[2022-08-02] MEDS: ALBUTEROL NEBULIZED 2.5 MG/3 ML INHALATION PRN ×2 (13:34→20:15)
[2022-08-02] MEDS: GABAPENTIN 300 MG CAP PO SCH ×2 (15:42→23:42)
[2022-08-02] MEDS: HYDROcodone/APAP 7.5-325MG 1 EACH TAB PO PRN (19:50)
[2022-08-02] MEDS: SYMBICORT 160-4.5 MCG INHALER INHALATION SCH (20:15)
[2022-08-03] MEDS: MORPHINE SULFATE ER 30 MG TABLET PO SCH ×3 (04:15→21:03)
[2022-08-03] MEDS: PANTOPRAZOLE 40 MG TABLET PO SCH ×2 (07:59→16:34)
[2022-08-03] MEDS: ALBUTEROL NEBULIZED 2.5 MG/3 ML INHALATION PRN ×3 (08:52→19:47)
[2022-08-03] MEDS: SYMBICORT 160-4.5 MCG INHALER INHALATION SCH ×2 (08:52→19:47)
[2022-08-03] MEDS: GABAPENTIN 300 MG CAP PO SCH ×3 (10:10→21:02)
[2022-08-03] MEDS: ENOXAPARIN 60 MG/0.6 ML SYRINGE SQ SCH (10:12)
[2022-08-03] MEDS: SODIUM CHLORIDE 0.9% 1,000 ML IV SCH ×2 (10:20→17:04)
[2022-08-03 12:10] LABS: African American GFR (CKD) 79.5 (60.0-200.0); Anion Gap 18.6 mmol/L (10.00-18.00); BUN/Creat Ratio 6.16 Ratio (12.00-20.00); Blood Urea Nitrogen 7.3 mg/dL (9.0-27.0); Calcium 8.8 mg/dL (8.7-10.3); Carbon Dioxide 26.6 mmol/L (20.0-27.5); Non-African American GFR(CKD) 68.6 (60.0-200.0); Potassium 5.2 mmol/L (3.5-5.5)
[2022-08-03] MEDS: HYDROcodone/APAP 7.5-325MG 1 EACH TAB PO PRN (14:48)
[2022-08-03 15:16] VITALS: BMI 70.5
[2022-08-03] MEDS: NYSTATIN 100,000 UNIT/GM POWD 15 GM TOPICAL SCH ×2 (18:08→21:02)
[2022-08-03] MEDS ORDERED: diphenhydrAMINE 25 MG CAP PO STA (18:31)
--- NOTE | 2022-08-03 22:11 | P.PN ---
Progress Note - Text Progress Note Date: 08/03/22 History of presenting complaint: 57-year-old morbidly obese male with past medical history of obstructive sleep apnea, COPD, previous smoker, hypertension, diabetes mellitus, previous history of left leg DVT, Patient at home is on f oxygen. came in with comments of a right upper quadrant abdominal pain unfortunately CT of the abdomen cannot be obtained because of his morbid obesity. Patient has BMR of 70.5. Patient has a nausea vomiting and diarrhea has been going on for 4 days with a mild flulike symptoms. Patient is hyponatremic. His abdominal pain is moderate severity occasionally crampy and occasionally sharp in nature on and off August 03: Abdominal pain is better. Did not feel like having breakfast. Had all his lunch. No further diarrhea. Spoke to case checker looking into placement. Past medical history to include: Diabetes, GERD, hypertension, left leg DVT, lower extremity cellulitis. Home oxygen 3 L Social history: Patient lives in a rental with his daughter's family. Previous smoker. 3 L of oxygen at home. The rental department he was taking has not been sold off. Physical examination: VITAL SIGNS: ID 8.5, 77, 16, 1 23 x 57, 94% on 5 L GENERAL: Up in bed, breathing better, awake EYES: Pupils equal. Conjunctiva normal. HEENT: External appearance of nose and ears normal, oral cavity grossly normal. NECK: Short and thick:: JVD unable to assess; masses not palpable. HEART: Heart sounds distant; mild edema. LUNGS: Respiratory rate increased, distant breath sounds. ABDOMEN: Soft, nontender, liver spleen not palpable, no masses palpable. PSYCH: AO - times three. Mood and affect. Anxious NEUROLOGICAL: Cranial nerves grossly intact. Moving all 4 limbs. DERMATOLOGICAL: Redness between the groin folds. Redness above the ankles both the legs. INVESTIGATIONS, reviewed in the clinical context: White count 8.2 hemoglobin 10.7 platelets 177of 5.2 creatinine 1.2 Assessment and plan: -Acute on chronic hypoxic and hypercapnic respiratory failure from obesity hypoventilation syndrome and COPD.: Better BiPAP. 5 L -Chronic hypoxic and hypercapnic respiratory failure, 3 L of oxygen at home -Acute respiratory acidosis -Morbid obesity BMI 70.5 weight loss measures -Peripheral neuropathy On Neurontin 600 mg 3 times a day -GERD Protonix 40 mg twice a day -COPD in a previous smoker DuoNeb when necessary,. Symbicort -Chronic venous stasis dermatitis lower extremity Silvadene cream with Kerlix and Alan wrap -Cutaneous intertriginous candidiasis Nystatin powder twice daily Discussed with the patient. Encourage oral intake. Discussed with the case checker. Looking for placement/rehab
[2022-08-04] MEDS: diphenhydrAMINE 25 MG CAP PO PRN (05:18)
[2022-08-04] MEDS: SODIUM CHLORIDE 0.9% 1,000 ML IV SCH ×2 (05:39→18:17)
[2022-08-04 06:36] LABS: African American GFR (CKD) >90 (>60 ml/min/1.73 sqM); Anion Gap 4 mmol/L; Blood Urea Nitrogen 7 mg/dL (9-20); Calcium 7.9 mg/dL (8.4-10.2); Carbon Dioxide 39 mmol/L (22-30); Chloride 93 mmol/L (98-107); Glucose 127 mg/dL (74-99); Non-African American GFR(CKD) 82 (>60 ml/min/1.73 sqM); Potassium 4.2 mmol/L (3.5-5.1); Sodium 136 mmol/L (137-145)
[2022-08-04] MEDS: ENOXAPARIN 60 MG/0.6 ML SYRINGE SQ SCH (08:20)
[2022-08-04] MEDS: PANTOPRAZOLE 40 MG TABLET PO SCH ×2 (08:20→17:24)
[2022-08-04] MEDS: MORPHINE SULFATE ER 30 MG TABLET PO SCH ×2 (08:20→20:52)
[2022-08-04] MEDS: GABAPENTIN 300 MG CAP PO SCH ×3 (08:20→20:53)
[2022-08-04] MEDS: NYSTATIN 100,000 UNIT/GM POWD 15 GM TOPICAL SCH ×3 (08:21→20:53)
[2022-08-04] MEDS: SYMBICORT 160-4.5 MCG INHALER INHALATION SCH ×2 (08:25→20:05)
--- NOTE | 2022-08-04 15:00 | P.PN ---
Progress Note - Text Progress Note Date: 08/04/22 History of presenting complaint: 57-year-old morbidly obese male with past medical history of obstructive sleep apnea, COPD, previous smoker, hypertension, diabetes mellitus, previous history of left leg DVT, Patient at home is on f oxygen. came in with comments of a right upper quadrant abdominal pain unfortunately CT of the abdomen cannot be obtained because of his morbid obesity. Patient has BMR of 70.5. Patient has a nausea vomiting and diarrhea has been going on for 4 days with a mild flulike symptoms. Patient is hyponatremic. His abdominal pain is moderate severity occasionally crampy and occasionally sharp in nature on and off August 03: Abdominal pain is better. Did not feel like having breakfast. Had all his lunch. No further diarrhea. Spoke to pillowcase cutter looking into placement. August 04: Resting in bed. Eating well. No diarrhea. No abdominal pain. Chronic baseline pain present. Spoke to pillowcase cutter. Hopefully discharge tomorrow. Active Medications Hydrocodone Bitart/Acetaminophen (Hydrocodone/Apap 7.5-325mg 1 Each Tab) 1 each PO Q6HR PRN PRN Reason: Pain Last Admin: 08/03/22 14:48 Dose: 1 each Albuterol Sulfate (Albuterol Nebulized 2.5 Mg/3 Ml) 2.5 mg INHALATION RT-Q6H PRN PRN Reason: Shortness Of Breath Last Admin: 08/03/22 19:47 Dose: 2.5 mg Budesonide/Formoterol Fumarate (Symbicort 160-4.5 Mcg Inhaler) 2 puff INHALATION RT-BID KIRK Last Admin: 08/04/22 08:25 Dose: 2 puff Diphenhydramine HCl (Diphenhydramine 25 Mg Cap) 25 mg PO Q6HR PRN PRN Reason: Itching Last Admin: 08/04/22 05:18 Dose: 25 mg Enoxaparin Sodium (Enoxaparin 60 Mg/0.6 Ml Syringe) 60 mg SQ DAILY [facility] Last Admin: 08/04/22 08:20 Dose: 60 mg Gabapentin (Gabapentin 300 Mg Cap) 600 mg PO TID [facility] Last Admin: 08/04/22 08:20 Dose: 600 mg Sodium Chloride (Saline 0.9%) 1,000 mls @ 75 mls/hr IV .[id number] [facility] Last Admin: 08/04/22 05:39 Dose: 75 mls/hr Morphine Sulfate (Morphine Sulfate Er 30 Mg Tablet) 30 mg PO Q12HR [facility]; Protocol Last Admin: 08/04/22 08:20 Dose: 30 mg Naloxone HCl (Naloxone 0.4 Mg/Ml 1 Ml Vial) 0.2 mg IV Q2M PRN PRN Reason: Opioid Reversal Nystatin (Nystatin 100,000 Unit/Gm Powd 15 Gm) 1 applic TOPICAL TID [facility]; Protocol Last Admin: 08/04/22 08:21 Dose: 1 applic Pantoprazole Sodium (Pantoprazole 40 Mg Tablet) 40 mg PO AC-BID KIRK Last Admin: 08/04/22 08:20 Dose: 40 mg Past medical history to include: Diabetes, GERD, hypertension, left leg DVT, lower extremity cellulitis. Home oxygen 3 L Social history: Patient lives in a rental with his daughter's family. Previous smoker. 3 L of oxygen at home. The rental department he was taking has not been sold off. Physical examination: VITAL SIGNS: 98.1, 94, 20, 143/78, 94% on 5 L GENERAL: Up in bed, breathing better, awake EYES: Pupils equal. Conjunctiva normal. HEENT: External appearance of nose and ears normal, oral cavity grossly normal. NECK: Short and thick:: JVD unable to assess; masses not palpable. HEART: Heart sounds distant; mild edema. LUNGS: Respiratory rate increased, distant breath sounds. ABDOMEN: Soft, nontender, liver spleen not palpable, no masses palpable. PSYCH: AO - times three. Mood and affect. Anxious NEUROLOGICAL: Cranial nerves grossly intact. Moving all 4 limbs. DERMATOLOGICAL: Redness between the groin folds. Redness above the ankles both the legs. INVESTIGATIONS, reviewed in the clinical context: White count 8.2 hemoglobin 10.7 platelets 177of 5.2 creatinine 1.2 Assessment and plan: -Acute on chronic hypoxic and hypercapnic respiratory failure from obesity hypoventilation syndrome and COPD.: Better BiPAP. 5 L -Chronic hypoxic and hypercapnic respiratory failure, 3 L of oxygen at home -Acute respiratory acidosis -Morbid obesity BMI 70.5 weight loss measures -Peripheral neuropathy On Neurontin 600 mg 3 times a day -GERD Protonix 40 mg twice a day -COPD in a previous smoker DuoNeb when necessary,. Symbicort -Chronic venous stasis dermatitis lower extremity Silvadene cream with Kerlix and Alan wrap -Cutaneous intertriginous candidiasis Nystatin powder twice daily Discussed with the patient. Pending discharge to rehab tomorrow. Accepted at [facility] vito Montoya
[2022-08-04] MEDS: HYDROcodone/APAP 7.5-325MG 1 EACH TAB PO PRN (17:36)
[2022-08-05] MEDS: HYDROcodone/APAP 7.5-325MG 1 EACH TAB PO PRN ×2 (01:09→12:26)
[2022-08-05] MEDS: diphenhydrAMINE 25 MG CAP PO PRN (01:09)
[2022-08-05 08:08] VITALS: RESP 20
[2022-08-05] MEDS: SYMBICORT 160-4.5 MCG INHALER INHALATION SCH (08:35)
[2022-08-05] MEDS: PANTOPRAZOLE 40 MG TABLET PO SCH (08:45)
[2022-08-05] MEDS: MORPHINE SULFATE ER 30 MG TABLET PO SCH (08:45)
[2022-08-05] MEDS: SODIUM CHLORIDE 0.9% 1,000 ML IV SCH (08:45)
[2022-08-05] MEDS: NYSTATIN 100,000 UNIT/GM POWD 15 GM TOPICAL SCH (08:46)
[2022-08-05] MEDS: GABAPENTIN 300 MG CAP PO SCH (08:46)
[2022-08-05] MEDS: ENOXAPARIN 60 MG/0.6 ML SYRINGE SQ SCH (08:50)
--- NOTE | 2022-08-05 11:25 | P.DS ---
Providers Date of admission: 08/02/22 05:52 Expected date of discharge: 08/05/22 Attending physician: Deng Anderson Primary care physician: [facility] Course: History of presenting complaint: 57-year-old morbidly obese male with past medical history of obstructive sleep apnea, COPD, previous smoker, hypertension, diabetes mellitus, previous history of left leg DVT, Patient at home is on f oxygen. came in with comments of a right upper quadrant abdominal pain unfortunately CT of the abdomen cannot be obtained because of his morbid obesity. Patient has BMR of 70.5. Patient has a nausea vomiting and diarrhea has been going on for 4 days with a mild flulike symptoms. Patient is hyponatremic. His abdominal pain is moderate severity occasionally crampy and occasionally sharp in nature on and off August 03: Abdominal pain is better. Did not feel like having breakfast. Had all his lunch. No further diarrhea. Spoke to ed case manager looking into placement. August 04: Resting in bed. Eating well. No diarrhea. No abdominal pain. Chronic baseline pain present. Spoke to ed case manager. Hopefully discharge tomorrow. August 05: Stable. Oral intake good. No new issues. He'll be going to rehab today. Past medical history to include: Diabetes, GERD, hypertension, left leg DVT, lower extremity cellulitis. Home oxygen 3 L Social history: Patient lives in a rental with his daughter's family. Previous smoker. 3 L of oxygen at home. The rental department he was taking has not been sold off. Physical examination: VITAL SIGNS: 97.3, 90, 20, 134-60, 92% on 5 L GENERAL: Up in bed, comfortable EYES: Pupils equal. Conjunctiva normal. HEENT: External appearance of nose and ears normal, oral cavity grossly normal. NECK: Short and thick:: JVD unable to assess; masses not palpable. HEART: Heart sounds distant; mild edema. LUNGS: Respiratory rate increased, distant breath sounds. ABDOMEN: Soft, nontender, liver spleen not palpable, no masses palpable. PSYCH: AO - times three. Mood and affect. Anxious NEUROLOGICAL: Cranial nerves grossly intact. Moving all 4 limbs. DERMATOLOGICAL: Redness between the groin folds. Redness above the ankles both the legs. INVESTIGATIONS, reviewed in the clinical context: White count 8.2 hemoglobin 10.7 platelets 177of 5.2 creatinine 1.2 Assessment and plan: -Acute on chronic hypoxic and hypercapnic respiratory failure from obesity hypoventilation syndrome and COPD.: Better BiPAP. 5 L -Chronic hypoxic and hypercapnic respiratory failure, 3 L of oxygen at home -Acute respiratory acidosis -Morbid obesity BMI 70.5 weight loss measures -Peripheral neuropathy On Neurontin 600 mg 3 times a day -GERD Protonix 40 mg twice a day -COPD in a previous smoker DuoNeb when necessary,. Symbicort -Chronic venous stasis dermatitis lower extremity Silvadene cream with Kerlix and Alan wrap -Cutaneous intertriginous candidiasis Nystatin powder twice daily Disposition: Rehab at [facility] Patient Condition at Discharge: Stable Plan - Discharge Summary Discharge Rx Participant: No New Discharge Prescriptions: New Dicyclomine [Bentyl] 20 mg PO TID #30 tablet Continue Budesonide/Formoterol Fumarate [Symbicort 160-4.5 Mcg Inhaler] 2 puff INHALATION RT-BID Albuterol Sulfate [Albuterol Sulfate Hfa] 1 - 2 puff INHALATION RT-Q6H PRN PRN Reason: Shortness Of Breath Morphine Sulfate ER [Ms Contin] 30 mg PO Q12H #6 tab Gabapentin [Neurontin] 600 mg PO TID #18 cap Pantoprazole [Protonix] 40 mg PO BID Discharge Medication List Pantoprazole [Protonix] 40 mg PO BID 08/27/20 [History] Budesonide/Formoterol Fumarate [Symbicort 160-4.5 Mcg Inhaler] 2 puff INHALATION RT-BID 05/16/21 [History] Albuterol Sulfate [Albuterol Sulfate Hfa] 1 - 2 puff INHALATION RT-Q6H PRN 06/05/22 [History] Dicyclomine [Bentyl] 20 mg PO TID #30 tablet 08/02/22 [Rx] Gabapentin [Neurontin] 600 mg PO TID #18 cap 08/03/22 [Rx] Morphine Sulfate ER [Ms Contin] 30 mg PO Q12H #6 tab 08/03/22 [Rx] Follow up Appointment(s)/Referral(s): Saroj Beltran MD [Primary Care Provider] - 1-2 days Talita Roper MD [STAFF PHYSICIAN] - 1-2 days Patient Instructions/Handouts: Abdominal Pain (ED)
[2022-08-05 13:00] VITALS: BP 136/71; PULSE 80; TEMP 98.4
== END 2022-08-05 13:25 | DRG 391 ==
LOC: EC 23:27 → 5NMEDONC 08-02 05:52
PROVIDERS: ADMIT Hospitalist; ATTEND Hospitalist
DX: A08.4 Viral intestinal infection, unspecified (principal); J96.21 Acute and chronic respiratory failure with hypoxia; J96.22 Acute and chronic respiratory failure with hypercapnia; Z68.45 Body mass index [BMI] 70 or greater, adult; E66.2 Morbid (severe) obesity with alveolar hypoventilation; E87.1 Hypo-osmolality and hyponatremia; I45.10 Unspecified right bundle-branch block; J44.9 Chronic obstructive pulmonary disease, unspecified; K21.9 Gastro-esophageal reflux disease without esophagitis; G89.29 Other chronic pain; E86.9 Volume depletion, unspecified; J98.4 Other disorders of lung; F32.A Depression, unspecified; E11.42 Type 2 diabetes mellitus with diabetic polyneuropathy; I87.2 Venous insufficiency (chronic) (peripheral); I10 Essential (primary) hypertension; B37.2 Candidiasis of skin and nail; Z20.822 Contact with and (suspected) exposure to COVID-19; Z71.3 Dietary counseling and surveillance; Z28.310 Unvaccinated for COVID-19; Z88.7 Allergy status to serum and vaccine; Z99.81 Dependence on supplemental oxygen; Z86.73 Personal history of transient ischemic attack (TIA), and cerebral infarction without residual deficits; Z86.718 Personal history of other venous thrombosis and embolism; Z87.11 Personal history of peptic ulcer disease; Z87.891 Personal history of nicotine dependence; Z79.899 Other long term (current) drug therapy; Z79.51 Long term (current) use of inhaled steroids; Z79.1 Long term (current) use of non-steroidal anti-inflammatories (NSAID); Z59.00 Homelessness unspecified
CPT/HCPCS: 36415; 74018; 80048; 80053; 81003; 83690; 83735; 85025; 87635; 93005; 94640; 94760; 96361; 96372; 96374; 96375; 99285

== ENCOUNTER 2023-03-03 05:51 | Emergency (ER) | payer MEDICARE, OTHER ==
[2023-03-03 05:57] VITALS: TEMP 98.5
[2023-03-03 06:33] LABS: ALT 23 U/L (4-49); AST 34 U/L (17-59); African American GFR (CKD) >90 (>60 ml/min/1.73 sqM); Albumin 3.8 g/dL (3.5-5.0); Alkaline Phosphatase 75 U/L (38-126); Anion Gap 11 mmol/L; Blood Urea Nitrogen 11 mg/dL (9-20); Calcium 8.9 mg/dL (8.4-10.2); Carbon Dioxide 31 mmol/L (22-30); Chloride 90 mmol/L (98-107); Glucose 118 mg/dL (74-99); Non-African American GFR(CKD) >90 (>60 ml/min/1.73 sqM); Potassium 3.1 mmol/L (3.5-5.1); Sodium 132 mmol/L (137-145); Total Bilirubin 0.6 mg/dL (0.2-1.3); Total Protein 7.1 g/dL (6.3-8.2)
[2023-03-03 06:36] LABS: Partial Thromboplastin Time 25.1 sec (22.0-30.0); Prothrombin Time 10.8 sec (10.0-12.5)
[2023-03-03 06:41] LABS: Basophils % (A) 1 %; Eosinophils # (A) 0.1 k/uL (0-0.7); Eosinophils % (A) 2 %; HCT 36.5 % (39.0-53.0); HGB 12.2 gm/dL (13.0-17.5); Lymphocytes # (A) 2.6 k/uL (1.0-4.8); Lymphocytes % (A) 35 %; MCH 29.9 pg (25.0-35.0); MCHC 33.3 g/dL (31.0-37.0); MCV 89.7 fL (80.0-100.0); Mean Platelet Volume 10.7; Monocytes # (A) 0.4 k/uL (0-1.0); Monocytes % (A) 5 %; Neutrophils % (A) 56 %; Platelet Count 130 k/uL (150-450); RBC 4.07 m/uL (4.30-5.90); RDW 14.8 % (11.5-15.5); WBC 7.2 k/uL (3.8-10.6)
[2023-03-03] MEDS ORDERED: POTASSIUM CHLORIDE ER 20 MEQ TAB.ER PO STA (06:44)
[2023-03-03] MEDS ORDERED: MORPHINE SULFATE 4 MG/ML SYRINGE IVP STA (06:48)
--- NOTE | 2023-03-03 06:48 | ED ---
General Adult HPI - General Chief complaint: Recheck/Abnormal Lab/Rx Stated complaint: abn labs Time Seen by Provider: 03/03/23 06:04 Source: patient, EMS, RN notes reviewed Mode of arrival: EMS Limitations: no limitations - History of Present Illness Initial comments: 57-year-old male with a past medical history significant for COPD, obesity, diarrhea resents to the emergency department with a chief complaint of abnormal labs. Patient is coming from [facility] in [place] and reports that he had blood work done and his platelets were normal. Is also complaining of left upper quadrant abdominal pain. He also reports of having multiple bouts of diarrhea although been chronic in nature. He denies any known fevers, chills, nausea or vomiting, chest pain or palpitations, shortness of breath, melena or hematochezia. - Related Data Home Medications Medication Instructions Recorded Confirmed Pantoprazole [Protonix] 40 mg PO BID 08/27/20 12/10/22 Budesonide/Formoterol Fumarate 2 puff INHALATION RT-BID 05/16/21 12/10/22 [Symbicort 160-4.5 Mcg Inhaler] Albuterol Sulfate [Albuterol 1 - 2 puff INHALATION RT-Q6H PRN 06/05/22 12/10/22 Sulfate Hfa] Dicyclomine [Bentyl] 20 mg PO AC-TID 12/10/22 12/10/22 Docusate [Colace] 100 mg PO BID 12/10/22 12/10/22 Dutasteride 0.5 mg PO DAILY 12/10/22 12/10/22 Ipratropium-Albuterol Nebulize 3 ml INHALATION RT-Q6H PRN 12/10/22 12/10/22 [Duoneb 0.5 mg-3 mg/3 ml Soln] L.acidoph,Paracasei, B.lactis 1 cap PO DAILY 12/10/22 12/10/22 [Probiotic] Magnesium Hydroxide [Milk of 2,400 mg PO DAILY PRN 12/10/22 12/10/22 Magnesia] Menthol [Biofreeze] 1 applic TOPICAL Q6H PRN 12/10/22 12/10/22 Tamsulosin [Flomax] 0.4 mg PO DAILY 12/10/22 12/10/22 hydrOXYzine HCL [Atarax] 25 mg PO Q8H 12/10/22 12/10/22 Previous Rx's Medication Instructions Recorded Dapagliflozin Propanediol [Farxiga] 5 mg PO DAILY tab 12/13/22 Furosemide [Lasix] 40 mg PO BID #60 tablet 12/13/22 Gabapentin 600 mg PO Q8H #9 tab 12/13/22 Losartan [Cozaar] 25 mg PO DAILY tab 12/13/22 Metoprolol Succinate (ER) [Toprol 25 mg PO DAILY tab 12/13/22 XL] Morphine Sulfate ER [Ms Contin] 30 mg PO Q12H #6 tab 12/13/22 Spironolactone [Aldactone] 12.5 mg PO DAILY tab 12/13/22 acetaZOLAMIDE [Diamox] 250 mg PO BID tab 12/13/22 predniSONE See Taper PO DIRECTED #30 tab 12/13/22 traMADol HCL 50 mg PO Q6H PRN #12 tab 12/13/22 Potassium Chloride ER [K-Dur 10] 10 meq PO DAILY #7 tab 03/03/23 Allergies Allergy/AdvReac Type Severity Reaction Status Date / Time Iodinated Contrast Media Allergy Unknown Verified 03/03/23 05:56 Review of Systems ROS Statement: Those systems with pertinent positive or pertinent negative responses have been documented in the HPI. ROS Other: All systems not noted in ROS Statement are negative. Past Medical History Past Medical History: COPD, CVA/TIA, Deep Vein Thrombosis (DVT), GERD/Reflux Additional Past Medical History / Comment(s): Neuropathy History of Any Multi-Drug Resistant Organisms: None Reported Past Surgical History: Unable to Obtain Additional Past Surgical History / Comment(s): Rectal polyp removal Past Anesthesia/Blood Transfusion Reactions: No Reported Reaction Past Psychological History: Depression Smoking Status: Former smoker Past Alcohol Use History: Unable to Obtain Past Drug Use History: Unable to Obtain - Past Family History Mother Family Medical History: Congestive Heart Failure (CHF), COPD, Hypertension Father Family Medical History: Congestive Heart Failure (CHF), Diabetes Mellitus General Exam - General Exam Comments Initial Comments: General: Alert, in no acute distress, obese, pale Head: atraumatic normocephalic. Eyes PERRL, EOMI intact, mucous membranes moist Respiratory: Lungs with expiratory wheeze Cardiovascular: Heart rate regular rate and rhythm Abdominal: Soft without guarding or rebound, LUQ abdominal tenderness Extremities: Normal inspection with full range of motion and normal capillary refill Neuroogic: alert and oriented 3, CN II-XII intact, able to ambulate with steady gait Skin: warm dry and intact with normal color Limitations: no limitations Course Vital Signs 03/03/23 03/03/23 05:52 08:06 Temperature 98.5 F Pulse Rate 77 69 Respiratory 20 22 Rate Blood Pressure 111/57 103/49 O2 Sat by Pulse 91 L 95 Oximetry - Reevaluation(s) Reevaluation #1: 03/03/23 06:47 Reevaluated. Patient agreeable with the plan for CT. Patient allowed to have ice chips. Reevaluation #2: 03/03/23 12:30 Patient reevaluated and updated on results. Agreeable for plan for discharge home. Medical Decision Making - Medical Decision Making Was pt. sent in by a medical professional or institution (ANTONIA Mckenna, CATALOG LIBRARY ASSISTANT, urgent care, hospital, or alf...) When possible be specific @ -[No] Did you speak to anyone other than the patient for history (EMS, parent, family, police, friend...)? What history was obtained from this source @ -EMS Did you review nursing and triage notes (agree or disagree)? Why? @ -[I reviewed and agree with nursing and triage notes] Were old charts reviewed (outside hosp., previous admission, EMS record, old EKG, old radiological studies, urgent care reports/EKG's, alf records)? Report findings @ -[No old charts were reviewed] Differential Diagnosis (chest pain, altered mental status, abdominal pain women, abdominal pain men, vaginal bleeding, weakness, fever, dyspnea, syncope, headache, dizziness, GI bleed, back pain, seizure, CVA, palpatations, mental health, musculoskeletal)? @ -[not applicable] EKG interpreted by me (3pts min.). @ -[As above] X-rays interpreted by me (1pt min.). @ -[None done] CT interpreted by me (1pt min.). @ -CT reveals nonspecific left knee possibility of a significant stone or infection, there is no evidence of bowel obstruction or free air. The appendix is normal. Correlate for possible diarrheal illness U/S interpreted by me (1pt. min.). @ -[None done] What testing was considered but not performed or refused? (CT, X-rays, U/S, labs)? Why? @ -[None] What meds were considered but not given or refused? Why? @ -[None] Did you discuss the management of the patient with other professionals (professionals i.e. , PA, CATALOG LIBRARY ASSISTANT, lab, RT, psych nurse, vp digital marketing social media and crm, medical communication specialist, teacher, identification officer, case briefer)? Give summary @ -[No] Was smoking cessation discussed for >3mins.? @ -[No] Was critical care preformed (if so, how long)? @ -[No] Were there social determinants of health that impacted care today? How? (Homelessness, low income, unemployed, alcoholism, drug addiction, transportation, low edu. Level, literacy, decrease access to med. care, prison, rehab)? @ -[No] Was there de-escalation of care discussed even if they declined (Discuss DNR or withdrawal of care, Hospice)? DNR status @ -[No] What co-morbidities impacted this encounter? (DM, HTN, Smoking, COPD, CAD, Cancer, CVA, ARF, Chemo, Hep., AIDS, mental health diagnosis, sleep apnea, morbid obesity)? @ -[None] Was patient admitted / discharged? Hospital course, mention meds given and route, prescriptions, significant lab abnormalities, going to OR and other pertinent info. @ -Discharged. This is a 57-year-old male who presents the emergency department with a chief complaint of abnormal labs and left upper quadrant abdominal pain. Patient had a thorough history and physical exam performed. Patient is morbidly obese. No signs are stable. Patient is afebrile. Heart rate regular rate and rhythm, lungs clear to auscultation abdomen is soft with mild left upper quadrant abdominal tenderness. Patient had laboratory studies which were essentially unremarkable. Potassium is 3.1. It appears patient is chronically anemic and chronically thrombocytopenic. Patient had CT imaging which revealed nonspecific left renal findings and possible diarrheal illness. I discussed the results in detail the patient verbalized understanding and all questions were addressed. He was given oral potassium supplementation and prescription for oral potassium upon his discharge. He'll be discharged home to [facility]od[facility] in stable condition via tri-hospital EMS. Case is discussed with Dr. Juarze , ED attending who agrees with plan of care Undiagnosed new problem with uncertain prognosis? @ -[No] Drug Therapy requiring intensive monitoring for toxicity (Heparin, Nitro, Insulin, Cardizem)? @ -[No] Were any procedures done? @ -[No] Diagnosis/symptom? @ -LUQ abdominal pain - Diarrhea - Hypokalemia Acute, or Chronic, or Acute on Chronic? @ -Acute Uncomplicated (without systemic symptoms) or Complicated (systemic symptoms)? @ -Uncomplictaed Side effects of treatment? @ -[No] Exacerbation, Progression, or Severe Exacerbation? @ -[No] Poses a threat to life or bodily function? How? (Chest pain, USA, NM, pneumonia, PE, COPD, DKA, ARF, appy, cholecystitis, CVA, Diverticulitis, Homicidal, Suicidal, threat to staff... and all critical care pts) @ -low likelihood - Lab Data Result diagrams: 03/03/23 06:05 03/03/23 06:05 Lab Results 03/03/23 03/03/23 03/03/23 Range/Units 06:05 06:05 06:05 WBC 7.2 (3.8-10.6) k/uL RBC 4.07 L (4.30-5.90) m/uL Hgb 12.2 L (13.0-17.5) gm/dL Hct 36.5 L (39.0-53.0) % MCV 89.7 (80.0-100.0) fL MCH 29.9 (25.0-35.0) pg MCHC 33.3 (31.0-37.0) g/dL RDW 14.8 (11.5-15.5) % Plt Count 130 L (150-450) k/uL MPV 10.7 Neutrophils % 56 % Lymphocytes % 35 % Monocytes % 5 % Eosinophils % 2 % Basophils % 1 % Neutrophils # 4.0 (1.3-7.7) k/uL Lymphocytes # 2.6 (1.0-4.8) k/uL Monocytes # 0.4 (0-1.0) k/uL Eosinophils # 0.1 (0-0.7) k/uL Basophils # 0.0 (0-0.2) k/uL PT 10.8 (10.0-12.5) sec INR 1.0 (<1.2) APTT 25.1 (22.0-30.0) sec Sodium 132 L (137-145) mmol/L Potassium 3.1 L (3.5-5.1) mmol/L Chloride 90 L (98-107) mmol/L Carbon Dioxide 31 H (22-30) mmol/L Anion Gap 11 mmol/L BUN 11 (9-20) mg/dL Creatinine 0.80 (0.66-1.25) mg/dL Est GFR (CKD-EPI)AfAm >90 (>60 ml/min/1.73 sqM) Est GFR (CKD-EPI)NonAf >90 (>60 ml/min/1.73 sqM) Glucose 118 H (74-99) mg/dL Calcium 8.9 (8.4-10.2) mg/dL Total Bilirubin 0.6 (0.2-1.3) mg/dL AST 34 (17-59) U/L ALT 23 (4-49) U/L Alkaline Phosphatase 75 (38-126) U/L Total Protein 7.1 (6.3-8.2) g/dL Albumin 3.8 (3.5-5.0) g/dL Urine Color Urine Appearance (Clear) Urine pH (5.0-8.0) Ur Specific [place] (1.001-1.035) Urine Protein (Negative) Urine Glucose (UA) (Negative) Urine Ketones (Negative) Urine Blood (Negative) Urine Nitrite (Negative) Urine Bilirubin (Negative) Urine Urobilinogen (<2.0) mg/dL Ur Leukocyte Esterase (Negative) Blood Type Blood Type Confirm Blood Type Recheck Bld Type Recheck Status Antibody Screen Spec Expiration Date 03/03/23 03/03/23 03/03/23 Range/Units 06:05 08:13 12:00 WBC (3.8-10.6) k/uL RBC (4.30-5.90) m/uL Hgb (13.0-17.5) gm/dL Hct (39.0-53.0) % MCV (80.0-100.0) fL MCH (25.0-35.0) pg MCHC (31.0-37.0) g/dL RDW (11.5-15.5) % Plt Count (150-450) k/uL MPV Neutrophils % % Lymphocytes % % Monocytes % % Eosinophils % % Basophils % % Neutrophils # (1.3-7.7) k/uL Lymphocytes # (1.0-4.8) k/uL Monocytes # (0-1.0) k/uL Eosinophils # (0-0.7) k/uL Basophils # (0-0.2) k/uL PT (10.0-12.5) sec INR (<1.2) APTT (22.0-30.0) sec Sodium (137-145) mmol/L Potassium (3.5-5.1) mmol/L Chloride (98-107) mmol/L Carbon Dioxide (22-30) mmol/L Anion Gap mmol/L BUN (9-20) mg/dL Creatinine (0.66-1.25) mg/dL Est GFR (CKD-EPI)AfAm (>60 ml/min/1.73 sqM) Est GFR (CKD-EPI)NonAf (>60 ml/min/1.73 sqM) Glucose (74-99) mg/dL Calcium (8.4-10.2) mg/dL Total Bilirubin (0.2-1.3) mg/dL AST (17-59) U/L ALT (4-49) U/L Alkaline Phosphatase (38-126) U/L Total Protein (6.3-8.2) g/dL Albumin (3.5-5.0) g/dL Urine Color Yellow Urine Appearance Clear (Clear) Urine pH 6.0 (5.0-8.0) Ur Specific [place] 1.009 (1.001-1.035) Urine Protein Negative (Negative) Urine Glucose (UA) 1+ H (Negative) Urine Ketones Negative (Negative) Urine Blood Negative (Negative) Urine Nitrite Negative (Negative) Urine Bilirubin Negative (Negative) Urine Urobilinogen <2.0 (<2.0) mg/dL Ur Leukocyte Esterase Negative (Negative) Blood Type A Negative Blood Type Confirm A Negative Blood Type Recheck No Previous Record Bld Type Recheck Status CABO Indicated Antibody Screen NEGATIVE Spec Expiration Date 03/06/20232312 Disposition Clinical Impression: Abdominal pain, Hypokalemia Disposition: HOME SELF-CARE Condition: Stable Additional Instructions: Please take potassium supplement one daily for the next 7 days Please monitor symptoms closely These return to the nearest emergency Department if high fever, blood in stool or nausea or vomiting developed Prescriptions: Potassium Chloride ER [K-Dur 10] 10 meq PO DAILY #7 tab Is patient prescribed a controlled substance at d/c from ED?: No Referrals: Janine Chavez DO [Primary Care Provider] - 1-2 days Time of Disposition: 15:14
[2023-03-03] MEDS ORDERED: HYDROcodone/APAP 10-325MG 1 EACH TAB PO ONE (06:49)
--- NOTE | 2023-03-03 07:57 | CT ---
EXAMINATION TYPE: CT abdomen pelvis wo con CT DLP: 3022.2 mGycm, Automated exposure control for dose reduction was used. DATE OF EXAM: 03/03/2023 7:31 AM COMPARISON: None CLINICAL INDICATION:Male, 57 years old with history of LLQ abdominal pain; LLQ pain TECHNIQUE: Axial CT of the abdomen and pelvis. Sagittal and coronal reformats were created on a [employer] workstation. Contrast used: mL of , (none if empty) Oral contrast used: without Oral Contrast (none if empty) FINDINGS: Exam is limited by lack of contrast and artifacts from the patient's large body habitus. LOWER CHEST: Strandy bibasilar opacities likely subsegmental atelectasis, somewhat greater on the lef t and superimposed infiltrate not excluded. Heart size upper limits of normal. Pericardial fat is pro minent. Trace pericardial fluid. A couple of nonenlarged lymph nodes are seen. ABDOMEN LIVER: Diffusely hypoattenuating parenchyma suggesting mild steatosis. GALLBLADDER AND BILE DUCTS: Unremarkable gallbladder. No biliary ductal dilatation. PANCREAS: Fatty infiltrated without acute finding SPLEEN: Spleen is unremarkable. There are some peripancreatic venous collaterals. ADRENAL GLANDS: Unremarkable. KIDNEYS AND URETERS: Small exophytic cysts from the left upper pole. No demonstrable renal calculi. M ild left perinephric stranding. No visible renal/ureteral calculi or significant hydronephrosis. PELVIS BLADDER: Unremarkable REPRODUCTIVE: Unremarkable prostate. ABDOMEN & PELVIS STOMACH AND BOWEL: Small amount of radiodense material within the nondistended stomach. Duodenum is n ondistended. Scattered gas throughout nondistended small bowel, no evidence of obstruction. The appe ndix appears within normal limits. Moderate amount of gas throughout the colon with some scattered fo rmed stool in the proximal aspects, mixed with some radiodensity more distally likely residual contra st from prior administration. There seem to be more liquefied contents in the distal colon. PERITONEUM/RETROPERITONEUM: No evidence of pneumoperitoneum or free fluid. VASCULATURE: Mild atherosclerotic calcifications are present throughout the abdominal aorta and its b ranches. No evidence of aortic aneurysm. LYMPH NODES: No gross evidence for lymphadenopathy. SOFT TISSUE/ABDOMINAL WALL: Visualized portions grossly unremarkable. MUSCULOSKELETAL: No acute osseous abnormalities. Mild/moderate disc degeneration changes are present throughout the thoracolumbar spine. IMPRESSION: 1. Nonspecific left renal findings. Correlate for the possibility of recently passed stone or infect ion. 2. No evidence of bowel obstruction or free air. Normal appendix. Correlate for possible diarrheal illness. 3. Strandy bibasilar pulmonary opacities likely subsegmental atelectasis, somewhat greater on the le ft. Superimposed infiltrate cannot be excluded.
[2023-03-03 12:13] LABS: Appearance,Urine Clear (Clear); Bilirubin,Urine Negative (Negative); Blood,Urine Negative (Negative); Color,Urine Yellow; Glucose,Urine (UA) 1+ (Negative); Ketones,Urine Negative (Negative); Leukocyte Esterase,Urine Negative (Negative); Nitrite,Urine Negative (Negative); Protein,Urine Negative (Negative); Specific Gravity,Urine 1.009 (1.001-1.035); Urobilinogen,Urine <2.0 mg/dL (<2.0)
[2023-03-03 15:59] VITALS: BP 122/62; PULSE 78; RESP 20
== END 2023-03-03 15:57 | disposition home or self-care (01) ==
LOC: EC 05:51
DX: E87.6 Hypokalemia (principal); R10.12 Left upper quadrant pain; J44.9 Chronic obstructive pulmonary disease, unspecified; K21.9 Gastro-esophageal reflux disease without esophagitis; F32.A Depression, unspecified; Z79.899 Other long term (current) drug therapy; Z87.891 Personal history of nicotine dependence; Z91.048 Other nonmedicinal substance allergy status
CPT/HCPCS: 36415; 74176; 80053; 81003; 85025; 85610; 85730; 86850; 86900; 86901; 99284

== ENCOUNTER 2023-07-16 17:37 | Inpatient (IN) | payer MEDICARE, OTHER ==
--- NOTE | 2023-07-16 18:10 | ED ---
Nausea/Vomiting/Diarrhea HPI - General Chief complaint: Nausea/Vomiting/Diarrhea Stated complaint: N/V/D Time Seen by Provider: 07/16/23 17:56 Source: patient, RN notes reviewed, old records reviewed Mode of arrival: EMS Limitations: no limitations - History of Present Illness Initial comments: This is a 58-year-old male who is presenting today for evaluation of persistent nausea vomiting diarrhea weakness not feeling well obesity debility and altered mental status. MD complaint: nausea, vomiting, diarrhea, abdominal pain -: week(s) (3) Description of Vomiting: watery, bilious Description of Diarrhea: water, mucous Associated Abdominal Pain: Yes Location: diffuse Radiation: none Severity: moderate Severity scale (1-10): 7 Quality: cramping, stabbing, aching Consistency: constant Improves with: none Worsens with: none Associated Symptoms: loss of appetite, malaise, weakness - Related Data Home Medications Medication Instructions Recorded Confirmed Budesonide/Formoterol Fumarate 2 puff INHALATION RT-BID 05/16/21 07/16/23 [Symbicort 160-4.5 Mcg Inhaler] Ipratropium-Albuterol Nebulize 3 ml INHALATION RT-Q6H PRN 12/10/22 07/16/23 [Duoneb 0.5 mg-3 mg/3 ml Soln] Magnesium Hydroxide [Milk of 2,400 mg PO Q72H PRN 12/10/22 07/16/23 Magnesia] Tamsulosin [Flomax] 0.4 mg PO DAILY 12/10/22 07/16/23 Acetaminophen Tab [Tylenol] 650 mg PO Q6H PRN 07/16/23 07/16/23 Cholestyramine (with Sugar) 8 gm PO BID 07/16/23 07/16/23 [Questran Packet] Cyanocobalamin (Vitamin B-12) 5,000 mcg PO DAILY 07/16/23 07/16/23 [Vitamin B-12] Finasteride [Proscar] 5 mg PO DAILY 07/16/23 07/16/23 Folic Acid 0.4 mg PO DAILY 07/16/23 07/16/23 Lidocaine 4% Patch 1 patch TRANSDERM DAILY 07/16/23 07/16/23 Loperamide HCl [Imodium A-D] 2 mg PO Q8H PRN 07/16/23 07/16/23 Naloxone HCl [Narcan] 4 mg NASAL DIRECTED PRN 07/16/23 07/16/23 Naloxone [Narcan] 0.4 mg IM DIRECTED PRN 07/16/23 07/16/23 Pantoprazole Sodium [Protonix] 40 mg PO DAILY 07/16/23 07/16/23 Potassium Chloride ER [K-Dur 20] 20 meq PO BID 07/16/23 07/16/23 bisacodyL 10 mg RECTAL HS PRN 07/16/23 07/16/23 ondansetron HCL [Zofran] 8 mg PO Q8H PRN 07/16/23 07/16/23 Previous Rx's Medication Instructions Recorded Dapagliflozin Propanediol [Farxiga] 5 mg PO DAILY tab 12/13/22 Metoprolol Succinate (ER) [Toprol 25 mg PO DAILY tab 12/13/22 XL] Gabapentin 600 mg PO TID #10 tab 07/18/23 Morphine Sulfate ER [Ms Contin] 30 mg PO Q12H #6 tab 07/21/23 Allergies Allergy/AdvReac Type Severity Reaction Status Date / Time Iodinated Contrast Media Allergy Unknown Verified 07/16/23 20:13 Review of Systems ROS Statement: Those systems with pertinent positive or pertinent negative responses have been documented in the HPI. ROS Other: All systems not noted in ROS Statement are negative. Past Medical History Past Medical History: COPD, CVA/TIA, Deep Vein Thrombosis (DVT), GERD/Reflux Additional Past Medical History / Comment(s): Neuropathy History of Any Multi-Drug Resistant Organisms: None Reported Past Surgical History: Unable to Obtain Additional Past Surgical History / Comment(s): Rectal polyp removal Past Anesthesia/Blood Transfusion Reactions: No Reported Reaction Past Psychological History: Depression Smoking Status: Former smoker Past Alcohol Use History: Unable to Obtain Past Drug Use History: Unable to Obtain - Past Family History Mother Family Medical History: Congestive Heart Failure (CHF), COPD, Hypertension Father Family Medical History: Congestive Heart Failure (CHF), Diabetes Mellitus General Exam Limitations: no limitations General appearance: alert, in no apparent distress Head exam: Present: atraumatic, normocephalic, normal inspection Eye exam: Present: normal appearance, PERRL, EOMI. Absent: scleral icterus, conjunctival injection, periorbital swelling ENT exam: Present: normal exam, mucous membranes moist Neck exam: Present: normal inspection. Absent: tenderness, meningismus, lymphadenopathy Respiratory exam: Present: normal lung sounds bilaterally. Absent: respiratory distress, wheezes, rales, rhonchi, stridor Cardiovascular Exam: Present: regular rate, normal rhythm, normal heart sounds. Absent: systolic murmur, diastolic murmur, rubs, gallop, clicks GI/Abdominal exam: Present: soft, normal bowel sounds. Absent: distended, tenderness, guarding, rebound, rigid Extremities exam: Present: normal inspection, full ROM, normal capillary refill. Absent: tenderness, pedal edema, joint swelling, calf tenderness Back exam: Present: normal inspection Neurological exam: Present: alert, oriented X3, CN II-XII intact Psychiatric exam: Present: normal affect, normal mood Skin exam: Present: warm, dry, intact, normal color. Absent: rash Course Vital Signs 07/16/23 07/16/23 07/16/23 17:42 19:40 20:32 Temperature 98.1 F 97.9 F Pulse Rate 99 94 103 H Respiratory 18 18 19 Rate Blood Pressure 94/55 92/57 113/59 O2 Sat by Pulse 98 95 96 Oximetry 07/16/23 07/17/23 07/17/23 22:30 00:30 06:33 Temperature 97.4 F L Pulse Rate 105 H 99 86 Respiratory 12 13 18 Rate Blood Pressure 100/64 110/57 112/64 O2 Sat by Pulse 95 95 96 Oximetry 07/17/23 07/17/23 07/17/23 07:00 08:00 09:00 Temperature Pulse Rate 90 90 88 Respiratory 16 16 16 Rate Blood Pressure 112/60 110/62 112/64 O2 Sat by Pulse Oximetry 07/17/23 07/17/23 07/17/23 10:00 11:00 12:00 Temperature Pulse Rate 93 93 93 Respiratory 15 16 16 Rate Blood Pressure 114/86 110/65 128/74 O2 Sat by Pulse 98 98 98 Oximetry 07/17/23 07/17/23 07/17/23 12:04 12:14 13:00 Temperature Pulse Rate 92 90 96 Respiratory 18 18 16 Rate Blood Pressure 126/78 O2 Sat by Pulse 98 Oximetry 07/17/23 07/17/23 07/17/23 14:00 15:00 16:26 Temperature Pulse Rate 90 87 87 Respiratory 16 16 18 Rate Blood Pressure 132/74 110/64 O2 Sat by Pulse 98 98 Oximetry 07/17/23 07/17/23 07/17/23 16:36 17:49 19:31 Temperature Pulse Rate 80 87 90 Respiratory 18 18 Rate Blood Pressure 126/83 O2 Sat by Pulse 97 Oximetry 07/17/23 07/17/23 07/17/23 19:40 19:58 21:28 Temperature Pulse Rate 92 93 98 Respiratory 18 18 Rate Blood Pressure 113/59 125/64 O2 Sat by Pulse 95 96 Oximetry 07/17/23 21:59 Temperature Pulse Rate Respiratory Rate Blood Pressure O2 Sat by Pulse 96 Oximetry - Reevaluation(s) Reevaluation #1: 07/16/23 19:25 Medical records reviewed Reevaluation #2: 07/16/23 19:26 Patient symptoms unchanged Reevaluation #3: 07/16/23 19:26 Patient informed of results questions answered Reevaluation #4: Was pt. sent in by a medical professional or institution (, PA, TRANSPORT OPERATIONS INSPECTOR, urgent care, hospital, or fci...) When possible be specific @ -no Did you speak to anyone other than the patient for history (EMS, parent, family, police, friend...)? What history was obtained from this source @ -no Did you review nursing and triage notes (agree or disagree)? Why? @ -agree Are old charts reviewed (outside hosp., previous admission, EMS record, old EKG, old radiological studies, urgent care reports/EKG's, fci records)? Report findings @ -yes Differential Diagnosis (chest pain, altered mental status, abdominal pain women, abdominal pain men, vaginal bleeding, weakness, fever, dyspnea, syncope, headache, dizziness, GI bleed, back pain, seizure, CVA, palpatations, mental health, musculoskeletal)? @ -prior EKG interpreted by me (3pts min.). @ -yes X-rays interpreted by me (1pt min.). @ -no CT interpreted by me (1pt min.). @ -no U/S interpreted by me (1pt. min.). @ -no What testing was considered but not performed or refused? (CT, X-rays, U/S, labs)? Why? @ -none What meds were considered but not given or refused? Why? @ -none Did you discuss the management of the patient with other professionals (professionals i.e. , PA, TRANSPORT OPERATIONS INSPECTOR, lab, RT, psych nurse, director social, study specialist, teacher, fire management officer, case making machine operator)? Give summary @ -no Was smoking cessation discussed for >3mins.? @ -no Was critical care preformed (if so, how long)? @ -no Were there social determinants of health that impacted care today? How? (Homelessness, low income, unemployed, alcoholism, drug addiction, transportation, low edu. Level, literacy, decrease access to med. care, halfway, rehab)? @ -none Was there de-escalation of care discussed even if they declined (Discuss DNR or withdrawal of care, Hospice)? DNR status @ -no What co-morbidities impacted this encounter? (DM, HTN, Smoking, COPD, CAD, Cancer, CVA, ARF, Chemo, Hep., AIDS, mental health diagnosis, sleep apnea, mor bid obesity)? @ -none Was patient admitted / discharged? Hospital course, mention meds given and [place], prescriptions, significant lab abnormalities, going to OR and other pertinent info. @ - 58 male with significant debility significant obesity with nausea vomiting diarrhea and will admit for further supportive care Admitted Undiagnosed new problem with uncertain prognosis? @ -no Drug Therapy requiring intensive monitoring for toxicity (Heparin, Nitro, Insulin, Cardizem)? @ -no Were any procedures done? @ -no Diagnosis/symptom? @ -Hyponatremia weakness and debility Acute, or Chronic, or Acute on Chronic? @ -Acute Uncomplicated (without systemic symptoms) or Complicated (systemic symptoms)? @ -Complicated Side effects of treatment? @ -no Exacerbation, Progression, or Severe Exacerbation? @ -exacerbation Poses a threat to life or bodily function? How? (Chest pain, [place], [place], pneumonia, PE, COPD, DKA, ARF, appy, cholecystitis, CVA, Diverticulitis, Homicidal, Suicidal, threat to staff... and all critical care pts) @ -yes debility weakness labs abnormalities Reevaluation #5: Differential Abdominal Pain Men: Appendicitis, cholecystitis, diverticulosis, ischemic bowel, pancreatitis, hepatitis, UTI, gastroenteritis, AAA, incarcerated hernia, bowel obstruction, constipation, inflammatory bowel, hepatitis, peptic ulcer disease, splenic infarction, perforated viscus, testicular torsion, this is not meant to be an all-inclusive list - Consultations Consultation #1: Spoke with [facility] who agrees accept this patient for Medical Decision Making - Medical Decision Making 58 male with significant debility significant obesity with nausea vomiting diarrhea and will admit for further supportive care - Lab Data Result diagrams: 07/18/23 04:27 07/20/23 07:15 Lab Results 07/16/23 07/16/23 07/16/23 Range/Units 18:27 18:27 18:27 WBC 15.4 H (3.8-10.6) k/uL RBC 3.94 L (4.30-5.90) m/uL Hgb 12.4 L (13.0-17.5) gm/dL Hct 38.9 L (39.0-53.0) % MCV 98.8 (80.0-100.0) fL MCH 31.5 (25.0-35.0) pg MCHC 31.9 (31.0-37.0) g/dL RDW 15.9 H (11.5-15.5) % Plt Count 231 (150-450) k/uL MPV 9.8 Neutrophils % 80 % Lymphocytes % 12 % Monocytes % 5 % Eosinophils % 2 % Basophils % 0 % Neutrophils # 12.3 H (1.3-7.7) k/uL Lymphocytes # 1.8 (1.0-4.8) k/uL Monocytes # 0.8 (0-1.0) k/uL Eosinophils # 0.3 (0-0.7) k/uL Basophils # 0.1 (0-0.2) k/uL Macrocytosis Slight PT 10.9 (10.0-12.5) sec INR 1.0 (<1.2) APTT 27.3 (22.0-30.0) sec Sodium 123 L (137-145) mmol/L Potassium 4.1 (3.5-5.1) mmol/L Chloride 88 L (98-107) mmol/L Carbon Dioxide 30 (22-30) mmol/L Anion Gap 5 mmol/L BUN 8 L (9-20) mg/dL Creatinine 0.64 L (0.66-1.25) mg/dL Est GFR (CKD-EPI)AfAm >90 (>60 ml/min/1.73 sqM) Est GFR (CKD-EPI)NonAf >90 (>60 ml/min/1.73 sqM) Glucose 115 H (74-99) mg/dL Plasma Lactic Acid Declan (0.7-2.0) mmol/L Calcium 7.8 L (8.4-10.2) mg/dL Phosphorus 2.3 L (2.5-4.5) mg/dL Magnesium 2.6 H (1.6-2.3) mg/dL Total Bilirubin 0.9 (0.2-1.3) mg/dL AST 38 (17-59) U/L ALT 19 (4-49) U/L Alkaline Phosphatase 128 H (38-126) U/L Troponin I (0.000-0.034) ng/mL NT-Pro-B Natriuret Pep 661 pg/mL Total Protein 6.4 (6.3-8.2) g/dL Albumin 2.9 L (3.5-5.0) g/dL 07/16/23 07/16/23 Range/Units 18:27 18:27 WBC (3.8-10.6) k/uL RBC (4.30-5.90) m/uL Hgb (13.0-17.5) gm/dL Hct (39.0-53.0) % MCV (80.0-100.0) fL MCH (25.0-35.0) pg MCHC (31.0-37.0) g/dL RDW (11.5-15.5) % Plt Count (150-450) k/uL MPV Neutrophils % % Lymphocytes % % Monocytes % % Eosinophils % % Basophils % % Neutrophils # (1.3-7.7) k/uL Lymphocytes # (1.0-4.8) k/uL Monocytes # (0-1.0) k/uL Eosinophils # (0-0.7) k/uL Basophils # (0-0.2) k/uL Macrocytosis PT (10.0-12.5) sec INR (<1.2) APTT (22.0-30.0) sec Sodium (137-145) mmol/L Potassium (3.5-5.1) mmol/L Chloride (98-107) mmol/L Carbon Dioxide (22-30) mmol/L Anion Gap mmol/L BUN (9-20) mg/dL Creatinine (0.66-1.25) mg/dL Est GFR (CKD-EPI)AfAm (>60 ml/min/1.73 sqM) Est GFR (CKD-EPI)NonAf (>60 ml/min/1.73 sqM) Glucose (74-99) mg/dL Plasma Lactic Acid Declan 1.3 (0.7-2.0) mmol/L Calcium (8.4-10.2) mg/dL Phosphorus (2.5-4.5) mg/dL Magnesium (1.6-2.3) mg/dL Total Bilirubin (0.2-1.3) mg/dL AST (17-59) U/L ALT (4-49) U/L Alkaline Phosphatase (38-126) U/L Troponin I <0.012 (0.000-0.034) ng/mL NT-Pro-B Natriuret Pep pg/mL Total Protein (6.3-8.2) g/dL Albumin (3.5-5.0) g/dL - EKG Data -: EKG Interpreted by Me (EKG is sinus 94 MD 153 QRS 118 QTc 423) Disposition Clinical Impression: Dehydration, Abdominal pain, Vomiting and diarrhea, Hyponatremia Disposition: ADMITTED IP TO THIS HOSP Condition: Fair Is patient prescribed a controlled substance at d/c from ED?: No Time of Disposition: 19:25
[2023-07-16 18:32] LABS: Basophils # (A) 0.1 k/uL (0-0.2); Basophils % (A) 0 %; Eosinophils # (A) 0.3 k/uL (0-0.7); Eosinophils % (A) 2 %; HCT 38.9 % (39.0-53.0); HGB 12.4 gm/dL (13.0-17.5); Lymphocytes # (A) 1.8 k/uL (1.0-4.8); Lymphocytes % (A) 12 %; MCH 31.5 pg (25.0-35.0); MCHC 31.9 g/dL (31.0-37.0); MCV 98.8 fL (80.0-100.0); Macrocytosis Slight; Mean Platelet Volume 9.8; Monocytes # (A) 0.8 k/uL (0-1.0); Monocytes % (A) 5 %; Neutrophils # (A) 12.3 k/uL (1.3-7.7); Neutrophils % (A) 80 %; Platelet Count 231 k/uL (150-450); RBC 3.94 m/uL (4.30-5.90); RDW 15.9 % (11.5-15.5); WBC 15.4 k/uL (3.8-10.6)
[2023-07-16 18:46] LABS: Partial Thromboplastin Time 27.3 sec (22.0-30.0); Prothrombin Time 10.9 sec (10.0-12.5)
[2023-07-16 18:47] LABS: ALT 19 U/L (4-49); AST 38 U/L (17-59); African American GFR (CKD) >90 (>60 ml/min/1.73 sqM); Albumin 2.9 g/dL (3.5-5.0); Alkaline Phosphatase 128 U/L (38-126); Anion Gap 5 mmol/L; Blood Urea Nitrogen 8 mg/dL (9-20); Calcium 7.8 mg/dL (8.4-10.2); Carbon Dioxide 30 mmol/L (22-30); Chloride 88 mmol/L (98-107); Glucose 115 mg/dL (74-99); Magnesium 2.6 mg/dL (1.6-2.3); Non-African American GFR(CKD) >90 (>60 ml/min/1.73 sqM); Phosphorus 2.3 mg/dL (2.5-4.5); Potassium 4.1 mmol/L (3.5-5.1); Sodium 123 mmol/L (137-145); Total Bilirubin 0.9 mg/dL (0.2-1.3); Total Protein 6.4 g/dL (6.3-8.2)
[2023-07-16] MEDS: ONDANSETRON 4 MG/2 ML VIAL IVP STA (18:51)
[2023-07-16 18:54] LABS: NT-Pro-B-Type Natriuretic Pept 661 pg/mL
[2023-07-16] MEDS: SODIUM CHLORIDE 0.9% 1,000 ML IV STA (18:54)
[2023-07-16] MEDS ORDERED: NALOXONE 0.4 MG/ML 1 ML VIAL IV PRN (19:19)
[2023-07-16] MEDS: SODIUM CHLORIDE 0.9% 1,000 ML IV SCH (21:54)
[2023-07-17 07:06] LABS: Appearance,Urine Clear (Clear); Bilirubin,Urine Negative (Negative); Blood,Urine Negative (Negative); Color,Urine Colorless; Glucose,Urine (UA) Negative (Negative); Ketones,Urine Negative (Negative); Leukocyte Esterase,Urine Negative (Negative); Nitrite,Urine Negative (Negative); PH, Urine 6.5 (5.0-8.0); Protein,Urine Negative (Negative); Specific Gravity,Urine 1.002 (1.001-1.035); Urobilinogen,Urine <2.0 mg/dL (<2.0)
[2023-07-17] MEDS: PANTOPRAZOLE 40 MG/10 ML VIAL IV SCH (08:39)
[2023-07-17 08:49] LABS: ALT 16 U/L (10-49); AST 28 U/L (14-35); Albumin 2.8 g/dL (3.8-4.9); Alkaline Phosphatase 100 U/L (41-126); BUN/Creat Ratio 9.71 Ratio (12.00-20.00); Blood Urea Nitrogen 6.8 mg/dL (9.0-27.0); Calcium 7.7 mg/dL (8.7-10.3); Carbon Dioxide 28.9 mmol/L (21.6-31.8); Chloride 92 mmol/L (96-109); Globulin 2.8 g/dL (1.6-3.3); Glucose 105 mg/dL (70-110); Magnesium 2.6 mg/dL (1.5-2.4); Potassium 3.8 mmol/L (3.5-5.5); Sodium 130 mmol/L (135-145); Total Bilirubin 0.7 mg/dL (0.3-1.2); Total Protein 5.6 g/dL (6.2-8.2)
[2023-07-17 09:32] LABS: Basophils # (A) 0.07 X 10*3/uL (0.00-0.10); Basophils % (A) 0.5 %; Eosinophils # (A) 0.25 X 10*3/uL (0.04-0.35); Eosinophils % (A) 1.8 %; HGB 11.7 g/dL (13.0-17.0); Lymphocytes # (A) 2.37 X 10*3/uL (0.90-5.00); Lymphocytes % (A) 17.4 %; MCH 31.5 pg (27.0-32.0); MCHC 31.6 g/dL (32.0-37.0); MCV 99.7 FL (80.0-97.0); Mean Platelet Volume 12.7 FL (9.5-12.2); Monocytes % (A) 8.1 %; NRBC Per 100 WBC 0 X 10*3/uL (0.00-0.01); Neutrophils # (A) 9.74 X 10*3/uL (1.80-7.70); Neutrophils % (A) 71.6 %; Platelet Count 179 X 10*3/uL (140-440); RBC 3.71 X 10*6/uL (4.40-5.60); RDW 16.4 % (11.5-14.5); WBC 13.61 X 10*3/uL (4.50-10.00)
[2023-07-17] MEDS: MORPHINE SULFATE 4 MG/ML SYRINGE IV PRN (10:35)
[2023-07-17] MEDS: IPRATROPIUM-ALBUTEROL 3 ML NEB INHALATION STA (12:04)
[2023-07-17] MEDS ORDERED: NON FORMULARY DRUG (Naloxone Hcl [Narcan] 4 MG Each) NASAL PRN (12:35)
[2023-07-17] MEDS ORDERED: MAGNESIUM HYDROXIDE 2,400 MG/30 ML CUP PO PRN (12:35)
[2023-07-17] MEDS ORDERED: ONDANSETRON 4 MG TAB PO PRN (12:35)
[2023-07-17] MEDS ORDERED: ACETAMINOPHEN TAB 325 MG TAB PO PRN (12:35)
--- NOTE | 2023-07-17 12:41 | P.HPIM ---
History of Present Illness This is a pleasant 58 years old male with past medical history of multiple medical problems including COPD on home oxygen, he is bedridden, last time he was able to walk was last year. He is morbidly obese Patient presents because of worsening nausea vomiting over 3 weeks Patient states that he has a chronic diarrhea about 8 months about 2-3 times per day Over the last 3 weeks he has been dealing with more nausea and vomiting, and with poor appetite, he takes few bites and then he developed nausea and difficult to control with. Therefore he decided to come to the emergency room today. He denies significant abdominal pain but on exam he has mild RUQ tenderness. Patient is fully awake and oriented with no chest pain or dyspnea or coughing. Patient is on chronic oxygen therapy for his COPD He denies smoking alcohol or illicit drugs He notices his urine little bit less but no dysuria He is hemodynamically stable and afebrile He has mild leukocytosis 15,013.6 Hemoglobin 12.4 and 11.7 and sodium 123 went up to 130 His liver enzymes were unremarkable proBNP is 661 Analysis is negative for infection. C. difficile is negative EKG showing sinus rhythm with no significant ST-T changes, Review of Systems Review of systems CONSTITUTIONAL: No fever, no malaise, no fatigue. HEENT: No recent visual problems or hearing problems. Denied any sore throat. CARDIOVASCULAR: No orthopnea, PND, no palpitations, no syncope. PULMONARY: No shortness of breath, no cough, no hemoptysis. -GASTROINTESTINAL: as above NEUROLOGICAL: No headaches, no weakness, no numbness. HEMATOLOGICAL: Denies any bleeding or petechiae. GENITOURINARY: Denies any burning micturition, frequency, or urgency. MUSCULOSKELETAL/RHEUMATOLOGICAL: Denies any joint pain, swelling, or any muscle pain. ENDOCRINE: Denies any polyuria or polydipsia. Past Medical History Past Medical History: COPD, CVA/TIA, Deep Vein Thrombosis (DVT), GERD/Reflux Additional Past Medical History / Comment(s): Neuropathy History of Any Multi-Drug Resistant Organisms: None Reported Past Surgical History: Unable to Obtain Additional Past Surgical History / Comment(s): Rectal polyp removal Past Anesthesia/Blood Transfusion Reactions: No Reported Reaction Past Psychological History: Depression Smoking Status: Former smoker Past Alcohol Use History: Unable to Obtain Past Drug Use History: Unable to Obtain - Past Family History Mother Family Medical History: Congestive Heart Failure (CHF), COPD, Hypertension Father Family Medical History: Congestive Heart Failure (CHF), Diabetes Mellitus Medications and Allergies Home Medications Medication Instructions Recorded Confirmed Type Budesonide/Formoterol Fumarate 2 puff INHALATION RT-BID 05/16/21 07/16/23 History [Symbicort 160-4.5 Mcg Inhaler] Ipratropium-Albuterol Nebulize 3 ml INHALATION RT-Q6H PRN 12/10/22 07/16/23 History [Duoneb 0.5 mg-3 mg/3 ml Soln] Magnesium Hydroxide [Milk of 2,400 mg PO Q72H PRN 12/10/22 07/16/23 History Magnesia] Tamsulosin [Flomax] 0.4 mg PO DAILY 12/10/22 07/16/23 History Dapagliflozin Propanediol [Farxiga] 5 mg PO DAILY tab 12/13/22 07/16/23 Rx Metoprolol Succinate (ER) [Toprol 25 mg PO DAILY tab 12/13/22 07/16/23 Rx XL] Morphine Sulfate ER [Ms Contin] 30 mg PO Q12H #6 tab 12/13/22 07/16/23 Rx Acetaminophen Tab [Tylenol] 650 mg PO Q6H PRN 07/16/23 07/16/23 History Cholestyramine (with Sugar) 8 gm PO BID 07/16/23 07/16/23 History [Questran] Cyanocobalamin (Vitamin B-12) 5,000 mcg PO DAILY 07/16/23 07/16/23 History [Vitamin B-12] Finasteride [Proscar] 5 mg PO DAILY 07/16/23 07/16/23 History Folic Acid 0.4 mg PO DAILY 07/16/23 07/16/23 History Gabapentin 600 mg PO TID 07/16/23 07/16/23 History Lidocaine 4% Patch 1 patch TRANSDERM DAILY 07/16/23 07/16/23 History Loperamide HCl [Imodium A-D] 2 mg PO Q8H PRN 07/16/23 07/16/23 History Naloxone HCl [Narcan] 4 mg NASAL DIRECTED PRN 07/16/23 07/16/23 History Naloxone [Narcan] 0.4 mg IM DIRECTED PRN 07/16/23 07/16/23 History Pantoprazole Sodium [Protonix] 40 mg PO DAILY 07/16/23 07/16/23 History Potassium Chloride ER [K-Dur 20] 20 meq PO BID 07/16/23 07/16/23 History Sacubitril/Valsartan [Entresto 24 1 tab PO BID 07/16/23 07/16/23 History mg-26 mg Tablet] bisacodyL 10 mg RECTAL HS PRN 07/16/23 07/16/23 History ondansetron HCL [Zofran] 8 mg PO Q8H PRN 07/16/23 07/16/23 History traMADol HCL 50 mg PO Q6H PRN 07/16/23 07/16/23 History Allergies Allergy/AdvReac Type Severity Reaction Status Date / Time Iodinated Contrast Media Allergy Unknown Verified 07/16/23 20:13 Physical Exam Vitals: Vital Signs Temp Pulse Resp BP Pulse Ox 07/17/23 12:14 90 18 07/17/23 12:04 92 18 07/17/23 09:00 88 16 112/64 07/17/23 08:00 90 16 110/62 07/17/23 07:00 90 16 112/60 07/17/23 06:33 97.4 F L 86 18 112/64 96 07/17/23 00:30 99 13 110/57 95 07/16/23 22:30 105 H 12 100/64 95 07/16/23 20:32 103 H 19 113/59 96 07/16/23 19:40 97.9 F 94 18 92/57 95 07/16/23 17:42 98.1 F 99 18 94/55 98 Intake and Output 07/16/23 07/17/23 07/17/23 22:59 06:59 14:59 Other: Weight 190.509 kg -GENERAL: The patient is alert and oriented x3, not in any acute distress. Obese HEENT: Pupils are round and equally reacting to light. EOMI. No scleral icterus. No conjunctival pallor. Normocephalic, atraumatic. No pharyngeal erythema. No thyromegaly. CARDIOVASCULAR: S1 and S2 present. No murmurs, rubs, or gallops. PULMONARY: Chest is clear to auscultation, no wheezing , no crackles. -ABDOMEN: Soft, mild RUQ tenderness with no guarding or rebound tenderness, nondistended, normoactive bowel sounds. No palpable organomegaly. MUSCULOSKELETAL: No joint swelling or deformity. EXTREMITIES: No cyanosis, clubbing, or pedal edema. -NEUROLOGICAL: Gross neurological examination did not reveal any focal deficits. Bedridden SKIN: No rashes. no petechiae. Results CBC & Chem 7: 07/17/23 03:37 07/17/23 03:37 Labs: Abnormal Lab Results - Last 24 Hours (Table) 07/16/23 07/16/23 07/17/23 Range/Units 18:27 18:27 03:37 WBC 15.4 H 13.61 H (3.8-10.6) k/uL RBC 3.94 L 3.71 L (4.30-5.90) m/uL Hgb 12.4 L 11.7 L (13.0-17.5) gm/dL Hct 38.9 L 37.0 L (39.0-53.0) % MCV 99.7 H (80.0-97.0) FL MCHC 31.6 L (32.0-37.0) g/dL RDW 15.9 H 16.4 H (11.5-15.5) % MPV 12.7 H (9.5-12.2) FL Immature Gran # 0.08 H (0.00-0.04) X 10*3/uL Neutrophils # 12.3 H 9.74 H (1.3-7.7) k/uL Monocytes # 1.10 H (0.20-1.00) X 10*3/uL Sodium 123 L (137-145) mmol/L Chloride 88 L (98-107) mmol/L BUN 8 L (9-20) mg/dL Creatinine 0.64 L (0.66-1.25) mg/dL BUN/Creatinine Ratio (12.00-20.00) Ratio Glucose 115 H (74-99) mg/dL Calcium 7.8 L (8.4-10.2) mg/dL Phosphorus 2.3 L (2.5-4.5) mg/dL Magnesium 2.6 H (1.6-2.3) mg/dL Alkaline Phosphatase 128 H (38-126) U/L Total Protein (6.2-8.2) g/dL Albumin 2.9 L (3.5-5.0) g/dL Albumin/Globulin Ratio (1.60-3.17) Ratio // Range/Units 03:37 WBC (3.8-10.6) k/uL RBC (4.30-5.90) m/uL Hgb (13.0-17.5) gm/dL Hct (39.0-53.0) % MCV (80.0-97.0) FL MCHC (32.0-37.0) g/dL RDW (11.5-15.5) % MPV (9.5-12.2) FL Immature Gran # (0.00-0.04) X 10*3/uL Neutrophils # (1.3-7.7) k/uL Monocytes # (0.20-1.00) X 10*3/uL Sodium 130 L (137-145) mmol/L Chloride 92 L (98-107) mmol/L BUN 6.8 L (9-20) mg/dL Creatinine (0.66-1.25) mg/dL BUN/Creatinine Ratio 9.71 L (12.00-20.00) Ratio Glucose (74-99) mg/dL Calcium 7.7 L (8.4-10.2) mg/dL Phosphorus 2.0 L (2.5-4.5) mg/dL Magnesium 2.6 H (1.6-2.3) mg/dL Alkaline Phosphatase (38-126) U/L Total Protein 5.6 L (6.2-8.2) g/dL Albumin 2.8 L (3.5-5.0) g/dL Albumin/Globulin Ratio 1.00 L (1.60-3.17) Ratio Assessment and Plan Assessment: Nausea vomiting and diarrhea suspicious for acute gastroenteritis. C. difficile is negative Hypovolemic hyponatremia improvement Mild leukocytosis Right upper quadrant tenderness, mild. Rule out gallstone disease Morbid obesity Obstructive sleep apnea Chronic hypercapnic respiratory failure, related to obstructive sleep apnea and chronic COPD Obstructive sleep apnea and patient states he does not have a CPAP machine at home. History of diabetes mellitus type 2 Hypertension history of DVT History of peripheral neuropathy, maintained on Neurontin History of chronic pain maintained on MS Contin Plan: Continue with normal saline Patient on cholestyramine and Imodium Zofran as needed GI consult Check ultrasound of the liver Monitor electrolytes vitals GI prophylaxis Protonix DVT prophylaxis: Lovenox Prognosis is guarded
[2023-07-17] MEDS: GABAPENTIN 300 MG CAP PO SCH (15:17)
[2023-07-17] MEDS: IPRATROPIUM-ALBUTEROL 3 ML NEB INHALATION SCH (16:26)
[2023-07-17] MEDS: traMADol 50 MG TAB PO PRN (17:20)
[2023-07-17] MEDS: LOPERAMIDE 2 MG CAP PO PRN (17:21)
[2023-07-17] MEDS: SYMBICORT 160-4.5 MCG INHALER INHALATION SCH (19:30)
[2023-07-17] MEDS: POTASSIUM CHLORIDE ER 20 MEQ TAB.ER PO SCH (21:27)
[2023-07-17] MEDS: SACUBITRIL/VALSARTAN 24 MG-26 MG TABLET PO SCH (23:18)
[2023-07-17] MEDS: CHOLESTYRAMINE (WITH SUGAR) 4 GM PACKET PO SCH (23:18)
--- NOTE | 2023-07-18 08:17 | US ---
EXAMINATION TYPE: US liver DATE OF EXAM: 07/18/2023 COMPARISON: NONE CLINICAL INDICATION: Male, 58 years old with history of n/v, mild RUQ tenderness; RUQ tenderness. TECHNIQUE: Multiple sonographic images of the right upper quadrant are obtained. FINDINGS: EXAM MEASUREMENTS: Liver Length: unable to measure Gallbladder Wall: obscured CBD: obscured Right Kidney: obscured CASHIER OFFICE NOTES: *Exam is mostly nondiagnostic, limitations due to large patient body habitus and g as. Pancreas: Obscured Liver: Minimal right lobe of the liver tissue seen. Gallbladder: Obscured Evidence for sonographic Delgado's sign: No CBD: Obscured Right Kidney: Unable to visualize IMPRESSION: Extremely limited exam. Consider other modalities for evaluation.
[2023-07-18 08:48] LABS: Basophils # (A) 0.07 X 10*3/uL (0.00-0.10); Basophils % (A) 0.7 %; Eosinophils # (A) 0.27 X 10*3/uL (0.04-0.35); Eosinophils % (A) 2.6 %; HCT 34.6 % (39.6-50.0); Lymphocytes # (A) 2.62 X 10*3/uL (0.90-5.00); Lymphocytes % (A) 25.6 %; MCH 31.8 pg (27.0-32.0); MCHC 31.8 g/dL (32.0-37.0); Monocytes # (A) 0.98 X 10*3/uL (0.20-1.00); Monocytes % (A) 9.6 %; NRBC Per 100 WBC 0 X 10*3/uL (0.00-0.01); Neutrophils % (A) 60.6 %; Platelet Count 187 X 10*3/uL (140-440); RBC 3.46 X 10*6/uL (4.40-5.60); RDW 16.8 % (11.5-14.5); WBC 10.23 X 10*3/uL (4.50-10.00)
[2023-07-18] MEDS: DAPAGLIFLOZIN PROPANEDIOL 5 MG TABLET PO SCH (08:57)
[2023-07-18] MEDS: METOPROLOL SUCCINATE (ER) 25 MG TAB.ER.24H PO SCH (08:58)
[2023-07-18] MEDS: LIDOCAINE 4% PATCH TOPICAL SCH (08:58)
[2023-07-18 08:59] LABS: BUN/Creat Ratio 10.14 Ratio (12.00-20.00); Blood Urea Nitrogen 7.1 mg/dL (9.0-27.0); Calcium 7.5 mg/dL (8.7-10.3); Carbon Dioxide 27.7 mmol/L (21.6-31.8); Chloride 93 mmol/L (96-109); Glucose 93 mg/dL (70-110); Potassium 3.4 mmol/L (3.5-5.5); Sodium 131 mmol/L (135-145)
[2023-07-18] MEDS: CYANOCOBALAMIN 500 MCG TAB PO SCH (09:00)
[2023-07-18] MEDS: FINASTERIDE 5 MG TAB PO SCH (09:00)
[2023-07-18] MEDS ORDERED: NON FORMULARY DRUG (Pantoprazole Sodium [Protonix] 20 MG Tablet) PO SCH (09:00)
[2023-07-18] MEDS: ENOXAPARIN 40 MG/0.4 ML SYRINGE SQ SCH (09:00)
[2023-07-18] MEDS: FOLIC ACID 1 MG TAB PO SCH (09:01)
[2023-07-18] MEDS: TAMSULOSIN 0.4 MG CAP.ER.24H PO SCH (09:01)
[2023-07-18] MEDS: LORazepam 1 MG/0.5 ML VIAL IV PRN (10:35)
--- NOTE | 2023-07-18 11:59 | NM ---
EXAMINATION TYPE: NM hepatobiliary wo EF DATE OF EXAM: 07/18/2023 COMPARISON: NONE CLINICAL INDICATION: Male, 58 years old with history of ruq pain and vomiting; TECHNIQUE: After the intravenous administration of 5.3 mCi Tc 99m Mebrofenin hepatobiliary scintigrap hy is performed. Immediate images post injection. Patient refused additional imaging beyond 20 minut es. FINDINGS: Nonvisualization of the gallbladder up to 20 minutes. Examination is considered nondiagnostic. IMPRESSION: Nondiagnostic evaluation.
[2023-07-18 13:37] VITALS: BMI 56.9
[2023-07-18] MEDS: CHOLESTYRAMINE (WITH SUGAR) 4 GM PACKET PO ONE (14:45)
--- NOTE | 2023-07-18 14:54 | P.DS ---
Providers Date of admission: 07/16/23 19:24 Attending physician: Delmer Lu Consults: 07/17/23 12:30 Consult Physician Urgent Consulting Provider: Talita Roper Consult Reason/Comments: NVD Do you want consulting provider notified?: Yes Primary care physician: Janine Chavez DO Hospital Course: Diagnoses Nausea vomiting and diarrhea suspicious for acute on chronic gastroenteritis. C. difficile is negative, improved and patient able to tolerate diet Hypovolemic hyponatremia improved Mild leukocytosis, improved Right upper quadrant tenderness, mild. Chronic x 6 months ago. Ultrasound of liver was nondiagnostic because of his body habitus. Patient could not tolerate HIDA scan. Patient can follow-up outpatient Chronic diarrhea for 8 to 9 months, follow-up outpatient. Follow-up with GI service as an outpatient. C. difficile negative and Questran is added Morbid obesity Obstructive sleep apnea Chronic hypercapnic respiratory failure, related to obstructive sleep apnea and chronic COPD Obstructive sleep apnea and patient states he does not have a CPAP machine at home. History of diabetes mellitus type 2 Hypertension history of DVT History of peripheral neuropathy, maintained on Neurontin History of chronic pain maintained on MS Contin Hospital course: This is a pleasant 58 years old male with past medical history of multiple medical problems including COPD on home oxygen, he is bedridden, last time he was able to walk was last year. He is morbidly obese Patient presents because of worsening nausea vomiting over 3 weeks, 1-changed to) discharge I did not see him chest Patient states that he has a chronic diarrhea about 8-9 months about 2-3 times per day. Also patient has been complaining from upper abdominal pain mainly in the right upper abdomen radiating to the middle, mild with mild deep tenderness, no guarding or rebound tenderness. Ultrasound of the liver/gallbladder was nondiagnostic because of body habitus. Patient could not tolerate HIDA scan. Rest of test can be deferred as an outpatient patient could tolerate his oral diet and lunch with no problem, no vomiting. Patient denies any other complaint. No chest pain or dyspnea Plan of care was discussed with the patient and he is agreeable to go to rehab today Patient states that he has some difficulty with transportation, he was instructed to contact his medical insurance provider or social science instructor as an outpatient and he is agreeable. I discussed the case with GI team they cleared him for discharge with recommendation for outpatient follow-up Problems and management plan were discussed with the patient and he verbalized understanding and acceptance Patient was found stable and can be discharged to his [facility] to finish rehab in guarded prognosis however he needs follow-up as an outpatient. Patient was instructed to follow up with PCP within one week and patient agrees Patient also was instructed with GI service Dr. Mcgee within 1 to 2 weeks after discharge. Patient can also be referred to general surgery team for his GI symptoms with Dr. Freeman in 1 to 2 weeks and he a grees For symptom control patient can be put on antiemetic. Imodium did not work for him before therefore we added cholestyramine (Questran)_4 mg twice daily. This can be increased to 8 mg twice daily if tolerated by the patient Continue with home dose of Protonix upon discharge Also we recommend holding Kadenunjaro as an outpatient which may be contributing to his GI symptoms. He can continue with insulin sliding scale or increase his Tresiba Lantus accordingly Physical exam -Gen: patient is a AAOx3, no distress. Morbidly obese. Bedridden CVS: S1-S2, RRR, no murmur Lungs: B/L CTA, no wheezing Abdomen: soft, no distention, no tenderness, positive bowel sounds Extremity: no leg edema or induration Time spent more than 35 minutes Patient Condition at Discharge: Fair Plan - Discharge Summary Discharge Rx Participant: No New Discharge Prescriptions: No Action Budesonide/Formoterol Fumarate [Symbicort 160-4.5 Mcg Inhaler] 2 puff INHALATION RT-BID Magnesium Hydroxide [Milk of Magnesia] 2,400 mg PO Q72H PRN PRN Reason: Constipation Sacubitril/Valsartan [Entresto 24 mg-26 mg Tablet] 1 tab PO BID Pantoprazole Sodium [Protonix] 40 mg PO DAILY Lidocaine 4% Patch 1 patch TRANSDERM DAILY Cholestyramine (with Sugar) [Questran] 8 gm PO BID Naloxone HCl [Narcan] 4 mg NASAL DIRECTED PRN PRN Reason: Opioid Reversal Loperamide HCl [Imodium A-D] 2 mg PO Q8H PRN PRN Reason: Diarrhea Gabapentin 600 mg PO TID traMADol HCL 50 mg PO Q6H PRN PRN Reason: Moderate To Severe Pain (4-10) Ipratropium-Albuterol Nebulize [Duoneb 0.5 mg-3 mg/3 ml Soln] 3 ml INHALATION RT-Q6H PRN PRN Reason: Shortness Of Breath Or Wheezing Tamsulosin [Flomax] 0.4 mg PO DAILY Dapagliflozin Propanediol [Farxiga] 5 mg PO DAILY tab Metoprolol Succinate (ER) [Toprol XL] 25 mg PO DAILY tab Morphine Sulfate ER [Ms Contin] 30 mg PO Q12H #6 tab Potassium Chloride ER [K-Dur 20] 20 meq PO BID ondansetron HCL [Zofran] 8 mg PO Q8H PRN PRN Reason: Nausea And Vomiting Naloxone [Narcan] 0.4 mg IM DIRECTED PRN PRN Reason: Opioid Reversal Folic Acid 0.4 mg PO DAILY Finasteride [Proscar] 5 mg PO DAILY Cyanocobalamin (Vitamin B-12) [Vitamin B-12] 5,000 mcg PO DAILY Acetaminophen Tab [Tylenol] 650 mg PO Q6H PRN PRN Reason: Fever And/ Or Pain bisacodyL 10 mg RECTAL HS PRN PRN Reason: Constipation Discharge Medication List Budesonide/Formoterol Fumarate [Symbicort 160-4.5 Mcg Inhaler] 2 puff INHALATION RT-BID 05/16/21 [History] Ipratropium-Albuterol Nebulize [Duoneb 0.5 mg-3 mg/3 ml Soln] 3 ml INHALATION RT-Q6H PRN 12/10/22 [History] Magnesium Hydroxide [Milk of Magnesia] 2,400 mg PO Q72H PRN 12/10/22 [History] Tamsulosin [Flomax] 0.4 mg PO DAILY 12/10/22 [History] Dapagliflozin Propanediol [Farxiga] 5 mg PO DAILY tab 12/13/22 [Rx] Metoprolol Succinate (ER) [Toprol XL] 25 mg PO DAILY tab 12/13/22 [Rx] Morphine Sulfate ER [Ms Contin] 30 mg PO Q12H #6 tab 12/13/22 [Rx] Acetaminophen Tab [Tylenol] 650 mg PO Q6H PRN 07/16/23 [History] Cholestyramine (with Sugar) [Questran] 8 gm PO BID 07/16/23 [History] Cyanocobalamin (Vitamin B-12) [Vitamin B-12] 5,000 mcg PO DAILY 07/16/23 [History] Finasteride [Proscar] 5 mg PO DAILY 07/16/23 [History] Folic Acid 0.4 mg PO DAILY 07/16/23 [History] Gabapentin 600 mg PO TID 07/16/23 [History] Lidocaine 4% Patch 1 patch TRANSDERM DAILY 07/16/23 [History] Loperamide HCl [Imodium A-D] 2 mg PO Q8H PRN 07/16/23 [History] Naloxone HCl [Narcan] 4 mg NASAL DIRECTED PRN 07/16/23 [History] Naloxone [Narcan] 0.4 mg IM DIRECTED PRN 07/16/23 [History] Pantoprazole Sodium [Protonix] 40 mg PO DAILY 07/16/23 [History] Potassium Chloride ER [K-Dur 20] 20 meq PO BID 07/16/23 [History] Sacubitril/Valsartan [Entresto 24 mg-26 mg Tablet] 1 tab PO BID 07/16/23 [History] bisacodyL 10 mg RECTAL HS PRN 07/16/23 [History] ondansetron HCL [Zofran] 8 mg PO Q8H PRN 07/16/23 [History] traMADol HCL 50 mg PO Q6H PRN 07/16/23 [History] Follow up Appointment(s)/Referral(s): Janine Chavez DO [Primary Care Provider] - 1-2 days Abida Montoya [NON-STAFF] - As Needed
--- NOTE | 2023-07-18 14:55 | P.CONS ---
History of Present Illness - Reason for Consult Consult date: 07/18/23 Nausea vomiting and diarrhea Requesting physician: Hernandez E Sheet - Chief Complaint Chronic diarrhea - History of Present Illness This is a pleasant 58-year-old male who is morbidly obese with a history of COPD with use of BiPAP, CVA/TIA, DVT GERD and neuropathy who presented to the emergency department with complaints of ongoing diarrhea for the last 8 to 9 months. States he has also been having some nausea associated with that. States bowel movements are loose he has 3-5 a day they are nonbloody. States he had been seen at [facility] for similar complaints and had some stool studies but no endoscopic evaluation. States he is at [facility] and he was sup posed to follow-up for outpatient colonoscopy however never had scheduled it. He is not been referred to any GI specialist according to patient. He had a stool C. difficile that was negative. Had some mild leukocytosis on admission which has improved, patient was hyponatremic but given some IV fluids with sodium level of 123 now up to 131. Patient states he only had 1 loose stool today. LFTs are all normal. Denies any abdominal pain or vomiting at this time, does have some nausea. He was able to eat some lunch and held everything down. Review of Systems REVIEW OF SYSTEMS: CARDIOPULMONARY: No chest pain,, patient has chronic shortness of breath. Gastrointestinal: No abdominal pain. Nausea but no vomiting. No hematemesis, coffee-ground emesis. Chronic diarrhea. No rectal bleeding, or melena. GENITOURINARY: No dysuria or hematuria. MUSCULOSKELETAL: Reports normal range of motion. SKIN: No rashes. No jaundice. ENDOCRINE: No chills, fevers. No excessive weight gain or loss. No polydipsia or polyuria. PSYCHIATRIC: Unremarkable. NEUROLOGY: No change in mental status. Denies dizziness, headache. ENT: Vision unremarkable. CONSTITUTIONAL: No recent weight loss. No fever, chills, night sweats. Past Medical History Past Medical History: COPD, CVA/TIA, Deep Vein Thrombosis (DVT), GERD/Reflux Additional Past Medical History / Comment(s): Neuropathy History of Any Multi-Drug Resistant Organisms: None Reported Past Surgical History: Unable to Obtain Additional Past Surgical History / Comment(s): Rectal polyp removal Past Anesthesia/Blood Transfusion Reactions: No Reported Reaction Past Psychological History: Depression Smoking Status: Former smoker Past Alcohol Use History: Unable to Obtain Additional Past Alcohol Use History / Comment(s): Pt. chews tobacco Past Drug Use History: Unable to Obtain Additional Drug Use History / Comment(s): pt used to smoke marijuana for pain, says he doesnt much anymore - Past Family History Mother Family Medical History: Congestive Heart Failure (CHF), COPD, Hypertension Father Family Medical History: Congestive Heart Failure (CHF), Diabetes Mellitus Medications and Allergies Home Medications Medication Instructions Recorded Confirmed Type Budesonide/Formoterol Fumarate 2 puff INHALATION RT-BID 05/16/21 07/16/23 History [Symbicort 160-4.5 Mcg Inhaler] Ipratropium-Albuterol Nebulize 3 ml INHALATION RT-Q6H PRN 12/10/22 07/16/23 History [Duoneb 0.5 mg-3 mg/3 ml Soln] Magnesium Hydroxide [Milk of 2,400 mg PO Q72H PRN 12/10/22 07/16/23 History Magnesia] Tamsulosin [Flomax] 0.4 mg PO DAILY 12/10/22 07/16/23 History Dapagliflozin Propanediol [Farxiga] 5 mg PO DAILY tab 12/13/22 07/16/23 Rx Metoprolol Succinate (ER) [Toprol 25 mg PO DAILY tab 12/13/22 07/16/23 Rx XL] Morphine Sulfate ER [Ms Contin] 30 mg PO Q12H #6 tab 12/13/22 07/16/23 Rx Acetaminophen Tab [Tylenol] 650 mg PO Q6H PRN 07/16/23 07/16/23 History Cholestyramine (with Sugar) 8 gm PO BID 07/16/23 07/16/23 History [Questran] Cyanocobalamin (Vitamin B-12) 5,000 mcg PO DAILY 07/16/23 07/16/23 History [Vitamin B-12] Finasteride [Proscar] 5 mg PO DAILY 07/16/23 07/16/23 History Folic Acid 0.4 mg PO DAILY 07/16/23 07/16/23 History Gabapentin 600 mg PO TID 07/16/23 07/16/23 History Lidocaine 4% Patch 1 patch TRANSDERM DAILY 07/16/23 07/16/23 History Loperamide HCl [Imodium A-D] 2 mg PO Q8H PRN 07/16/23 07/16/23 History Naloxone HCl [Narcan] 4 mg NASAL DIRECTED PRN 07/16/23 07/16/23 History Naloxone [Narcan] 0.4 mg IM DIRECTED PRN 07/16/23 07/16/23 History Pantoprazole Sodium [Protonix] 40 mg PO DAILY 07/16/23 07/16/23 History Potassium Chloride ER [K-Dur 20] 20 meq PO BID 07/16/23 07/16/23 History Sacubitril/Valsartan [Entresto 24 1 tab PO BID 07/16/23 07/16/23 History mg-26 mg Tablet] bisacodyL 10 mg RECTAL HS PRN 07/16/23 07/16/23 History ondansetron HCL [Zofran] 8 mg PO Q8H PRN 07/16/23 07/16/23 History traMADol HCL 50 mg PO Q6H PRN 07/16/23 07/16/23 History Allergies Allergy/AdvReac Type Severity Reaction Status Date / Time Iodinated Contrast Media Allergy Unknown Verified 07/16/23 20:13 Physical Exam Vitals: Vital Signs Temp Pulse Pulse Pulse Resp BP BP 07/18/23 08:18 88 07/18/23 08:17 07/18/23 08:05 87 07/18/23 07:32 98.3 F 92 18 93/58 07/18/23 01:03 98.3 F 93 16 102/58 07/18/23 00:42 92 101/51 07/17/23 22:30 98.2 F 95 20 93/57 07/17/23 21:59 07/17/23 21:28 98 18 125/64 07/17/23 19:58 93 18 113/59 07/17/23 19:40 92 07/17/23 19:31 90 07/17/23 17:49 87 18 126/83 07/17/23 16:36 80 18 07/17/23 16:26 87 18 07/17/23 15:00 87 16 110/64 Pulse Ox 07/18/23 08:18 07/18/23 08:17 95 07/18/23 08:05 07/18/23 07:32 94 L 07/18/23 01:03 96 07/18/23 00:42 07/17/23 22:30 95 07/17/23 21:59 96 07/17/23 21:28 96 07/17/23 19:58 95 07/17/23 19:40 07/17/23 19:31 07/17/23 17:49 97 07/17/23 16:36 07/17/23 16:26 07/17/23 15:00 98 Intake and Output 07/17/23 07/18/23 07/18/23 22:59 06:59 14:59 Intake Total 780 Output Total 600 600 Balance 180 -600 Intake: Oral 780 Output: Urine 600 600 Other: # Bowel Movements 1 1 Weight 190.509 kg 190.509 kg General appearance: The patient is alert, oriented, appears in no acute distress. HET: Head is normocephalic and atraumatic. Conjunctiva pink. Sclera anicteric. Neck: Supple without lymphadenopathy. Trachea midline. Heart: Regular. Lungs: Equal expansion, normal respiratory effort. Abdomen: Soft, nontender, nondistended. Morbidly obese. Skin: No rashes. No jaundice. Extremities: Normal skin color and turgor. No pedal edema. Neurological: No focal deficits. Alert and oriented x3. Results CBC & Chem 7: 07/18/23 04:27 07/18/23 04:27 Labs: Abnormal Lab Results - Last 24 Hours (Table) 07/18/23 07/18/23 Range/Units 04:27 04:27 WBC 10.23 H (4.50-10.00) X 10*3/uL RBC 3.46 L (4.40-5.60) X 10*6/uL Hgb 11.0 L (13.0-17.0) g/dL Hct 34.6 L (39.6-50.0) % MCV 100.0 H (80.0-97.0) FL MCHC 31.8 L (32.0-37.0) g/dL RDW 16.8 H (11.5-14.5) % Immature Gran # 0.09 H (0.00-0.04) X 10*3/uL Sodium 131 L (135-145) mmol/L Potassium 3.4 L (3.5-5.5) mmol/L Chloride 93 L (96-109) mmol/L BUN 7.1 L (9.0-27.0) mg/dL BUN/Creatinine Ratio 10.14 L (12.00-20.00) Ratio Calcium 7.5 L (8.7-10.3) mg/dL Comments: HIDA scan completed reporting nonvisualization of the gallbladder up to 20 minutes. Examination is considered nondiagnostic. Patient was refusing raoul tional imaging beyond 20 minutes. Assessment and Plan Assessment: 1. Chronic diarrhea for the last 8 to 9 months. Unclear etiology stool studies ordered. C. difficile colitis negative. Would recommend endoscopic evaluation, this can be done as an outpatient. 2. Nausea and vomiting resolved 3. COPD 4. Morbid obesity Plan: 1. Continue symptomatic and supportive care 2. Diet as tolerated 3. Collect stool studies for C. difficile and stool cultures 4. Can use Imodium 1 to 2 tablets up to 4 times a day as needed for diarrhea 5. If diarrhea improves recommend outpatient EGD and colonoscopy 6. Patient symptoms improved, patient is cleared from gastroenterology for discharge recommend outpatient follow-up in 1 to 2 weeks. Thank you for this consultation. Dr. Jordan Roper I agree with the dictator's note, documented as a scribe by Jeannine Henry.
[2023-07-19 07:15] LABS: Cryptosporidium Antigen Negative (Negative)
--- NOTE | 2023-07-19 12:04 | P.PN ---
Subjective This is a pleasant 58 years old male with past medical history of multiple medical problems including COPD on home oxygen, he is bedridden, last time he was able to walk was last year. He is morbidly obese Patient presents because of worsening nausea vomiting over 3 weeks Patient states that he has a chronic diarrhea about 8 months about 2-3 times per day Over the last 3 weeks he has been dealing with more nausea and vomiting, and with poor appetite, he takes few bites and then he developed nausea and difficult to control with. Therefore he decided to come to the emergency room today. He denies significant abdominal pain but on exam he has mild RUQ tenderness. Patient is fully awake and oriented with no chest pain or dyspnea or coughing. Patient is on chronic oxygen therapy for his COPD He denies smoking alcohol or illicit drugs He notices his urine little bit less but no dysuria He is hemodynamically stable and afebrile He has mild leukocytosis 15,013.6 Hemoglobin 12.4 and 11.7 and sodium 123 went up to 130 His liver enzymes were unremarkable proBNP is 661 Analysis is negative for infection. C. difficile is negative EKG showing sinus rhythm with no significant ST-T changes, 07/19/2023 Patient did not want to go yesterday to rehab because he states that he has very hard time with no transportation to take him to his appointment. Patient is requesting colonoscopy to be done in-house given his persistent symptoms that p reventing him from participating in physical therapy and likely ongoing diarrhea on the top of his large body habitus. Other than that when I walked into the room today he was eating his sandwich. I talked to the patient to be n.p.o. after midnight and he is agreeable I talked to GI team and they are going to do colonoscopy for him tomorrow. Patient is agreeable. Patient's symptoms is stable now and chronic but ongoing and benefits of the procedure outweigh the risks given his multiple medical problems and large body habitus. He denies chest pain or dyspnea Hemodynamically stable Labs and imaging reviewed Objective - Vital Signs Vital signs: Vital Signs Temp 98.1 F 07/19/23 07:17 Pulse 92 07/19/23 11:57 Resp 16 07/19/23 07:17 BP 118/69 07/19/23 07:17 Pulse Ox 95 07/19/23 07:51 FiO2 Intake & Output 07/18/23 07/19/23 07/19/23 18:59 06:59 18:59 Output Total 900 1600 850 Balance -900 1600 -850 Weight 190.509 kg Output: Urine 900 1600 850 Other: Voiding Method External Catheter - Exam -GENERAL: The patient is alert and oriented x3, not in any acute distress. W morbidly obese. HEENT: Pupils are round and equally reacting to light. EOMI. No scleral icterus. No conjunctival pallor. Normocephalic, atraumatic. No pharyngeal erythema. No thyromegaly. CARDIOVASCULAR: S1 and S2 present. No murmurs, rubs, or gallops. PULMONARY: Chest is clear to auscultation, no wheezing , no crackles. ABDOMEN: Soft, nontender, nondistended, normoactive bowel sounds. No palpable organomegaly. MUSCULOSKELETAL: No joint swelling or deformity. EXTREMITIES: No cyanosis, clubbing, or pedal edema. NEUROLOGICAL: Gross neurological examination did not reveal any focal deficits. SKIN: No rashes. no petechiae. - Labs CBC & Chem 7: 07/18/23 04:27 07/18/23 04:27 Assessment and Plan Assessment: Nausea vomiting and diarrhea suspicious for acute gastroenteritis. C. difficile is negative Hypovolemic hyponatremia improvement Mild leukocytosis Right upper quadrant tenderness, mild. Rule out gallstone disease Morbid obesity Obstructive sleep apnea Chronic hypercapnic respiratory failure, related to obstructive sleep apnea and chronic COPD Obstructive sleep apnea and patient states he does not have a CPAP machine at home. History of diabetes mellitus type 2 Hypertension history of DVT History of peripheral neuropathy, maintained on Neurontin History of chronic pain maintained on MS Contin Plan: Continue with normal saline plan for colonoscopy tomorrow keep patient n.p.o. patient on cholestyramine and Imodium Zofran as needed GI consult Check ultrasound of the liver Monitor electrolytes vitals GI prophylaxis Protonix DVT prophylaxis: Lovenox Prognosis is guarded
--- NOTE | 2023-07-19 14:26 | P.PN ---
Subjective Progress Note Date: 07/19/23 Principal diagnosis: Chronic diarrhea This is a pleasant 58-year-old male who is morbidly obese with a history of COPD with use of BiPAP, CVA/TIA, DVT GERD and neuropathy who presented to the emergency department with complaints of ongoing diarrhea for the last 8 to 9 months. States he has also been having some nausea associated with that. States bowel movements are loose he has 3-5 a day they are nonbloody. States he had been seen at [facility] for similar complaints and had some stool studies but no endoscopic evaluation. States he is at [facility] and he was s upposed to follow-up for outpatient colonoscopy however never had scheduled it. He is not been referred to any GI specialist according to patient. He had a stool C. difficile that was negative. Had some mild leukocytosis on admission which has improved, patient was hyponatremic but given some IV fluids with sodium level of 123 now up to 131. Patient states he only had 1 loose stool today. LFTs are all normal. Denies any abdominal pain or vomiting at this time, does have some nausea. He was able to eat some lunch and held everything down. For 1624 Patient seen and examined today as a follow-up. Patient was discharged yesterday however he refused and appealed discharge. He states that he does not feel comfortable going back to medical [place] as he states that they will not take him to any of his appointments. He states he still has diarrhea which this is chronic and ongoing. Had 3 nonbloody episodes of loose bowel movements between yesterday and today. No nausea or vomiting. Tolerating regular diet. Stool C. difficile toxin negative. Stool cultures pending. Objective - Vital Signs Vital signs: Vital Signs Temp 98.1 F 07/19/23 07:17 Pulse 90 07/19/23 08:00 Resp 16 07/19/23 07:17 BP 118/69 07/19/23 07:17 Pulse Ox 95 07/19/23 07:51 FiO2 Intake & Output 07/18/23 07/19/23 07/19/23 18:59 06:59 18:59 Output Total 900 1600 Balance -900 -1600 Weight 190.509 kg Output: Urine 900 1600 Other: Voiding Method External Catheter - Exam General appearance: The patient is alert, oriented, appears in no acute distress. HET: Head is normocephalic and atraumatic. Conjunctiva pink. Sclera anicteric. Neck: Supple without lymphadenopathy. Abdomen: Soft, morbidly obese, nontender, nondistended with bowel sounds. No guarding or rigidity. Extremities: Normal skin color and turgor. No pedal edema Skin: No rashes, no jaundice Neurological: No focal deficits. Alert and oriented. - Labs CBC & Chem 7: 07/18/23 04:27 07/18/23 04:27 Assessment and Plan Assessment: 1. Chronic diarrhea for the last 8 to 9 months. Unclear etiology stool studies ordered. C. difficile colitis negative. Would recommend endoscopic evaluation, this can be done as an outpatient. 2. Nausea and vomiting resolved 3. COPD 4. Morbid obesity Plan: 1. Continue symptomatic and supportive care 2. Diet as tolerated 3. Collect stool studies for C. difficile and stool cultures 4. Hold Imodium and Questran 5. Bowel prep this evening 6. Hold Lovenox tomorrow 7. Plan for EGD and colonoscopy tomorrow 8. Further recommendations forthcoming after endoscopy. Thank you for this consultation. Dr. Jordan Roper I agree with the dictator's note, documented as a scribe by Jeannine Henry.
[2023-07-19] MEDS: PEG 3350 (236 GM/BTL) + LYTES 4,000 ML BOTTLE PO ONE (17:54)
[2023-07-20] MEDS: ZINC OXIDE PASTE (Z-GUARD) 1 APPLIC TOPICAL PRN (03:17)
[2023-07-20] MEDS: LACTATED RINGERS 1,000 ML IV SCH (03:45)
[2023-07-20] MEDS: IPRATROPIUM-ALBUTEROL 3 ML NEB INHALATION PRN (04:46)
[2023-07-20] MEDS: MAGNESIUM CITRATE 296 ML BOTTLE PO ONE (09:26)
[2023-07-20] MEDS: ONDANSETRON 4 MG/2 ML VIAL IVP PRN (09:28)
[2023-07-20 10:41] LABS: Blood Urea Nitrogen 3.9 mg/dL (9.0-27.0); Calcium 7.4 mg/dL (8.7-10.3); Carbon Dioxide 26.2 mmol/L (21.6-31.8); Chloride 100 mmol/L (96-109); Glucose 78 mg/dL (70-110); Potassium 3.4 mmol/L (3.5-5.5); Sodium 136 mmol/L (135-145)
[2023-07-20] MEDS ORDERED: PROPOFOL 10 MG/ML 20 ML VIAL IV ONE (16:38)
[2023-07-20] MEDS: LACTATED RINGERS 1,000 ML IV ONE ×2 (16:41→17:08)
--- NOTE | 2023-07-20 17:06 | P.PCN ---
Date of Procedure: 07/20/23 Procedure(s) Performed: Brief history: Patient is a pleasant 58-year-old white male admitted to hospital with abdominal pain, nausea and chronic diarrhea for the last 8 to 9 months duration. Stool studies were negative. He is scheduled for an upper endoscopy as well as colonoscopy to evaluate further. Procedure performed: Esophagogastroduodenoscopy biopsy Colonoscopy with biopsy Preoperative diagnosis: Abdominal pain/nausea Chronic diarrhea Anesthesia: MAC Procedure: After informed consent was obtained from the patient was brought into the endoscopy unit and IV sedation was administered by anesthesia under continuous monitoring. Initially upper endoscopy was done. The Olympus GF 160 video endoscope was inserted inserted into the mouth and esophagus intubated without any difficulty and was gradually advanced into the stomach and duodenum and carefully examined. The bulb and second part of the duodenum appeared normal. Biopsies were done from the duodenum to evaluate for celiac disease. The scope was then withdrawn into the stomach adequately insufflated with air and upon careful examination the antrum had mild gastritis and biopsies were done from this area. Mucosa of the body, cardia and fundus appeared normal. The scope was then withdrawn into the esophagus. The GE junction was located at 40 cm to the incisors. It appeared regular with no erythema erosions or ulcerations. Rest of the esophagus appeared normal. Patient tolerated the procedure well. At this time the patient continued to remain sedation. Initial digital rectal examination was normal. Olympus CF 160 video colonoscope was then inserted into the rectum and gradually advanced to the cecum without any difficulty. Careful examination was performed as the scope was gradually being withdrawn. The prep was excellent. The cecum, ascending colon, transverse colon, descending colon, sigmoid colon and rectum appeared normal. Biopsies were done from the ascending and descending colon to rule out microscopic/collagenous colitis. Retroflexion was performed in the rectum and no lesions were noted. Patient tolerated the procedure well. Impression: 1. Upper endoscopy revealed mild antral gastritis no evidence of esophagitis or peptic ulcer disease 2. Colonoscopy was within normal limits with no evidence of colitis or colorectal neoplasia Recommendations: Findings of this examination were discussed with the patient . Will await biopsy results. Advance diet as tolerated. Use Imodium as needed for the chronic diarrhea. Follow-up in the office in 2 weeks of following discharge from the hospital
[2023-07-21 07:56] VITALS: RESP 16
--- NOTE | 2023-07-21 12:25 | P.DS ---
Providers Date of admission: 07/16/23 19:24 Attending physician: Delmer Lu Consults: 07/17/23 12:30 Consult Physician Urgent Consulting Provider: Talita Roper Consult Reason/Comments: NVD Do you want consulting provider notified?: Yes Primary care physician: Janine Chavez DO Hospital Course: Diagnoses Nausea vomiting and diarrhea suspicious for acute on chronic gastroenteritis. C. difficile is negative, improved and patient able to tolerate diet. S/p EGD/colonoscopy on 07/19 with results as below Hypovolemic hyponatremia improved Mild leukocytosis, improved Right upper quadrant tenderness, mild. Chronic x 6 months ago. Ultrasound of liver was nondiagnostic because of his body habitus. Patient could not tolerate HIDA scan. Patient can follow-up outpatient Chronic diarrhea for 8 to 9 months, follow-up outpatient. Follow-up with GI service as an outpatient. C. difficile negative and Questran is added Morbid obesity Obstructive sleep apnea Chronic hypercapnic respiratory failure, related to obstructive sleep apnea and chronic COPD Obstructive sleep apnea and patient states he does not have a CPAP machine at home. History of diabetes mellitus type 2 Hypertension history of DVT History of peripheral neuropathy, maintained on Neurontin History of chronic pain maintained on MS Contin Hospital course: This is a pleasant 58 years old male with past medical history of multiple medical problems including COPD on home oxygen, he is bedridden, last time he was able to walk was last year. He is morbidly obese Patient presents because of worsening nausea vomiting over 3 weeks, 1-changed to) discharge I did not see him chest Patient states that he has a chronic diarrhea about 8-9 months about 2-3 times per day. Also patient has been complaining from upper abdominal pain mainly in the right upper abdomen radiating to the middle, mild with mild deep tenderness, no guarding or rebound tenderness. Ultrasound of the liver/gallbladder was nondiagnostic because of body habitus. Patient could not tolerate HIDA scan. Rest of test can be deferred as an outpatient patient could tolerate his oral diet and lunch with no problem, no vomiting. Patient denies any other complaint. No chest pain or dyspnea Plan of care was discussed with the patient and he is agreeable to go to rehab today Patient states that he has some difficulty with transportation, he was instructed to contact his medical insurance provider or social worker clinical as an outpatient and he is agreeable. I discussed the case with GI team they cleared him for discharge with recommendation for outpatient follow-up Problems and management plan were discussed with the patient and he verbalized understanding and acceptance Patient was found stable and can be discharged to his [facility] to finish rehab in guarded prognosis however he needs follow-up as an outpatient. Patient was instructed to follow up with PCP within one week and patient agrees Patient also was instructed with GI service Dr. Roper within 1 to 2 weeks after discharge. Patient can also be referred to general surgery team for his GI symptoms with Dr. Freeman in 1 to 2 weeks and he kamaljit grees For symptom control patient can be put on antiemetic. Imodium did not work for him before therefore Continue with Questran 8 mg Patient evaluated by GI service and he underwent EGD and colonoscopy which were grossly unremarkable as below 1. Upper endoscopy revealed mild antral gastritis no evidence of esophagitis or peptic ulcer disease 2. Colonoscopy was within normal limits with no evidence of colitis or co lorectal neoplasia However patient and ordered both informed biopsy was taken. Patient needs to follow-up with Dr. Roper in 2 weeks for further workup and follow-up with the biopsy results. Risks including cancer inflammatory disease versus other explained for the patient and he verbalized understanding and acceptance pt is on morphine oral , MAPS was checked, prescription is provided , i discussed with the pt to discontinue the ultram and he agree, pt currently with no abdominal pain , has good appetite , has one bowel movement since morning and pt feels he is ready to go back and confirmed to me he will follow up with in two weeks as instructed Physical exam -Gen: patient is a AAOx3, no distress. Morbidly obese. Bedridden CVS: S1-S2, RRR, no murmur Lungs: B/L CTA, no wheezing Abdomen: soft, no distention, no tenderness, positive bowel sounds Extremity: no leg edema or induration Time spent more than 35 minutes Patient Condition at Discharge: Fair Plan - Discharge Summary Discharge Rx Participant: No New Discharge Prescriptions: Continue Budesonide/Formoterol Fumarate [Symbicort 160-4.5 Mcg Inhaler] 2 puff INHALATION RT-BID Magnesium Hydroxide [Milk of Magnesia] 2,400 mg PO Q72H PRN PRN Reason: Constipation Sacubitril/Valsartan [Entresto 24 mg-26 mg Tablet] 1 tab PO BID Pantoprazole Sodium [Protonix] 40 mg PO DAILY Lidocaine 4% Patch 1 patch TRANSDERM DAILY Cholestyramine (with Sugar) [Questran Packet] 8 gm PO BID Naloxone HCl [Narcan] 4 mg NASAL DIRECTED PRN PRN Reason: Opioid Reversal Loperamide HCl [Imodium A-D] 2 mg PO Q8H PRN PRN Reason: Diarrhea Ipratropium-Albuterol Nebulize [Duoneb 0.5 mg-3 mg/3 ml Soln] 3 ml INHALATION RT-Q6H PRN PRN Reason: Shortness Of Breath Or Wheezing Tamsulosin [Flomax] 0.4 mg PO DAILY Dapagliflozin Propanediol [Farxiga] 5 mg PO DAILY tab Metoprolol Succinate (ER) [Toprol XL] 25 mg PO DAILY tab Morphine Sulfate ER [Ms Contin] 30 mg PO Q12H #6 tab Potassium Chloride ER [K-Dur 20] 20 meq PO BID ondansetron HCL [Zofran] 8 mg PO Q8H PRN PRN Reason: Nausea And Vomiting Naloxone [Narcan] 0.4 mg IM DIRECTED PRN PRN Reason: Opioid Reversal Folic Acid 0.4 mg PO DAILY Finasteride [Proscar] 5 mg PO DAILY Cyanocobalamin (Vitamin B-12) [Vitamin B-12] 5,000 mcg PO DAILY Acetaminophen Tab [Tylenol] 650 mg PO Q6H PRN PRN Reason: Fever And/ Or Pain bisacodyL 10 mg RECTAL HS PRN PRN Reason: Constipation traMADol HCL 50 mg PO Q6H PRN #6 tab PRN Reason: Moderate To Severe Pain (4-10) Changed Gabapentin 600 mg PO TID #10 tab Discharge Medication List Budesonide/Formoterol Fumarate [Symbicort 160-4.5 Mcg Inhaler] 2 puff INHALATION RT-BID 05/16/21 [History] Ipratropium-Albuterol Nebulize [Duoneb 0.5 mg-3 mg/3 ml Soln] 3 ml INHALATION RT-Q6H PRN 12/10/22 [History] Magnesium Hydroxide [Milk of Magnesia] 2,400 mg PO Q72H PRN 12/10/22 [History] Tamsulosin [Flomax] 0.4 mg PO DAILY 12/10/22 [History] Dapagliflozin Propanediol [Farxiga] 5 mg PO DAILY tab 12/13/22 [Rx] Metoprolol Succinate (ER) [Toprol XL] 25 mg PO DAILY tab 12/13/22 [Rx] Morphine Sulfate ER [Ms Contin] 30 mg PO Q12H #6 tab 12/13/22 [Rx] Acetaminophen Tab [Tylenol] 650 mg PO Q6H PRN 07/16/23 [History] Cholestyramine (with Sugar) [Questran Packet] 8 gm PO BID 07/16/23 [History] Cyanocobalamin (Vitamin B-12) [Vitamin B-12] 5,000 mcg PO DAILY 07/16/23 [History] Finasteride [Proscar] 5 mg PO DAILY 07/16/23 [History] Folic Acid 0.4 mg PO DAILY 07/16/23 [History] Lidocaine 4% Patch 1 patch TRANSDERM DAILY 07/16/23 [History] Loperamide HCl [Imodium A-D] 2 mg PO Q8H PRN 07/16/23 [History] Naloxone HCl [Narcan] 4 mg NASAL DIRECTED PRN 07/16/23 [History] Naloxone [Narcan] 0.4 mg IM DIRECTED PRN 07/16/23 [History] Pantoprazole Sodium [Protonix] 40 mg PO DAILY 07/16/23 [History] Potassium Chloride ER [K-Dur 20] 20 meq PO BID 07/16/23 [History] Sacubitril/Valsartan [Entresto 24 mg-26 mg Tablet] 1 tab PO BID 07/16/23 [History] bisacodyL 10 mg RECTAL HS PRN 07/16/23 [History] ondansetron HCL [Zofran] 8 mg PO Q8H PRN 07/16/23 [History] Gabapentin 600 mg PO TID #10 tab 07/18/23 [Rx] traMADol HCL 50 mg PO Q6H PRN #6 tab 07/18/23 [Rx] Follow up Appointment(s)/Referral(s): Janine Chavez DO [Primary Care Provider] - 1-2 days Talita Roper MD [STAFF PHYSICIAN] - 2 Weeks (Schedule appointment for chronic diarrhea,) Abida Montoya [NON-STAFF] - As Needed Nate Freeman MD [STAFF PHYSICIAN] - 1 Week Activity/Diet/Wound Care/Special Instructions: low fiber diet activity as tolerated Discharge Disposition: TRANSFER TO SNF/ECF
[2023-07-21 12:50] VITALS: BP 111/65; PULSE 95; TEMP 97.9
[2023-07-21] MEDS: POTASSIUM CHLORIDE ER 20 MEQ TAB.ER PO STA (13:44)
== END 2023-07-21 14:02 | DRG 392 ==
LOC: EC 17:37 → 4SSUR 19:24
PROVIDERS: ADMIT Hospitalist; ATTEND Hospitalist
PROC: 0DBK8ZX Excision of Ascending Colon, Via Natural or Artificial Opening Endoscopic, Diagnostic (ICD-10-PCS; 2023-07-20)
PROC: 0DBM8ZX Excision of Descending Colon, Via Natural or Artificial Opening Endoscopic, Diagnostic (ICD-10-PCS; 2023-07-20)
PROC: 0DB98ZX Excision of Duodenum, Via Natural or Artificial Opening Endoscopic, Diagnostic (ICD-10-PCS; principal; 2023-07-20 15:40)
PROC: 0DB78ZX Excision of Stomach, Pylorus, Via Natural or Artificial Opening Endoscopic, Diagnostic (ICD-10-PCS; 2023-07-20 15:40)
DX: K52.89 Other specified noninfective gastroenteritis and colitis (principal); J96.12 Chronic respiratory failure with hypercapnia; E87.1 Hypo-osmolality and hyponatremia; Z68.43 Body mass index [BMI] 50.0-59.9, adult; E11.42 Type 2 diabetes mellitus with diabetic polyneuropathy; E66.01 Morbid (severe) obesity due to excess calories; J44.9 Chronic obstructive pulmonary disease, unspecified; Z99.81 Dependence on supplemental oxygen; I10 Essential (primary) hypertension; G89.29 Other chronic pain; E86.0 Dehydration; F17.220 Nicotine dependence, chewing tobacco, uncomplicated; E86.1 Hypovolemia; G47.33 Obstructive sleep apnea (adult) (pediatric); Z74.01 Bed confinement status; Z59.82 Transportation insecurity; Z79.891 Long term (current) use of opiate analgesic; Z79.51 Long term (current) use of inhaled steroids; Z79.84 Long term (current) use of oral hypoglycemic drugs; Z79.899 Other long term (current) drug therapy; Z86.718 Personal history of other venous thrombosis and embolism; Z91.041 Radiographic dye allergy status
CPT/HCPCS: 36415; 43239; 45380; 76705; 78226; 80048; 80053; 81003; 83605; 83735; 83880; 84100; 84484; 85025; 85610; 85730; 87045; 87046; 87324; 87328; 87329; 88305; 93005; 94640; 94660; 94760; 96361; 96374; 96375; 99285